=== PATIENT | male | born 1955 | race Caucasian/White ===

== ENCOUNTER 2017-09-30 18:06 | Outpatient (REF) | payer MEDICARE, SELFPAY ==
[2017-09-30 18:56] LABS: Abs Immature Grans 0.06 k/cumm (0.0-0.09); Absolute Lymphocyte Count 1.75 k/cumm (1.2-3.4); Absolute Monocyte Count 0.89 k/cumm (0.11-0.7); Basophils % 0.2; Eosinophils % 2.5; HCT 32.9 % (40.0-50.0); HGB 9.2 g/dL (13.5-17.5); Immature Grans % 0.5; Lymphocytes % 14.4; Mean Corpuscular Hemoglobin 24.3 pg (27.0-33.0); Mean Platelet Volume 10.1 fL (8.0-11.0); Monocytes % 7.3; Neutrophils % 75.1; Platelet Count 324 x1000/uL (130-400); RBC 3.78 m/cumm (4.50-6.00); White Blood Cell Count 12.14 k/cumm (4.4-10.8)
[2017-09-30 19:00] LABS: ALT 30 U/L (12-78); AST 20 U/L (15-37); Albumin 2.4 g/dL (3.4-5.0); Alkaline Phosphatase 114 U/L (46-116); Anion Gap 7.2 mmol/L (3-11); BUN 14 mg/dL (7-18); Bilirubin, Total 0.2 mg/dL (0.2-1.0); CO2 30.8 mmol/L (21.0-32.0); CREATININE 1.22 mg/dL (0.70-1.30); Calcium 8.3 mg/dL (8.5-10.1); Chloride 100 mmol/L (98-107); Creatine Kinase 37 U/L (39-308); Glucose 145 mg/dL (70-100); Potassium 3.9 mmol/L (3.5-5.1); Sodium 138 mmol/L (136-145); Total Protein 6.2 g/dL (6.4-8.2)
[2017-09-30 19:23] LABS: Absolute Basophil Count 0.02 k/cumm (0.0-0.2); Absolute Neutrophil Count 9.12 k/cumm (1.2-6.7)
== END 2017-09-30 18:07 ==
LOC: LBN 18:06
PROVIDERS: PCP Family Medicine; Visit Provider Family Medicine
DX: M24.661 Ankylosis, right knee (principal); Z79.01 Long term (current) use of anticoagulants; D69.2 Other nonthrombocytopenic purpura; E11.9 Type 2 diabetes mellitus without complications; I10 Essential (primary) hypertension; I51.7 Cardiomegaly
CPT/HCPCS: 80053; 82550; 85025; 86140

== ENCOUNTER 2017-10-07 17:11 | Outpatient (REF) | payer MEDICARE, SELFPAY ==
[2017-10-07 17:38] LABS: HCT 36.2 % (40.0-50.0); HGB 10.1 g/dL (13.5-17.5); Mean Corp. HGB Concentration 27.9 g/dL (32.0-36.0); Mean Corpuscular Hemoglobin 24.2 pg (27.0-33.0); Mean Corpuscular Volume 86.8 fL (80-95); Mean Platelet Volume 10.6 fL (8.0-11.0); Platelet Count 282 x1000/uL (130-400); RBC 4.17 m/cumm (4.50-6.00); RBC Distribution Width 16.8 % (11.8-14.1); White Blood Cell Count 11.44 k/cumm (4.4-10.8)
[2017-10-07 17:59] LABS: ALT 30 U/L (12-78); AST 26 U/L (15-37); Albumin 2.6 g/dL (3.4-5.0); Alkaline Phosphatase 111 U/L (46-116); Anion Gap 8.3 mmol/L (3-11); BUN 15 mg/dL (7-18); Bilirubin, Total 0.2 mg/dL (0.2-1.0); C-Reactive Protein 1.78 mg/dL (0.0-0.3); CO2 29.7 mmol/L (21.0-32.0); CREATININE 1.15 mg/dL (0.70-1.30); Calcium 8.6 mg/dL (8.5-10.1); Chloride 98 mmol/L (98-107); Glucose 195 mg/dL (70-100); Potassium 4.2 mmol/L (3.5-5.1); Sodium 136 mmol/L (136-145); Total Protein 6.6 g/dL (6.4-8.2)
== END 2017-10-07 17:12 ==
LOC: LBN 17:11
PROVIDERS: PCP Family Medicine; Visit Provider Family Medicine
DX: D62 Acute posthemorrhagic anemia (principal)
CPT/HCPCS: 80053; 85027; 86140

== ENCOUNTER 2017-10-11 07:13 | Outpatient (RCR) | payer MEDICARE, SELFPAY | END 2017-10-25 | LOC: INF 07:13 | PROVIDERS: PCP Family Medicine; Visit Provider Family Medicine | DX: Z45.2 Encounter for adjustment and management of vascular access device (principal) | CPT/HCPCS: 99211 ==

== ENCOUNTER 2017-10-31 22:47 | Inpatient (IN) | payer MEDICARE, MEDICAID, SELFPAY ==
[2017-10-31] VITALS (16 sets, daily range): BP systolic 106–132; BP diastolic 53–66; PULSE 87–94; RESP 2–30; TEMP 37; O2SAT 86–92
--- NOTE | 2017-10-31 00:30 | DI.RAD_ITS ---
SYMPTOM/DIAGNOSIS: COUGH, SOB AP AND LATERAL CHEST: Comparison is made with 09/09/17. The exam is limited due to patient body habitus. The heart size is within normal limits. There are underlying interstitial changes. No superimposed acute infiltrate or effusion is seen. IMPRESSION: Limited exam due to respiratory motion and patient body habitus. No acute abnormality is visible.
--- NOTE | 2017-10-31 22:55 | W.ED.GENAD ---
Discharge Plan Disposition Patient Disposition: [facility] INPATIENT Condition: Serious Discharge Details Chief Complaint: AMS/LOC Clinical Impression: COPD exacerbation, Non-ST elevation (NSTEMI) myocardial infarction Reason For Visit: SHAAN Primary Care Provider: Allison Muniz ED Provider: Migel Calderon [place] Meds and New Rx's Prescriptions: No Action ferrous sulfate [Iron (ferrous sulfate)] 325 MG tablet 325 mg PO DAILY RF: 0 pantoprazole 40 MG tablet,delayed release (DR/EC) 40 mg PO DAILY@0730 Qty: 30 RF: 3 lisinopril 5 mg Tablet 5 mg PO DAILY RF: 0 furosemide 20 mg Tablet 20 mg PO DAILY RF: 0 gabapentin 100 MG capsule 400 mg PO TID RF: 0 multivit, iron, min no.8, FA [Therapeutic-M] 1 TAB tablet 1 tab PO BID Qty: 30 RF: 3 methadone [Dolophine] 5 MG tablet 10 mg PO Q8H RF: 0 acetaminophen 500 MG tablet 1,000 mg PO DAILY PRNRF: 0 metformin [Glucophage] 1,000 MG tablet 1,000 mg PO BID RF: 0 tiotropium bromide [Spiriva with HandiHaler] 18 MCG capsule, w/inhalation device 18 mcg Inhalation DAILY RF: 0 albuterol sulfate [ProAir RespiClick] 90 MCG aerosol powdr breath activated 2 puffs Inhalation Q4H PRN PRNRF: 0 sucralfate 1 GM tablet 1 gm PO TID RF: 0 Medical Decision Making MDM Narrative Medical decision making narrative: Patient arrives awake and alert stating he no longer feels short of breath. However he has diffuse wheezing and decreased breath sounds. 3 albuterol nebs ordered. Solu-Medrol ordered. EKG was obtained. It is sinus rhythm at a rate of [address] changes noted. Laboratory studies and chest x-ray ordered. Patient vital signs are good although his O2 saturations on 3 L nasal cannula ranged from 88-94 depending on whether he is awake or asleep. Laboratory studies significant for troponin of 1.37. Given his unremarkable EKG and his lack of chest pain I suspect this is related to demand ischemia from his COPD and hypoxia. He does have anemia with hemoglobin 9.5. White count essentially normal at 11. Chemistry significant for creatinine 1.8 which is above baseline. Bicarb a little high at 35 suggesting some CO2 retention. He is awake and alert. He is not in respiratory distress. Repeat lung exam reveals better aeration but continued wheezing. Chest x-ray per radiology preliminary read is negative. I repeated a second EKG which remains in sinus rhythm at 90 without changes from before. Second troponin being drawn now. Will discuss with cardiology at [facility]. Patient's second troponin has gone up slightly to 1.55. Patient continues to be chest pain-free. Case discussed with cardiology, Dr. Aragon, at [facility]. May be that this is demand ischemia but the troponin levels are quite high. Recommend treating for non-STEMI and give aspirin, Plavix, heparin. Trend enzymes and call back to discuss with cardiology after 8:00 in the morning. He may need to go down for catheterization in the afternoon. Case discussed with hospitalist, Dr. Wheeler. We will continue to treat for COPD exacerbation. Will cover with antibiotics especially since there may be a cath later today. He was given IV ceftriaxone and p.o. doxycycline. He is given the aspirin, Plavix, and started on a heparin drip as per cardiology's recommendations. He is anemic but it is a baseline anemia. reports no recent bleeding, surgeries, black stool, bloody stool. Patient will be admitted to the ICU for further management. Medical Records Medical records reviewed: Yes I reviewed the patient's medical records. Lab Data Lab results reviewed: Yes I reviewed the patient's lab results. ECG Data Attestation: I personally reviewed and interpreted this ECG (s) as follows: Prior ECG tracings: not available for review Interpretation: Sinus rhythm at 90 with normal axis and intervals. No acute ST changes. Sinus rhythm again with rate in the 90's and no changes compared to one done earlier tonight. HPI - General Adult General Mode of arrival: EMS. Date/Time Provider Initiated Documentation: 10/31/17 22:51. Information obtained by: patient, EMS and old records reviewed. HPI Narrative: Patient is brought in by ambulance for evaluation of shortness of breath and altered mental status. On EMS arrival sats were in the high 70s low 80s. He was placed on oxygen and given a DuoNeb treatment. He arrives here awake and alert and does not appear altered. He has no complaints other than some shortness of breath, but states he does feel better after the neb treatment. He denies any chest pain, pressure, tightness. He denies any worsening leg swelling. He denies any leg pain. He has no fever that he is aware of. He is a former smoker. Related Data Home Medications Medication Instructions Recorded Confirmed gabapentin 400 mg PO TID 10/12/16 10/31/17 ferrous sulfate [Iron (ferrous 325 mg PO DAILY 11/16/16 10/31/17 sulfate)] methadone [Dolophine] 10 mg PO Q8H 03/15/17 10/31/17 acetaminophen 1,000 mg PO DAILY PRN 09/09/17 10/31/17 albuterol sulfate [Proair 2 puffs INHALATION Q4H PRN PRN 09/09/17 10/31/17 Respiclick] metformin [Glucophage] 1,000 mg PO BID 09/09/17 10/31/17 sucralfate 1 gm PO TID 09/09/17 10/31/17 tiotropium bromide [Spiriva] 18 mcg INHALATION DAILY 09/09/17 10/31/17 furosemide 20 mg PO DAILY 10/31/17 10/31/17 lisinopril 5 mg PO DAILY 10/31/17 10/31/17 Previous Rx's Medication Instructions Recorded pantoprazole 40 mg PO DAILY@0730 #30 09/13/16 multivit, iron, min no.8, FA 1 tab PO BID #30 tab 10/14/16 [Therapeutic-M] Allergies Allergy/AdvReac Type Severity Reaction Status Date / Time Iodinated Contrast- Oral and Allergy Hives Verified 10/31/17 23:02 IV Dye General Stated Complaint: AMS/LOC YVAN: 2 Review of Systems Constitutional Denies chills, Denies fever(s), Denies headache(s) and Denies weakness Eyes Patient Denies change in vision and Denies eye pain ENT Denies otalgia, Denies headache(s), Denies nasal congestion, Denies nasal discharge and Denies sore throat Cardiovascular Denies chest pain, Denies syncope, Denies rapid heart rate, Reports pedal edema, Denies lightheadedness, Denies palpitations and Reports dyspnea Respiratory Reports cough and Reports dyspnea Gastrointestinal Denies abdominal pain, Denies diarrhea, Denies nausea and Denies vomiting Genitourinary Denies hematuria and Denies dysuria Musculoskeletal Denies myalgias, Denies arthralgias and Denies numbness Integumentary/Breasts Denies erythema and Denies rash Neurologic Denies syncope, Denies headache(s), Denies numbness and Denies weakness Endocrine Denies palpitations PFSH Medical History Chronic osteomyelitis (Chronic) Diabetes mellitus (Chronic) HTN (hypertension) (Chronic) CARLOS (obstructive sleep apnea) (Chronic) Social History Smoking/Tobacco Use Status: Former Tobacco Use Surgical History Previous back surgery (Chronic) S/P hernia repair (Chronic) S/P right knee surgery (Chronic) Status post left knee replacement (Chronic) EGD - MAC (09/10/16) Exam Const General: cooperative, comfortable and no acute distress Nutritional Appearance: obese Orientation: alert, awake and oriented x3 HENMT Head: normocephalic and atraumatic Neck Neck: full ROM Resp Effort & Inspection: normal respiratory effort, audible wheezes and no respiratory distress Auscultation: diminished lung sounds and wheezes Cardio Rate: regular rate Rhythm: regular rhythm Heart Sounds: S1 normal and S2 normal Pulses: normal peripheral pulses GI Palpation: soft, no guarding and nontender Skin Lesions: no lesions Rashes: no rashes Neuro General: alert, oriented x3, moves all extremities, no focal motor deficits and CN's II-XI intact bilaterally Extrem General: no calf tenderness bilaterally and pedal edema Right lower extremity: knee Details: abnormal to inspection, swelling and abnormal ROM; no unusual warmth Course Vital Signs Temperature 98.6 F 10/31/17 22:48 Pulse 93 H 10/31/17 22:48 Respiratory Rate 10/31/17 22:48 Blood Pressure 124/66 10/31/17 22:48 Pulse Oximetry 86 L 10/31/17 22:48 Temperature 98.6 F 10/31/17 22:48 Pulse 93 H 10/31/17 22:48 Respiratory Rate 18 10/31/17 22:48 Blood Pressure 124/66 10/31/17 22:48 Pulse Oximetry 86 L 10/31/17 22:48 Critical Care Time Critical Care Time: Yes Total Critical Care Time: 60
[2017-10-31 23:15] LABS: Absolute Basophil Count 0.02 k/cumm (0.0-0.2); Basophils % 0.2
[2017-10-31] MEDS: Albuterol 2.5 MG/3 ML INH SOLN VIAL UPD (23:22)
[2017-10-31] MEDS: methylPREDNISolone SUCC 125 MG VIAL IVP (23:23)
[2017-10-31 23:47] LABS: Abs Immature Grans 0.06 k/cumm (0.0-0.09); Absolute Lymphocyte Count 1.18 k/cumm (1.2-3.4); Absolute Monocyte Count 0.76 k/cumm (0.11-0.7); HCT 34.8 % (40.0-50.0); HGB 9.5 g/dL (13.5-17.5); Immature Grans % 0.5; Lymphocytes % 10.5; Mean Corp. HGB Concentration 27.3 g/dL (32.0-36.0); Mean Corpuscular Hemoglobin 24.5 pg (27.0-33.0); Mean Corpuscular Volume 89.7 fL (80-95); Monocytes % 6.8; Platelet Count 270 x1000/uL (130-400); RBC 3.88 m/cumm (4.50-6.00); RBC Distribution Width 17.7 % (11.8-14.1); White Blood Cell Count 11.22 k/cumm (4.4-10.8)
[2017-10-31 23:49] LABS: Hypochromasia 2+; Polychromasia Present
[2017-11-01] VITALS (101 sets, daily range): BP systolic 97–161; BP diastolic 50–116; PULSE 62–131; RESP 4–26; TEMP 36.2–37; O2SAT 84–98
[2017-11-01 00:02] LABS: ALT 18 U/L (12-78); AST 18 U/L (15-37); Albumin 2.1 g/dL (3.4-5.0); Alkaline Phosphatase 94 U/L (46-116); Anion Gap 0 mmol/L (3-11); BUN 23 mg/dL (7-18); Bilirubin, Total 0.3 mg/dL (0.2-1.0); CREATININE 1.76 mg/dL (0.70-1.30); Calcium 7.7 mg/dL (8.5-10.1); Chloride 97 mmol/L (98-107); Glucose 225 mg/dL (70-100); Magnesium 1.9 mg/dL (1.8-2.4); Potassium 4.8 mmol/L (3.5-5.1); Sodium 132 mmol/L (136-145); Total Protein 6.2 g/dL (6.4-8.2)
[2017-11-01 00:04] LABS: Troponin I 1.37 ng/mL (0.00-0.06)
--- NOTE | 2017-11-01 01:04 | DI.VRAD_ITS ---
EXAM: XR Chest, 2 Views CLINICAL HISTORY: 62 years old, male; Signs and symptoms; Cough and shortness of breath; Patient HX: Cough, SOB TECHNIQUE: Frontal and lateral views of the chest. COMPARISON: CR - PORTABLE CHEST ONE VIEW 09/09/2017 10:14 AM FINDINGS: Limitations: Limited from body habitus. Lungs: Unremarkable. No consolidation. Pleural space: Unremarkable. No pneumothorax. Heart: Unremarkable. No cardiomegaly. Mediastinum: Unremarkable. Bones/joints: Unremarkable. IMPRESSION: No acute findings. Dictated and Authenticated by: Jean Pierre Hamm MD. Ordering:TESSA CONWAY MD
[2017-11-01 01:46] LABS: Troponin I 1.55 ng/mL (0.00-0.06)
[2017-11-01] MEDS: Aspirin 81 MG CHEW 324 MG CH (02:47)
[2017-11-01] MEDS: Clopidogrel 300 MG TAB PO (02:48)
[2017-11-01] MEDS: Doxycycline Hyclate 100 MG CAP PO (02:50)
[2017-11-01 02:55] LABS: INR 0.9 (1.0-3.5); PTT Activated 22.8 sec (21.0-31.4); Prothrombin Time 9.1 sec (9.3-10.8)
[2017-11-01] MEDS: Lactated Ringers 1,000 ML 100 ML IV (03:26)
[2017-11-01] MEDS: Methadone 5 MG TAB 10 MG PO ×3 (04:33→20:00)
[2017-11-01] MEDS: Albuterol/Ipratropium 3 ML UPD VIAL UPD ×4 (04:36→21:42)
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
--- NOTE | 2017-11-01 07:24 | DI.US_ITS ---
SYMPTOMS/DIAGNOSIS: LEG PAIN BILATERAL LOWER EXTREMITY ULTRASOUND: Edema is noted in the right calf. There is enlarged right groin lymph node, consistent with a reactive lymph node. There is limited visualization of the mid to distal femoral veins bilaterally due to patient body habitus. No deep venous thrombosis or superficial thrombophlebitis is seen. There is no evidence of wen's cyst. IMPRESSION: Right calf edema. No evidence of DVT.
[2017-11-01 07:32] LABS: INR 0.9 (1.0-3.5); Prothrombin Time 9.2 sec (9.3-10.8)
[2017-11-01 07:40] LABS: ALT 21 U/L (12-78); AST 24 U/L (15-37); Albumin 2.2 g/dL (3.4-5.0); Alkaline Phosphatase 99 U/L (46-116); Anion Gap 3.2 mmol/L (3-11); BUN 26 mg/dL (7-18); Bilirubin, Total 0.3 mg/dL (0.2-1.0); CO2 31.8 mmol/L (21.0-32.0); CREATININE 1.76 mg/dL (0.70-1.30); Chloride 97 mmol/L (98-107); Cholesterol 242 mg/dL (50-200); Glucose 322 mg/dL (70-100); HDL Cholesterol 51 mg/dL (40-60); Hemoglobin A1C 7.1 % (4.5-6.2); LDL CHOLESTEROL 178 mg/dL (<100); Sodium 132 mmol/L (136-145); Total Protein 6.7 g/dL (6.4-8.2); Triglyceride 169 mg/dL (30-150)
[2017-11-01 07:50] LABS: Potassium 6.3 mmol/L (3.5-5.1)
[2017-11-01 07:51] LABS: Troponin I 1.98 ng/mL (0.00-0.06)
--- NOTE | 2017-11-01 07:59 | PDOC.CMIN ---
- If Service Date Differs Date of service: 11/01/17 Time of Service: 07:59 Care Management Initial Assess REASON FOR HOSPITALIZATION:: NSTEMI PAST MEDICAL HISTORY/PAST SURGICAL HISTORY:: DM, HTN, chronic back pain, memory deficit, bilat knee surgery PREVIOUS FUNCTIONAL STATUS/SOCIAL/FAMILY SUPPORTS:: Piyush and his spouse Olga live in [place] in a home that they rent. Their daughter and three children also live in the home. Olga proivded support to [employer] she does the driving and meal preperation. Piyush is disabled related to his multiple knee surgeries and chronic pain. Piyush was recently at [facility] and was discharged on the 11 of October. He was admitted there after having a procedure on his knee for short term rehab. CURRENT FUNCTIONAL STATUS:: Piyush is sitting up in the bed he is alert, complains of hunger he is NPO for potential [place] [facility] He would like to return to [facility] for continued short term rehab stay post knee surgery. CM contacted facility and left a vocemail for admission director. ADVANCE DIRECTIVES:: None on file Has patient been provided with information about the portal?: Yes Did the patient sign up for the portal?: No INSURANCE COVERAGE / FINANCIAL ISSUES:: Medicare CURRENT HOME/COMMUNITY SERVICES/EQUIPMENT:: CPAP at home through [employer] he states he does not use it. The mask makes him feel claustrophobic. He has not requested a new mask through [facility] his states she is planning on returning it. Piyush reports he has a FWW and cane at home. PRIMARY CARE PHYSICIAN:: POTENTIAL DISCHARGE NEEDS:: Primary care follow up scheduled prior to discharge. PATIENT/FAMILY EDUCATION NEEDS:: Discharge education, limitations and follow up plan of care, ask me three discussion and self management. ANTICIPATED BARRIERS TO DISCHARGE:: None identified. TRANSPORTATION:: Via private car with spouse. PLAN:: Piyush is being treated for COPD, his troponins are elevated, he is on a heparin drip and now has a rios cath. Potential for transfer [place] [facility] pending follow up labs and trending troponin. Spouse and patient would like to return to [facility] for ongoing short stay for rehab realted to knee surgery and acute on chronic illness. CM contacted and left a voicemail for admissions. 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 CM to continue to provide support to pt, family and care team ongoing discharge planning and disposition. Readmission - Within the Past 30 Days Yes or No: N
[2017-11-01] MEDS: Pantoprazole 40 MG TABCR PO (08:11)
[2017-11-01] MEDS: Aspirin E.C. 81 MG TABEC PO (08:11)
[2017-11-01] MEDS: Gabapentin 400 MG CAP PO ×3 (08:11→20:00)
[2017-11-01] MEDS: Clopidogrel 75 MG TAB PO (08:11)
[2017-11-01] MEDS: Multivitamin w/Minerals TAB 1 TAB PO ×2 (08:12→20:01)
[2017-11-01] MEDS: Sucralfate 1 GM TAB PO ×3 (08:12→20:01)
[2017-11-01] MEDS: Insulin Aspart 300 UNITS/3 ML PEN SC ×5 (08:15→17:43)
--- NOTE | 2017-11-01 08:28 | INITIAL_ITS ---
- If Service Date Differs Date of service: 11/01/17 Time of Service: 07:59 Care Management Initial Assess REASON FOR HOSPITALIZATION:: NSTEMI PAST MEDICAL HISTORY/PAST SURGICAL HISTORY:: DM, HTN, chronic back pain, memory deficit, bilat knee surgery PREVIOUS FUNCTIONAL STATUS/SOCIAL/FAMILY SUPPORTS:: Piyush and his spouse Olga live in [facility] in a home that they rent. Their daughter and three children also live in the home. Olga proivded support to Windy she does the driving and meal preperation. Piyush is disabled related to his multiple knee surgeries and chronic pain. Piyush was recently at [facility] and was discharged on the 11 of October. He was admitted there after having a procedure on his knee for short term rehab. CURRENT FUNCTIONAL STATUS:: Piyush is sitting up in the bed he is alert, complains of hunger he is NPO for potential [place] [facility] He would like to return to [facility] for continued short term rehab stay post knee surgery. CM contacted facility and left a vocemail for admission director. ADVANCE DIRECTIVES:: None on file Has patient been provided with information about the portal?: Yes Did the patient sign up for the portal?: No INSURANCE COVERAGE / FINANCIAL ISSUES:: Medicare CURRENT HOME/COMMUNITY SERVICES/EQUIPMENT:: CPAP at home through [employer] he states he does not use it. The mask makes him feel claustrophobic. He has not requested a new mask through [facility] his states she is planning on returning it. Piyush reports he has a FWW and cane at home. PRIMARY CARE PHYSICIAN:: POTENTIAL DISCHARGE NEEDS:: Primary care follow up scheduled prior to discharge. PATIENT/FAMILY EDUCATION NEEDS:: Discharge education, limitations and follow up plan of care, ask me three discussion and self management. ANTICIPATED BARRIERS TO DISCHARGE:: None identified. TRANSPORTATION:: Via private car with spouse. PLAN:: Piyush is being treated for COPD, his troponins are elevated, he is on a heparin drip and now has a rios cath. Potential for transfer [place] [facility] [place] follow up labs and trending troponin. Spouse and patient would like to return to [facility] for ongoing short stay for rehab realted to knee surgery and acute on chronic illness. CM contacted and left a voicemail for admissions. 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 CM to continue to provide support to pt, family and care team ongoing discharge planning and disposition. Readmission - Within the Past 30 Days Yes or No: N
[2017-11-01 08:53] LABS: Abs Immature Grans 0.04 k/cumm (0.0-0.09); Absolute Basophil Count 0.01 k/cumm (0.0-0.2); Absolute Lymphocyte Count 0.47 k/cumm (1.2-3.4); Absolute Monocyte Count 0.12 k/cumm (0.11-0.7); Basophils % 0.1; HCT 36.7 % (40.0-50.0); HGB 10.1 g/dL (13.5-17.5); Immature Grans % 0.4; Lymphocytes % 4.5; Mean Corp. HGB Concentration 27.5 g/dL (32.0-36.0); Mean Corpuscular Hemoglobin 23.9 pg (27.0-33.0); Mean Corpuscular Volume 86.8 fL (80-95); Monocytes % 1.2; Neutrophils % 93.8; Platelet Count 261 x1000/uL (130-400); RBC 4.23 m/cumm (4.50-6.00); RBC Distribution Width 17.7 % (11.8-14.1); White Blood Cell Count 10.34 k/cumm (4.4-10.8)
[2017-11-01 09:13] LABS: Iron 21 ug/dL (50-175); Total Iron Binding Capacity 405 ug/dL (250-450); Transferrin Sat 5 % (20-55)
[2017-11-01 09:27] LABS: Ferritin 28 ng/mL (8-388)
[2017-11-01] MEDS: methylPREDNISolone SUCC 125 MG VIAL 60 MG IVP ×2 (09:28→16:24)
[2017-11-01] MEDS: Normal Saline 1,000 ML 75 ML IV (09:29)
[2017-11-01] MEDS: Metoprolol 12.5 MG TAB 6.25 MG PO ×2 (09:35→20:00)
[2017-11-01 09:36] LABS: Folate 9.9 ng/mL (8.6-20.0); TSH 4.33 uIU/mL (0.358-3.74)
[2017-11-01 09:48] LABS: Vitamin B12 425 pg/mL (193-986)
[2017-11-01] MEDS: Normal Saline Flush 10 ML SYR IVP (09:54)
[2017-11-01 10:24] LABS: PTT Activated 22.9 sec (21.0-31.4)
--- NOTE | 2017-11-01 10:44 | MERGE_ITS ---
*[facility]* *[facility]* [address] [place] [address] Date of study: 11/01/2017 Transthoracic Echocardiography M-mode, complete 2D, complete spectral Doppler, and color Doppler *STUDY CONCLUSIONS* Summary: 1. Procedure narrative: Image quality was suboptimal due to body habitus and poor echo windows. Intravenous contrast (Definity) was administered, however, despite this suboptimal imaging of LV for accurate assessment. 2. Left ventricle: The cavity size was normal. Wall thickness was normal. Systolic function was normal. The estimated ejection fraction was 55-60%. Although no diagnostic regional wall motion abnormality was identified, this possibility cannot be completely excluded on the basis of this study. 3. Right ventricle: The cavity size was normal. Systolic function was normal. *PATIENT PRESENTATION* Height: 152.4cm ((60in) ) S/D Pressure: 139 / 96 Weight: 158.8kg ((349.3lb) ) BSA: 2.72m^2 PERFORMING Unknown PERFORMING [facility] REFERRING Sony Wheeler MANAGER HOME IMPROVEMENT Sherry Gamino *PROCEDURE DATA* Procedure information: This study was interpreted by [facility]. Pertinent images and digital data are archived for permanent storage and are available for subsequent review. Comparison was made to the study of 01/07/2017. Study status: STAT. Transthoracic echocardiography. M-mode, complete 2D, complete spectral Doppler, and color Doppler. A Transthoracic Echocardiogram was performed. Scanning was performed from the parasternal, apical, subcostal, and suprasternal notch acoustic windows. Images were obtained using an [id number] cardiac ultrasound machine. Image quality was suboptimal. Intravenous contrast (Definity) was administered by [employer] [facility] to enhance delineation of left ventricular endocardial borders. Prior to administration at least two (2) contiguous segments of the left ventricular border were not visualized. Study completion: The patient tolerated the procedure well. There were no complications. *CARDIAC ANATOMY* Left ventricle: Poorly visualized. The cavity size was normal. Wall thickness was normal. Systolic function was normal. The estimated ejection fraction was 55-60%. Although no diagnostic regional wall motion abnormality was identified, this possibility cannot be completely excluded on the basis of this study. Aortic valve: Poorly visualized. Probably trileaflet; normal thickness leaflets. Mobility was not restricted. Doppler: Transvalvular velocity was within the normal range. There was no stenosis. There was no significant regurgitation. VTI ratio of LVOT to aortic valve: 0.79. Peak velocity ratio of LVOT to aortic valve: 0.62. Mean velocity ratio of LVOT to aortic valve: 0.69. Mean gradient (S): 3.1mm Hg. Peak gradient (S): 8.3mm Hg. Aorta: Aortic root: The aortic root was normal in size. Mitral valve: Poorly visualized. Structurally normal valve. Mobility was not restricted. Doppler: Transvalvular velocity was within the normal range. There was no evidence for stenosis. There was mild regurgitation. Valve area by pressure half-time: 3.7cm^2. Indexed valve area by pressure half-time: 1.4cm^2/m^2. Peak gradient (D): 3.2mm Hg. Left atrium: Not visualized. Right ventricle: Not well visualized. The cavity size was normal. Systolic function was normal. Pulmonic valve: Poorly visualized. Doppler: Transvalvular velocity was within the normal range. There was no evidence for stenosis. There was no significant regurgitation. Tricuspid valve: Poorly visualized. Structurally normal valve. Doppler: Transvalvular velocity was within the normal range. There was no evidence for stenosis. There was no significant regurgitation. Pulmonary artery: Poorly visualized. Systolic pressure could not be accurately estimated. Right atrium: Not visualized. Pericardium: There was no pericardial effusion. Systemic veins: Inferior vena cava: The vessel was normal in size. Measurements LVOT Value 01/07/2017 Reference LVOT peak velocity, S 0.89 m/sec 1.16 --------- LVOT mean velocity, S 0.58 m/sec --------- LVOT VTI, S 17.2 cm 23.3 --------- LVOT peak gradient, S 3.2 mm Hg 5.4 --------- LVOT mean gradient, S 1.6 mm Hg 2.8 --------- Aortic valve Value 01/07/2017 Reference Aortic valve peak velocity, S 1.4 m/sec 1.5 --------- Aortic valve mean velocity, S 0.84 m/sec 0.01 --------- Aortic valve VTI, S 21.9 cm --------- Aortic mean gradient, S 3.1 mm Hg 5.3 --------- Aortic peak gradient, S 8.3 mm Hg --------- VTI ratio, LVOT/AV 0.79 0.74 --------- Velocity ratio, peak, LVOT/AV 0.62 0.76 --------- Velocity ratio, mean, LVOT/AV 0.69 --------- Mitral valve Value 01/07/2017 Reference Mitral E-wave peak velocity 0.9 m/sec 0.77 --------- Mitral A-wave peak velocity 0.81 m/sec 0.69 --------- Mitral deceleration time 203 ms 235 150 - 230 Mitral pressure half-time 59 ms 68 --------- Mitral peak gradient, D 3.2 mm Hg 2.4 --------- Mitral E/A ratio, peak 1.1 1.12 --------- Mitral valve area, PHT, DP 3.7 cm^2 3.2 --------- Legend: (L) and (H) husam values outside specified reference range. I have personally reviewed the images and have reviewed and edited the reported findings. Electronically signed by Elizabeth Kingsley 11/01/2017 11:20
[2017-11-01] MEDS: Lidocaine 2% Jelly 11 ML SYR UR (10:53)
[2017-11-01 10:54] LABS: BE 7.6 mmol/L (-3-3); HCO3 32 mmol/L (22-28); pCO2 50 mmHg (34-47); pH 7.42 (7.35-7.45); pO2 66 mmHg (83-108); sO2 94 % (94-98); tCO2 30 mmol/L (22-29)
[2017-11-01 10:55] LABS: FIO2 NASAL CANNULA %; FIO2L 5 L; Site Right Radial
--- NOTE | 2017-11-01 11:10 | PHARADMIT ---
Addendum entered by Shawn Ordaz III 11/05/17 15:07: Pharmacy Note Subjective MD notes that Patient is feeling better Objective BP-165/60 K+3.8 SCr-1.44 WBC-11.18 (UP) BM yesterday Assessment Steroid to PO Prednisone, Doxycycline to PO, Rocephin-dc'd BP-meds restarted from HOLD. Iron/Vit-C dc'd, Plan Thought was for him to tranfer to [facility] or directly back to [facility] today. Original Note: Addendum entered by Olivia Crisostomo 11/04/17 16:24: Pharmacy Note Subjective renal ultrasound today Objective BP-151/59 other VS okay SCr-1.48(down) FSBG-381 weight-166.8(up) Assessment amlodipine and metoprolol doses increased, isosorbide mononitrate started, methylprednisolone dose decreased, sodium polystyrene discontinued doxycycline and ceftriaxone continue lisinopril and furosemide still on hold Plan continue to watch VS, labs and for med changes Original Note: Addendum entered by Shawn Ordaz III 11/03/17 10:35: Pharmacy Note Subjective Remains afebrile, continue present care. Objective VS-OK K+5.7 Na-134 SCr-1.63 H&H,Plts,WBC-OK Wgt-163.3 kg (up) BM yesterday Assessment KXL8 continues, Rocephin,Docycyline IV continues. Plan Will probablyu go [place] [facility] [place] from [facility] Original Note: Addendum entered by Shawn Ordaz III 11/02/17 10:40: Pharmacy Note Subjective Afebrile, continue cardiac care. NSTEMI with Hypoxia frrom COPD Exacerbation. Afebrile Objective VS-OK K+6.3 Na-133 SCr-1.68 H&H-9.1/34.1, WBC-7.93 Plts OK Assessment Receiving KXL8, Heparin drip,Plavix,ASA continue. On Rocephin (bronchitis and IV Doxycycline ( suppression therapy for osteoof the knee) Plan Plan is for discharge to SNF ([facility]) when medically cleared. Original Note: Admission Pharmacy Clinical Review NSTEMI, COPD exacerbation. bronchitis Code Status Full Code Current Weight Wgt- 159 kg Renally Cleared and Narrow Therapeutic Index Meds CrCl~47 mL/min Meds-OK QTc Value / Action Taken Program na BP Control, Fever BP- 139/96 Tmax- 37C Electrolytes reviewed Na- 132 K+6.3 Mag- 1.9 DVT Prophylaxis Heparin IV, Plavix, ASA, Opiate Usage / Scheduled Bowel Regimen Ordered Yes Yes Plt/SCr for Heparin / Enoxaparin Plts- 261 SCr-1.76 INR for Warfarin INR-0.9 H/H stable, WBC/Bands H&H- 10.1/36.7 WBC- 10.34 Antibiotic appropriateness Rocephin, Doxycycline IV Cultures and Sensitivities NONE Surgical ABX d/c within 24 hr NA DM control / Insulin Dosing BG- 322, ASpart, Glargine GyL7p-3.1 Heart Failure (Check EF%) (MARIAA's, B-Block, Diuretics) Lasix, Lisinopril, NTG, Lopressor IV to PO Switch No Home Meds Reviewed Yes Home Meds Not Ordered Iron, Metformin, Spiriva Comments Troponin- 1.37 ^ 1.55 ^ 1.98
[2017-11-01 13:16] LABS: BUN 30 mg/dL (7-18); CREATININE 1.73 mg/dL (0.70-1.30); Calcium 8.5 mg/dL (8.5-10.1); Chloride 98 mmol/L (98-107); Estimated GFR 40.49 (mL/min/1.73m2); Glucose 241 mg/dL (70-100); Potassium 5.4 mmol/L (3.5-5.1); Sodium 133 mmol/L (136-145)
[2017-11-01 13:25] LABS: Troponin I 1.41 ng/mL (0.00-0.06)
[2017-11-01] MEDS: DOXYCYCLINE 100 MG in Normal Saline 100 ML IVPB (14:53)
[2017-11-01 18:00] LABS: PTT Activated 23.8 sec (21.0-31.4)
[2017-11-01] MEDS: Atorvastatin 40 MG TAB PO (20:01)
[2017-11-01] MEDS: Insulin Glargine 300 UNITS/3 ML PEN 15 UNITS SC (21:43)
[2017-11-02] VITALS (25 sets, daily range): BP systolic 116–156; BP diastolic 54–100; PULSE 63–94; RESP 1–16; TEMP 35.8–37; O2SAT 75–96
[2017-11-02] MEDS: methylPREDNISolone SUCC 125 MG VIAL 60 MG IVP ×3 (00:41→16:16)
[2017-11-02] MEDS: Normal Saline 1,000 ML 75 ML IV ×2 (00:41→14:28)
[2017-11-02 02:40] LABS: PTT Activated 29.7 sec (21.0-31.4)
[2017-11-02] MEDS: DOXYCYCLINE 100 MG in Normal Saline 100 ML IVPB ×2 (02:53→14:30)
[2017-11-02] MEDS: Methadone 5 MG TAB 10 MG PO ×3 (03:42→21:10)
[2017-11-02] MEDS: Normal Saline Flush 10 ML SYR IVP ×2 (03:42→16:16)
[2017-11-02 07:12] LABS: HCT 34.1 % (40.0-50.0); HGB 9.1 g/dL (13.5-17.5); Mean Corp. HGB Concentration 26.7 g/dL (32.0-36.0); Mean Corpuscular Hemoglobin 23.9 pg (27.0-33.0); Mean Corpuscular Volume 89.7 fL (80-95); Mean Platelet Volume 10.5 fL (8.0-11.0); Platelet Count 261 x1000/uL (130-400); RBC Distribution Width 17.4 % (11.8-14.1); White Blood Cell Count 7.93 k/cumm (4.4-10.8)
[2017-11-02 07:24] LABS: Anion Gap 1.8 mmol/L (3-11); BUN 36 mg/dL (7-18); CO2 33.2 mmol/L (21.0-32.0); CREATININE 1.68 mg/dL (0.70-1.30); Calcium 8.3 mg/dL (8.5-10.1); Chloride 98 mmol/L (98-107); Estimated GFR 41.89 (mL/min/1.73m2); Glucose 316 mg/dL (70-100); Sodium 133 mmol/L (136-145)
[2017-11-02 07:28] LABS: Potassium 6.3 mmol/L (3.5-5.1)
[2017-11-02] MEDS: Sucralfate 1 GM TAB PO ×3 (08:07→21:11)
[2017-11-02] MEDS: Multivitamin w/Minerals TAB 1 TAB PO ×2 (08:07→21:11)
[2017-11-02] MEDS: Metoprolol 12.5 MG TAB 6.25 MG PO ×2 (08:07→21:10)
[2017-11-02] MEDS: Aspirin E.C. 81 MG TABEC PO (08:07)
[2017-11-02] MEDS: Clopidogrel 75 MG TAB PO (08:07)
[2017-11-02] MEDS: Pantoprazole 40 MG TABCR PO (08:08)
[2017-11-02] MEDS: Insulin Aspart 300 UNITS/3 ML PEN SC ×6 (08:08→17:07)
[2017-11-02] MEDS: Gabapentin 400 MG CAP PO ×3 (08:08→21:10)
--- NOTE | 2017-11-02 08:32 | PDOC.CMPRO ---
- If Service Date Differs Date of service: 11/02/17 Time of Service: 08:32 Care Management Progress Note S/O: Piyush is asleep when CM enters the room. CM reviewed the current plan with primary nurse in the ICU. Anticpate no change in status today. Piyush remains on 4 liters of oxygen, per report he refused the BIPAP. Plan will be for Piyush to be discharged to a SNF for short term rehab prior to returning home with his spouse. A: 62 year old male admitted with NSTEMI in the setting of acute COPD exacerbation. He was discharged from [facility] on 10/11/17. Piyush is being treated with IV antibiotics, steroids and Heparin gtt. P:Piyush is being treated for COPD, he remains in the ICU. Anticipate no change in status today. 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 Piyush would like a referral to [facility]. CM faxed the referral to admission director at [facility] per request. CM to continue to provide support to pt, family and care team ongoing discharge planning and disposition.
--- NOTE | 2017-11-02 08:39 | CMPROGNOTE_ITS ---
- If Service Date Differs Date of service: 11/02/17 Time of Service: 08:32 Care Management Progress Note S/O: Piyush is asleep when CM enters the room. CM reviewed the current plan with primary nurse in the ICU. Anticpate no change in status today. Piyush remains on 4 liters of oxygen, per report he refused the BIPAP. Plan will be for Piyush to be discharged to a SNF for short term rehab prior to returning home with his spouse. A: 62 year old male admitted with NSTEMI in the setting of acute COPD exacerbation. He was discharged from [facility] on 10/11/17. Piyush is being treated with IV antibiotics, steroids and Heparin gtt. P:Piyush is being treated for COPD, he remains in the ICU. Anticipate no change in status today. 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 Piyush would like a referral to [facility]. CM faxed the referral to admission director at [facility] per request. CM to continue to provide support to pt, family and care team ongoing discharge planning and disposition.
[2017-11-02 09:41] LABS: PTT Activated 34.3 sec (21.0-31.4)
--- NOTE | 2017-11-02 10:14 | W.PM.PROGNOT ---
Date of service: 11/02/17 Time of Service: 10:15 Assessment and Plan (1) Non-ST elevation myocardial infarction (NSTEMI): Current visit: Yes Status: Acute NSTEMI in setting of Hypoxia secondary to presumed acute exacerbation of Chronic Obstructive Pulmonary Disease. Patient remains afebrile with maximized cardiac regimen. Will continue Plavix and aspirin, along with Heparin drip for a planned 48 hour course. Continue initiated BB and titrate as needed. Also on high potency statin and MARIAA-I. Troponin downtrended. ECHO obtained but with official result still pending. Plan will be to discuss with cardiology regarding need for LHC once stable from a pulmonary standpoint. Currently remains asymptomatic. Continue telemetry. (2) COPD exacerbation: Current visit: Yes Status: Acute Continue IV steroids and scheduled nebs. Also on ceftriaxone (Also remains on doxy for antibiotic suppression therapy - history of chronic osteo of the knee joint). Continue supplemental oxygen to maintain good saturation level given NSTEMI. (3) Acute kidney injury (nontraumatic): Current visit: Yes Status: Acute Creatinine stable and essentially unchanged. MARIAA-I and Lasix currently on hold. For now continue gentle IV fluid hydration and monitor labs closely. Initiate Kayexalate for hyperkalemia. Consider renal ultrasound if not improving. Avoid nephrotoxins and renally dose medications. (4) Iron deficiency anemia: Current visit: Yes Status: Chronic Normal Vitamin B12/Folic Acid, and minimally elevated TSH in setting of acute illness. Iron and Ferritin are both low, with a high normal TIBC. Initiate oral iron supplements with vitamin C. Continue PPI and sucralfate. Monitor Hgb closely and for any signs of GI bleeding particularly since he has been started on DAPT and heparin. (5) Hypertension: Current visit: Yes Status: Chronic Holding MARIAA-I. Started BB therapy. Will initiate CCB given need for improved blood pressure control. (6) Mixed sleep apnea: Current visit: Yes Status: Chronic Refusing BIPAP. Apparently he had been on BiPAP at home but refused to use it due to claustrophobia related to use of the mask. (7) Type 2 diabetes mellitus: Current visit: Yes Status: Chronic Continue to hold metformin. Continue lantus and ISS, ADA diet. (8) DVT prophylaxis: Current visit: Yes Status: Acute Currently on Heparin gtt. Subjective Interval history since last seen: 63-year-old male with a PMHx significant for HTN, DM, COPD, CARLOS, and chronic osteomyelitis of his right knee admitted from [facility] ED with apparent COPD exacerbation and NSTEMI. Mr. Heard was noted initially by EMS to be hypoxic with a saturation in the 70-80's. There was also reports of some mild altered mental status. The patient reported an approximate 1 day course of feeling ill, with increased cough and sputum production without fevers or rigors. Further work-up in the emergency room included an EKG that demonstrated no acute ST or T-wave changes. chest 2 Views that demonstrate COPD but no acute infiltrates and no CHF, and labs studies that were remarkable for a chronic anemia, mildly elevated WBC count, and a creatinine that was above his baseline. Furthermore troponin level was elevated at 1.37 with a repeat level came back at 1.55. Discussion by ED attending with [facility] [place] with likely NSTEMI in setting of hypoxia driven demand ischemia. The patient is asymptomatic from a cardiac standpoint. His troponin downtrended yesterday. He remains on a heparin drip. He also reports improvement from a breathing standpoint, but continues to have wheezing. No other events reported. Currently afebrile. Exam Const General: cooperative, comfortable and no acute distress Nutritional Appearance: obese Orientation: alert, awake and oriented x3 Neck Neck: supple Resp Effort & Inspection: normal respiratory effort, able to speak in complete sentences and no respiratory distress Auscultation: diminished lung sounds and wheezes (Diffuse) Cardio Rate: regular rate Heart Sounds: S1 normal and S2 normal GI Inspection: normal to inspection Palpation: soft, no guarding and nontender Auscultation: normal bowel sounds Extrem General: no calf tenderness and pedal edema Right lower extremity: knee Details: abnormal ROM Objective Objective Clinical Data: Abnormal lab results 11/01/17 11/01/17 11/01/17 Range/Units 10:25 12:55 12:55 RBC (4.50-6.00) m/cumm Hgb (13.5-17.5) g/dL Hct (40.0-50.0) % MCH (27.0-33.0) pg MCHC (32.0-36.0) g/dL RDW (11.8-14.1) % APTT (21.0-31.4) sec pCO2 50 H (34-47) mmHg pO2 66 L (83-108) mmHg ABG HCO3 32 H (22-28) mmol/L ABG Total CO2 30 H (22-29) mmol/L ABG Base Excess 7.6 H (-3-3) mmol/L Sodium 133 L (136-145) mmol/L Potassium 5.4 H (3.5-5.1) mmol/L Carbon Dioxide 33.0 H (21.0-32.0) mmol/L Anion Gap 2.0 L (3-11) mmol/L BUN 30 H (7-18) mg/dL Creatinine 1.73 H (0.70-1.30) mg/dL Glucose 241 H D (70-100) mg/dL Calcium (8.5-10.1) mg/dL Troponin I 1.41 H* (0.00-0.06) ng/mL 11/02/17 11/02/17 11/02/17 Range/Units 06:25 06:25 09:05 RBC 3.80 L (4.50-6.00) m/cumm Hgb 9.1 L (13.5-17.5) g/dL Hct 34.1 L (40.0-50.0) % MCH 23.9 L (27.0-33.0) pg MCHC 26.7 L (32.0-36.0) g/dL RDW 17.4 H (11.8-14.1) % APTT 34.3 H (21.0-31.4) sec pCO2 (34-47) mmHg pO2 (83-108) mmHg ABG HCO3 (22-28) mmol/L ABG Total CO2 (22-29) mmol/L ABG Base Excess (-3-3) mmol/L Sodium 133 L (136-145) mmol/L Potassium 6.3 H* (3.5-5.1) mmol/L Carbon Dioxide 33.2 H (21.0-32.0) mmol/L Anion Gap 1.8 L (3-11) mmol/L BUN 36 H (7-18) mg/dL Creatinine 1.68 H (0.70-1.30) mg/dL Glucose 316 H (70-100) mg/dL Calcium 8.3 L (8.5-10.1) mg/dL Troponin I (0.00-0.06) ng/mL Vital Signs Temp 36.0 C L 11/02/17 08:17 Pulse 68 11/02/17 08:01 Resp 13 11/02/17 04:01 BP 155/86 H 11/02/17 08:01 Pulse Ox 94 L 11/02/17 08:17 Intake & Output 11/01/17 11/01/17 11/02/17 11:59 23:59 11:59 Intake Total 685.834 / 642.969 4438.708 / 7681.165 9039.149 / 1165.149 Output Total 600 / 600 425 / 425 550 / 550 Balance 85.834 / 85.834 636.708 / 636.708 615.149 / 615.149 Weight 159 kg 160.1 kg Intake: IV 685.834 / 685.834 231.708 / 231.708 505.149 / 505.149 Oral 830 / 830 660 / 660 Output: Urine 600 / 600 425 / 425 550 / 550 Other: Urine Color Light Sandro Dark Sandro Dark Sandro Dark Red Urine Appearance Clear Cloudy Clear Hematuria Urine Odor Normal Comment hx retention. Avalos Cath in place, draining cloudy, blood-tinged urine. Avalos in place draining dark sandro urine. Voiding Methods Urinal Laboratory Results WBC 7.93 k/cumm (4.4-10.8) 11/02/17 06:25 RBC 3.80 m/cumm (4.50-6.00) L 11/02/17 06:25 Hgb 9.1 g/dL (13.5-17.5) L 11/02/17 06:25 Hct 34.1 % (40.0-50.0) L 11/02/17 06:25 MCV 89.7 fL (80-95) 11/02/17 06:25 MCH 23.9 pg (27.0-33.0) L 11/02/17 06:25 MCHC 26.7 g/dL (32.0-36.0) L 11/02/17 06:25 RDW 17.4 % (11.8-14.1) H 11/02/17 06:25 Plt Count 261 x1000/uL (130-400) 11/02/17 06:25 MPV 10.5 fL (8.0-11.0) 11/02/17 06:25 Immature Gran % 0.4 11/01/17 06:28 Neutrophils % 93.8 11/01/17 06:28 Lymphocytes % 4.5 11/01/17 06:28 Monocytes % 1.2 11/01/17 06:28 Eosinophils % 0.0 11/01/17 06:28 Basophils % 0.1 11/01/17 06:28 Absolute Neutrophils 9.70 k/cumm (1.2-6.7) H 11/01/17 06:28 Absolute Lymphocytes 0.47 k/cumm (1.2-3.4) L 11/01/17 06:28 Absolute Monocytes 0.12 k/cumm (0.11-0.7) 11/01/17 06:28 Absolute Eosinophils 0.00 k/cumm (0.0-0.7) 11/01/17 06: Absolute Basophils 0.01 k/cumm (0.0-0.2) 11/01/17 06:28 RBC Morphology See below 10/31/17 22:50 Polychromasia Present 10/31/17 22:50 Hypochromasia 2+ 10/31/17 22:50 PT 9.2 sec (9.3-10.8) L 11/01/17 06:28 INR 0.9 (1.0-3.5) L 11/01/17 06:28 APTT 34.3 sec (21.0-31.4) H 11/02/17 09:05 Sample Site Right radial 11/01/17 10:25 pCO2 50 mmHg (34-47) H 11/01/17 10:25 pO2 66 mmHg (83-108) L 11/01/17 10:25 O2 Saturation 94 % (94-98) 11/01/17 10:25 ABG pH 7.42 (7.35-7.45) 11/01/17 10:25 ABG HCO3 32 mmol/L (22-28) H 11/01/17 10:25 ABG Total CO2 30 mmol/L (22-29) H 11/01/17 10:25 ABG Base Excess 7.6 mmol/L (-3-3) H 11/01/17 10:25 Oxygen Liter Flow 5 L 11/01/17 10:25 FiO2 Nasal cannula % 11/01/17 10:25 Sodium 133 mmol/L (136-145) L 11/02/17 06:25 Potassium 6.3 mmol/L (3.5-5.1) H* 11/02/17 06:25 Chloride 98 mmol/L (98-107) 11/02/17 06:25 Carbon Dioxide 33.2 mmol/L (21.0-32.0) H 11/02/17 06:25 Anion Gap 1.8 mmol/L (3-11) L 11/02/17 06:25 BUN 36 mg/dL (7-18) H 11/02/17 06:25 Creatinine 1.68 mg/dL (0.70-1.30) H 11/02/17 06:25 Estimated GFR/1.73 m2 41.89 (mL/min/1.73m2) 11/02/17 06:25 Glucose 316 mg/dL (70-100) H 11/02/17 06:25 Hemoglobin A1c 7.1 % (4.5-6.2) H 11/01/17 06:28 Calcium 8.3 mg/dL (8.5-10.1) L 11/02/17 06:25 Magnesium 1.9 mg/dL (1.8-2.4) 10/31/17 22:50 Iron 21 ug/dL (50-175) L 11/01/17 02:38 TIBC 405 ug/dL (250-450) 11/01/17 02:38 Transferrin % Sat 5 % (20-55) L 11/01/17 02:38 Ferritin 28 ng/mL (8-388) 11/01/17 02:38 Total Bilirubin 0.3 mg/dL (0.2-1.0) 11/01/17 06:28 AST 24 U/L (15-37) 11/01/17 06:28 ALT 21 U/L (12-78) 11/01/17 06:28 Alkaline Phosphatase 99 U/L (46-116) 11/01/17 06:28 Troponin I 1.41 ng/mL (0.00-0.06) H* 11/01/17 12:55 Total Protein 6.7 g/dL (6.4-8.2) 11/01/17 06:28 Albumin 2.2 g/dL (3.4-5.0) L 11/01/17 06:28 Triglycerides 169 mg/dL (30-150) H 11/01/17 06:28 Total Cholesterol 242 mg/dL (50-200) H 11/01/17 06:28 LDL Cholesterol Direct 178 mg/dL (<100) H 11/01/17 06:28 HDL Cholesterol 51 mg/dL (40-60) 11/01/17 06:28 Vitamin B12 425 pg/mL (193-986) 11/01/17 02:38 Folate 9.9 ng/mL (8.6-20.0) 11/01/17 02:38 TSH 4.33 uIU/mL (0.358-3.74) H 11/01/17 02:38
[2017-11-02] MEDS: Albuterol/Ipratropium 3 ML UPD VIAL UPD ×3 (10:27→21:11)
[2017-11-02] MEDS: amLODIPine 5 MG TAB PO (11:40)
[2017-11-02 14:32] LABS: BUN 37 mg/dL (7-18); Calcium 8.2 mg/dL (8.5-10.1); Chloride 97 mmol/L (98-107); Estimated GFR 41.32 (mL/min/1.73m2); Glucose 305 mg/dL (70-100); Potassium 5.6 mmol/L (3.5-5.1); Sodium 131 mmol/L (136-145)
[2017-11-02 16:36] LABS: PTT Activated 40.5 sec (21.0-31.4)
[2017-11-02] MEDS: Ferrous Sulfate 325 MG TAB PO (21:10)
[2017-11-02] MEDS: Ascorbic Acid 500 MG TAB PO (21:11)
[2017-11-02] MEDS: Atorvastatin 40 MG TAB PO (21:11)
[2017-11-02] MEDS: Insulin Glargine 300 UNITS/3 ML PEN 15 UNITS SC (21:12)
[2017-11-03] VITALS (37 sets, daily range): BP systolic 109–180; BP diastolic 64–94; PULSE 62–86; RESP 1–18; TEMP 36.4–37.2; O2SAT 88–99
[2017-11-03] MEDS: methylPREDNISolone SUCC 125 MG VIAL 60 MG IVP ×3 (00:15→17:01)
[2017-11-03] MEDS: DOXYCYCLINE 100 MG in Normal Saline 100 ML IVPB ×2 (01:23→14:29)
[2017-11-03] MEDS: Albuterol/Ipratropium 3 ML UPD VIAL UPD ×4 (03:50→22:30)
[2017-11-03] MEDS: Methadone 5 MG TAB 10 MG PO ×3 (03:51→20:49)
[2017-11-03] MEDS: Normal Saline 1,000 ML 75 ML IV (06:08)
[2017-11-03 07:04] LABS: HCT 34.8 % (40.0-50.0); HGB 9.3 g/dL (13.5-17.5); Mean Corp. HGB Concentration 26.7 g/dL (32.0-36.0); Mean Corpuscular Hemoglobin 23.9 pg (27.0-33.0); Mean Corpuscular Volume 89.5 fL (80-95); Mean Platelet Volume 10.4 fL (8.0-11.0); Platelet Count 244 x1000/uL (130-400); RBC 3.89 m/cumm (4.50-6.00); RBC Distribution Width 17.3 % (11.8-14.1)
[2017-11-03 07:20] LABS: PTT Activated 37.8 sec (21.0-31.4)
[2017-11-03 07:23] LABS: Anion Gap 3.8 mmol/L (3-11); BUN 36 mg/dL (7-18); CO2 33.2 mmol/L (21.0-32.0); CREATININE 1.63 mg/dL (0.70-1.30); Calcium 8.1 mg/dL (8.5-10.1); Chloride 97 mmol/L (98-107); Estimated GFR 43.37 (mL/min/1.73m2); Glucose 321 mg/dL (70-100); Potassium 5.7 mmol/L (3.5-5.1); Sodium 134 mmol/L (136-145)
[2017-11-03] MEDS: Normal Saline Flush 10 ML SYR IVP ×3 (07:57→13:45)
[2017-11-03] MEDS: Pantoprazole 40 MG TABCR PO (07:57)
[2017-11-03] MEDS: Aspirin E.C. 81 MG TABEC PO (07:57)
[2017-11-03] MEDS: Multivitamin w/Minerals TAB 1 TAB PO ×2 (07:57→20:48)
[2017-11-03] MEDS: Sucralfate 1 GM TAB PO ×3 (07:57→20:48)
[2017-11-03] MEDS: Metoprolol 12.5 MG TAB 6.25 MG PO ×2 (07:58→09:14)
[2017-11-03] MEDS: Ascorbic Acid 500 MG TAB PO ×2 (07:58→20:48)
[2017-11-03] MEDS: Gabapentin 400 MG CAP PO ×3 (07:58→20:48)
[2017-11-03] MEDS: Ferrous Sulfate 325 MG TAB PO ×2 (07:58→20:48)
[2017-11-03] MEDS: amLODIPine 5 MG TAB PO (07:58)
[2017-11-03] MEDS: Clopidogrel 75 MG TAB PO (07:58)
[2017-11-03] MEDS: Insulin Aspart 300 UNITS/3 ML PEN SC ×6 (08:05→18:11)
[2017-11-03] MEDS: Heparin 5,000 UNITS/ML VIAL 5000 UNITS SC ×2 (10:45→18:13)
[2017-11-03] MEDS: Furosemide 20 MG/2 ML VIAL IVP (11:36)
--- NOTE | 2017-11-03 12:17 | PDOC.CMPRO ---
- If Service Date Differs Date of service: 11/03/17 Time of Service: 12:17 Care Management Progress Note S/O: Piyush is sitting up in his bed he is eating his breakfast when CM visits. Piyush would like to go to health [facility] rehab as soon as possible. Piyush states he is feeling much better. Piyush continues to require oxygen and his oxygen saturation drops to the 70's when he removes it. CM faxed the referral to health and rehab plan is for Piyush to transition to SNF facility at time of discharge. CM will follow up with [facility] on Saturday to determine if there is an available bed. Piyush continues to receive IV antibiotics, steroids and receive care in the ICU. A: 62 year old male admitted with NSTEMI in the setting of acute COPD exacerbation. He was discharged from [facility] on 10/11/17. Piyush is being treated with IV antibiotics, steroids and Heparin gtt. P:Piyush is being treated for COPD, he remains in the ICU. Anticipate no change in status today. Piyush was recently approved for senior living medicaid and would have the benefit of rehab services at the SNF. Piyush would like a referral to [facility]. CM faxed the referral to admission director at [facility] Re[facility] per Pt request. CM to continue to provide support to pt, family and care team ongoing discharge planning and disposition.
--- NOTE | 2017-11-03 12:27 | CMPROGNOTE_ITS ---
- If Service Date Differs Date of service: 11/03/17 Time of Service: 12:17 Care Management Progress Note S/O: Piyush is sitting up in his bed he is eating his breakfast when CM visits. Piyush would like to go to health and rehab as soon as possible. Piyush states he is feeling much better. Piyush continues to require oxygen and his oxygen saturation drops to the 70's when he removes it. CM faxed the referral to health and rehab plan is for Piyush to transition to SNF facility at time of discharge. CM will follow up with [facility] on Saturday to determine if there is an available bed. Piyush continues to receive IV antibiotics, steroids and receive care in the ICU. A: 62 year old male admitted with NSTEMI in the setting of acute COPD exacerbation. He was discharged from [facility] on 10/11/17. Piyush is being treated with IV antibiotics, steroids and Heparin gtt. P:Piyush is being treated for COPD, he remains in the ICU. Anticipate no change in status today. Piyush was recently approved for [facility] med[facility] and would have the benefit of rehab services at the SNF. Piyush would like a referral to [facility]. CM faxed the referral to admission director at [facility] and Rehab per Pt request. CM to continue to provide support to pt, family and care team ongoing discharge planning and disposition.
--- NOTE | 2017-11-03 14:03 | PGE_ITS ---
Assessment and Plan (1) Non-ST elevation myocardial infarction (NSTEMI): Current visit: Yes Status: Acute NSTEMI in setting of Hypoxia secondary to presumed acute exacerbation of Chronic Obstructive Pulmonary Disease. Patient remains afebrile with maximized cardiac regimen. Will continue Plavix and aspirin, along with Heparin drip for a planned 48 hour course. Continue initiated BB and titrate as needed. Also on high potency statin and MARIAA-I. Troponin down-trended. ECHO obtained with results limited by body habitus, but showing a normal LV and RV systolic function, and no wall motion abnormalities (although this could not be entirely excluded). Plan will be to discuss with cardiology regarding need for LHC once stable from a pulmonary standpoint. Currently remains asymptomatic. Continue telemetry. (2) COPD exacerbation: Current visit: Yes Status: Acute Continue IV steroids and scheduled nebs. Also on ceftriaxone (Also remains on doxy for antibiotic suppression therapy - history of chronic osteo of the knee joint). Continue supplemental oxygen to maintain good saturation level given NSTEMI. (3) Acute kidney injury (nontraumatic): Current visit: Yes Status: Acute Creatinine stable and essentially unchanged. MARIAA-I and Lasix currently on hold. Initiated Kayexalate for hyperkalemia, now improved. Check renal ultrasoundg. Avoid nephrotoxins and renally dose medications. As patient is not improving from a respiratory standpoint will discontinue IVFs and give trial to low dose IV Lasix carefully, and monitor kidney function closely. (4) Iron deficiency anemia: Current visit: Yes Status: Chronic Normal Vitamin B12/Folic Acid, and minimally elevated TSH in setting of acute illness. Iron and Ferritin are both low, with a high normal TIBC. Initiated oral iron supplements with vitamin C. Continue PPI and sucralfate. Monitor Hgb closely and for any signs of GI bleeding particularly since he has been started on DAPT and previously with heparin. Current Hgb low but stable. (5) Hypertension: Current visit: Yes Status: Chronic Holding MARIAA-I. Started BB therapy. Initiate CCB given need for improved blood pressure control. (6) Mixed sleep apnea: Current visit: Yes Status: Chronic Refusing BIPAP. Apparently he had been on BiPAP at home but refused to use it due to claustrophobia related to use of the mask. (7) Type 2 diabetes mellitus: Current visit: Yes Status: Chronic Continue to hold metformin. Continue lantus and ISS, ADA diet. (8) DVT prophylaxis: Current visit: Yes Status: Acute Heparin gtt discontinued - Prophylactic dose initiated. Subjective Interval history since last seen: 63-year-old male with a PMHx significant for HTN, DM, COPD, CARLOS, and chronic osteomyelitis of his right knee admitted from [facility] ED with apparent COPD exacerbation and NSTEMI. Mr. Heard was noted initially by EMS to be hypoxic with a saturation in the 70 -80's. There was also reports of some mild altered mental status. The patient reported an approximate 1 day course of feeling ill, with increased cough and sputum production without fevers or rigors. Further work-up in the emergency room included an EKG that demonstrated no acute ST or T-wave changes. chest 2 Views that demonstrate COPD but no acute infiltrates and no CHF, and labs studies that were remarkable for a chronic anemia, mildly elevated WBC count, and a creatinine that was above his baseline. Furthermore troponin level was elevated at 1.37 with a repeat level came back at 1.55. Discussion by ED attending with [facility] cardiology with likely NSTEMI in setting of hypoxia driven demand ischemia. The patient is asymptomatic from a cardiac standpoint. His troponin downtrended previously. His heparin drip is discontinued this am following a 48 hour course. He also reports improvement from a breathing standpoint since time of admission, but is still requiring 5L by Nasal Cannula. No other events reported. Currently afebrile. Exam Const General: cooperative, comfortable and no acute distress Nutritional Appearance: obese Orientation: alert, awake and oriented x3 Neck Neck: supple Resp Effort & Inspection: normal respiratory effort, able to speak in complete sentences and no respiratory distress Auscultation: diminished lung sounds and wheezes (Diffuse) Cardio Rate: regular rate Heart Sounds: S1 normal and S2 normal GI Inspection: normal to inspection Palpation: soft, no guarding and nontender Auscultation: normal bowel sounds Extrem General: no calf tenderness and pedal edema Right lower extremity: knee Details: abnormal ROM Objective Objective Clinical Data: Abnormal lab results 11/02/17 11/02/17 11/03/17 Range/Units 14:05 16:10 06:35 RBC (4.50-6.00) m/cumm Hgb (13.5-17.5) g/dL Hct (40.0-50.0) % MCH (27.0-33.0) pg MCHC (32.0-36.0) g/dL RDW (11.8-14.1) % APTT 40.5 H (21.0-31.4) sec Sodium 131 L 134 L (136-145) mmol/L Potassium 5.6 H 5.7 H (3.5-5.1) mmol/L Chloride 97 L 97 L (98-107) mmol/L Carbon Dioxide 33.0 H 33.2 H (21.0-32.0) mmol/L Anion Gap 1.0 L (3-11) mmol/L BUN 37 H 36 H (7-18) mg/dL Creatinine 1.70 H 1.63 H (0.70-1.30) mg/dL Glucose 305 H 321 H (70-100) mg/dL Calcium 8.2 L 8.1 L (8.5-10.1) mg/dL 11/03/17 11/03/17 Range/Units 06:35 06:35 RBC 3.89 L (4.50-6.00) m/cumm Hgb 9.3 L (13.5-17.5) g/dL Hct 34.8 L (40.0-50.0) % MCH 23.9 L (27.0-33.0) pg MCHC 26.7 L (32.0-36.0) g/dL RDW 17.3 H (11.8-14.1) % APTT 37.8 H (21.0-31.4) sec Sodium (136-145) mmol/L Potassium (3.5-5.1) mmol/L Chloride (98-107) mmol/L Carbon Dioxide (21.0-32.0) mmol/L Anion Gap (3-11) mmol/L BUN (7-18) mg/dL Creatinine (0.70-1.30) mg/dL Glucose (70-100) mg/dL Calcium (8.5-10.1) mg/dL Vital Signs Temp 36.5 C 11/03/17 12:07 Pulse 70 11/03/17 10:00 Resp 13 11/03/17 06:01 BP 146/71 H 11/03/17 10:00 Pulse Ox 93 L 11/03/17 09:45 Intake & Output 11/02/17 11/03/17 11/03/17 23:59 11:59 23:59 Intake Total 1768.75 / 1768.75 4326.758 / 4326.758 360 / 360 Output Total 1050 / 1050 1775 / 1775 Balance 718.75 / 718.75 2551.758 / 2551.758 360 / 360 Weight 163.3 kg Intake: IV 1228.75 / 1228.75 2946.758 / 2946.758 Oral 540 / 540 1380 / 1380 360 / 360 Output: Urine 1050 / 1050 1775 / 1775 Other: Urine Color Light Sandro Straw Urine Appearance Sediment Sediment Comment Avalos in place draining sandro urine. Avalos in place draining sandro urine. IVF stopped, 20mg IVP lasix given. Stool Occult Blood Negative Stool Size Large Stool Characteristics Soft Formed Laboratory Results WBC 8.60 k/cumm (4.4-10.8) 11/03/17 06:35 RBC 3.89 m/cumm (4.50-6.00) L 11/03/17 06:35 Hgb 9.3 g/dL (13.5-17.5) L 11/03/17 06:35 Hct 34.8 % (40.0-50.0) L 11/03/17 06:35 MCV 89.5 fL (80-95) 11/03/17 06:35 MCH 23.9 pg (27.0-33.0) L 11/03/17 06:35 MCHC 26.7 g/dL (32.0-36.0) L 11/03/17 06:35 RDW 17.3 % (11.8-14.1) H 11/03/17 06:35 Plt Count 244 x1000/uL (130-400) 11/03/17 06:35 MPV 10.4 fL (8.0-11.0) 11/03/17 06:35 Immature Gran % 0.4 11/01/17 06:28 Neutrophils % 93.8 11/01/17 06:28 Lymphocytes % 4.5 11/01/17 06:28 Monocytes % 1.2 11/01/17 06:28 Eosinophils % 0.0 11/01/17 06:28 Basophils % 0.1 11/01/17 06:28 Absolute Neutrophils 9.70 k/cumm (1.2-6.7) H 11/01/17 06:28 Absolute Lymphocytes 0.47 k/cumm (1.2-3.4) L 11/01/17 06:28 Absolute Monocytes 0.12 k/cumm (0.11-0.7) 11/01/17 06:28 Absolute Eosinophils 0.00 k/cumm (0.0-0.7) 11/01/17 06:28 Absolute Basophils 0.01 k/cumm (0.0-0.2) 11/01/17 06:28 RBC Morphology See below 10/31/17 22:50 Polychromasia Present 10/31/17 22:50 Hypochromasia 2+ 10/31/17 22:50 PT 9.2 sec (9.3-10.8) L 11/01/17 06:28 INR 0.9 (1.0-3.5) L 11/01/17 06:28 APTT 37.8 sec (21.0-31.4) H 11/03/17 06:35 Sample Site Right radial 11/01/17 10:25 pCO2 50 mmHg (34-47) H 11/01/17 10:25 pO2 66 mmHg (83-108) L 11/01/17 10:25 O2 Saturation 94 % (94-98) 11/01/17 10:25 ABG pH 7.42 (7.35-7.45) 11/01/17 10:25 ABG HCO3 32 mmol/L (22-28) H 11/01/17 10:25 ABG Total CO2 30 mmol/L (22-29) H 11/01/17 10:25 ABG Base Excess 7.6 mmol/L (-3-3) H 11/01/17 10:25 Oxygen Liter Flow 5 L 11/01/17 10:25 FiO2 Nasal cannula % 11/01/17 10:25 Sodium 134 mmol/L (136-145) L 11/03/17 06:35 Potassium 5.7 mmol/L (3.5-5.1) H 11/03/17 06:35 Chloride 97 mmol/L (98-107) L 11/03/17 06:35 Carbon Dioxide 33.2 mmol/L (21.0-32.0) H 11/03/17 06:35 Anion Gap 3.8 mmol/L (3-11) 11/03/17 06:35 BUN 36 mg/dL (7-18) H 11/03/17 06:35 Creatinine 1.63 mg/dL (0.70-1.30) H 11/03/17 06:35 Estimated GFR/1.73 m2 43.37 (mL/min/1.73m2) 11/03/17 06:35 Glucose 321 mg/dL (70-100) H 11/03/17 06:35 Hemoglobin A1c 7.1 % (4.5-6.2) H 11/01/17 06:28 Calcium 8.1 mg/dL (8.5-10.1) L 11/03/17 06:35 Magnesium 1.9 mg/dL (1.8-2.4) 10/31/17 22:50 Iron 21 ug/dL (50-175) L 11/01/17 02:38 TIBC 405 ug/dL (250-450) 11/01/17 02:38 Transferrin % Sat 5 % (20-55) L 11/01/17 02:38 Ferritin 28 ng/mL (8-388) 11/01/17 02:38 Total Bilirubin 0.3 mg/dL (0.2-1.0) 11/01/17 06:28 AST 24 U/L (15-37) 11/01/17 06:28 ALT 21 U/L (12-78) 11/01/17 06:28 Alkaline Phosphatase 99 U/L (46-116) 11/01/17 06:28 Troponin I 1.41 ng/mL (0.00-0.06) H* 11/01/17 12:55 Total Protein 6.7 g/dL (6.4-8.2) 11/01/17 06:28 Albumin 2.2 g/dL (3.4-5.0) L 11/01/17 06:28 Triglycerides 169 mg/dL (30-150) H 11/01/17 06:28 Total Cholesterol 242 mg/dL (50-200) H 11/01/17 06:28 LDL Cholesterol Direct 178 mg/dL (<100) H 11/01/17 06:28 HDL Cholesterol 51 mg/dL (40-60) 11/01/17 06:28 Vitamin B12 425 pg/mL (193-986) 11/01/17 02:38 Folate 9.9 ng/mL (8.6-20.0) 11/01/17 02:38 TSH 4.33 uIU/mL (0.358-3.74) H 11/01/17 02:38
[2017-11-03] MEDS: Atorvastatin 40 MG TAB PO (20:48)
[2017-11-03] MEDS: Metoprolol 12.5 MG TAB PO (20:49)
[2017-11-03] MEDS: Insulin Glargine 300 UNITS/3 ML PEN 15 UNITS SC (22:36)
[2017-11-04] VITALS (48 sets, daily range): BP systolic 107–187; BP diastolic 59–138; PULSE 58–83; RESP 1–22; TEMP 36.4–37.2; O2SAT 87–100
[2017-11-04] MEDS: methylPREDNISolone SUCC 125 MG VIAL 60 MG IVP (00:38)
[2017-11-04] MEDS: DOXYCYCLINE 100 MG in Normal Saline 100 ML IVPB ×2 (01:10→13:48)
[2017-11-04] MEDS: Heparin 5,000 UNITS/ML VIAL 5000 UNITS SC ×3 (02:41→17:23)
[2017-11-04] MEDS: Methadone 5 MG TAB 10 MG PO ×3 (04:35→19:19)
[2017-11-04] MEDS: Albuterol/Ipratropium 3 ML UPD VIAL UPD ×4 (04:36→22:21)
[2017-11-04 07:34] LABS: Anion Gap 4.2 mmol/L (3-11); BUN 37 mg/dL (7-18); CO2 32.8 mmol/L (21.0-32.0); CREATININE 1.48 mg/dL (0.70-1.30); Calcium 8.2 mg/dL (8.5-10.1); Chloride 99 mmol/L (98-107); Estimated GFR 48.48 (mL/min/1.73m2); Glucose 225 mg/dL (70-100); Potassium 4.8 mmol/L (3.5-5.1); Sodium 136 mmol/L (136-145)
[2017-11-04 07:38] LABS: HCT 35.4 % (40.0-50.0); HGB 9.5 g/dL (13.5-17.5); Mean Corp. HGB Concentration 26.8 g/dL (32.0-36.0); Mean Corpuscular Hemoglobin 23.7 pg (27.0-33.0); Mean Corpuscular Volume 88.3 fL (80-95); Mean Platelet Volume 10.3 fL (8.0-11.0); Platelet Count 253 x1000/uL (130-400); RBC 4.01 m/cumm (4.50-6.00); White Blood Cell Count 8.06 k/cumm (4.4-10.8)
[2017-11-04] MEDS: Pantoprazole 40 MG TABCR PO (07:39)
[2017-11-04] MEDS: Metoprolol 25 MG TAB PO ×2 (08:32→19:20)
[2017-11-04] MEDS: Aspirin E.C. 81 MG TABEC PO (08:33)
[2017-11-04] MEDS: Multivitamin w/Minerals TAB 1 TAB PO ×2 (08:33→19:19)
[2017-11-04] MEDS: Sucralfate 1 GM TAB PO ×3 (08:33→19:19)
[2017-11-04] MEDS: Ascorbic Acid 500 MG TAB PO ×2 (08:33→19:20)
[2017-11-04] MEDS: Gabapentin 400 MG CAP PO ×3 (08:33→19:20)
[2017-11-04] MEDS: amLODIPine 5 MG TAB 10 MG PO (08:33)
[2017-11-04] MEDS: Clopidogrel 75 MG TAB PO (08:33)
[2017-11-04] MEDS: Ferrous Sulfate 325 MG TAB PO ×2 (08:34→19:20)
[2017-11-04] MEDS: methylPREDNISolone SUCC 40 MG VIAL IVP (08:35)
[2017-11-04] MEDS: Insulin Aspart 300 UNITS/3 ML PEN SC ×6 (08:36→17:23)
[2017-11-04] MEDS: Furosemide 20 MG/2 ML VIAL IVP (08:39)
--- NOTE | 2017-11-04 10:02 | PDOC.CMPRO ---
- If Service Date Differs Date of service: 11/04/17 Time of Service: 10:02 Care Management Progress Note S/O: CM met with patient at the bedside he accepts the bed at [facility]. Provider to follow up with cardiology at [facility] and the patient to determine if he will have a cardiac cath before he transitions to [facility] for [facility] term [facility]hab stay. He will have a nutrition consult today. A: 62 year old male admitted with NSTEMI in the setting of acute COPD exacerbation. He was discharged from [facility] on 10/11/17. Piyush is being treated with IV antibiotics, and steroids. He continues to have a significant oxygen requirement. P:Piyush is being treated for COPD, he remains in the ICU. Anticipate no change in status today. [facility] has offered Piyush a bed when he is medically ready for discharge. CM to continue to provide support to pt, family and care team ongoing discharge planning and disposition.
--- NOTE | 2017-11-04 10:08 | CMPROGNOTE_ITS ---
- If Service Date Differs Date of service: 11/04/17 Time of Service: 10:02 Care Management Progress Note S/O: CM met with patient at the bedside he accepts the bed at [facility]. Provider to follow up with cardiology at [facility] and the patient to determine if he will have a cardiac cath before he transitions to [facility] for short term rehab stay. He will have a nutrition consult today. A: 62 year old male admitted with NSTEMI in the setting of acute COPD exacerbation. He was discharged from [facility] on 10/11/17. Piyush is being treated with IV antibiotics, and steroids. He continues to have a significant oxygen requirement. P:Piyush is being treated for COPD, he remains in the ICU. Anticipate no change in status today. [facility] has offered Piyush a bed when he is medically ready for discharge. CM to continue to provide support to pt, family and care team ongoing discharge planning and disposition.
--- NOTE | 2017-11-04 11:49 | PGE_ITS ---
Assessment and Plan (1) Non-ST elevation myocardial infarction (NSTEMI): Current visit: Yes Status: Acute NSTEMI in setting of Hypoxia secondary to presumed acute exacerbation of Chronic Obstructive Pulmonary Disease. Patient remains afebrile with maximized cardiac regimen. Will continue Plavix and aspirin, with Heparin drip discontinued after a 48 hour course. Continue initiated BB and titrate as needed. Also on high potency statin and MARIAA-I. Troponin down-trended. ECHO obtained with results limited by body habitus, but showing a normal LV and RV systolic function, and no wall motion abnormalities (although this could not be entirely excluded). Plan will be to discuss with cardiology regarding need for LHC once stable from a pulmonary standpoint. Currently remains asymptomatic. Continue telemetry. (2) COPD exacerbation: Current visit: Yes Status: Acute Continue IV steroids and scheduled nebs. Also on ceftriaxone (Also remains on doxy for antibiotic suppression therapy - history of chronic osteo of the knee joint), currently day #4. Continue supplemental oxygen to maintain good saturation level given NSTEMI. Wheezing appears resolved, but with slight bibasilar crackles. Patient with IVF administration secondary to initial illness and SELINA - appears volume overloaded. Weight has similiarly increased since time of admission. Patient tolerated administration of IV lasix yesterday, and had improvement in renal function as well. Will repeat low dose IV lasix today and monitor. May also benefit from Incentive Spirometry. (3) Acute kidney injury (nontraumatic): Current visit: Yes Status: Acute Creatinine stable and improved. MARIAA-I and oral Lasix currently on hold ( receiving prn IV lasix). Initiated Kayexalate for hyperkalemia, now resolved - will trial discontinuation of this medication. Check renal ultrasoundg. Avoid nephrotoxins and renally dose medications. (4) Iron deficiency anemia: Current visit: Yes Status: Chronic Normal Vitamin B12/Folic Acid, and minimally elevated TSH in setting of acute illness. Iron and Ferritin are both low, with a high normal TIBC. Initiated oral iron supplements with vitamin C. Continue PPI and sucralfate. Monitor Hgb closely and for any signs of GI bleeding particularly since he has been started on DAPT and previously with heparin. Current Hgb low but stable. (5) Hypertension: Current visit: Yes Status: Chronic Holding MARIAA-I. Started BB therapy. Initiated CCB given need for improved blood pressure control - titrate today. (6) Mixed sleep apnea: Current visit: Yes Status: Chronic Refusing BIPAP. Apparently he had been on BiPAP at home but refused to use it due to claustrophobia related to use of the mask. (7) Type 2 diabetes mellitus: Current visit: Yes Status: Chronic Continue to hold metformin. Continue lantus and ISS, ADA diet. (8) DVT prophylaxis: Current visit: Yes Status: Acute Heparin gtt discontinued - Prophylactic dose initiated. Subjective Interval history since last seen: 63-year-old male with a PMHx significant for HTN, DM, COPD, CARLOS, and chronic osteomyelitis of his right knee admitted from [facility] ED with apparent COPD exacerbation, hypoxia, and NSTEMI. Mr. Heard was noted initially by EMS to be hypoxic with a saturation in the 70 -80's. There was also reports of some mild altered mental status. The patient reported an approximate 1 day course of feeling ill, with increased cough and sputum production without fevers or rigors. Further work-up in the emergency room included an EKG that demonstrated no acute ST or T-wave changes. chest 2 Views that demonstrate COPD but no acute infiltrates and no CHF, and labs studies that were remarkable for a chronic anemia, mildly elevated WBC count, and a creatinine that was above his baseline. Furthermore troponin level was elevated at 1.37 with a repeat level came back at 1.55. Discussion by ED attending with [facility] cardiology with likely NSTEMI in setting of hypoxia driven demand ischemia. The patient is asymptomatic from a cardiac standpoint. His troponin downtrended previously. His heparin drip is discontinued and he remains asymptomatic. He also reports improvement from a breathing standpoint since time of admission, but is still requiring supplemental oxygen by Nasal Cannula. No other events reported. Currently afebrile. Exam Const General: cooperative, comfortable and no acute distress Nutritional Appearance: obese Orientation: alert, awake and oriented x3 Neck Neck: supple Resp Effort & Inspection: normal respiratory effort, able to speak in complete sentences and no respiratory distress Auscultation: crackles (Bibasilar) and diminished lung sounds Cardio Rate: regular rate Heart Sounds: S1 normal and S2 normal GI Inspection: normal to inspection Palpation: soft, no guarding and nontender Auscultation: normal bowel sounds Extrem General: no calf tenderness and pedal edema Right lower extremity: knee Details: abnormal ROM Objective Objective Clinical Data: Abnormal lab results 11/04/17 11/04/17 Range/Units 06:23 06:23 RBC 4.01 L (4.50-6.00) m/cumm Hgb 9.5 L (13.5-17.5) g/dL Hct 35.4 L (40.0-50.0) % MCH 23.7 L (27.0-33.0) pg MCHC 26.8 L (32.0-36.0) g/dL RDW 17.0 H (11.8-14.1) % Carbon Dioxide 32.8 H (21.0-32.0) mmol/L BUN 37 H (7-18) mg/dL Creatinine 1.48 H (0.70-1.30) mg/dL Glucose 225 H D (70-100) mg/dL Calcium 8.2 L (8.5-10.1) mg/dL Vital Signs Temp 36.4 C L 11/04/17 08:08 Pulse 66 11/04/17 08:10 Resp 15 11/04/17 09:00 BP 183/79 H 11/04/17 08:10 Pulse Ox 94 L 11/04/17 09:00 Intake & Output 11/03/17 11/03/17 11/04/17 11:59 23:59 11:59 Intake Total 4426.758 / 4426.758 700 / 700 780 / 780 Output Total 1775 / 1775 1000 / 1000 4150 / 4150 Balance 2651.758 / 2651.758 -300 / -300 -3370 / -3370 Weight 163.3 kg 168.7 kg Intake: IV 3046.758 / 3046.758 100 / 100 30 / 30 Oral 1380 / 1380 600 / 600 750 / 750 Output: Urine 1775 / 1775 1000 / 1000 4150 / 4150 Other: Urine Color Straw Yellow Yellow Urine Appearance Sediment Clear Clear Comment Rios in place draining sandro urine. rios to gravity with clear looking, light colored yellow urine IV lasix given. Will monitor for lasix response. Stool Occult Blood Negative Stool Size Copious Stool Characteristics Soft Formed Brown Laboratory Results WBC 8.06 k/cumm (4.4-10.8) 11/04/17 06:23 RBC 4.01 m/cumm (4.50-6.00) L 11/04/17 06:23 Hgb 9.5 g/dL (13.5-17.5) L 11/04/17 06:23 Hct 35.4 % (40.0-50.0) L 11/04/17 06:23 MCV 88.3 fL (80-95) 11/04/17 06:23 MCH 23.7 pg (27.0-33.0) L 11/04/17 06: MCHC 26.8 g/dL (32.0-36.0) L 11/04/17 06:23 RDW 17.0 % (11.8-14.1) H 11/04/17 06:23 Plt Count 253 x1000/uL (130-400) 11/04/17 06:23 MPV 10.3 fL (8.0-11.0) 11/04/17 06:23 Immature Gran % 0.4 11/01/17 06:28 Neutrophils % 93.8 11/01/17 06:28 Lymphocytes % 4.5 11/01/17 06:28 Monocytes % 1.2 11/01/17 06:28 Eosinophils % 0.0 11/01/17 06:28 Basophils % 0.1 11/01/17 06:28 Absolute Neutrophils 9.70 k/cumm (1.2-6.7) H 11/01/17 06:28 Absolute Lymphocytes 0.47 k/cumm (1.2-3.4) L 11/01/17 06:28 Absolute Monocytes 0.12 k/cumm (0.11-0.7) 11/01/17 06:28 Absolute Eosinophils 0.00 k/cumm (0.0-0.7) 11/01/17 06:28 Absolute Basophils 0.01 k/cumm (0.0-0.2) 11/01/17 06:28 RBC Morphology See below 10/31/17 22:50 Polychromasia Present 10/31/17 22:50 Hypochromasia 2+ 10/31/17 22:50 PT 9.2 sec (9.3-10.8) L 11/01/17 06:28 INR 0.9 (1.0-3.5) L 11/01/17 06:28 APTT 37.8 sec (21.0-31.4) H 11/03/17 06:35 Sample Site Right radial 11/01/17 10:25 pCO2 50 mmHg (34-47) H 11/01/17 10:25 pO2 66 mmHg (83-108) L 11/01/17 10:25 O2 Saturation 94 % (94-98) 11/01/17 10:25 ABG pH 7.42 (7.35-7.45) 11/01/17 10:25 ABG HCO3 32 mmol/L (22-28) H 11/01/17 10:25 ABG Total CO2 30 mmol/L (22-29) H 11/01/17 10:25 ABG Base Excess 7.6 mmol/L (-3-3) H 11/01/17 10:25 Oxygen Liter Flow 5 L 11/01/17 10:25 FiO2 Nasal cannula % 11/01/17 10:25 Sodium 136 mmol/L (136-145) 11/04/17 06:23 Potassium 4.8 mmol/L (3.5-5.1) 11/04/17 06:23 Chloride 99 mmol/L (98-107) 11/04/17 06:23 Carbon Dioxide 32.8 mmol/L (21.0-32.0) H 11/04/17 06:23 Anion Gap 4.2 mmol/L (3-11) 11/04/17 06:23 BUN 37 mg/dL (7-18) H 11/04/17 06:23 Creatinine 1.48 mg/dL (0.70-1.30) H 11/04/17 06:23 Estimated GFR/1.73 m2 48.48 (mL/min/1.73m2) 11/04/17 06:23 Glucose 225 mg/dL (70-100) H D 11/04/17 06:23 Hemoglobin A1c 7.1 % (4.5-6.2) H 11/01/17 06:28 Calcium 8.2 mg/dL (8.5-10.1) L 11/04/17 06:23 Magnesium 1.9 mg/dL (1.8-2.4) 10/31/17 22:50 Iron 21 ug/dL (50-175) L 11/01/17 02:38 TIBC 405 ug/dL (250-450) 11/01/17 02:38 Transferrin % Sat 5 % (20-55) L 11/01/17 02:38 Ferritin 28 ng/mL (8-388) 11/01/17 02:38 Total Bilirubin 0.3 mg/dL (0.2-1.0) 11/01/17 06:28 AST 24 U/L (15-37) 11/01/17 06:28 ALT 21 U/L (12-78) 11/01/17 06:28 Alkaline Phosphatase 99 U/L (46-116) 11/01/17 06:28 Troponin I 1.41 ng/mL (0.00-0.06) H* 11/01/17 12:55 Total Protein 6.7 g/dL (6.4-8.2) 11/01/17 06:28 Albumin 2.2 g/dL (3.4-5.0) L 11/01/17 06:28 Triglycerides 169 mg/dL (30-150) H 11/01/17 06:28 Total Cholesterol 242 mg/dL (50-200) H 11/01/17 06:28 LDL Cholesterol Direct 178 mg/dL (<100) H 11/01/17 06:28 HDL Cholesterol 51 mg/dL (40-60) 11/01/17 06:28 Vitamin B12 425 pg/mL (193-986) 11/01/17 02:38 Folate 9.9 ng/mL (8.6-20.0) 11/01/17 02:38 TSH 4.33 uIU/mL (0.358-3.74) H 11/01/17 02:38
--- NOTE | 2017-11-04 12:00 | DI.US_ITS ---
SYMPTOMS/DIAGNOSIS: ACUTE KIDNEY INJURY RENAL ULTRASOUND: The exam is severely limited by patient body habitus. The kidneys are not well seen, particularly the right. The kidneys appear grossly normal in size. A catheter is seen within the bladder. IMPRESSION: Extremely limited exam due to patient body habitus. If there is continued clinical concern, a CT could be performed.
--- NOTE | 2017-11-04 13:54 | DM INPTCON_ITS ---
DESCRIPTION/ASSESSMENT: Appreciate diabetes consult for Mr. Heard who is hospitalized with heart issues and exacerbation of COPD for which he is currently taking 40mg Prednisolone. Blood sugars over past 2 days 225-381mg/dl taking 15u Lantus, moderate insulin correction and insulin:carb at 1 unit for 10grams carbohydrate. Patient nutritionist public health states he expresses the need for more food although he is on a carbohydrate counting meal plan here. He received 40units Novolog yesterday. Met with Mr. Heard who states his takes care of his every need. States she has diabetes and knows about how to take care of him. He states he got the diagnosis of diabetes while in the hospital and didn't know he had it, although the H&P indicates he was on it at admission. He appears to be relatively immobile. His legs below the knee are wrapped. He states he moved here less than a year ago from [place] and does not like how far away everything is, and the cold kelly. His insulin dosing appears to be inadequate based on his blood sugars. INTERVENTION: Explained to Mr. Heard his blood sugars, symptoms of hyperglycemia, impact of elevated blood sugars in context of healing. Given that his takes care of him and [facility], did not initiate self management in this first visit. Explained he may need more insulin to correct hyperglycemia. Initially suggest increasing insulin correction to resistant level. Suggest increasing basal insulin by 20% given his elevated fasting blood sugar prior to steroid administration and his high bolus insulin dosing of more than twice his basal rate. Suggest Lantus at 18-20 units. PLAN: Will visit him tomorrow when his is present. Will follow blood sugars Suggest increased basal and correction insulin as above.
[2017-11-04] MEDS: Normal Saline Flush 10 ML SYR IVP ×2 (14:05→19:20)
[2017-11-04] MEDS: Normal Saline 500 ML 50 ML IV (14:08)
[2017-11-04] MEDS: Atorvastatin 40 MG TAB PO (19:19)
[2017-11-04] MEDS: Insulin Glargine 300 UNITS/3 ML PEN 15 UNITS SC (22:21)
[2017-11-05] VITALS (38 sets, daily range): BP systolic 122–165; BP diastolic 56–89; PULSE 51–84; RESP 1–24; TEMP 36.3–37; O2SAT 76–96
[2017-11-05] MEDS: Heparin 5,000 UNITS/ML VIAL 5000 UNITS SC ×3 (01:51→17:41)
[2017-11-05] MEDS: DOXYCYCLINE 100 MG in Normal Saline 100 ML IVPB (02:41)
[2017-11-05] MEDS: Albuterol/Ipratropium 3 ML UPD VIAL UPD ×4 (03:19→21:30)
[2017-11-05] MEDS: Methadone 5 MG TAB 10 MG PO ×3 (03:20→21:29)
[2017-11-05 07:39] LABS: HCT 36.5 % (40.0-50.0); HGB 9.9 g/dL (13.5-17.5); Mean Corp. HGB Concentration 27.1 g/dL (32.0-36.0); Mean Corpuscular Hemoglobin 24.3 pg (27.0-33.0); Mean Corpuscular Volume 89.5 fL (80-95); Mean Platelet Volume 10.6 fL (8.0-11.0); Platelet Count 288 x1000/uL (130-400); RBC 4.08 m/cumm (4.50-6.00); RBC Distribution Width 17.1 % (11.8-14.1); White Blood Cell Count 11.18 k/cumm (4.4-10.8)
[2017-11-05 07:48] LABS: Anion Gap 2.8 mmol/L (3-11); BUN 36 mg/dL (7-18); CO2 35.2 mmol/L (21.0-32.0); CREATININE 1.44 mg/dL (0.70-1.30); Calcium 8.3 mg/dL (8.5-10.1); Chloride 100 mmol/L (98-107); Estimated GFR 50.04 (mL/min/1.73m2); Glucose 162 mg/dL (70-100); Potassium 3.8 mmol/L (3.5-5.1); Sodium 138 mmol/L (136-145)
[2017-11-05] MEDS: Insulin Aspart 300 UNITS/3 ML PEN SC ×5 (09:11→17:42)
[2017-11-05] MEDS: Pantoprazole 40 MG TABCR PO (09:13)
[2017-11-05] MEDS: Ascorbic Acid 500 MG TAB PO (09:14)
[2017-11-05] MEDS: Multivitamin w/Minerals TAB 1 TAB PO (09:14)
[2017-11-05] MEDS: Ferrous Sulfate 325 MG TAB PO (09:14)
[2017-11-05] MEDS: amLODIPine 5 MG TAB 10 MG PO (09:14)
[2017-11-05] MEDS: Gabapentin 400 MG CAP PO ×3 (09:14→21:29)
[2017-11-05] MEDS: Isosorbide Mononitrate 30 MG TABCR PO (09:14)
[2017-11-05] MEDS: Sucralfate 1 GM TAB PO ×3 (09:14→21:29)
[2017-11-05] MEDS: Metoprolol 25 MG TAB PO ×2 (09:15→21:29)
[2017-11-05] MEDS: Clopidogrel 75 MG TAB PO (09:15)
[2017-11-05] MEDS: Aspirin E.C. 81 MG TABEC PO (09:15)
[2017-11-05] MEDS: Normal Saline Flush 10 ML SYR IVP (09:23)
--- NOTE | 2017-11-05 11:01 | PDOC.CMPRO ---
- If Service Date Differs Date of service: 11/05/17 Time of Service: 11:01 Care Management Progress Note S/O: Pt presented at interdisciplinary rounds. Piyush was lying in his bed in the ICU when CM visited this morning. He is engaged in conversation and talkative. Piyush reports that he feels great and would like to return to [facility] where he has a bed. Discussion regarding transfer to [facility] floor vs. discharge to [facility] today. CM will continue to follow. A: 62 year old male admitted with NSTEMI in the setting of acute COPD exacerbation. P: Piyush is being treated for COPD and continues to require O2 via NC, IV antibiotics, fluids and steroids. Piyush will discharge to [facility] when medically ready per MD. CM to continue to provide support to patient and care team regarding discharge planning and disposition.
[2017-11-05] MEDS: predniSONE 20 MG TAB 40 MG PO (12:35)
--- NOTE | 2017-11-05 13:49 | PT.INIE ---
PT Notes Inpatient Physical Therapy Evaluation Date: 11/05/17 Referring Doctor: Gino Hancock PT Orders: PT CONSULT: obese, chronic right knee osteo, [facility]; re-eval for discharge this week back to [facility] Precautions: WBAT R LE, Fall precautions Patient Profile/Admitting Diagnosis: Pt is a 62yr old male admitted with non ST elevation myocardial infarction, chronic obstructive pulmonary disease exacerbation, acute kidney injury PMHX: obesity, right total knee replacement, s/p right TKA revision, osteomyelitis right knee, chronic low back pain, chronic obstructive pulmonary disease, diabetes mellitus, obstructive sleep apnea, iron deficiency anemia, hypertension, gastroesophageal reflux disease, gastrointestinal bleed, gastritis, peptic ulcer disease, hernia repair, cataract removal Social History/Home Situation: Lives with his in a house, ramp from garage into house, building second ramp outside to enter house, stays on one level inside of home. Baseline mobility assisted transfers and gait with 4WW, has been assisting him at home. Pt is unable to get into the shower so performs sponge baths. Equipment Owned/DME: 4WW, wheelchair, commode Subjective: Pt sitting at edge of bed preparing to transfer to wheelchair with 's assistance. Agreeable to PT Consult. shares that patient was at [facility] but then had to discharge to home due to insurance, was at home prior to this admission but is hoping to go back to [facility] for more therapy and gait training prior to returning to home setting. Objective: General Observation: telemetry, 3 liters 02 NC Mental Status: A& O x3 Pain: no c/o pain ROM: Right Upper Extremity: AROM WNL Left Upper Extremity: AROM shoulder flexion to 95, elbow and wrist WNL Right Lower Extremity: AROM hip flexion to 100, knee fully extended unable to flex, ankle WNL Left Lower Extremity: AROM WNL Strength: Right Upper Extremity: 5/5 throughout Left Upper Extremity: 4/5 shoulder flexion, 5/5 quad, 5/5 DF/PF Right Lower Extremity: hip and knee NT due to knee extension, 5/5 DF/PF Left Lower Extremity: 5/5 throuhgout Bed Mobility/Transfers: Sit-stand from bed: CGA with FWW Bed-wheelchair: CGA with FWW Stand-sit: CGA Gait: CGA with FWW 5 steps bed to wheelchair, WBAT R LE. Pt stands with flexed hips and leaning over walker, cues to stand erect. Pt able to weight shift to take steps. Balance: Static Sitting: normal Dynamic Sitting: normal Static Standing: fair Dynamic Standing: poor Special Tests: Mobility Limitations Standardized Measure [facility] AM-PAC 6 clicks Basic Mobility Inpatient Short Form: Raw Score: 14 Standardized Score: 38.10 CMS Score: 61.29% CMS Modifier: CL Informed Consent/Education: Patient instructed in purpose of PT consult and plan of care. Assessment: Pt is a 62yr old male admitted with non ST elevation myocardial infarction, chronic obstructive pulmonary disease exacerbation, acute kidney injury in setting of obesity, right total knee replacement, s/p right TKA revision, osteomyelitis right knee, chronic low back pain, chronic obstructive pulmonary disease, diabetes mellitus, obstructive sleep apnea, iron deficiency anemia. Patient presents with the following impairment level findings: decreased range of motion left shoulder, inability to flex right knee, maintaining full extension, making it difficult for him to perform transfers and gait mobility and requiring use of FWW for gait stability, decreased static and dynamic standing balance putting him at risk for falls, deconditioning and weakness due to hospitalizations. Pt would benefit from skilled therapy intervention for strengthening and progressive mobility training to improve safety and mobility, recommend shelter care facility for rehab prior to return to home setting so he can be more independent at home and less dependent on his for assistance. Impairments are contributing to the following functional limitations: AMPAC score CMS Score: 61.29% Patient is assessed as a High 37034 complexity based on the following: History: see above Examination: see above, left shoulder, back, right knee, heart, lungs Presentation: evolving Decision Making: AMPAC score CMS Score: 61.29% Goals: Goals X1 week 1. Supine-Sit SBA 2. Sit-Supine SBA 3. Sit-Stand SBA with FWW 4. Stand-Sit SBA with FWW 5. Bed-Chair SBA with FWW 6. Chair-Bed SBA with FWW 7. Gait SBA with FWW 30ftx2 WBAT R LE Plan of Care/Treatment Plan: 1-2x/day, 7 days/week x 1 week. Plan of care has been reviewed with the FRONT DESK ADMINISTRATOR providing the service under Physical Therapy direction. Initiate Physical Therapy intervention for strengthening, bed mobility, transfers, gait, balance training, use of assistive device. DISCHARGE RECOMMENDATIONS: [facility] for [facility] TREATMENT CODE/TIME: 24 min IE 1343 G Codes in the area mobility of walking and moving around: current status [id number] CL; projected status GP [id number] Discharge status (if discharging) GP [id number] CL based on [facility] score CMS Score: 61.29% Salina Gutierrez PT Intake Vital Signs 10/31/17 22:48 10/31/17 22:50 10/31/17 22:52 10/31/17 22:52 10/31/17 23:00 10/31/17 23:01 10/31/17 23:10 10/31/17 23:17 10/31/17 23:20 10/31/17 23:22 10/31/17 23:30 10/31/17 23:31 10/31/17 23:35 10/31/17 23:40 10/31/17 23:46 10/31/17 23:47 10/31/17 23:50 11/01/17 00:00 11/01/17 00:01 11/01/17 00:56 11/01/17 01:00 11/01/17 01:01 11/01/17 01:10 11/01/17 01:16 11/01/17 01:20 11/01/17 01:30 11/01/17 01:31 11/01/17 01:32 11/01/17 01:40 11/01/17 01:46 11/01/17 01:50 Weight 172.5 kg 172.5 kg BP 124/66 132/53 L 114/53 L 117/56 L 106/56 L 119/57 L 122/51 L 125/76 122/52 L 135/60 Position Sitting Respiration 18 22 27 H 16 11 L 17 22 19 18 19 19 30 H 20 20 29 H 17 16 16 14 15 15 15 14 14 15 14 22 24 Pulse 93 H 91 H 94 H 89 87 91 H 90 91 H 91 H 87 84 Temp 37.0 C Temp Source Temporal Artery Scan Pulse Oximetry (%) 86 L 89 L 90 L 88 L 88 L 90 L 89 L 86 L 92 L 89 L 90 L 89 L 87 L 88 L 87 L 89 L 92 L 90 L 90 L 91 L 90 L 88 L 90 L 91 L Oxygen Flow Rate 2 2 2 11/01/17 02:00 11/01/17 02:01 11/01/17 02:10 11/01/17 02:16 11/01/17 02:20 11/01/17 02:30 11/01/17 02:31 11/01/17 02:40 11/01/17 02:46 11/01/17 02:50 11/01/17 03:02 11/01/17 03:15 11/01/17 03:16 11/01/17 03:20 11/01/17 03:30 11/01/17 03:31 11/01/17 04:11 11/01/17 04:11 11/01/17 04:11 11/01/17 04:18 11/01/17 05:06 11/01/17 06:40 11/01/17 06:50 11/01/17 07:00 11/01/17 07:01 11/01/17 07:10 11/01/17 07:10 11/01/17 07:20 11/01/17 07:29 11/01/17 07:30 11/01/17 07:40 11/01/17 07:50 159 kg 159 kg 142/60 H 137/61 131/74 153/81 H 112/54 L 124/77 139/96 H 140/66 139/96 H 135/93 H Supine 22 18 15 14 15 18 15 16 11 L 23 14 18 14 18 17 18 15 13 17 17 15 16 21 90 75 91 H 87 105 H 93 H 131 H 95 H 131 H 95 H 78 37 C Temporal Artery Scan 91 L 90 L 90 L 89 L 88 L 91 L 89 L 90 L 89 L 90 L 93 L 92 L 92 L 92 L 92 L 93 L 92 L 92 L 90 L 92 L 93 L 93 L 93 L 93 L 92 L 4 4 4 11/01/17 08:00 11/01/17 08:01 11/01/17 08:10 11/01/17 08:15 11/01/17 08:20 11/01/17 08:30 11/01/17 08:40 11/01/17 08:50 11/01/17 09:00 11/01/17 09:10 11/01/17 09:20 11/01/17 09:30 11/01/17 09:40 11/01/17 09:42 11/01/17 09:50 11/01/17 10:00 11/01/17 10:10 11/01/17 10:20 11/01/17 10:25 11/01/17 10:27 11/01/17 10:30 11/01/17 10:40 11/01/17 10:50 11/01/17 11:00 11/01/17 11:10 11/01/17 11:20 11/01/17 11:30 11/01/17 11:40 11/01/17 11:50 11/01/17 12:00 11/01/17 12:10 11/01/17 12:20 141/63 H 143/63 H 161/74 H Left Lateral 21 21 18 19 16 12 15 18 16 18 26 H 19 16 17 17 21 19 25 H 14 11 L 18 17 21 17 19 20 88 89 79 36.2 C L Temporal Artery Scan 92 L 93 L 92 L 93 L 92 L 93 L 92 L 94 L 94 L 95 94 L 93 L 93 L 93 L 92 L 98 94 L 93 L 95 95 93 L 92 L 93 L 96 93 L 94 L 94 L 92 L 91 L 93 L 90 L 84 L 4 5 5 11/01/17 12:30 11/01/17 12:40 11/01/17 12:50 11/01/17 13:00 11/01/17 13:02 11/01/17 13:02 11/01/17 13:10 11/01/17 13:20 11/01/17 13:30 11/01/17 13:40 11/01/17 13:50 11/01/17 14:00 11/01/17 14:01 11/01/17 14:17 11/01/17 14:18 11/01/17 15:01 11/01/17 15:40 11/01/17 15:40 11/01/17 15:49 11/01/17 16:00 11/01/17 18:01 11/01/17 20:01 11/01/17 20:20 11/01/17 21:00 11/01/17 22:00 11/01/17 22:01 11/02/17 00:00 11/02/17 00:51 11/02/17 02:00 11/02/17 03:00 11/02/17 03:53 11/02/17 03:56 140/75 140/75 144/60 H 137/116 H 123/50 L 123/50 L 117/59 L 149/76 H 137/71 137/71 97/69 L 119/67 119/67 137/65 Supine Supine Right Lateral Supine 15 15 12 22 18 16 19 16 14 20 20 17 18 15 16 14 15 17 17 16 16 17 16 12 12 13 14 84 92 H 92 H 90 77 79 93 H 89 88 66 66 67 66 37 C 36.6 C 36.8 C 36.2 C L 35.8 C L 36.6 C Temporal Artery Scan Temporal Artery Scan Temporal Artery Scan Temporal Artery Scan Temporal Artery Scan Rectal 93 L 92 L 93 L 92 L 92 L 92 L 91 L 91 L 90 L 88 L 91 L 90 L 91 L 92 L 94 L 93 L 93 L 93 L 91 L 94 L 93 L 93 L 91 L 91 L 92 L 92 L 92 L 95 94 L 96 96 5 5 5 5 5 5 5 5 11/02/17 04:01 11/02/17 06:01 11/02/17 06:41 11/02/17 08:01 11/02/17 08:17 11/02/17 08:17 11/02/17 10:01 11/02/17 10:27 11/02/17 10:41 11/02/17 11:25 11/02/17 12:24 11/02/17 14:01 11/02/17 15:40 11/02/17 16:01 11/02/17 18:03 11/02/17 19:30 11/02/17 20:00 11/02/17 22:17 11/02/17 23:14 11/03/17 00:01 11/03/17 02:01 11/03/17 03:50 11/03/17 04:02 11/03/17 04:20 11/03/17 04:24 11/03/17 04:26 11/03/17 05:24 11/03/17 06:01 11/03/17 07:45 11/03/17 08:01 11/03/17 09:44 11/03/17 09:45 160.1 kg 163.3 kg 152/73 H 150/74 H 155/86 H 136/74 142/64 H 148/69 H 148/63 H 126/54 L 156/66 H 116/100 H 136/73 134/67 152/64 H 152/64 H 149/66 H 109/84 Supine 13 14 16 14 15 13 12 13 13 11 L 13 67 86 68 63 83 70 69 85 67 94 H 63 65 72 71 72 73 75 78 36.0 C L 36.3 C L 36.9 C 36.6 C 37 C 36.4 C L 37.2 C Rectal Temporal Artery Scan Temporal Artery Scan Temporal Artery Scan Temporal Artery Scan Temporal Artery Scan Temporal Artery Scan 93 L 92 L 91 L 94 L 93 L 95 93 L 93 L 93 L 90 L 96 96 95 75 L 95 93 L 93 L 98 98 94 L 94 L 94 L 94 L 95 93 L 93 L 4 3 2 2 2 5 6 5 3 5 5 5 3 5 11/03/17 10:00 11/03/17 12:00 11/03/17 12:07 11/03/17 14:02 11/03/17 14:03 11/03/17 14:08 11/03/17 15:00 11/03/17 15:45 11/03/17 15:54 11/03/17 16:00 11/03/17 16:01 11/03/17 17:00 11/03/17 18:00 11/03/17 18:01 11/03/17 18:14 11/03/17 19:00 11/03/17 20:00 11/03/17 20:01 11/03/17 20:30 11/03/17 21:00 11/03/17 22:01 11/03/17 22:02 11/03/17 23:00 11/04/17 00:00 11/04/17 00:01 11/04/17 00:02 11/04/17 00:30 11/04/17 01:00 11/04/17 02:00 11/04/17 02:01 11/04/17 03:00 11/04/17 04:00 168.7 kg 146/71 H 166/76 H 141/94 H 141/94 H 161/64 H 180/82 H 160/74 H 173/82 H 173/82 H 178/78 H 176/94 H 176/94 H 174/88 H Supine Supine Supine 15 13 13 16 14 17 13 13 13 13 13 15 14 13 16 18 13 12 12 14 13 13 12 12 15 16 70 77 71 71 70 75 70 73 70 73 64 66 67 62 36.5 C 36.8 C 36.6 C 36.8 C Temporal Artery Scan Tympanic Tympanic Tympanic 95 97 96 95 99 94 L 93 L 95 92 L 91 L 90 L 91 L 88 L 91 L 88 L 93 L 92 L 94 L 94 L 91 L 92 L 93 L 93 L 92 L 93 L 94 L 91 L 5 5 5 3 3 4 11/04/17 04:01 11/04/17 04:06 11/04/17 04:07 11/04/17 05:00 11/04/17 06:00 11/04/17 06:02 11/04/17 06:03 11/04/17 06:25 11/04/17 07:00 11/04/17 07:05 11/04/17 08:00 11/04/17 08:02 11/04/17 08:08 11/04/17 08:10 11/04/17 09:00 11/04/17 10:00 11/04/17 10:01 11/04/17 11:00 11/04/17 12:00 11/04/17 12:00 11/04/17 12:10 11/04/17 12:11 11/04/17 12:13 11/04/17 13:00 11/04/17 13:35 11/04/17 14:34 11/04/17 15:44 11/04/17 15:53 11/04/17 16:01 11/04/17 17:41 11/04/17 18:06 11/04/17 18:29 166.8 kg 187/81 H 172/69 H 172/69 H 165/82 H 147/84 H 183/79 H 183/79 H 182/62 H 151/59 H 166/138 H 151/59 H 158/67 H 148/92 H 124/61 150/73 H Supine Supine Sitting Supine 10 L 12 14 22 13 11 L 12 11 L 12 13 15 15 12 13 17 14 16 14 14 14 13 13 17 18 13 10 L 74 76 72 69 65 74 66 67 75 75 76 75 68 71 75 79 71 37.1 C 36.4 C L 36.5 C 37.2 C Temporal Artery Scan Temporal Artery Scan Temporal Artery Scan Temporal Artery Scan 93 L 98 88 L 89 L 93 L 87 L 95 95 94 L 94 L 96 94 L 98 93 L 95 98 95 96 95 97 100 94 L 93 L 97 87 L 93 L 4 4 5 5 5 5 4 3 11/04/17 19:47 11/04/17 20:20 11/04/17 22:03 11/04/17 22:23 11/04/17 23:40 11/05/17 00:01 11/05/17 02:01 11/05/17 03:19 11/05/17 03:32 11/05/17 05:06 11/05/17 06:01 11/05/17 06:02 11/05/17 07:00 11/05/17 07:20 11/05/17 08:00 11/05/17 08:01 11/05/17 09:00 11/05/17 10:00 11/05/17 10:19 11/05/17 11:00 11/05/17 11:51 11/05/17 12:00 11/05/17 13:00 11/05/17 13:02 165.9 kg 150/73 H 107/59 L 152/72 H 136/66 132/67 136/58 L 122/56 L 133/89 135/71 157/66 H Supine Supine 14 14 9 L 13 9 L 14 13 12 13 15 9 L 19 24 14 17 75 69 58 L 63 51 L 56 L 60 74 67 68 36.4 C L 36.7 C 36.8 C 36.3 C L Temporal Artery Scan Temporal Artery Scan Temporal Artery Scan Tympanic 90 L 91 L 92 L 93 L 93 L 93 L 91 L 89 L 90 L 92 L 92 L 90 L 76 L 92 L 91 L 87 L 3 3 3 3 3 3
--- NOTE | 2017-11-05 13:54 | IN_ITS ---
PT Notes Inpatient Physical Therapy Evaluation Date: 11/05/17 Referring Doctor: Gino Hancock PT Orders: PT CONSULT: obese, chronic right knee osteo, [facility]; re- eval for discharge this week back to [facility] Precautions: WBAT R LE, Fall precautions Patient Profile/Admitting Diagnosis: Pt is a 62yr old male admitted with non ST elevation myocardial infarction, chronic obstructive pulmonary disease exacerbation, acute kidney injury PMHX: obesity, right total knee replacement, s/p right TKA revision, osteomyelitis right knee, chronic low back pain, chronic obstructive pulmonary disease, diabetes mellitus, obstructive sleep apnea, iron deficiency anemia, hypertension, gastroesophageal reflux disease, gastrointestinal bleed, gastritis , peptic ulcer disease, hernia repair, cataract removal Social History/Home Situation: Lives with his in a house, ramp from garage into house, building second ramp outside to enter house, stays on one level inside of home. Baseline mobility assisted transfers and gait with 4WW, has been assisting him at home. Pt is unable to get into the shower so performs sponge baths. Equipment Owned/DME: 4WW, wheelchair, commode Subjective: Pt sitting at edge of bed preparing to transfer to wheelchair with 's assistance. Agreeable to PT Consult. shares that patient was at [facility] but then had to discharge to home due to insurance, was at home prior to this admission but is hoping to go back to [facility] for more therapy and gait training prior to returning to home setting. Objective: General Observation: telemetry, 3 liters 02 NC Mental Status: A& O x3 Pain: no c/o pain ROM: Right Upper Extremity: AROM WNL Left Upper Extremity: AROM shoulder flexion to 95, elbow and wrist WNL Right Lower Extremity: AROM hip flexion to 100, knee fully extended unable to flex, ankle WNL Left Lower Extremity: AROM WNL Strength: Right Upper Extremity: 5/5 throughout Left Upper Extremity: 4/5 shoulder flexion, 5/5 quad, 5/5 DF/PF Right Lower Extremity: hip and knee NT due to knee extension, 5/5 DF/PF Left Lower Extremity: 5/5 throuhgout Bed Mobility/Transfers: Sit-stand from bed: CGA with FWW Bed-wheelchair: CGA with FWW Stand-sit: CGA Gait: CGA with FWW 5 steps bed to wheelchair, WBAT R LE. Pt stands with flexed hips and leaning over walker, cues to stand erect. Pt able to weight shift to take steps. Balance: Static Sitting: normal Dynamic Sitting: normal Static Standing: fair Dynamic Standing: poor Special Tests: Mobility Limitations Standardized Measure [facility] AM-PAC 6 clicks Basic Mobility Inpatient Short Form: Raw Score: 14 Standardized Score: 38.10 CMS Score: 61.29% CMS Modifier: CL Informed Consent/Education: Patient instructed in purpose of PT consult and plan of care. Assessment: Pt is a 62yr old male admitted with non ST elevation myocardial infarction, chronic obstructive pulmonary disease exacerbation, acute kidney injury in setting of obesity, right total knee replacement, s/p right TKA revision, osteomyelitis right knee, chronic low back pain, chronic obstructive pulmonary disease, diabetes mellitus, obstructive sleep apnea, iron deficiency anemia. Patient presents with the following impairment level findings: decreased range of motion left shoulder, inability to flex right knee, maintaining full extension, making it difficult for him to perform transfers and gait mobility and requiring use of FWW for gait stability, decreased static and dynamic standing balance putting him at risk for falls, deconditioning and weakness due to hospitalizations. Pt would benefit from skilled therapy intervention for strengthening and progressive mobility training to improve safety and mobility, recommend shelter care facility for rehab prior to return to home setting so he can be more independent at home and less dependent on his for assistance. Impairments are contributing to the following functional limitations: AMPAC score CMS Score: 61.29% Patient is assessed as a High 52686 complexity based on the following: History: see above Examination: see above, left shoulder, back, right knee, heart, lungs Presentation: evolving Decision Making: AMPAC score CMS Score: 61.29% Goals: Goals X1 week 1. Supine-Sit SBA 2. Sit-Supine SBA 3. Sit-Stand SBA with FWW 4. Stand-Sit SBA with FWW 5. Bed-Chair SBA with FWW 6. Chair-Bed SBA with FWW 7. Gait SBA with FWW 30ftx2 WBAT R LE Plan of Care/Treatment Plan: 1-2x/day, 7 days/week x 1 week. Plan of care has been reviewed with the ENTRY LEVEL ADMINISTRATIVE ASSISTANT providing the service under Physical Therapy direction. Initiate Physical Therapy intervention for strengthening, bed mobility, transfers, gait, balance training, use of assistive device. DISCHARGE RECOMMENDATIONS: [facility] for [facility] TREATMENT CODE/TIME: 24 min IE 1343 G Codes in the area mobility of walking and moving around: current status [id number] CL; projected status GP [id number] Discharge status (if discharging) GP [id number] CL based on [facility] score CMS Score: 61.29% Salina Gutierrez PT Intake Vital Signs 3 l l l l 10/31/17 22:48 l l 10/31/17 22:50 l l 10/31/17 22:52 l l 10/31/17 22:52 l l 10/31/17 23:00 l l 10/31/17 23:01 l l 10/31/17 23:10 l l 10/31/17 23:17 l l 10/31/17 23:20 l l 10/31/17 23:22 l l 10/31/17 23:30 l l 10/31/17 23:31 l l 10/31/17 23:35 l l 10/31/17 23:40 l l 10/31/17 23:46 l l 10/31/17 23:47 l l 10/31/17 23:50 l l 11/01/17 00:00 l l 11/01/17 00:01 l l 11/01/17 00:56 l l 11/01/17 01:00 l l 11/01/17 01:01 l l 11/01/17 01:10 l l 11/01/17 01:16 l l 11/01/17 01:20 l l 11/01/17 01:30 l l 11/01/17 01:31 l l 11/01/17 01:32 l l 11/01/17 01:40 l l 11/01/17 01:46 l l 11/01/17 01:50 l l 11/01/17 02:00 l l 11/01/17 02:01 l l 11/01/17 02:10 l l 11/01/17 02:16 l l 11/01/17 02:20 l l 11/01/17 02:30 l l 11/01/17 02:31 l l 11/01/17 02:40 l l 11/01/17 02:46 l l 11/01/17 02:50 l l 11/01/17 03:02 l l 11/01/17 03:15 l l 11/01/17 03:16 l l 11/01/17 03:20 l l 11/01/17 03:30 l l 11/01/17 03:31 l l 11/01/17 04:11 l l 11/01/17 04:11 l l 11/01/17 04:11 l l 11/01/17 04:18 l l 11/01/17 05:06 l l 11/01/17 06:40 l l 11/01/17 06:50 l l 11/01/17 07:00 l l 11/01/17 07:01 l l 11/01/17 07:10 l l 11/01/17 07:10 l l 11/01/17 07:20 l l 11/01/17 07:29 l l 11/01/17 07:30 l l 11/01/17 07:40 l l 11/01/17 07:50 l l 11/01/17 08:00 l l 11/01/17 08:01 l l 11/01/17 08:10 l l 11/01/17 08:15 l l 11/01/17 08:20 l l 11/01/17 08:30 l l 11/01/17 08:40 l l 11/01/17 08:50 l l 11/01/17 09:00 l l 11/01/17 09:10 l l 11/01/17 09:20 l l 11/01/17 09:30 l l 11/01/17 09:40 l l 11/01/17 09:42 l l 11/01/17 09:50 l l 11/01/17 10:00 l l 11/01/17 10:10 l l 11/01/17 10:20 l l 11/01/17 10:25 l l 11/01/17 10:27 l l 11/01/17 10:30 l l 11/01/17 10:40 l l 11/01/17 10:50 l l 11/01/17 11:00 l l 11/01/17 11:10 l l 11/01/17 11:20 l l 11/01/17 11:30 l l 11/01/17 11:40 l l 11/01/17 11:50 l l 11/01/17 12:00 l l 11/01/17 12:10 l l 11/01/17 12:20 l l 11/01/17 12:30 l l 11/01/17 12:40 l l 11/01/17 12:50 l l 11/01/17 13:00 l l 11/01/17 13:02 l l 11/01/17 13:02 l l 11/01/17 13:10 l l 11/01/17 13:20 l l 11/01/17 13:30 l l 11/01/17 13:40 l l 11/01/17 13:50 l l 11/01/17 14:00 l l 11/01/17 14:01 l l 11/01/17 14:17 l l 11/01/17 14:18 l l 11/01/17 15:01 l l 11/01/17 15:40 l l 11/01/17 15:40 l l 11/01/17 15:49 l l 11/01/17 16:00 l l 11/01/17 18:01 l l 11/01/17 20:01 l l 11/01/17 20:20 l l 11/01/17 21:00 l l 11/01/17 22:00 l l 11/01/17 22:01 l l 11/02/17 00:00 l l 11/02/17 00:51 l l 11/02/17 02:00 l l 11/02/17 03:00 l l 11/02/17 03:53 l l 11/02/17 03:56 l l 11/02/17 04:01 l l 11/02/17 06:01 l l 11/02/17 06:41 l l 11/02/17 08:01 l l 11/02/17 08:17 l l 11/02/17 08:17 l l 11/02/17 10:01 l l 11/02/17 10:27 l l 11/02/17 10:41 l l 11/02/17 11:25 l l 11/02/17 12:24 l l 11/02/17 14:01 l l 11/02/17 15:40 l l 11/02/17 16:01 l l 11/02/17 18:03 l l 11/02/17 19:30 l l 11/02/17 20:00 l l 11/02/17 22:17 l l 11/02/17 23:14 l l 11/03/17 00:01 l l 11/03/17 02:01 l l 11/03/17 03:50 l l 11/03/17 04:02 l l 11/03/17 04:20 l l 11/03/17 04:24 l l 11/03/17 04:26 l l 11/03/17 05:24 l l 11/03/17 06:01 l l 11/03/17 07:45 l l 11/03/17 08:01 l l 11/03/17 09:44 l l 11/03/17 09:45 l l 11/03/17 10:00 l l 11/03/17 12:00 l l 11/03/17 12:07 l l 11/03/17 14:02 l l 11/03/17 14:03 l l 11/03/17 14:08 l l 11/03/17 15:00 l l 11/03/17 15:45 l l 11/03/17 15:54 l l 11/03/17 16:00 l l 11/03/17 16:01 l l 11/03/17 17:00 l l 11/03/17 18:00 l l 11/03/17 18:01 l l 11/03/17 18:14 l l 11/03/17 19:00 l l 11/03/17 20:00 l l 11/03/17 20:01 l l 11/03/17 20:30 l l 11/03/17 21:00 l l 11/03/17 22:01 l l 11/03/17 22:02 l l 11/03/17 23:00 l l 11/04/17 00:00 l l 11/04/17 00:01 l l 11/04/17 00:02 l l 11/04/17 00:30 l l 11/04/17 01:00 l l 11/04/17 02:00 l l 11/04/17 02:01 l l 11/04/17 03:00 l l 11/04/17 04:00 l l 11/04/17 04:01 l l 11/04/17 04:06 l l 11/04/17 04:07 l l 11/04/17 05:00 l l 11/04/17 06:00 l l 11/04/17 06:02 l l 11/04/17 06:03 l l 11/04/17 06:25 l l 11/04/17 07:00 l l 11/04/17 07:05 l l 11/04/17 08:00 l l 11/04/17 08:02 l l 11/04/17 08:08 l l 11/04/17 08:10 l l 11/04/17 09:00 l l 11/04/17 10:00 l l 11/04/17 10:01 l l 11/04/17 11:00 l l 11/04/17 12:00 l l 11/04/17 12:00 l l 11/04/17 12:10 l l 11/04/17 12:11 l l 11/04/17 12:13 l l 11/04/17 13:00 l l 11/04/17 13:35 l l 11/04/17 14:34 l l 11/04/17 15:44 l l 11/04/17 15:53 l l 11/04/17 16:01 l l 11/04/17 17:41 l l 11/04/17 18:06 l l 11/04/17 18:29 l l 11/04/17 19:47 l l 11/04/17 20:20 l l 11/04/17 22:03 l l 11/04/17 22:23 l l 11/04/17 23:40 l l 11/05/17 00:01 l l 11/05/17 02:01 l l 11/05/17 03:19 l l 11/05/17 03:32 l l 11/05/17 05:06 l l 11/05/17 06:01 l l 11/05/17 06:02 l l 11/05/17 07:00 l l 11/05/17 07:20 l l 11/05/17 08:00 l l 11/05/17 08:01 l l 11/05/17 09:00 l l 11/05/17 10:00 l l 11/05/17 10:19 l l 11/05/17 11:00 l l 11/05/17 11:51 l l 11/05/17 12:00 l l 11/05/17 13:00 l l 11/05/17 13:02 l l Weight 172.5 kg 172.5 kg 159 kg 159 kg 160.1 kg 163.3 kg 168.7 kg 166.8 kg 165.9 kg l l BP 124/66 132/53 L 114/53 L 117/56 L 106/ 56 L 119/57 L 122/51 L 125/76 122/52 L 135/60 142/60 H 137/61 131/74 153/81 H 112/54 L 124/77 139/96 H 140/66 139/96 H 135/93 H 141/63 H 143/63 H 161 /74 H 140/ 75 140/75 144/60 H 137/116 H 123/50 L 123/ 50 L 117/59 L 149/76 H 137/71 137/71 97/69 L 119/67 119/67 137/65 152/73 H 150/74 H 155/86 H 136/74 142/64 H 148/69 H 148/63 H 126/54 L 156/66 H 116/100 H 136/ 73 134/67 152/64 H 152/64 H 149/66 H 109/84 146 /71 H 166/76 H 141/94 H 141/94 H 161/64 H 180/ 82 H 160/74 H 173/82 H 173/82 H 178/78 H 176/94 H 176/94 H 174/88 H 187/81 H 172/69 H 172/69 H 165 /82 H 147/84 H 183/79 H 183/79 H 182/62 H 151/59 H 166/138 H 151/59 H 158/67 H 148/92 H 124/61 150/73 H 150/73 H 107/59 L 152/72 H 136/66 132/67 136 /58 L 122/56 L 133/89 135/71 157/66 H l l Position Sitting Supine Left Lateral Supine Supine Right Lateral Supine Supine Supine Supine Supine Supine Supine Sitting Supine Supine Supine l l Respiration 18 22 27 H 16 11 L 17 22 19 18 19 19 30 H 20 20 29 H 17 16 16 14 15 15 15 14 14 15 14 22 24 22 18 15 14 15 18 15 16 11 L 23 14 18 14 18 17 18 15 13 17 17 15 16 21 21 21 18 19 16 12 15 18 16 18 26 H 19 16 17 17 21 19 25 H 14 11 L 18 17 21 17 19 20 15 15 12 22 18 16 19 16 14 20 20 17 18 15 16 14 15 17 17 16 16 17 16 12 12 13 14 13 14 16 14 15 13 12 13 13 11 L 13 15 13 13 16 14 17 13 13 13 13 13 15 14 13 16 18 13 12 12 14 13 13 12 12 15 16 10 L 12 14 22 13 11 L 12 11 L 12 13 15 15 12 13 17 14 16 14 14 14 13 13 17 18 13 10 L 14 14 9 L 13 9 L 14 13 12 13 15 9 L 19 24 14 17 l l Pulse 93 H 91 H 94 H 89 87 91 H 90 91 H 91 H 87 84 90 75 91 H 87 105 H 93 H 131 H 95 H 131 H 95 H 78 88 89 79 84 92 H 92 H 90 77 79 93 H 89 88 66 66 67 66 67 86 68 63 83 70 69 85 67 94 H 63 65 72 71 72 73 75 78 70 77 71 71 70 75 70 73 70 73 64 66 67 62 74 76 72 69 65 74 66 67 75 75 76 75 68 71 75 79 71 75 69 58 L 63 51 L 56 L 60 74 67 68 l l Temp 37.0 C 37 C 36.2 C L 37 C 36.6 C 36.8 C 36.2 C L 35.8 C L 36.6 C 36.0 C L 36.3 C L 36.9 C 36.6 C 37 C 36.4 C L 37.2 C 36.5 C 36.8 C 36.6 C 36.8 C 37.1 C 36.4 C L 36.5 C 37.2 C 36.4 C L 36.7 C 36.8 C 36.3 C L l l Temp Source Temporal Artery Scan Temporal Artery Scan Temporal Artery Scan Temporal Artery Scan Temporal Artery Scan Temporal Artery Scan Temporal Artery Scan Temporal Artery Scan Rectal Rectal Temporal Artery Scan Temporal Artery Scan Temporal Artery Scan Temporal Artery Scan Temporal Artery Scan Temporal Artery Scan Temporal Artery Scan Tympanic Tympanic Tympanic Temporal Artery Scan Temporal Artery Scan Temporal Artery Scan Temporal Artery Scan Temporal Artery Scan Temporal Artery Scan Temporal Artery Scan Tympanic l l Pulse Oximetry (%) 86 L 89 L 90 L 88 L 88 L 90 L 89 L 86 L 92 L 89 L 90 L 89 L 87 L 88 L 87 L 89 L 92 L 90 L 90 L 91 L 90 L 88 L 90 L 91 L 91 L 90 L 90 L 89 L 88 L 91 L 89 L 90 L 89 L 90 L 93 L 92 L 92 L 92 L 92 L 93 L 92 L 92 L 90 L 92 L 93 L 93 L 93 L 93 L 92 L 92 L 93 L 92 L 93 L 92 L 93 L 92 L 94 L 94 L 95 94 L 93 L 93 L 93 L 92 L 98 94 L 93 L 95 95 93 L 92 L 93 L 96 93 L 94 L 94 L 92 L 91 L 93 L 90 L 84 L 93 L 92 L 93 L 92 L 92 L 92 L 91 L 91 L 90 L 88 L 91 L 90 L 91 L 92 L 94 L 93 L 93 L 93 L 91 L 94 L 93 L 93 L 91 L 91 L 92 L 92 L 92 L 95 94 L 96 96 93 L 92 L 91 L 94 L 93 L 95 93 L 93 L 93 L 90 L 96 96 95 75 L 95 93 L 93 L 98 98 94 L 94 L 94 L 94 L 95 93 L 93 L 95 97 96 95 99 94 L 93 L 95 92 L 91 L 90 L 91 L 88 L 91 L 88 L 93 L 92 L 94 L 94 L 91 L 92 L 93 L 93 L 92 L 93 L 94 L 91 L 93 L 98 88 L 89 L 93 L 87 L 95 95 94 L 94 L 96 94 L 98 93 L 95 98 95 96 95 97 100 94 L 93 L 97 87 L 93 L 90 L 91 L 92 L 93 L 93 L 93 L 91 L 89 L 90 L 92 L 92 L 90 L 76 L 92 L 91 L 87 L l l Oxygen Flow Rate 2 2 2 4 4 4 4 5 5 5 5 5 5 5 5 5 5 4 3 2 2 2 5 6 5 3 5 5 5 3 5 5 5 5 3 3 4 4 4 5 5 5 5 4 3 3 3 3 3 3 3
--- NOTE | 2017-11-05 13:56 | CHAPLAIN ---
Piyush was in bed when I visited. During our conversation he mostly talked about not liking living in [place], and wishing to move back to [place]. He said he moved to [place] with his to be closer to her family and he agreed to try it for a year. The year is almost up, and Piyush said he has not grown to like [place] and misses the double-wide trailer they sold in [place]. He has also had difficulties with members of his 's family here in [place]. From our conversation, I thought he was being discharged home, but according to the discharge plan, Piyush will be going to [facility].
[2017-11-05] MEDS: Lisinopril 5 MG TAB PO (14:36)
[2017-11-05] MEDS: Furosemide 20 MG TAB PO (14:37)
--- NOTE | 2017-11-05 14:45 | DM INPTCON_ITS ---
DESCRIPTION/ASSESSMENT: Follow up visit with and Mrs. Heard for diabetes self management. Blood sugars are improved with change in Prednisone prescription, now 120-140s with only moderate insulin correction. Discussed diabetes self management for Mr. Heard. She states she has diabetes as well and takes care of his needs. States she is well informed and does not need information at this time. She states they can't afford insulin for him. INTERVENTION: Patient and caregiver declined diabetes self management support at this time. They are aware of the services. PLAN: Will follow blood sugars and f/u as desired by patient.
--- NOTE | 2017-11-05 14:48 | PGE_ITS ---
Date of service: 11/05/17 Time of Service: 14:39 Assessment and Plan (1) COPD exacerbation: Current visit: Yes Status: Acute Overall improving. Minimal wheezing. He still has quite an O2 requirement at 3 L. Desaturates to 83% on room air. Plan is to convert from IV to oral steroids, prednisone 40 mg daily. No clear indication for antibiotics at this time. (2) Non-ST elevation myocardial infarction (NSTEMI): Current visit: Yes Status: Acute No chest pain, no shortness of breath. No evidence of an acute coronary syndrome at this time. Likely type II VT secondary to demand ischemia. (3) Acute kidney injury (nontraumatic): Current visit: Yes Status: Acute Creatinine has improved to 1.44, potassium is stable. (4) Type 2 diabetes mellitus: Current visit: Yes Status: Chronic Blood sugars stable continue present meds. (5) DVT prophylaxis: Current visit: Yes Status: Acute Continue present meds. (6) Mixed sleep apnea: Current visit: Yes Status: Chronic Declines CPAP but will still have it available if he were to agree. (7) Infection of prosthetic knee joint: Current visit: Yes Status: Chronic Continues on chronic doxycycline. The right knee is a bit warmer than the left but otherwise no change from his baseline. (8) Discharge planning issues: Current visit: Yes Status: Acute Last patient remains a full code. Will transfer from ICU to [facility]. Physical therapy consult. Potential transfer to health and rehab tomorrow. Subjective Patient reports: no new complaints and feels better Interval history since last seen: Mild cough. No fever chills or rigors. He states he has not been up walking because he was told he has to stay in bed. Appetite is excellent. He is taking fluids well. Exam Narrative Exam Narrative: Lying comfortably in bed in no apparent distress. He is cooperative. Const General: cooperative, comfortable and no acute distress Nutritional Appearance: obese Orientation: alert and awake Chest Chest: normal inspection of the chest Resp Effort & Inspection: normal respiratory effort Auscultation: bronchovesicular breath sounds and no crackles Cardio Rate: regular rate Rhythm: regular rhythm Heart Sounds: no murmurs GI Palpation: soft and nontender Skin General skin exam: purpura (Left arm area) Neuro Cognition: normal cognition Speech: speech normal Motor: muscle tone normal throughout Extrem General: edema (Bilateral lower extremities tense with fluid, no discharge) Psych Appearance: grossly normal Objective Objective Clinical Data: Abnormal lab results 11/05/17 11/05/17 Range/Units 06:20 06:20 WBC 11.18 H D (4.4-10.8) k/cumm RBC 4.08 L (4.50-6.00) m/cumm Hgb 9.9 L (13.5-17.5) g/dL Hct 36.5 L (40.0-50.0) % MCH 24.3 L (27.0-33.0) pg MCHC 27.1 L (32.0-36.0) g/dL RDW 17.1 H (11.8-14.1) % Carbon Dioxide 35.2 H (21.0-32.0) mmol/L Anion Gap 2.8 L (3-11) mmol/L BUN 36 H (7-18) mg/dL Creatinine 1.44 H (0.70-1.30) mg/dL Glucose 162 H (70-100) mg/dL Calcium 8.3 L (8.5-10.1) mg/dL Vital Signs Temp 36.3 C L 11/05/17 08:45 Pulse 68 11/05/17 13:02 Resp 17 11/05/17 13:02 BP 157/66 H 11/05/17 13:02 Pulse Ox 87 L 11/05/17 13:00 Intake & Output 11/04/17 11/05/17 11/05/17 23:59 11:59 23:59 Intake Total 938.000 / 938.000 675 / 675 Output Total 3825 / 3825 850 / 850 650 / 650 Balance -2887.000 / -2887.000 -175 / -175 -650 / -650 Weight 166.8 kg 165.9 kg Intake: IV 63.000 / 63.000 285 / 285 Oral 875 / 875 390 / 390 Output: Urine 3825 / 3825 850 / 850 650 / 650 Other: Urine Color Yellow Light Kenia Yellow Urine Appearance Sediment Sediment Clear Urine Odor None Comment Avalos in place. Avalos in place. Laboratory Results WBC 11.18 k/cumm (4.4-10.8) H D 11/05/17 06:20 RBC 4.08 m/cumm (4.50-6.00) L 11/05/17 06:20 Hgb 9.9 g/dL (13.5-17.5) L 11/05/17 06:20 Hct 36.5 % (40.0-50.0) L 11/05/17 06:20 MCV 89.5 fL (80-95) 11/05/17 06:20 MCH 24.3 pg (27.0-33.0) L 11/05/17 06:20 MCHC 27.1 g/dL (32.0-36.0) L 11/05/17 06:20 RDW 17.1 % (11.8-14.1) H 11/05/17 06:20 Plt Count 288 x1000/uL (130-400) 11/05/17 06:20 MPV 10.6 fL (8.0-11.0) 11/05/17 06:20 Immature Gran % 0.4 11/01/17 06:28 Neutrophils % 93.8 11/01/17 06:28 Lymphocytes % 4.5 11/01/17 06:28 Monocytes % 1.2 11/01/17 06:28 Eosinophils % 0.0 11/01/17 06:28 Basophils % 0.1 11/01/17 06:28 Absolute Neutrophils 9.70 k/cumm (1.2-6.7) H 11/01/17 06:28 Absolute Lymphocytes 0.47 k/cumm (1.2-3.4) L 11/01/17 06:28 Absolute Monocytes 0.12 k/cumm (0.11-0.7) 11/01/17 06:28 Absolute Eosinophils 0.00 k/cumm (0.0-0.7) 11/01/17 06:28 Absolute Basophils 0.01 k/cumm (0.0-0.2) 11/01/17 06:28 RBC Morphology See below 10/31/17 22:50 Polychromasia Present 10/31/17 22:50 Hypochromasia 2+ 10/31/17 22:50 PT 9.2 sec (9.3-10.8) L 11/01/17 06:28 INR 0.9 (1.0-3.5) L 11/01/17 06:28 APTT 37.8 sec (21.0-31.4) H 11/03/17 06:35 Sample Site Right radial 11/01/17 10:25 pCO2 50 mmHg (34-47) H 11/01/17 10:25 pO2 66 mmHg (83-108) L 11/01/17 10:25 O2 Saturation 94 % (94-98) 11/01/17 10:25 ABG pH 7.42 (7.35-7.45) 11/01/17 10:25 ABG HCO3 32 mmol/L (22-28) H 11/01/17 10:25 ABG Total CO2 30 mmol/L (22-29) H 11/01/17 10:25 ABG Base Excess 7.6 mmol/L (-3-3) H 11/01/17 10:25 Oxygen Liter Flow 5 L 11/01/17 10:25 FiO2 Nasal cannula % 11/01/17 10:25 Sodium 138 mmol/L (136-145) 11/05/17 06:20 Potassium 3.8 mmol/L (3.5-5.1) D 11/05/17 06:20 Chloride 100 mmol/L (98-107) 11/05/17 06:20 Carbon Dioxide 35.2 mmol/L (21.0-32.0) H 11/05/17 06:20 Anion Gap 2.8 mmol/L (3-11) L 11/05/17 06:20 BUN 36 mg/dL (7-18) H 11/05/17 06:20 Creatinine 1.44 mg/dL (0.70-1.30) H 11/05/17 06:20 Estimated GFR/1.73 m2 50.04 (mL/min/1.73m2) 11/05/17 06:20 Glucose 162 mg/dL (70-100) H 11/05/17 06:20 Hemoglobin A1c 7.1 % (4.5-6.2) H 11/01/17 06:28 Calcium 8.3 mg/dL (8.5-10.1) L 11/05/17 06:20 Magnesium 1.9 mg/dL (1.8-2.4) 10/31/17 22:50 Iron 21 ug/dL (50-175) L 11/01/17 02:38 TIBC 405 ug/dL (250-450) 11/01/17 02:38 Transferrin % Sat 5 % (20-55) L 11/01/17 02:38 Ferritin 28 ng/mL (8-388) 11/01/17 02:38 Total Bilirubin 0.3 mg/dL (0.2-1.0) 11/01/17 06:28 AST 24 U/L (15-37) 11/01/17 06:28 ALT 21 U/L (12-78) 11/01/17 06:28 Alkaline Phosphatase 99 U/L (46-116) 11/01/17 06:28 Troponin I 1.41 ng/mL (0.00-0.06) H* 11/01/17 12:55 Total Protein 6.7 g/dL (6.4-8.2) 11/01/17 06:28 Albumin 2.2 g/dL (3.4-5.0) L 11/01/17 06:28 Triglycerides 169 mg/dL (30-150) H 11/01/17 06:28 Total Cholesterol 242 mg/dL (50-200) H 11/01/17 06:28 LDL Cholesterol Direct 178 mg/dL (<100) H 11/01/17 06:28 HDL Cholesterol 51 mg/dL (40-60) 11/01/17 06:28 Vitamin B12 425 pg/mL (193-986) 11/01/17 02:38 Folate 9.9 ng/mL (8.6-20.0) 11/01/17 02:38 TSH 4.33 uIU/mL (0.358-3.74) H 11/01/17 02:38
[2017-11-05] MEDS: Insulin Glargine 300 UNITS/3 ML PEN 15 UNITS SC (21:27)
[2017-11-05] MEDS: Doxycycline Hyclate 100 MG CAP PO (21:29)
[2017-11-05] MEDS: Atorvastatin 40 MG TAB PO (21:29)
[2017-11-06] VITALS (11 sets, daily range): BP systolic 113–157; BP diastolic 57–93; PULSE 55–76; RESP 7–24; TEMP 35.9; O2SAT 83–91
[2017-11-06] MEDS: Heparin 5,000 UNITS/ML VIAL 5000 UNITS SC ×2 (02:58→10:29)
[2017-11-06] MEDS: Albuterol/Ipratropium 3 ML UPD VIAL UPD ×2 (03:09→10:18)
[2017-11-06] MEDS: Methadone 5 MG TAB 10 MG PO (05:07)
[2017-11-06 06:51] LABS: Abs Immature Grans 0.04 k/cumm (0.0-0.09); Absolute Lymphocyte Count 1.03 k/cumm (1.2-3.4); Absolute Monocyte Count 0.94 k/cumm (0.11-0.7); Absolute Neutrophil Count 8.79 k/cumm (1.2-6.7); HCT 37.7 % (40.0-50.0); HGB 10.2 g/dL (13.5-17.5); Immature Grans % 0.4; Lymphocytes % 9.5; Mean Corp. HGB Concentration 27.1 g/dL (32.0-36.0); Mean Corpuscular Hemoglobin 24.1 pg (27.0-33.0); Mean Corpuscular Volume 89.1 fL (80-95); Mean Platelet Volume 10.3 fL (8.0-11.0); Monocytes % 8.7; Neutrophils % 81.4; Platelet Count 288 x1000/uL (130-400); RBC 4.23 m/cumm (4.50-6.00); RBC Distribution Width 17.2 % (11.8-14.1)
[2017-11-06 07:11] LABS: Anion Gap 1.3 mmol/L (3-11); BUN 43 mg/dL (7-18); CO2 36.7 mmol/L (21.0-32.0); CREATININE 1.36 mg/dL (0.70-1.30); Calcium 8.6 mg/dL (8.5-10.1); Chloride 100 mmol/L (98-107); Estimated GFR 53.45 (mL/min/1.73m2); Glucose 144 mg/dL (70-100); Potassium 4.9 mmol/L (3.5-5.1); Sodium 138 mmol/L (136-145)
[2017-11-06 07:15] LABS: NT-proBNP 3229 pg/mL
[2017-11-06 07:25] LABS: Anisocytosis 1+; Basophilic Stippling Present; Diff Comment RBC Morph Reviewed; Hypochromasia 1+; Polychromasia Present
[2017-11-06] MEDS: amLODIPine 5 MG TAB 10 MG PO (08:47)
[2017-11-06] MEDS: predniSONE 20 MG TAB 40 MG PO (08:47)
[2017-11-06] MEDS: Clopidogrel 75 MG TAB PO (08:47)
[2017-11-06] MEDS: Gabapentin 400 MG CAP PO (08:47)
[2017-11-06] MEDS: Doxycycline Hyclate 100 MG CAP PO (08:47)
[2017-11-06] MEDS: Isosorbide Mononitrate 30 MG TABCR PO (08:48)
[2017-11-06] MEDS: Furosemide 20 MG TAB PO (08:48)
[2017-11-06] MEDS: Pantoprazole 40 MG TABCR PO (08:48)
[2017-11-06] MEDS: Sucralfate 1 GM TAB PO (08:48)
[2017-11-06] MEDS: Metoprolol 25 MG TAB PO (08:49)
[2017-11-06] MEDS: Aspirin E.C. 81 MG TABEC PO (08:49)
[2017-11-06] MEDS: Lisinopril 5 MG TAB PO (08:49)
--- NOTE | 2017-11-06 08:57 | PDOC.CMDIS ---
- If Service Date Differs Date of service: 11/06/17 Time of Service: 08:57 LACE Index Scoring Tool - Questions: Length of Stay (in days): 4 - 6 Acuity (Admit via E.D.?): Yes Comorbidities: Previous M.I., Diabetes w/o Complication, Chronic Pulmonary Disease, Liver or Renal Disease E.D. Visits: 5 - Answers: Total Score: 16 Risk of Readmission: High Risk Care Management Discharge Reason for Hospitalization: NSTEMI Discharge Plan: Piyush is being discharged to [facility] today. When DELBERT reviews the discharge plan he states he is looking foward to returning to the Rehab. He is oxygen dependent at this time and will be sent over with oxygen. RCT to transport patient coordianted by DELBERT. Spouse Sydney notified of the transfer. DELBERT contacted [facility] admission coordinator and he accepts patient for 1130. Patient/Family Education Needs: Discharge education, limitations, and follow plan of care. Services Needed at Discharge: Care Home Facility, Transportation
--- NOTE | 2017-11-06 09:16 | W.PM.DS.N ---
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 (8) Discharge planning issues: Status: Acute Discharge Plan Disposition Patient Disposition: SNF (LEVEL 1) [facility] Condition: Serious Discharge Details Reason For Visit: COPD EXACERBATION, NSTEMI Admit Date/Time: 11/01/17 03:53 Admit Provider: Gino Hancock Attending Provider: Gino Hancock [facility] Course: 63-year-old male with a PMHx significant for HTN, DM, COPD, CARLOS, and chronic osteomyelitis of his right knee admitted from [facility] ED on 11/01/17 with apparent COPD exacerbation, hypoxia, and NSTEMI. Mr. Heard was noted initially by EMS to be hypoxic with a saturation in the 70-80's. There was also reports of some mild altered mental status. The patient reported an approximate 1 day course of feeling ill, with increased cough and sputum production without fevers or rigors. Further work-up in the emergency room included an EKG that demonstrated no acute ST or T-wave changes. chest 2 Views that demonstrate COPD but no acute infiltrates and no CHF, and labs studies that were remarkable for a chronic anemia, mildly elevated WBC count, and a creatinine that was above his baseline. Furthermore troponin level was elevated at 1.37 with a repeat level came back at 1.55. Discussion by ED attending with [facility] cardiology with likely NSTEMI in setting of hypoxia driven demand ischemia. His troponin downtrended. His heparin drip is discontinued and he remains asymptomatic. He was started on beta iglesia therapy, high potency statin, dual antiplatelet therapy. An ECHO was obtained with results limited by body habitus, but showing a normal LV and RV systolic function, and no wall motion abnormalities (although this could not be entirely excluded). He will need cardiology follow up as well as a stress test to continue ischemic workup. He had an acute kidney injury, his MARIAA inhibitor was held, as well as his lasix, his potassium was elevated and he was given Kayexolate, his potassium is normal at the time of discharge. His kidney funciton improved. For his COPD exacerbation, he was given IV steroids and transitioned to oral, he will need to continue oral steroids upon discharge. He intially received IV ceftriaxone, which has been discontinued. He has been receiving nebulizer treatments. He reports improvement from a breathing standpoint since time of admission, but is still requiring supplemental oxygen by Nasal Cannula. He was noted to have iron deficiency anemia, he has a normal Vitamin B12/Folic Acid, and minimally elevated TSH in setting of acute illness. Iron and Ferritin are both low, with a high normal TIBC. Initiated oral iron supplements with vitamin C. Continue PPI and sucralfate. He has a history of type 2 diabetes. His blood sugars were initially in the 200-300 range, with improvement to the 100s. Continue current regimen and ADA diet. Home Meds and New Rx's Prescriptions: New atorvastatin [Lipitor] 40 mg Tablet 40 mg PO QPM Qty: 0 RF: 0 ipratropium-albuterol 0.5 mg-3 mg(2.5 mg base)/3 mL Solution For Nebulization 3 ml UPD Q6H Qty: 0 RF: 0 amlodipine 5 mg Tablet 10 mg PO DAILY Qty: 0 RF: 0 aspirin 81 mg Tablet,Delayed Release (Dr/Ec) 81 mg PO DAILY Qty: 0 RF: 0 clopidogrel [Plavix] 75 mg Tablet 75 mg PO DAILY Qty: 0 RF: 0 insulin aspart U-100 [Novolog Flexpen U-100 Insulin] 100 unit/mL Insulin Pen subcut 0800,1200,1700 Qty: 0 RF: 0 albuterol sulfate 2.5 mg /3 mL (0.083 %) Solution For Nebulization 2.5 mg UPD Q2H PRN PRNQty: 0 RF: 0 prednisone 20 mg Tablet 40 mg PO DAILY Qty: 6 RF: 0 isosorbide mononitrate 30 mg Tablet Extended Release 24 Hr 30 mg PO DAILY Qty: 0 RF: 0 nitroglycerin [Nitrostat] 0.4 mg Tablet, Sublingual 0.4 mg Sublingual Q5 MIN PRN X3 PRNQty: 0 RF: 0 metoprolol tartrate 25 mg Tablet 25 mg PO Q12H Qty: 0 RF: 0 insulin glargine [Lantus Solostar U-100 Insulin] 100 unit/mL (3 mL) Insulin Pen 15 units subcut HS Qty: 0 RF: 0 Continue ferrous sulfate [Iron (ferrous sulfate)] 325 MG tablet 325 mg PO DAILY RF: 0 pantoprazole 40 MG tablet,delayed release (DR/EC) 40 mg PO DAILY@0730 Qty: 30 RF: 3 lisinopril 5 mg Tablet 5 mg PO DAILY RF: 0 furosemide 20 mg Tablet 20 mg PO DAILY RF: 0 penicillin V potassium 500 mg Tablet 500 mg PO TID RF: 0 gabapentin 100 MG capsule 400 mg PO TID RF: 0 multivit, iron, min no.8, FA [Therapeutic-M] 1 TAB tablet 1 tab PO BID Qty: 30 RF: 3 methadone [Dolophine] 5 MG tablet 10 mg PO Q8H RF: 0 acetaminophen 500 MG tablet 1,000 mg PO DAILY PRNRF: 0 metformin [Glucophage] 1,000 MG tablet 1,000 mg PO BID RF: 0 tiotropium bromide [Spiriva with HandiHaler] 18 MCG capsule, w/inhalation device 18 mcg Inhalation DAILY RF: 0 albuterol sulfate [ProAir RespiClick] 90 MCG aerosol powdr breath activated 2 puffs Inhalation Q4H PRN PRNRF: 0 sucralfate 1 GM tablet 1 gm PO TID RF: 0 Discharge Instructions Instructions: Myocardial Infarction (DC), COPD (Chronic Obstructive Pulmonary Disease) (DC) Activity:: Activity as Tolerated Equipment/Supplies:: No Equipment Needed Diet:: ADA and heart healthy Discharge Orders Discharge Orders: Discharge Order (Routine); Ordered 11/06/17 Ordered By: Patito Ruggiero Other Ambulatory Orders: Basic Metabolic Panel (Routine) Location: Determined by Patient Ordered By: Patito Ruggiero Complete Blood Count No Diff (Routine) Location: Determined by Patient Ordered By: Patito Ruggiero NM MPI rest & stress grp (Routine) Location: Determined by Patient Ordered By: Patito Ruggiero DS: Data Vitals/I&O Vitals and I&O: Vital Signs Temp 36.7 C 11/05/17 23:00 Pulse 65 11/06/17 06:01 Resp 7 L 11/06/17 06:01 BP 130/60 11/06/17 06:01 Pulse Ox 89 L 11/06/17 06:01 Intake & Output 11/05/17 11/05/17 11/06/17 11:59 23:59 11:59 Intake Total 1932 / 1932 1200 / 1200 400 / 400 Output Total 850 / 850 2450 / 2450 450 / 450 Balance 1082 / 1082 -1250 / -1250 -50 / -50 Weight 165.9 kg 166.3 kg Intake: IV 822 / 822 0 / 0 Oral 1110 / 1110 1200 / 1200 400 / 400 Output: Urine 850 / 850 2450 / 2450 450 / 450 Other: Urine Color Light Kenia Yellow Urine Appearance Sediment Clear Urine Odor Normal Comment Avalos in place. Voiding Methods Urinal Labs on day of discharge: Labs from last 24 hours 11/06/17 11/06/17 11/06/17 06:05 06:05 06:05 WBC 10.80 RBC 4.23 L Hgb 10.2 L Hct 37.7 L MCV 89.1 MCH 24.1 L MCHC 27.1 L RDW 17.2 H Plt Count 288 MPV 10.3 Immature Gran % 0.4 Neutrophils % 81.4 Lymphocytes % 9.5 Monocytes % 8.7 Eosinophils % 0.0 Basophils % 0.0 Absolute Neutrophils 8.79 H Absolute Lymphocytes 1.03 L Absolute Monocytes 0.94 H Absolute Eosinophils 0.00 Absolute Basophils 0.00 Differential Comment Rbc morph reviewed RBC Morphology See below Polychromasia Present Hypochromasia 1+ Basophilic Stippling Present Anisocytosis 1+ Sodium 138 Potassium 4.9 D Chloride 100 Carbon Dioxide 36.7 H Anion Gap 1.3 L BUN 43 H Creatinine 1.36 H Estimated GFR/1.73 m2 53.45 Glucose 144 H Calcium 8.6 NT-Pro-B Natriuret Pep 3229 H
--- NOTE | 2017-11-06 09:29 | DSE_ITS ---
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 (8) Discharge planning issues: Status: Acute Discharge Plan Disposition Patient Disposition: SNF (LEVEL 1) [facility] Condition: Serious Discharge Details Reason For Visit: COPD EXACERBATION, NSTEMI Admit Date/Time: 11/01/17 03:53 Admit Provider: Gino Hancock Attending Provider: Gino Hancock Primary [facility] Course: 63-year-old male with a PMHx significant for HTN, DM, COPD, CARLOS, and chronic osteomyelitis of his right knee admitted from [facility] ED on 11/01/17 with apparent COPD exacerbation, hypoxia, and NSTEMI. Mr. Heard was noted initially by EMS to be hypoxic with a saturation in the 70 -80's. There was also reports of some mild altered mental status. The patient reported an approximate 1 day course of feeling ill, with increased cough and sputum production without fevers or rigors. Further work-up in the emergency room included an EKG that demonstrated no acute ST or T-wave changes. chest 2 Views that demonstrate COPD but no acute infiltrates and no CHF, and labs studies that were remarkable for a chronic anemia, mildly elevated WBC count, and a creatinine that was above his baseline. Furthermore troponin level was elevated at 1.37 with a repeat level came back at 1.55. Discussion by ED attending with [facility] cardiology with likely NSTEMI in setting of hypoxia driven demand ischemia. His troponin downtrended. His heparin drip is discontinued and he remains asymptomatic. He was started on beta iglesia therapy, high potency statin, dual antiplatelet therapy. An ECHO was obtained with results limited by body habitus, but showing a normal LV and RV systolic function, and no wall motion abnormalities (although this could not be entirely excluded). He will need cardiology follow up as well as a stress test to continue ischemic workup. He had an acute kidney injury, his MARIAA inhibitor was held, as well as his lasix , his potassium was elevated and he was given Kayexolate, his potassium is normal at the time of discharge. His kidney funciton improved. For his COPD exacerbation, he was given IV steroids and transitioned to oral, he will need to continue oral steroids upon discharge. He intially received IV ceftriaxone, which has been discontinued. He has been receiving nebulizer treatments. He reports improvement from a breathing standpoint since time of admission, but is still requiring supplemental oxygen by Nasal Cannula. He was noted to have iron deficiency anemia, he has a normal Vitamin B12/Folic Acid, and minimally elevated TSH in setting of acute illness. Iron and Ferritin are both low, with a high normal TIBC. Initiated oral iron supplements with vitamin C. Continue PPI and sucralfate. He has a history of type 2 diabetes. His blood sugars were initially in the 200- 300 range, with improvement to the 100s. Continue current regimen and ADA diet. Home Meds and New Rx's Prescriptions: New atorvastatin [Lipitor] 40 mg Tablet 40 mg PO QPM Qty: 0 RF: 0 ipratropium-albuterol 0.5 mg-3 mg(2.5 mg base)/3 mL Solution For Nebulization 3 ml UPD Q6H Qty: 0 RF: 0 amlodipine 5 mg Tablet 10 mg PO DAILY Qty: 0 RF: 0 aspirin 81 mg Tablet,Delayed Release (Dr/Ec) 81 mg PO DAILY Qty: 0 RF: 0 clopidogrel [Plavix] 75 mg Tablet 75 mg PO DAILY Qty: 0 RF: 0 insulin aspart U-100 [Novolog Flexpen U-100 Insulin] 100 unit/mL Insulin Pen subcut 0800,1200,1700 Qty: 0 RF: 0 albuterol sulfate 2.5 mg /3 mL (0.083 %) Solution For Nebulization 2.5 mg UPD Q2H PRN PRNQty: 0 RF: 0 prednisone 20 mg Tablet 40 mg PO DAILY Qty: 6 RF: 0 isosorbide mononitrate 30 mg Tablet Extended Release 24 Hr 30 mg PO DAILY Qty: 0 RF: 0 nitroglycerin [Nitrostat] 0.4 mg Tablet, Sublingual 0.4 mg Sublingual Q5 MIN PRN X3 PRNQty: 0 RF: 0 metoprolol tartrate 25 mg Tablet 25 mg PO Q12H Qty: 0 RF: 0 insulin glargine [Lantus Solostar U-100 Insulin] 100 unit/mL (3 mL) Insulin Pen 15 units subcut HS Qty: 0 RF: 0 Continue ferrous sulfate [Iron (ferrous sulfate)] 325 MG tablet 325 mg PO DAILY RF: 0 pantoprazole 40 MG tablet,delayed release (DR/EC) 40 mg PO DAILY@0730 Qty: 30 RF: 3 lisinopril 5 mg Tablet 5 mg PO DAILY RF: 0 furosemide 20 mg Tablet 20 mg PO DAILY RF: 0 penicillin V potassium 500 mg Tablet 500 mg PO TID RF: 0 gabapentin 100 MG capsule 400 mg PO TID RF: 0 multivit, iron, min no.8, FA [Therapeutic-M] 1 TAB tablet 1 tab PO BID Qty: 30 RF: 3 methadone [Dolophine] 5 MG tablet 10 mg PO Q8H RF: 0 acetaminophen 500 MG tablet 1,000 mg PO DAILY PRNRF: 0 metformin [Glucophage] 1,000 MG tablet 1,000 mg PO BID RF: 0 tiotropium bromide [Spiriva with HandiHaler] 18 MCG capsule, w/inhalation device 18 mcg Inhalation DAILY RF: 0 albuterol sulfate [ProAir RespiClick] 90 MCG aerosol powdr breath activated 2 puffs Inhalation Q4H PRN PRNRF: 0 sucralfate 1 GM tablet 1 gm PO TID RF: 0 Discharge Instructions Instructions: Myocardial Infarction (DC), COPD (Chronic Obstructive Pulmonary Disease) (DC) Activity:: Activity as Tolerated Equipment/Supplies:: No Equipment Needed Diet:: ADA and heart healthy Discharge Orders Discharge Orders: Discharge Order (Routine); Ordered 11/06/17 Ordered By: Patito Ruggiero Other Ambulatory Orders: Basic Metabolic Panel (Routine) Location: Determined by Patient Ordered By: Patito Ruggiero Complete Blood Count No Diff (Routine) Location: Determined by Patient Ordered By: Patito Ruggiero NM MPI rest & stress grp (Routine) Location: Determined by Patient Ordered By: Patito Ruggiero DS: Data Vitals/I&O Vitals and I&O: Vital Signs Temp 36.7 C 11/05/17 23:00 Pulse 65 11/06/17 06:01 Resp 7 L 11/06/17 06:01 BP 130/60 11/06/17 06:01 Pulse Ox 89 L 11/06/17 06:01 Intake & Output 11/05/17 11/05/17 11/06/17 11:59 23:59 11:59 Intake Total 1932 / 1932 1200 / 1200 400 / 400 Output Total 850 / 850 2450 / 2450 450 / 450 Balance 1082 / 1082 -1250 / -1250 -50 / -50 Weight 165.9 kg 166.3 kg Intake: IV 822 / 822 0 / 0 Oral 1110 / 1110 1200 / 1200 400 / 400 Output: Urine 850 / 850 2450 / 2450 450 / 450 Other: Urine Color Light Kenia Yellow Urine Appearance Sediment Clear Urine Odor Normal Comment Avalos in place. Voiding Methods Urinal Labs on day of discharge: Labs from last 24 hours 11/06/17 11/06/17 11/06/17 06:05 06:05 06:05 WBC 10.80 RBC 4.23 L Hgb 10.2 L Hct 37.7 L MCV 89.1 MCH 24.1 L MCHC 27.1 L RDW 17.2 H Plt Count 288 MPV 10.3 Immature Gran % 0.4 Neutrophils % 81.4 Lymphocytes % 9.5 Monocytes % 8.7 Eosinophils % 0.0 Basophils % 0.0 Absolute Neutrophils 8.79 H Absolute Lymphocytes 1.03 L Absolute Monocytes 0.94 H Absolute Eosinophils 0.00 Absolute Basophils 0.00 Differential Comment Rbc morph reviewed RBC Morphology See below Polychromasia Present Hypochromasia 1+ Basophilic Stippling Present Anisocytosis 1+ Sodium 138 Potassium 4.9 D Chloride 100 Carbon Dioxide 36.7 H Anion Gap 1.3 L BUN 43 H Creatinine 1.36 H Estimated GFR/1.73 m2 53.45 Glucose 144 H Calcium 8.6 NT-Pro-B Natriuret Pep 3229 H
--- NOTE | 2017-11-06 09:36 | PT.INDS ---
PT Notes Inpatient Physical Therapy Discharge Summary Date: 11/06/17 Dates of Service: 11/05/17-11/06/17 SUBJECTIVE: Pt sitting in wheelchair watching TV and finishing breakfast. Agreeable to PT treatment stating I will try. Pt with difficulty focusing on conversation and carrying through with thoughts, pauses frequently with conversation and forgets what he is saying or what he is trying to do. RN notified. OBJECTIVE: General Observation: 3 liters 02 NC Pain: no c/o pain Bed Mobility/Transfers: Sit-stand from wheelchair: unable. Pt leans forward in chair to get into position, 3 attempts to get to standing, pt with difficulty leaning forward, pushing with upper extremities to weight shift over left LE due to R Le extension. Pt stating he is frustrated and wanting to stop. Pt with flatulence throughout session, nursing notified. Pt postioned in wheelchair with R LE elevated on foot rest. Gait: unable at this time VITALS: Pt on 3 liters 02 NC, 02 sats at rest in the chair 74%, with exertion with LE therex dropped to 64%. Pt required rest breaks and instruction in breathing techniques, sitting upright and weight shifting forward to increase 02 sats to 81-87%. 02 sats decreased to mid 70's again with resting in chair. RN notified. THEREX: Performed L LE ankle pumps, ,long arc quads, hip flexion x 10 reps. Pt required repeated cues to attend to task and count therex, pt with difficulty focusing, loses track of what he is doing and requires redirection. R LE ankle pumps performed x 20 reps. Further therex witheld due to patient's inability to focus. Balance: Static Sitting: normal Dynamic Sitting: normal Static Standing: unable Dynamic Standing: unable Assessment: Pt is a 62yr old male admitted with non ST elevation myocardial infarction, chronic obstructive pulmonary disease exacerbation, acute kidney injury in setting of obesity, right total knee replacement, s/p right TKA revision, osteomyelitis right knee, chronic low back pain, chronic obstructive pulmonary disease, diabetes mellitus, obstructive sleep apnea, iron deficiency anemia. Patient was seen for 2 PT visits. Pt with decreased 02 saturation today affecting his ability to participate in therapy session, follow direction and focus on task. Pt requiring maxA for positioning and transfers. Plan is for transfer to custodial care facility today for continued rehab. Goals: Goals X1 week 1. Supine-Sit SBA 2. Sit-Supine SBA 3. Sit-Stand SBA with FWW 4. Stand-Sit SBA with FWW 5. Bed-Chair SBA with FWW 6. Chair-Bed SBA with FWW 7. Gait SBA with FWW 30ftx2 WBAT R LE Pt did not meet therapy goals, recommend continued PT at rehab DISCHARGE RECOMMENDATIONS: [facility] TREATMENT CODE/TIME: 25 min Tax1 TPx1 9:35 G Codes in the area mobility of walking and moving around; projected status GP [id number] Discharge status (if discharging) GP [id number] CL Salina Gutierrez PT
--- NOTE | 2017-11-06 09:47 | INDS_ITS ---
PT Notes Inpatient Physical Therapy Discharge Summary Date: 11/06/17 Dates of Service: 11/05/17-11/06/17 SUBJECTIVE: Pt sitting in wheelchair watching TV and finishing breakfast. Agreeable to PT treatment stating I will try. Pt with difficulty focusing on conversation and carrying through with thoughts, pauses frequently with conversation and forgets what he is saying or what he is trying to do. RN notified. OBJECTIVE: General Observation: 3 liters 02 NC Pain: no c/o pain Bed Mobility/Transfers: Sit-stand from wheelchair: unable. Pt leans forward in chair to get into position, 3 attempts to get to standing, pt with difficulty leaning forward, pushing with upper extremities to weight shift over left LE due to R Le extension. Pt stating he is frustrated and wanting to stop. Pt with flatulence throughout session, nursing notified. Pt postioned in wheelchair with R LE elevated on foot rest. Gait: unable at this time VITALS: Pt on 3 liters 02 NC, 02 sats at rest in the chair 74%, with exertion with LE therex dropped to 64%. Pt required rest breaks and instruction in breathing techniques, sitting upright and weight shifting forward to increase 02 sats to 81-87%. 02 sats decreased to mid 70's again with resting in chair. RN notified. THEREX: Performed L LE ankle pumps, ,long arc quads, hip flexion x 10 reps. Pt required repeated cues to attend to task and count therex, pt with difficulty focusing, loses track of what he is doing and requires redirection. R LE ankle pumps performed x 20 reps. Further therex witheld due to patient's inability to focus. Balance: Static Sitting: normal Dynamic Sitting: normal Static Standing: unable Dynamic Standing: unable Assessment: Pt is a 62yr old male admitted with non ST elevation myocardial infarction, chronic obstructive pulmonary disease exacerbation, acute kidney injury in setting of obesity, right total knee replacement, s/p right TKA revision, osteomyelitis right knee, chronic low back pain, chronic obstructive pulmonary disease, diabetes mellitus, obstructive sleep apnea, iron deficiency anemia. Patient was seen for 2 PT visits. Pt with decreased 02 saturation today affecting his ability to participate in therapy session, follow direction and focus on task. Pt requiring maxA for positioning and transfers. [facility] for [facility]hab. Goals: Goals X1 week 1. Supine-Sit SBA 2. Sit-Supine SBA 3. Sit-Stand SBA with FWW 4. Stand-Sit SBA with FWW 5. Bed-Chair SBA with FWW 6. Chair-Bed SBA with FWW 7. Gait SBA with FWW 30ftx2 WBAT R LE Pt did not meet therapy goals, recommend continued PT at rehab DISCHARGE RECOMMENDATIONS: [facility] TREATMENT CODE/TIME: 25 min Tax1 TPx1 9:35 G Codes in the area mobility of walking and moving around; projected status GP [id number] Discharge status (if discharging) GP [id number] CL Salina Gutierrez PT
[2017-11-06] MEDS: Insulin Aspart 300 UNITS/3 ML PEN SC ×2 (09:51→09:52)
--- NOTE | 2017-11-06 11:55 | NUR.NOTE ---
1000 am heparin shot admin resulted in small amt oozing at injection site on pt abdomen. area was covered with a pressure dressing and bandage. no other oozing observed. old dressings on abdomen were removed. Nursing Note:
--- NOTE | 2017-11-07 13:26 | PT.INIE ---
Date of service: 11/05/17 Time of Service: 13:45 PT Notes Inpatient Physical Therapy Evaluation Date: 11/05/17 Referring Doctor: Gino Hancock PT Orders: PT CONSULT: obese, chronic right knee osteo, at [facility]; re-eval for discharge this week back to [facility] Precautions: WBAT R LE, Fall precautions Patient Profile/Admitting Diagnosis: Pt is a 62yr old male admitted with non ST elevation myocardial infarction, chronic obstructive pulmonary disease exacerbation, acute kidney injury PMHX: obesity, right total knee replacement, s/p right TKA revision, osteomyelitis right knee, chronic low back pain, chronic obstructive pulmonary disease, diabetes mellitus, obstructive sleep apnea, iron deficiency anemia, hypertension, gastroesophageal reflux disease, gastrointestinal bleed, gastritis, peptic ulcer disease, hernia repair, cataract removal Social History/Home Situation: Lives with his in a house, ramp from garage into house, building second ramp outside to enter house, stays on one level inside of home. Baseline mobility assisted transfers and gait with 4WW, has been assisting him at home. Pt is unable to get into the shower so performs sponge baths. Equipment Owned/DME: 4WW, wheelchair, commode Subjective: Pt sitting at edge of bed preparing to transfer to wheelchair with 's assistance. Agreeable to PT Consult. shares that patient was at [facility] but then had to discharge to home due to insurance, was at home prior to this admission but is hoping to go back to [facility] for more therapy and gait training prior to returning to home setting. Objective: General Observation: telemetry, 3 liters 02 NC Mental Status: A& O x3 Pain: no c/o pain ROM: Right Upper Extremity: AROM WNL Left Upper Extremity: AROM shoulder flexion to 95, elbow and wrist WNL Right Lower Extremity: AROM hip flexion to 100, knee fully extended unable to flex, ankle WNL Left Lower Extremity: AROM WNL Strength: Right Upper Extremity: 5/5 throughout Left Upper Extremity: 4/5 shoulder flexion, 5/5 quad, 5/5 DF/PF Right Lower Extremity: hip and knee NT due to knee extension, 5/5 DF/PF Left Lower Extremity: 5/5 throuhgout Bed Mobility/Transfers: Sit-stand from bed: CGA with FWW Bed-wheelchair: CGA with FWW Stand-sit: CGA Gait: CGA with FWW 5 steps bed to wheelchair, WBAT R LE. Pt stands with flexed hips and leaning over walker, cues to stand erect. Pt able to weight shift to take steps. Balance: Static Sitting: normal Dynamic Sitting: normal Static Standing: fair Dynamic Standing: poor Special Tests: Mobility Limitations Standardized Measure [facility] AM-PAC 6 clicks Basic Mobility Inpatient Short Form: Raw Score: 14 Standardized Score: 38.10 CMS Score: 61.29% CMS Modifier: CL Informed Consent/Education: Patient instructed in purpose of PT consult and plan of care. Assessment: Pt is a 62yr old male admitted with non ST elevation myocardial infarction, chronic obstructive pulmonary disease exacerbation, acute kidney injury in setting of obesity, right total knee replacement, s/p right TKA revision, osteomyelitis right knee, chronic low back pain, chronic obstructive pulmonary disease, diabetes mellitus, obstructive sleep apnea, iron deficiency anemia. Patient presents with the following impairment level findings: decreased range of motion left shoulder, inability to flex right knee, maintaining full extension, making it difficult for him to perform transfers and gait mobility and requiring use of FWW for gait stability, decreased static and dynamic standing balance putting him at risk for falls, deconditioning and weakness due to hospitalizations. Pt would benefit from skilled therapy intervention for strengthening and progressive mobility training to improve safety and mobility, recommend senior living care facility for rehab prior to return to home setting so he can be more independent at home and less dependent on his for assistance. Impairments are contributing to the following functional limitations: AMPAC score CMS Score: 61.29% Patient is assessed as a High [id number] complexity based on the following: History: see above Examination: see above, left shoulder, back, right knee, heart, lungs Presentation: evolving Decision Making: AMPAC score CMS Score: 61.29% Goals: Goals X1 week 1. Supine-Sit SBA 2. Sit-Supine SBA 3. Sit-Stand SBA with FWW 4. Stand-Sit SBA with FWW 5. Bed-Chair SBA with FWW 6. Chair-Bed SBA with FWW 7. Gait SBA with FWW 30ftx2 WBAT R LE Plan of Care/Treatment Plan: 1-2x/day, 7 days/week x 1 week. Plan of care has been reviewed with the [employer]INEER providing the service under Physical Therapy direction. Initiate Physical Therapy intervention for strengthening, bed mobility, transfers, gait, balance training, use of assistive device. DISCHARGE RECOMMENDATIONS: residential care facility for rehab TREATMENT CODE/TIME: 24 min IE 1343 G Codes in the area mobility of walking and moving around: current status [id number] CL; projected status GP [id number] Discharge status (if discharging) GP [id number] CL based on [facility] score CMS Score: 61.29% Salina Gutierrez PT
== END 2017-11-06 11:25 | disposition skilled nursing facility (03) | DRG 190 ==
LOC: ER 11-01 02:43 → ICU 11-01 04:51
PROVIDERS: General Practice; Internal Medicine; Admitting Provider Internal Medicine; Emergency Provider Emergency Medicine; PCP Family Medicine; Visit Provider Family Medicine
DX: J44.1 Chronic obstructive pulmonary disease with (acute) exacerbation (principal); I21.A1 Myocardial infarction type 2; N17.9 Acute kidney failure, unspecified; M86.68 Other chronic osteomyelitis, other site; E87.5 Hyperkalemia; R41.82 Altered mental status, unspecified; R09.02 Hypoxemia; M79.662 Pain in left lower leg; M79.661 Pain in right lower leg; E11.9 Type 2 diabetes mellitus without complications; G47.39 Other sleep apnea; I10 Essential (primary) hypertension
CPT/HCPCS: 36410; 36415; 36416; 76770; 80048; 80053; 80061; 82805; 82962; 83721; 85027; 93005; 93306; 94640; 96365; 96368; 96375; 96376; 97110; 97162; 97530; 99223; 99232; 99233; 99239; 99291; 36600; 71046; 82607; 82728; 82746; 83036; 83540; 83550; 83735; 83880; 84443; 84484; 85025; 85610; 85730; 93010; 93970; J0696; J1644; J1941; J2930; J3490; J7512; J7613; J7620

== ENCOUNTER 2017-11-10 07:19 | Emergency (ER) | payer MEDICARE, MEDICAID, SELFPAY ==
[2017-11-10] VITALS (79 sets, daily range): BP systolic 66–166; BP diastolic 41–134; PULSE 57–137; RESP 0–38; TEMP 36.5; O2SAT 10–99
[2017-11-10] MEDS: Etomidate 20 MG/10 ML VIAL 25 MG IVP ×2 (07:31→07:39)
[2017-11-10] MEDS: Rocuronium 50 MG/5 ML SYR 100 MG IVP (07:39)
--- NOTE | 2017-11-10 07:56 | DI.COMBO_ITS ---
SYMPTOM/DIAGNOSIS: ALTERED MENTAL STATUS, POST RSI NONCONTRAST HEAD CT: Comparison is made with 09/09/17. There is prominence of the ventricles and sulci consistent with the patient's age. Areas of decreased attenuation are present in the white matter consistent with small vessel ischemic disease. Old lacunar infarcts are seen in the basal ganglia. No acute infarct, hemorrhage, midline shift or mass effect is identified. The ventricles are intact. The basilar cisterns are patent. There is an endotracheal tube in place. There is opacification of the ethmoid air cells. There are small air fluid levels in the maxillary sinuses bilaterally. The calvarium is intact. The mastoid air cells are well pneumatized. There are again seen calcifications in the scalp soft tissues posteriorly on the left. IMPRESSION: No acute intracranial process. Findings of sinus disease as described above. Endotracheal tube. PORTABLE AP CHEST: Comparison is made with 10/31/17. The lung bases and costophrenic angles have been coned from view. There is an endotracheal tube. It is in good position approximately 5 cm. above the sandra. The heart is mildly enlarged. There is prominence of the pulmonary vasculature. There are progressive interstitial infiltrates compared to the prior examination. No gross effusions or pneumothoraces are identified. Degenerative changes are seen in the spine. IMPRESSION: Worsening bilateral pulmonary infiltrates. This may represent atelectasis or pneumonia. Interstitial edema cannot be excluded. Cardiomegaly and vascular prominence suggesting an aspect of congestive heart failure.
--- NOTE | 2017-11-10 08:08 | ED.GENADUL_ITS ---
Discharge Plan Disposition Patient Disposition: [facility] Condition: Critical Discharge Details Chief Complaint: AMS/LOC Clinical Impression: Acute hypercapnic respiratory failure Reason For Visit: SHAAN Primary Care Provider: Allison Muniz ED Provider: Dyllan Salazar Home Meds and New Rx's Prescriptions: No Action ferrous sulfate [Iron (ferrous sulfate)] 325 MG tablet 325 mg PO DAILY RF: 0 pantoprazole 40 MG tablet,delayed release (DR/EC) 40 mg PO DAILY@0730 Qty: 30 RF: 3 lisinopril 5 mg Tablet 5 mg PO DAILY RF: 0 furosemide 20 mg Tablet 20 mg PO DAILY RF: 0 penicillin V potassium 500 mg Tablet 500 mg PO TID RF: 0 atorvastatin [Lipitor] 40 mg Tablet 40 mg PO QPM Qty: 0 RF: 0 ipratropium-albuterol 0.5 mg-3 mg(2.5 mg base)/3 mL Solution For Nebulization 3 ml UPD Q6H Qty: 0 RF: 0 amlodipine 5 mg Tablet 10 mg PO DAILY Qty: 0 RF: 0 aspirin 81 mg Tablet,Delayed Release (Dr/Ec) 81 mg PO DAILY Qty: 0 RF: 0 clopidogrel [Plavix] 75 mg Tablet 75 mg PO DAILY Qty: 0 RF: 0 insulin aspart U-100 [Novolog Flexpen U-100 Insulin] 100 unit/mL Insulin Pen subcut 0800,1200,1700 Qty: 0 RF: 0 albuterol sulfate 2.5 mg /3 mL (0.083 %) Solution For Nebulization 2.5 mg UPD Q2H PRN PRNQty: 0 RF: 0 prednisone 20 mg Tablet 40 mg PO DAILY Qty: 6 RF: 0 isosorbide mononitrate 30 mg Tablet Extended Release 24 Hr 30 mg PO DAILY Qty: 0 RF: 0 nitroglycerin [Nitrostat] 0.4 mg Tablet, Sublingual 0.4 mg Sublingual Q5 MIN PRN X3 PRNQty: 0 RF: 0 metoprolol tartrate 25 mg Tablet 25 mg PO Q12H Qty: 0 RF: 0 insulin glargine [Lantus Solostar U-100 Insulin] 100 unit/mL (3 mL) Insulin Pen 15 units subcut HS Qty: 0 RF: 0 gabapentin 100 MG capsule 400 mg PO TID RF: 0 multivit, iron, min no.8, FA [Therapeutic-M] 1 TAB tablet 1 tab PO BID Qty: 30 RF: 3 methadone [Dolophine] 5 MG tablet 10 mg PO Q8H RF: 0 acetaminophen 500 MG tablet 1,000 mg PO DAILY PRNRF: 0 metformin [Glucophage] 1,000 MG tablet 1,000 mg PO BID RF: 0 tiotropium bromide [Spiriva with HandiHaler] 18 MCG capsule, w/inhalation device 18 mcg Inhalation DAILY RF: 0 albuterol sulfate [ProAir RespiClick] 90 MCG aerosol powdr breath activated 2 puffs Inhalation Q4H PRN PRNRF: 0 sucralfate 1 GM tablet 1 gm PO TID RF: 0 Discharge Data Discharge Date/Time-TO BE ENTERED AT DEPARTURE: 11/10/17 12:20 <Dyllan Salazar MD - Last Filed: 11/11/17 21:27> MDM Narrative Medical decision making narrative: 8:00 -- I arrived in ED and was asked by nursing to assist in room 2. I entered room [address] Calderon was bagging patient and requested I assist with intubation. -- Patient intubated successfully with glidescope (see procedure note by Dr. Calderon). Hx per Dr. Calderon and EMS: Patient has a history of hypertension, diabetes, COPD , obstructive sleep apnea, chronic osteomyelitis of his right knee, on methadone recently admitted for COPD exacerbation, hypoxia and an STEMI earlier this month and discharged to rehab facility. Patient found unresponsive by nursing personnel this morning. Consider COPD and hypercarbic arrest vs PE vs opioid OD. --ECG reviewed and interpreted by me: Sinus tachycardia 104 bpm, normal axis, poor R-wave progression, no STEMI, T waves are now inverted in leads III and aVF , these inversions were not present on prior EKG from 11/01/2017. --Chest x-ray portable interpreted by me: Endotracheal tube 4 cm above the sandra -- VBG reveals resp acidosis with pH 7.17. EtCO2 in the 70s. Resp therapy at consulted -- RR increased. 9:00 -- patient reassessed multiple times. Nursing unable to obtain additional IV. Troponin elevated 0.21 improved from 1.98 on 11/01/17. BNP elevated 1387. 9:40 --patient having intermittent bloody output from OG tube -- approximately 400ml. Hb 9.9 - this is unchanged from recent prior. Right femoral central line placed by me with ultrasound guidance without complication Patient reassessed multiple times difficulty with maintaining adequate sedation without inducing hypotension. Lowest systplic blood pressure in the 70s. Patient given 500mL IV fluid bolus and versed and fentanyl titrated. Radiology interpreted chest x-ray is increasing bilateral opacities in the lung fry may represent atelectasis or pneumonia. Cardiomegaly and vascular prominence may represent interstitial edema or mild congestive heart failure. ETCO2 now in 50s. Patient stable for CT imaging. 10:24 -- Patient has contrast dye allergy and body habitus will not allow for noncontrast CT imaging on body. 10:30 -- Spoke with Dr. Fields at [facility]. He agrees to accept the patient in transfer. He recommends the patient be kept on volume control with lung protective measures of 6-8ml/kg. Recommends vanco and zosyn. I will arrange for transfer by [facility]. 10:35 -- Patient hypotensive. Will reduce sedative and give additional IVF bolus 1L. -- Patient reassessed multiple times. Care transitioned to [facility] team - report given. Patient improved and stable for transfer. Medical Records Medical records reviewed: Yes I reviewed the patient's medical records. Lab Data Lab results reviewed: Yes I reviewed the patient's lab results. Lab results narrative: PT/INR, D-dimer PT 9.4 sec (9.3-10.8) 11/10/17 09:46 Laboratory Tests 11/10/17 11/10/17 11/10/17 07:32 07:32 07:32 WBC Cancelled RBC Cancelled Hgb Cancelled Hct Cancelled MCV Cancelled MCH Cancelled MCHC Cancelled RDW Cancelled Plt Count Cancelled MPV Cancelled Abs Immat Gran (auto) Cancelled Immature Gran % Cancelled Neutrophils % Cancelled Lymphocytes % Cancelled Monocytes % Cancelled Eosinophils % Cancelled Basophils % Cancelled Absolute Neutrophils Cancelled Band Neutrophils Cancelled Absolute Lymphocytes Cancelled Absolute Monocytes Cancelled Absolute Eosinophils Cancelled Absolute Basophils Cancelled Metamyelocytes Cancelled Myelocytes Cancelled Promyelocytes Cancelled Nucleated RBCs Cancelled Differential Comment Cancelled Atypical Lymphocytes Cancelled Other Cell Type Cancelled RBC Morphology Cancelled Polychromasia Cancelled Hypochromasia Cancelled Poikilocytosis Cancelled Basophilic Stippling Cancelled Anisocytosis Cancelled Microcytosis Cancelled Macrocytosis Cancelled Spherocytes Cancelled Target Cells Cancelled Tear Drop Cells Cancelled Ovalocytes Cancelled Stomatocytes Cancelled Baig[place] Bodies Cancelled [place] Cells Cancelled Acanthocytes (Spur) Cancelled Schistocytes Cancelled PT INR VBG pH 7.17 L VBG pCO2 > 100 H VBG pO2 70 H VBG HCO3 VBG Total CO2 VBG O2 Saturation 92 H VBG Base Excess Sodium 141 Potassium 5.1 Chloride 101 Carbon Dioxide 37.2 H Anion Gap 2.8 L BUN 32 H Creatinine 1.27 Estimated GFR/1.73 m2 57.85 Glucose 210 H Lactate Calcium 8.8 Total Bilirubin 0.2 Conjugated Bilirubin AST 33 ALT 55 Alkaline Phosphatase 81 Troponin I 0.21 H NT-Pro-B Natriuret Pep Total Protein 7.1 Albumin 3.0 L TSH 2.38 Urine Color Urine Clarity Urine pH Ur Specific [place] Urine Protein Urine Ketones Urine Blood Urine Nitrite Urine Bilirubin Urine Urobilinogen Ur Leukocyte Esterase Urine RBC Urine WBC Ur Epithelial Cells Urine Crystals Urine Bacteria Urine Casts Urine Mucus Ur Culture Indicated? Urine Glucose Urine Opiates Screen Urine Methadone Screen Ur Barbiturates Screen Ur Tricyclics Screen Ur Amphetamines Screen U Benzodiazepines Scrn Urine Cocaine Screen Ur THC Screen Ethyl Alcohol < 3.0 Patient ABO/Rh Antibody Screen 11/10/17 11/10/17 11/10/17 08:01 08:39 08:39 WBC RBC Hgb Hct MCV MCH MCHC RDW Plt Count MPV Abs Immat Gran (auto) Immature Gran % Neutrophils % Lymphocytes % Monocytes % Eosinophils % Basophils % Absolute Neutrophils Band Neutrophils Absolute Lymphocytes Absolute Monocytes Absolute Eosinophils Absolute Basophils Metamyelocytes Myelocytes Promyelocytes Nucleated RBCs Differential Comment Atypical Lymphocytes Other Cell Type RBC Morphology Polychromasia Hypochromasia Poikilocytosis Basophilic Stippling Anisocytosis Microcytosis Macrocytosis Spherocytes Target Cells Tear Drop Cells Ovalocytes Stomatocytes Baig[place] Bodies Delfino Cells Acanthocytes (Spur) Schistocytes PT INR VBG pH VBG pCO2 VBG pO2 VBG HCO3 VBG Total CO2 VBG O2 Saturation VBG Base Excess Sodium Potassium Chloride Carbon Dioxide Anion Gap BUN Creatinine Estimated GFR/1.73 m2 Glucose Lactate Calcium Total Bilirubin 0.2 Conjugated Bilirubin 0.05 AST 34 ALT 55 Alkaline Phosphatase 79 Troponin I NT-Pro-B Natriuret Pep 1387 H Total Protein 7.1 Albumin 2.9 L TSH Urine Color Yellow Urine Clarity Sl cloudy Urine pH 5.5 Ur Specific [place] >= 1.030 H Urine Protein >=300 H Urine Ketones Negative Urine Blood Moderate H Urine Nitrite Negative Urine Bilirubin Negative Urine Urobilinogen 0.2 Ur Leukocyte Esterase Negative Urine RBC 3-5 H Urine WBC 3-5 Ur Epithelial Cells Negative Urine Crystals Few amorphous Urine Bacteria Few Urine Casts Urine Mucus Negative Ur Culture Indicated? Yes Urine Glucose Negative Urine Opiates Screen Negative Urine Methadone Screen Positive Ur Barbiturates Screen Negative Ur Tricyclics Screen Negative Ur Amphetamines Screen Negative U Benzodiazepines Scrn Negative Urine Cocaine Screen Negative Ur THC Screen Positive Ethyl Alcohol Patient ABO/Rh Antibody Screen 11/10/17 11/10/17 11/10/17 09:36 09:36 09:36 WBC 14.74 H RBC 4.06 L Hgb 9.9 L Hct 37.8 L MCV 93.1 MCH 24.4 L MCHC 26.2 L RDW 17.0 H Plt Count 274 MPV 10.0 Abs Immat Gran (auto) Immature Gran % 0.1 Neutrophils % 86.7 Lymphocytes % 5.7 Monocytes % 7.3 Eosinophils % 0.1 Basophils % 0.1 Absolute Neutrophils 12.78 H Band Neutrophils Absolute Lymphocytes 0.84 L Absolute Monocytes 1.08 H Absolute Eosinophils 0.01 Absolute Basophils 0.01 Metamyelocytes Myelocytes Promyelocytes Nucleated RBCs Differential Comment Rbc morph reviewed Atypical Lymphocytes Other Cell Type RBC Morphology Polychromasia Present Hypochromasia 2+ Poikilocytosis Basophilic Stippling Anisocytosis Microcytosis Macrocytosis Spherocytes Target Cells Tear Drop Cells Ovalocytes Stomatocytes [place] Bodies Delfino Cells Acanthocytes (Spur) Schistocytes PT INR VBG pH VBG pCO2 VBG pO2 VBG HCO3 VBG Total CO2 VBG O2 Saturation VBG Base Excess Sodium Potassium Chloride Carbon Dioxide Anion Gap BUN Creatinine Estimated GFR/1.73 m2 Glucose Lactate 0.8 Calcium Total Bilirubin Conjugated Bilirubin AST ALT Alkaline Phosphatase Troponin I NT-Pro-B Natriuret Pep Total Protein Albumin TSH Urine Color Urine Clarity Urine pH Ur Specific [place] Urine Protein Urine Ketones Urine Blood Urine Nitrite Urine Bilirubin Urine Urobilinogen Ur Leukocyte Esterase Urine RBC Urine WBC Ur Epithelial Cells Urine Crystals Urine Bacteria Urine Casts Urine Mucus Ur Culture Indicated? Urine Glucose Urine Opiates Screen Urine Methadone Screen Ur Barbiturates Screen Ur Tricyclics Screen Ur Amphetamines Screen U Benzodiazepines Scrn Urine Cocaine Screen Ur THC Screen Ethyl Alcohol Patient ABO/Rh A Positive Antibody Screen Negative 11/10/17 11/10/17 09:46 11:45 WBC RBC Hgb Hct MCV MCH MCHC RDW Plt Count MPV Abs Immat Gran (auto) Immature Gran % Neutrophils % Lymphocytes % Monocytes % Eosinophils % Basophils % Absolute Neutrophils Band Neutrophils Absolute Lymphocytes Absolute Monocytes Absolute Eosinophils Absolute Basophils Metamyelocytes Myelocytes Promyelocytes Nucleated RBCs Differential Comment Atypical Lymphocytes Other Cell Type RBC Morphology Polychromasia Hypochromasia Poikilocytosis Basophilic Stippling Anisocytosis Microcytosis Macrocytosis Spherocytes Target Cells Tear Drop Cells Ovalocytes Stomatocytes [place] Bodies [place] Cells Acanthocytes (Spur) Schistocytes PT 9.4 INR 1.0 VBG pH 7.27 L VBG pCO2 77 H VBG pO2 34 VBG HCO3 35 H VBG Total CO2 35 H VBG O2 Saturation 65 L VBG Base Excess 8.2 H Sodium Potassium Chloride Carbon Dioxide Anion Gap BUN Creatinine Estimated GFR/1.73 m2 Glucose Lactate Calcium Total Bilirubin Conjugated Bilirubin AST ALT Alkaline Phosphatase Troponin I NT-Pro-B Natriuret Pep Total Protein Albumin TSH Urine Color Urine Clarity Urine pH Ur Specific [place] Urine Protein Urine Ketones Urine Blood Urine Nitrite Urine Bilirubin Urine Urobilinogen Ur Leukocyte Esterase Urine RBC Urine WBC Ur Epithelial Cells Urine Crystals Urine Bacteria Urine Casts Urine Mucus Ur Culture Indicated? Urine Glucose Urine Opiates Screen Urine Methadone Screen Ur Barbiturates Screen Ur Tricyclics Screen Ur Amphetamines Screen U Benzodiazepines Scrn Urine Cocaine Screen Ur THC Screen Ethyl Alcohol Patient ABO/Rh Antibody Screen HPI - General Adult <Migel Calderon MD - Last Filed: 11/10/17 08:44> General Date/Time Provider Initiated Documentation: 11/10/17 07:56 . Related Data Home Medications Medication Instructions Recorded Confirmed gabapentin 400 mg PO TID 10/12/16 11/10/17 ferrous sulfate [Iron (ferrous 325 mg PO DAILY 11/16/16 11/10/17 sulfate)] methadone [Dolophine] 10 mg PO Q8H 03/15/17 11/10/17 acetaminophen 1,000 mg PO DAILY PRN 09/09/17 11/10/17 albuterol sulfate [ProAir 2 puffs INHALATION Q4H PRN PRN 09/09/17 11/10/17 RespiClick] metformin [Glucophage] 1,000 mg PO BID 09/09/17 11/10/17 sucralfate 1 gm PO TID 09/09/17 11/10/17 tiotropium bromide [Spiriva with 18 mcg INHALATION DAILY 09/09/17 11/10/17 HandiHaler] furosemide 20 mg PO DAILY 10/31/17 11/10/17 lisinopril 5 mg PO DAILY 10/31/17 11/10/17 penicillin V potassium 500 mg PO TID 11/01/17 11/10/17 Previous Rx's Medication Instructions Recorded pantoprazole 40 mg PO DAILY@0730 #30 09/13/16 multivit, iron, min no.8, FA 1 tab PO BID #30 tab 10/14/16 [Therapeutic-M] albuterol sulfate 2.5 mg UPD Q2H PRN PRN #0 ml 11/06/17 amlodipine 10 mg PO DAILY #0 tab 11/06/17 aspirin 81 mg PO DAILY #0 tab 11/06/17 atorvastatin [Lipitor] 40 mg PO QPM #0 tab 11/06/17 clopidogrel [Plavix] 75 mg PO DAILY #0 tab 11/06/17 insulin aspart U-100 [Novolog 0 units SUBCUT 0800,1200,1700 #0 ml 11/06/17 Flexpen U-100 Insulin] insulin glargine [Lantus Solostar 15 units SUBCUT HS #0 ml 11/06/17 U-100 Insulin] ipratropium-albuterol 3 ml UPD Q6H #0 ml 11/06/17 isosorbide mononitrate 30 mg PO DAILY #0 tab 11/06/17 metoprolol tartrate 25 mg PO Q12H #0 tab 11/06/17 nitroglycerin [Nitrostat] 0.4 mg SUBLINGUAL Q5 MIN PRN X3 11/06/17 PRN #0 tab prednisone 40 mg PO DAILY #6 tab 11/06/17 Allergies Allergy/AdvReac Type Severity Reaction Status Date / Time Iodinated Contrast- Oral and Allergy Hives Verified 11/10/17 10:25 IV Dye General Stated Complaint: AMS/LOC YVAN: 1 <Dyllan Salazar MD - Last Filed: 11/11/17 21:27> General Limitations to Documentation: altered mental status . Information obtained by: RN/MD and EMS . HPI Narrative: History and review of systems significantly limited secondary to altered mental status. Patient arrives with EMS from [facility] with altered mental status and respiratory failure. Dr. Calderon initially assessed the patient and did administer some Narcan which provided minimal delayed response. Decision to intubate to protect the patient' s airway. Dr. Calderon attempted RSI and tube was likely dislodged post RSI. Patient being bagged on my arrival. <Dyllan Salazar MD - Last Filed: 11/11/17 21:27> Review of Systems Unobtainable due to mental condition <Dyllan Salazar MD - Last Filed: 11/11/17 21:27> Const General: other (Unresponsive being bagged) Nutritional Appearance: obese HENMT Head: normocephalic and atraumatic Eyes Other: Pupils nonreactive post paralytic Neck Neck: no JVD Resp Auscultation: rales (Bilateral) Other: Patient being bagged Cardio Jugular venous pressure: no JVD Rate: tachycardic Rhythm: regular rhythm Heart Sounds: no gallops, no murmurs and no rubs GI Inspection: abdominal wall ecchymosis and distended Skin General skin exam: dry skin and ecchymosis (Abdominal wall) Neuro General: other (Unresponsive) Extrem General: pedal edema bilaterally Course <Migel Calderon MD - Last Filed: 11/10/17 08:44> Vital Signs Temperature 97.7 F 11/10/17 07:15 Pulse 108 H 11/10/17 07:15 Respiratory Rate 26 H 11/10/17 07:15 Blood Pressure 161/70 H 11/10/17 07:15 Pulse Oximetry 76 L 11/10/17 07:15 Temperature 97.7 F 11/10/17 07:15 Pulse 106 H 11/10/17 07:37 Respiratory Rate 24 11/10/17 07:40 Blood Pressure 138/71 11/10/17 07:37 Pulse Oximetry 78 L 11/10/17 07:40 Procedures <Migel Calderon MD - Last Filed: 11/10/17 08:44> Intubation Time out performed: Yes sedative: Etomidate Mg Given: 25 paralytic: Rocuronium Mg Given: 100 ET Tube Size: 7 ET Tube Uncuffed: No Tube Secured Depth (cm): 26 Tube Secured Location: lips Intubation Complications: difficult intubation, hypoxia and other Additional Comments: Patient presented with unresponsiveness and decreased ventilation. He was being assisted with ventilations by EMS on arrival. He does have a history of sleep apnea but does not use CPAP. He is obese with a short neck and a large tongue. He is chronically on methadone which he takes at night. Patient was left in semi-upright position. I did feel that the patient required intubation for airway management. He had a lot of thick secretions present in the nasal trumpet and oropharynx on arrival. However, I felt that he would be a difficult intubation and did not want to do RSI if at all possible. Narcan was ordered to see if maybe his unresponsiveness was due to methadone. Prior to this I was using a MAC 4 blade and was able to visualize a lot of thick secretions in his posterior oropharynx which was suctioned. Patient was actually tolerating this fairly well and I thought about doing semi-upright awake intubation. However, once he received a Narcan he woke up and actually responded to name. Unable to tolerate the blade at that point. With Narcan and with him being awake his breathing was still ineffective. He still needed assistance with ventilation. Saturations at best were low 90s. I still did not wish to RSI the patient. I decided at that point to try low-dose etomidate only to get some sedation and attempt semi-upright awake intubation again as he had tolerated the blade previously. Patient was given 10 mg of etomidate IV. Patient continued breathing on his own and I was able to attempt intubation. Tube appeared to go through cords and the airway noises previously being made with breathing ceased. I was fairly confident tube was in place but the end-tidal CO2 colorimetric device did not change colors there were diminished breath sounds present. Assuming possibility of esophageal intubation tube was then removed. Tube most likely was in trachea but was full and plugged of thick secretions already. Patient was bagged and saturations brought back to baseline. A second attempt at the semi-upright awake intubation was made. At this point I was unable to visualize the cords adequately and did not feel comfortable attempting intubation. Attempt was aborted and patient was assisted with ventilations. I performed a timeout to decide my next best course of action. I asked for anesthesia to be called. I also knew that my colleague would be arriving shortly. At that point I decided with backup coming to proceed with RSI to secure the airway. Patient was left in semi-upright position. We continued to assist his ventilations. Vital signs were good and saturations were in the low 90s. Patient was given 15 mg of etomidate and 100 mg of rocuronium. Once the medications worked, he was laid flat. A number 4 MAC blade was used to visualize the airway. Because of his floppy epiglottis complete visualization of the cords were not obtained. I could see the arytenoids. Tube was placed but there was no colorimetric change and patient began to vomit. Tube was pulled and patient suctioned. He did have a deep desaturation with this. He was bagged back up. Anesthesia and my colleague arrived. Patient continued to be ventilated and saturations were brought back up to the high 90s. Attempt at securing the airway was turned over to Dr. Salazar. Another timeout was performed. He was still sedated and paralyzed from the previous medications. He was being ventilated with saturations in the 90s. [place] scope was used with a #3 blade. Unable to get good visualization. Attempt aborted and a #4 blade was placed on the scope. With a #4 blade the cords and airway were completely visualized. 7.0 ET tube was passed. There was colorimetric change on end-tidal CO2 device. Airway was secured with tube being 26 at the lip. <Dyllan Salazar MD - Last Filed: 11/11/17 21:27> Critical Care Time: Yes Total Critical Care Time: 80 Attestation: I spent >80 min addressing this patient's immediate life threats. Sign Out <Migel Calderon MD - Last Filed: 11/10/17 08:44> Sign Out Data: Sign Out Comment: Patient presented near change of shift. I initiated airway intervention and ultimately Dr. Salazar succeeded in intubation. Procedure note filed. Patient care and and documentation as well as disposition turned over to Dr. Salazar Last updated by Migel Calderon MD at 11/10/17 08:42
[2017-11-10 08:09] LABS: O2 Sat (Venous) 92 % (70-80); pO2 (Venous) 70 mm/Hg (28-44)
[2017-11-10 08:13] LABS: pCO2 (Venous) > 100 mm/Hg (34-47)
[2017-11-10] MEDS: MIDAZOLAM 50 MG in Normal Saline 90 ML 6.64 MG IV (08:22)
[2017-11-10 08:26] LABS: pH (Venous) 7.17 (7.32-7.43)
[2017-11-10 08:33] LABS: ALT 55 U/L (12-78); AST 33 U/L (15-37); Alkaline Phosphatase 81 U/L (46-116); Anion Gap 2.8 mmol/L (3-11); BUN 32 mg/dL (7-18); Bilirubin, Total 0.2 mg/dL (0.2-1.0); CO2 37.2 mmol/L (21.0-32.0); CREATININE 1.27 mg/dL (0.70-1.30); Calcium 8.8 mg/dL (8.5-10.1); Chloride 101 mmol/L (98-107); Estimated GFR 57.85 (mL/min/1.73m2); Glucose 210 mg/dL (70-100); Potassium 5.1 mmol/L (3.5-5.1); Sodium 141 mmol/L (136-145); TSH (W/Ref FT4) 2.38 uIU/mL (0.358-3.74); Total Protein 7.1 g/dL (6.4-8.2)
[2017-11-10 08:47] LABS: Bilirubin Negative (Negative); Blood Moderate (Negative); Clarity Sl Cloudy; Glucose Negative (Negative); Ketones Negative (Negative); Leukocyte Esterase Negative (Negative); Nitrite Negative (Negative); Specific Gravity >= 1.030 (1.005-1.025); Urobilinogen 0.2 EU/dL (Up TO 0.2); pH 5.5 (5-8)
[2017-11-10 08:48] LABS: ETHANOL BLOOD < 3.0 mg/dL (<3)
[2017-11-10 08:49] LABS: Troponin I 0.21 ng/mL (0.00-0.06)
[2017-11-10 08:51] LABS: ALT 55 U/L (12-78); AST 34 U/L (15-37); Albumin 2.9 g/dL (3.4-5.0); Alkaline Phosphatase 79 U/L (46-116); Bilirubin, Direct 0.05 mg/dL (0.00-0.20); Bilirubin, Total 0.2 mg/dL (0.2-1.0); NT-proBNP 1387 pg/mL; Total Protein 7.1 g/dL (6.4-8.2)
[2017-11-10 08:55] LABS: *AMPHETAMINES SCREEN URINE Negative (Negative); *BARBITURATES SCREEN URINE Negative (Negative); *BENZODIAZEPINES SCREEN URINE Negative (Negative); Cannabinoids THC POSITIVE (Negative); Cocaine Screen,Urine Negative (Negative); METHADONE URINE SCREEN POSITIVE (Negative); OPIATES URINE SCREEN Negative (Negative)
[2017-11-10 08:58] LABS: Tricyclic Antidepressants Negative (Negative)
[2017-11-10 09:00] LABS: Bacteria Few HPF (Negative); Crystals Few Amorphous HPF (Negative); Epithelial Cells Negative HPF (Negative); Mucus Negative (Negative)
[2017-11-10 09:01] LABS: C & S Indicated? Yes
--- NOTE | 2017-11-10 09:15 | DI.VRAD_ITS ---
EXAM: XR Chest, 1 View EXAM DATE/TIME: 11/10/2017 8:05 AM CLINICAL HISTORY: 62 years old, male; Signs and symptoms; Other: Post rsi TECHNIQUE: XR of the chest, 1 view. COMPARISON: CR - XR CHEST 2V PA LATERAL 10/31/2017 11:21 PM FINDINGS: Tubes, catheters and devices: Tracheostomy tube terminates 4.6 cm above the sandra Lungs: Increasing bilateral opacities in the lung fry may represent atelectasis or pneumonia. Pleural space: Costophrenic angles are collimated off this study Heart/Mediastinum: Cardiomegaly and vascular prominence may represent interstitial edema or mild congestive heart failure. Bones/joints: Degenerative changes in the thoracic spine IMPRESSION: 1. Increasing bilateral opacities in the lung fry may represent atelectasis or pneumonia. 2. Cardiomegaly and vascular prominence may represent interstitial edema or mild congestive heart failure. Dictated and Authenticated by: Molina Roman MD. Ordering:YARIEL JOSEPH MD
[2017-11-10 09:44] LABS: Abs Immature Grans 0.02 k/cumm (0.0-0.09); Absolute Basophil Count 0.01 k/cumm (0.0-0.2); Absolute Eosinophil Count 0.01 k/cumm (0.0-0.7); Absolute Lymphocyte Count 0.84 k/cumm (1.2-3.4); Absolute Monocyte Count 1.08 k/cumm (0.11-0.7); Absolute Neutrophil Count 12.78 k/cumm (1.2-6.7); Basophils % 0.1; Eosinophils % 0.1; HCT 37.8 % (40.0-50.0); HGB 9.9 g/dL (13.5-17.5); Immature Grans % 0.1; Lactate-non-spesis 0.8 mmol/L (0.6-1.4); Lymphocytes % 5.7; Mean Corp. HGB Concentration 26.2 g/dL (32.0-36.0); Mean Corpuscular Hemoglobin 24.4 pg (27.0-33.0); Mean Corpuscular Volume 93.1 fL (80-95); Monocytes % 7.3; Neutrophils % 86.7; Platelet Count 274 x1000/uL (130-400); RBC 4.06 m/cumm (4.50-6.00); White Blood Cell Count 14.74 k/cumm (4.4-10.8)
[2017-11-10 10:02] LABS: Prothrombin Time 9.4 sec (9.3-10.8)
[2017-11-10 10:13] LABS: Diff Comment RBC Morph Reviewed
[2017-11-10 10:14] LABS: Hypochromasia 2+; Polychromasia Present
--- NOTE | 2017-11-10 10:55 | DI.VRAD_ITS ---
EXAM: CT Head Without Intravenous Contrast EXAM DATE/TIME: 11/10/2017 8:00 AM CLINICAL HISTORY: 62 years old, male; Signs and symptoms; Other: Resp distress, altered TECHNIQUE: Axial computed tomography images of the head/brain without intravenous contrast. Coronal and sagittal reformatted images were created and reviewed. COMPARISON: CT - HEAD WITHOUT CONTRAST 09/09/2017 9:34 AM FINDINGS: Brain: No acute intracranial hemorrhage. There is mild diffuse heterogeneity of the white matter attenuation, consistent with chronic white matter ischemic changes. Mild cerebral atrophy There are multiple small hypodensities in the basal ganglia, consistent with remote lacunar infarctions. Ventricles: Normal. No ventriculomegaly. Bones/joints: Normal. No acute fracture. Sinuses: Opacities in the ethmoid sinuses and maxillary sinuses may represent sinusitis. Mastoid air cells: Normal as visualized. No mastoid effusion. Soft tissues: Again noted are calcifications in the extra calvarial soft tissues posteriorly on the left IMPRESSION: 1. No acute intracranial hemorrhage. 2. Opacities in the ethmoid sinuses and maxillary sinuses may represent sinusitis. 3. Aspect score 10 Dictated and Authenticated by: Molina Roman MD. Ordering:YARIEL JOSEPH MD
[2017-11-10] MEDS: Lactated Ringers 1,000 ML 1000 ML IV (11:07)
[2017-11-10] MEDS: VANCOMYCIN 2,000 MG in Normal Saline 500 ML 250 MG IVPB (11:39)
[2017-11-10 11:48] LABS: BE (Venous) 8.2 mmol/L (-3-3); HCO3 (Venous) 35 mmol/L (22-28); O2 Sat (Venous) 65 % (70-80); TCO2 (Venous) 35 mmol/L (22-29); pH (Venous) 7.27 (7.32-7.43); pO2 (Venous) 34 mm/Hg (28-44)
[2017-11-10 11:52] LABS: pCO2 (Venous) 77 mm/Hg (34-47)
--- NOTE | 2017-11-15 12:00 | NUR.NOTE ---
Final blood culture report faxed to [facility] [id number] [phone].Nursing Note:
== END 2017-11-10 12:20 | disposition short-term general hospital (02) ==
LOC: ER 13:24
PROVIDERS: Emergency Provider Student in an Organized Health Care Education/Training Program; PCP Family Medicine
DX: J96.02 Acute respiratory failure with hypercapnia (principal); I95.2 Hypotension due to drugs; T42.75XA Adverse effect of unspecified antiepileptic and sedative-hypnotic drugs, initial encounter; R41.82 Altered mental status, unspecified; G47.33 Obstructive sleep apnea (adult) (pediatric); E11.9 Type 2 diabetes mellitus without complications; Z79.4 Long term (current) use of insulin; J44.9 Chronic obstructive pulmonary disease, unspecified; Z91.041 Radiographic dye allergy status; I10 Essential (primary) hypertension
CPT/HCPCS: 31500; 36415; 36416; 36556; 51702; 71045; 80053; 80076; 80307; 82805; 82962; 86850; 86900; 86901; 87040; 93005; 96361; 96365; 96366; 96368; 96375; 99291; 99292; 70450; 80320; 81003; 81015; 83605; 83880; 84443; 84484; 85025; 85610; 87086; 93010; J2310; J3010; J3490

== ENCOUNTER 2017-12-11 15:14 | Outpatient (REF) | payer MEDICARE, SELFPAY ==
[2017-12-11 17:04] LABS: Anion Gap 10.2 mmol/L (3-11); BUN 25 mg/dL (7-18); CO2 27.8 mmol/L (21.0-32.0); Calcium 9.1 mg/dL (8.5-10.1); Chloride 99 mmol/L (98-107); Estimated GFR 34.25 (mL/min/1.73m2); Glucose 119 mg/dL (70-100); Potassium 4.5 mmol/L (3.5-5.1); Sodium 137 mmol/L (136-145)
[2017-12-11 17:12] LABS: Hemoglobin A1C 6.1 % (4.5-6.2)
== END 2017-12-11 15:34 ==
LOC: LBN 15:14
PROVIDERS: PCP Family Medicine; Visit Provider Family Medicine
DX: N18.9 Chronic kidney disease, unspecified (principal); E11.9 Type 2 diabetes mellitus without complications; E87.5 Hyperkalemia; I10 Essential (primary) hypertension
CPT/HCPCS: 80048; 83036

== ENCOUNTER 2018-01-01 13:23 | Emergency (ER) | payer MEDICARE, MEDICAID, SELFPAY ==
[2018-01-01 13:32] VITALS: BP 153/81; PULSE 94; RESP 16; TEMP 36.4; O2SAT 94
--- NOTE | 2018-01-01 14:38 | DI.US_ITS ---
SYMPTOMS/DIAGNOSIS: RT LOWER EXTREMITY CALF TENDERNESS, ? CLOT LEFT LEG ULTRASOUND: The study was carried out according to the usual protocol. The superficial, femoral, popliteal and proximal trifurcation in the superior portion of the leg are well seen. Good compressibility is noted throughout. Flow is demonstrated and flow augmentation was easily elicited with calf compression. SUMMARY: There is no evidence of DVT.
--- NOTE | 2018-01-01 14:39 | W.ED.GENAD ---
Discharge Plan Disposition Patient Disposition: HOME Condition: Good Discharge Details Chief Complaint: Vascular Clinical Impression: Pain of right calf Reason For Visit: ? blood clott right leg Primary Care Provider: Allison Muniz ED Provider: Fran Rahman Home Meds and New Rx's Prescriptions: No Action ferrous sulfate [Iron (ferrous sulfate)] 325 MG tablet 325 mg PO DAILY RF: 0 pantoprazole 40 MG tablet,delayed release (DR/EC) 40 mg PO DAILY@0730 Qty: 30 RF: 3 furosemide 20 mg Tablet 20 mg PO DAILY RF: 0 penicillin V potassium 500 mg Tablet 500 mg PO TID RF: 0 atorvastatin [Lipitor] 40 mg Tablet 40 mg PO QPM Qty: 0 RF: 0 ipratropium-albuterol 0.5 mg-3 mg(2.5 mg base)/3 mL Solution For Nebulization 3 ml UPD Q6H Qty: 0 RF: 0 aspirin 81 mg Tablet,Delayed Release (Dr/Ec) 81 mg PO DAILY Qty: 0 RF: 0 insulin aspart U-100 [Novolog Flexpen U-100 Insulin] 100 unit/mL Insulin Pen subcut 0800,1200,1700 Qty: 0 RF: 0 albuterol sulfate 2.5 mg /3 mL (0.083 %) Solution For Nebulization 2.5 mg UPD Q2H PRN PRNQty: 0 RF: 0 nitroglycerin [Nitrostat] 0.4 mg Tablet, Sublingual 0.4 mg Sublingual Q5 MIN PRN X3 PRNQty: 0 RF: 0 insulin glargine [Lantus Solostar U-100 Insulin] 100 unit/mL (3 mL) Insulin Pen 15 units subcut HS Qty: 0 RF: 0 gabapentin 100 MG capsule 300 mg PO DAILY AM RF: 0 multivit, iron, min no.8, FA [Therapeutic-M] 1 TAB tablet 1 tab PO BID Qty: 30 RF: 3 methadone [Dolophine] 5 MG tablet 10 mg PO Q8H RF: 0 acetaminophen 500 MG tablet 1,000 mg PO DAILY PRNRF: 0 metformin [Glucophage] 1,000 MG tablet 1,000 mg PO BID RF: 0 tiotropium bromide [Spiriva with HandiHaler] 18 MCG capsule, w/inhalation device 18 mcg Inhalation DAILY RF: 0 albuterol sulfate [ProAir RespiClick] 90 MCG aerosol powdr breath activated 2 puffs Inhalation Q4H PRN PRNRF: 0 sucralfate 1 GM tablet 1 gm PO TID RF: 0 Discharge Instructions Instructions: Leg Pain (ED) Additional Instructions: Please take Tylenol Motrin as needed for control of the pain. Please use ice on your calf as needed. Keep your foot elevated as often as possible. If you notice any worsening of your symptoms, or any new symptoms such as vomiting, diarrhea, fever, chills, shortness of breath, chest pain, numbness, weakness, or fainting , please return immediately to the emergency department for reevaluation. Please follow up with your primary care provider as soon as possible for reassessment and reevaluation. As always, it was a pleasure participating in your medical care today. Referrals: Allison Muniz [Primary Care Provider] - Medical Decision Making This is a 62-year-old male with a past medical history of a right sided knee fusion, who was at physical therapy today when during a notable dorsiflexion exercise demonstrates some mild tenderness in his proximal component of his right calf. Physical exam demonstrates minimal tenderness, and some mild reproducible pain. Mild swelling on the right lower extremity when compared to the left. The patient has no history of blood clots, no other risk factors aside for surgery and decreased mobilization. We will get an ultrasound to rule out any clot. The patient is refusing any medications for pain at this time. Differential includes muscle sprain secondary to vigorous physical therapy versus clot or hematoma. 3:33 PM Patient's ultrasound has returned and shows no evidence of blood clot in the lower extremity or other abnormality. No signs of Hay's cyst. No other significant abnormalities. The patient still does not want any medication for pain. With a negative ultrasound I feel this correlates with a musculoskeletal strain rather than a blood clot or other pathology. Patient will be discharged home with close follow-up with his primary care provider. He is lower risk for blood clot and I do not think repeat ultrasound is indicated at this time. I discussed with the patient the importance of close follow-up as well as red flags which to return the patient understands. I have extensively reviewed the treatment plan and discharge instructions with the patient and their family. I have addressed all patient concerns at this time. The patient and family was made aware of what symptoms to monitor for that would warrant a return to the emergency department. Discussed the plan with the patient and family, they demonstrate verbal understanding and agreement with our assessment and plan at this time. HPI General Date/Time Provider Initiated Documentation: 01/01/18 14:13. HPI Narrative: This is a 62-year-old male with a past medical history of COPD, and STEMI, and over 10 procedures on his right knee, the most recent being a fusion of his right knee in June for which all his procedures are performed at [facility]. The patient was taking his normal physical therapy regimens with a physical therapist today when he developed a very mild amount of pain in his right posterior proximal calf during 1 of the more vigorous stretching exercises. After the onset of this pain it was recommended by his physical therapist that he comes in to get checked out for a blood clot. They then contacted the primary care provider the patient who recommended he come into the ER for evaluation of cough. The patient has no history of clot, he denies any recent swelling. Aside for his chronic procedure, he has denies any recent procedures, or long trips. He is not on any estrogen, he has no family history of blood clots. Patient's symptoms are very mild which she describes as a very mild ache in the proximal component of his right calf, it is worsened with movement and palpation, it is improved by nothing. He denies any other aggravating or relieving factors or any other complaints at this time. Related Data Home Medications Medication Instructions Recorded Confirmed pantoprazole 40 mg PO DAILY@0730 #30 09/13/16 01/01/18 gabapentin 300 mg PO DAILY AM 10/12/16 01/01/18 multivit, iron, min no.8, FA 1 tab PO BID #30 tab 10/14/16 01/01/18 [Therapeutic-M] ferrous sulfate [Iron (ferrous 325 mg PO DAILY 11/16/16 01/01/18 sulfate)] methadone [Dolophine] 10 mg PO Q8H 03/15/17 01/01/18 acetaminophen 1,000 mg PO DAILY PRN 09/09/17 01/01/18 albuterol sulfate [ProAir 2 puffs INHALATION Q4H PRN PRN 09/09/17 01/01/18 RespiClick] metformin [Glucophage] 1,000 mg PO BID 09/09/17 01/01/18 sucralfate 1 gm PO TID 09/09/17 01/01/18 tiotropium bromide [Spiriva with 18 mcg INHALATION DAILY 09/09/17 01/01/18 HandiHaler] furosemide 20 mg PO DAILY 10/31/17 01/01/18 penicillin V potassium 500 mg PO TID 11/01/17 01/01/18 albuterol sulfate 2.5 mg UPD Q2H PRN PRN #0 ml 11/06/17 01/01/18 aspirin 81 mg PO DAILY #0 tab 11/06/17 01/01/18 atorvastatin [Lipitor] 40 mg PO QPM #0 tab 11/06/17 01/01/18 insulin aspart U-100 [Novolog 0 units SUBCUT 0800,1200,1700 #0 ml 11/06/17 01/01/18 Flexpen U-100 Insulin] insulin glargine [Lantus Solostar 15 units SUBCUT HS #0 ml 11/06/17 11/10/17 U-100 Insulin] ipratropium-albuterol 3 ml UPD Q6H #0 ml 11/06/17 01/01/18 nitroglycerin [Nitrostat] 0.4 mg SUBLINGUAL Q5 MIN PRN X3 11/06/17 01/01/18 PRN #0 tab Previous Rx's Medication Instructions Recorded pantoprazole 40 mg PO DAILY@0730 #30 09/13/16 multivit, iron, min no.8, FA 1 tab PO BID #30 tab 10/14/16 [Therapeutic-M] albuterol sulfate 2.5 mg UPD Q2H PRN PRN #0 ml 11/06/17 aspirin 81 mg PO DAILY #0 tab 11/06/17 atorvastatin [Lipitor] 40 mg PO QPM #0 tab 11/06/17 insulin aspart U-100 [Novolog 0 units SUBCUT 0800,1200,1700 #0 ml 11/06/17 Flexpen U-100 Insulin] insulin glargine [Lantus Solostar 15 units SUBCUT HS #0 ml 11/06/17 U-100 Insulin] ipratropium-albuterol 3 ml UPD Q6H #0 ml 11/06/17 nitroglycerin [Nitrostat] 0.4 mg SUBLINGUAL Q5 MIN PRN X3 11/06/17 PRN #0 tab Allergies Allergy/AdvReac Type Severity Reaction Status Date / Time Iodinated Contrast- Oral and Allergy Hives Verified 01/01/18 13:37 IV Dye General Stated Complaint: Vascular YVAN: 3 Review of Systems Review of Systems All systems reviewed & are unremarkable except as noted in HPI and below Exam Narrative Exam Narrative: 1.Const: Well-nourished, Well-developed, appearing stated age 2.Eyes: PERRL, no conjunctival injection, and symmetrical lids. 3.ENT: Atraumatic external nose and ears. Moist MM. Neck: Symmetric, trachea midline, No thyromegaly. 4.CVS: +S1/S2, No murmurs or gallops. Peripheral pulses 2+ and equal in all extremities. Brisk capillary refill in all extremities. 5.RESP: Unlabored respiratory effort. Clear to auscultation bilaterally. No wheezes rales or rhonchi 6.GI: Soft, Nontender/Nondistended, No hepatosplenomegaly. No guarding or rebound. 7.MSK: Normocephalic/Atraumatic, Extremities w/o deformity No cyanosis or clubbing, Normal movement of all extremities except for his right knee, which has been fused and thus does not have normal movements. It is at his baseline per family though. Minimal tenderness over his right proximal calf, no bruising. No deformity. Pain worsened with dorsiflexion of the foot. Minimal +1 pitting edema on his lower extremities, including on his right lower extremity. Capillary refill, dorsalis pedis pulses +2 bilaterally 8.Skin: Warm, Dry. No rashes or lesions. 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 Sensation grossly intact, no focal neurologic deficits. 10.Psych: (AAO) x3. Appropriate mood and affect Course Vital Signs Temperature 36.4 C L 01/01/18 13:32 Pulse 94 H 01/01/18 13:32 Respiratory Rate 16 01/01/18 13:32 Blood Pressure 153/81 H 01/01/18 13:32 Pulse Oximetry 94 L 01/01/18 13:32 Temperature 36.4 C L 01/01/18 13:32 Temperature Source Temporal Artery Scan 01/01/18 13:32 Pulse 94 H 01/01/18 13:32 Respiratory Rate 16 01/01/18 13:32 Respiratory Effort 01/01/18 13:38 Blood Pressure 153/81 H 01/01/18 13:32 Blood Pressure Position Sitting 01/01/18 13:32 Pulse Oximetry 94 L 01/01/18 13:32 Oxygen Delivery Method Room Air 01/01/18 13:32 Oxygen Flow Rate 0 01/01/18 13:32 Pain Level 0 01/01/18 13:32 Comment 01/01/18 13:32
== END 2018-01-01 17:32 | disposition home or self-care (01) ==
PROVIDERS: Emergency Provider Student in an Organized Health Care Education/Training Program; PCP Family Medicine
DX: M79.661 Pain in right lower leg (principal); R60.0 Localized edema; E11.9 Type 2 diabetes mellitus without complications; Z79.4 Long term (current) use of insulin; J44.9 Chronic obstructive pulmonary disease, unspecified; Z87.891 Personal history of nicotine dependence; I10 Essential (primary) hypertension
CPT/HCPCS: 99284; 93971

== ENCOUNTER 2018-03-05 10:35 | Emergency (ER) | payer MEDICARE, MEDICAID, SELFPAY ==
[2018-03-05] VITALS (57 sets, daily range): BP systolic 98–187; BP diastolic 45–109; PULSE 53–167; RESP 4–30; TEMP 36.7–37.2; O2SAT 80–99
--- NOTE | 2018-03-05 10:51 | W.ED.GENAD ---
Discharge Plan Disposition Patient Disposition: [facility] INPATIENT Discharge Details Chief Complaint: AMS/LOC Clinical Impression: Elevated lactic acid level, Elevated troponin, Leukocytosis Reason For Visit: SHAAN Primary Care Provider: Allison Muniz ED Provider: Shantelle Salazar Home Meds and New Rx's Prescriptions: No Action ferrous sulfate [Iron (ferrous sulfate)] 325 MG tablet 325 mg PO DAILY RF: 0 pantoprazole 40 MG tablet,delayed release (DR/EC) 40 mg PO DAILY@0730 Qty: 30 RF: 3 furosemide 20 mg Tablet 20 mg PO DAILY RF: 0 penicillin V potassium 500 mg Tablet 500 mg PO TID RF: 0 atorvastatin [Lipitor] 40 mg Tablet 40 mg PO QPM Qty: 0 RF: 0 aspirin 81 mg Tablet,Delayed Release (Dr/Ec) 81 mg PO DAILY Qty: 0 RF: 0 Novolog Flexpen U-100 Insulin 100 unit/mL Insulin Pen subcut 0800,1200,1700 Qty: 0 RF: 0 gabapentin 100 MG capsule 300 mg PO DAILY AM RF: 0 Therapeutic-M 1 TAB tablet 1 tab PO BID Qty: 30 RF: 3 methadone [Dolophine] 5 MG tablet 10 mg PO Q8H RF: 0 acetaminophen 500 MG tablet 1,000 mg PO DAILY PRNRF: 0 metformin [Glucophage] 1,000 MG tablet 1,000 mg PO BID RF: 0 Spiriva with HandiHaler 18 MCG capsule, w/inhalation device 18 mcg Inhalation DAILY RF: 0 ProAir RespiClick 90 MCG aerosol powdr breath activated 2 puffs Inhalation Q4H PRN PRNRF: 0 sucralfate 1 GM tablet 1 gm PO TID RF: 0 Discharge Data Discharge Date/Time-TO BE ENTERED AT DEPARTURE: 03/05/18 19:58 Medical Decision Making Piyush Heard is a 63-year-old man with history of diabetes, COPD, and STEMI in the past, hypertension, sleep apnea presenting to the emergency department with apparent lethargy this morning upon awaking, now resolved. Patient without complaint. On exam patient is nontoxic appearing. He has expiratory wheeze throughout. Sats 88-89% on RA, improved to 90-94% on 3LNC. Concern for pneumonia versus influenza versus COPD exacerbation versus metabolic/lyte derangement, other. Less likely ACS. Exam/history not consistent with PE, acute aortic pathology, sepsis, meningitis. Plan for EKG, chest x-ray, screening labs, IV, DuoNeb, telemetry. Will monitor and reassess. Pt reports that he feels well, asymptomatic, unchanged after duoneb. Patient with multiple lab abnormalities: White blood cell count elevated, troponin elevated, creatinine elevated but at baseline, lactate 3.7. Patient continues to report no symptoms other than his chronic pain. Plan for Tylenol, patient continues to be asymptomatic except now reporting low back pain that is also chronic for him when in a seated position. He reports this pain is very typical for him without any unusual features. I discussed the patient with hospitalist here for possible admission, she is concerned that there is no mri technician available here until tomorrow, requests attempt to transfer to [facility]. Spoke with cardiology team at [facility] regarding Pt presentation and results. They do not feel Pt has NSTEMI, and they do not accept patient. They recommend not to treat as NSTEMI, recommend inpt or outpt stress testing. I spoke with the hospitalist, who requests possible transfer to [facility]. I spoke with [facility] transfer center, who reports no bed availability for patients without STEMI or major trauma. Awaiting call back from cardiology. On reassessment, patient with slight return of wheeze on auscultation. He continues to report that he has no symptoms, no shortness of breath, no pain. Labs concerning for infection, however there is no apparent source at this time, patient is afebrile. Will continue IV fluids, and begin broad-spectrum antibiotics at this time. Spoke with Dr. Faulkner of cardiology at [facility] in consultation, discussed details of pt presentation and results: With the overall clinical picture, Dr. Faulkner suspects elevated troponin likely to be caused by overall hypoperfusion of unknown cause, possibly 2/2 hypoxia with somnolence this am?. She recommends not treating for NSTEMI at this time, if patient has rising troponin followed by decline during inpt admission with no cardiopulmonary symptoms, no significant EKG changes , plan for inpatient versus outpatient stress test. Plan for admission to [facility] for further evaluation and treatment. Troponin climbing, now 3.66. EKG repeated, no dynamic change. Based on recommendation not to treat for NSTEMI even in case of rising trop with no major EKG changes and no symptoms, holding anticoagulation at this time given risks. Patient became somnolent with pinpoint pupils. Patient was given Narcan, became agitated and vomited, pupils 3mm. Patient was vomiting over the side of the bed without any apparent aspiration event. Zofran given. While patient was previously admitted to [facility], at this time Pt requiring ICU level care, no ICU beds available. Plan for transfer. Contacted [facility] who refused patient, no beds available. Patient accepted to [facility] with Dr. Vincent of [facility] as accepting physician, no further recommendations at this time. There was plan for possible intubation for agitation, however after period of time patient became cooperative and calm, again orientedx3. Pt reports that he feels fine, has no symptoms, again denying chest pain, SOB, or any other symptoms. Discussed plan with Pt for transfer to [facility], who initially refused, stating, I don't want to go that far, I'm fine, I can go home now. Patient had been receiving vancomycin, and developed itching in his arm. Patient's now reports that he has an allergy to vancomycin, and has developed hives with this medication in the past. Vancomycin stopped. Patient given Benadryl. Patient and his had lengthy discussion, Pt now amenable to transfer. Patient again became somnolent with pinpoint pupils. Patient was again given Narcan, with significant agitation, nausea without vomiting, uncooperative with care. At this point clinical picture c/w methadone-related somnolence in addition to likely underlying infectious process. Concern for difficult intubation 2/2 body habitus, danger of transport with agitation/somnolence without protected airway. Patient intubated with ketamine, rocuronium. Difficult intubation, successful with 2 attempts, no significant hypoxia. Levaquin was started in addition to cefepime for presumed respiratory infection at this time. Chest x-ray shows possible pneumonia versus pulmonary edema, ETT in place. Dr. Soto was updated regarding patient's condition, requests propofol for transport. Plan for transfer to [facility]. SBP 112 at this time, tachycardia 100-110, O2 sats 95%, levophed ordered for transport in case of worsening hyoptension. Medical Records Medical records reviewed: Yes I reviewed the patient's medical records. Imaging Data Radiologic Study: Attestation: I personally reviewed and interpreted this imaging study as follows: Radiologist's impression: CXR per radiology pulmonary read: No acute process Lab Data Lab results reviewed: Yes I reviewed the patient's lab results. 03/05/18 14:50 Blood Blood Culture - Pending 03/05/18 15:00 Blood Blood Culture - Pending 03/05/18 11:15 Nasopharynx Influenza Types A,B Antigen - Final Laboratory Tests Range/Units 03/05/18 03/05/18 03/05/18 11:43 11:43 11:43 WBC (4.4-10.8) k/cumm 14.66 H RBC (4.50-6.00) m/cumm 5.03 Hgb (13.5-17.5) g/dL 13.3 L Hct (40.0-50.0) % 45.9 MCV (80-95) fL 91.3 MCH (27.0-33.0) pg 26.4 L MCHC (32.0-36.0) g/dL 29.0 L RDW (11.8-14.1) % 15.5 H Plt Count (130-400) x1000/uL 255 MPV (8.0-11.0) fL 9.8 Immature Gran % 0.5 Neutrophils % 86.8 Lymphocytes % 7.6 Monocytes % 5.0 Eosinophils % 0.0 Basophils % 0.1 Absolute Neutrophils (1.2-6.7) k/cumm 12.72 H Absolute Lymphocytes (1.2-3.4) k/cumm 1.11 L Absolute Monocytes (0.11-0.7) k/cumm 0.73 H Absolute Eosinophils (0.0-0.7) k/cumm 0.00 Absolute Basophils (0.0-0.2) k/cumm 0.01 Sodium (136-145) mmol/L 139 Potassium (3.5-5.1) mmol/L 5.2 H Chloride (98-107) mmol/L 100 Carbon Dioxide (21.0-32.0) mmol/L 30.5 Anion Gap (3-11) mmol/L 8.5 BUN (7-18) mg/dL 23 H Creatinine (0.70-1.30) mg/dL 1.94 H Estimated GFR/1.73 m2 (mL/min/1.73m2) 35.36 Glucose (70-100) mg/dL 208 H Lactate (0.6-1.4) mmol/L 3.7 H Calcium (8.5-10.1) mg/dL 9.0 Total Bilirubin (0.2-1.0) mg/dL 0.3 AST (15-37) U/L 18 ALT (12-78) U/L 16 Alkaline Phosphatase (46-116) U/L 120 H Troponin I (0.00-0.06) ng/mL 0.92 H Total Protein (6.4-8.2) g/dL 8.1 Albumin (3.4-5.0) g/dL 3.1 L Range/Units 03/05/18 14:57 WBC (4.4-10.8) k/cumm RBC (4.50-6.00) m/cumm Hgb (13.5-17.5) g/dL Hct (40.0-50.0) % MCV (80-95) fL MCH (27.0-33.0) pg MCHC (32.0-36.0) g/dL RDW (11.8-14.1) % Plt Count (130-400) x1000/uL MPV (8.0-11.0) fL Immature Gran % Neutrophils % Lymphocytes % Monocytes % Eosinophils % Basophils % Absolute Neutrophils (1.2-6.7) k/cumm Absolute Lymphocytes (1.2-3.4) k/cumm Absolute Monocytes (0.11-0.7) k/cumm Absolute Eosinophils (0.0-0.7) k/cumm Absolute Basophils (0.0-0.2) k/cumm Sodium (136-145) mmol/L Potassium (3.5-5.1) mmol/L Chloride (98-107) mmol/L Carbon Dioxide (21.0-32.0) mmol/L Anion Gap (3-11) mmol/L BUN (7-18) mg/dL Creatinine (0.70-1.30) mg/dL Estimated GFR/1.73 m2 (mL/min/1.73m2) Glucose (70-100) mg/dL Lactate (0.6-1.4) mmol/L Calcium (8.5-10.1) mg/dL Total Bilirubin (0.2-1.0) mg/dL AST (15-37) U/L ALT (12-78) U/L Alkaline Phosphatase (46-116) U/L Troponin I (0.00-0.06) ng/mL Cancelled Total Protein (6.4-8.2) g/dL Albumin (3.4-5.0) g/dL ECG Data Attestation: I personally reviewed and interpreted this ECG (s) as follows: Interpretation: EKG shows sinus tachycardia at 101, normal axis, no acute ischemic changes, nondiagnostic EKG EKG #2 shows sinus tach at 117, no acute ischemic changes, non-diagnostic EKG HPI General Mode of arrival: ambulatory. Date/Time Provider Initiated Documentation: 03/05/18 10:51. Limitations to Documentation: no limitations. Information obtained by: patient, RN notes reviewed and old records reviewed. HPI Narrative: Piyush Heard is a 63 y/o man with history of COPD on CPAP at night, NSTEMI in the past, hypertension, insulin-dependent diabetes presenting to the emergency department with altered mental status. Patient brought in by EMS, called as she felt that patient was lethargic upon waking this morning. She reports that he was responsive, but had his eyes closed and seemed more sleepy than usual this morning. She reports that he is now at baseline and seems in his usual state of health to her. She also reports that patient's blood sugar was 200 this morning, which is high for him. He has not needed insulin in several weeks, per his , and she is concerned that this is an indicator of an infection. She reports that he has not had any new symptoms in the past few days, and has seemed in his usual state of health until this am. Per EMS, patient was alert and oriented upon their arrival. Patient reports that he was just tired this morning and did not sleep well last night. He states that he feels great and has no new symptoms. He states that he is only here because his was worried about him being too sleepy, and he is ready to go home. He reports chronic unchanged cough and chronic right knee pain. Denies other pain, fevers, shortness of breath, vomiting, diarrhea, numbness/tingling, weakness. Has been eating drinking as usual. Has been using his CPAP machine. Does not use O2 during the day. He reports that his baseline O2 sats without oxygen are 91%. Pt reports chronic infection to right knee for which he takes daily amoxicillin, no new pain/swelling/skin changes to the knee. He reports that he has been taking this as usual. 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 Did take his other morning meds today, inc ASA. Related Data Home Medications Medication Instructions Recorded Confirmed pantoprazole 40 mg PO DAILY@0730 #30 09/13/16 03/05/18 gabapentin 300 mg PO DAILY AM 10/12/16 03/05/18 Therapeutic-M 1 tab PO BID #30 tab 10/14/16 03/05/18 ferrous sulfate [Iron (ferrous 325 mg PO DAILY 11/16/16 03/05/18 sulfate)] methadone [Dolophine] 10 mg PO Q8H 03/15/17 03/05/18 ProAir RespiClick 2 puffs INHALATION Q4H PRN PRN 09/09/17 03/05/18 Spiriva with HandiHaler 18 mcg INHALATION DAILY 09/09/17 03/05/18 acetaminophen 1,000 mg PO DAILY PRN 09/09/17 03/05/18 metformin [Glucophage] 1,000 mg PO BID 09/09/17 03/05/18 sucralfate 1 gm PO TID 09/09/17 03/05/18 furosemide 20 mg PO DAILY 10/31/17 03/05/18 penicillin V potassium 500 mg PO TID 11/01/17 03/05/18 aspirin 81 mg PO DAILY #0 tab 11/06/17 03/05/18 atorvastatin [Lipitor] 40 mg PO QPM #0 tab 11/06/17 03/05/18 insulin aspart U-100 [Novolog 0 units SUBCUT 0800,1200,1700 #0 ml 11/06/17 03/05/18 Flexpen U-100 Insulin] Previous Rx's Medication Instructions Recorded pantoprazole 40 mg PO DAILY@0730 #30 09/13/16 Therapeutic-M 1 tab PO BID #30 tab 10/14/16 aspirin 81 mg PO DAILY #0 tab 11/06/17 atorvastatin [Lipitor] 40 mg PO QPM #0 tab 11/06/17 insulin aspart U-100 [Novolog 0 units SUBCUT 0800,1200,1700 #0 ml 11/06/17 Flexpen U-100 Insulin] Allergies Allergy/AdvReac Type Severity Reaction Status Date / Time Iodinated Contrast- Oral and Allergy Hives Verified 03/05/18 10:49 IV Dye rifampin Allergy Hives Unverified 03/05/18 18:21 vancomycin Allergy Hives Unverified 03/05/18 18:21 General Stated Complaint: AMS/LOC YVAN: 3 Review of Systems Review of Systems Constitutional: denies fevers Eyes: denies eye pain ENT: denies facial pain, dental pain, sore throat Cardiovascular: denies chest pain Respiratory: denies SOB, reports chronic cough GI: denies abdominal pain, vomiting, diarrhea : denies flank pain MSK: denies back pain, neck pain, myalgias, reports chronic right knee pain and swelling Skin: denies rash Neuro: denies headaches, numbness, weakness PFSH Medical History Type 2 diabetes mellitus (Chronic) Acute kidney injury (nontraumatic) (Acute) COPD exacerbation (Acute) Non-ST elevation myocardial infarction (NSTEMI) (Acute) Sinus pause (Acute) Hypertension (Chronic) Mixed sleep apnea (Chronic) Iron deficiency anemia (Chronic) Infection of prosthetic knee joint (Chronic) Chronic osteomyelitis (Chronic) Diabetes mellitus (Chronic) HTN (hypertension) (Chronic) CARLOS (obstructive sleep apnea) (Chronic) Social History household members: spouse number of children: 4 current occupational status: disabled current occupational exposures/hazards: Yes Smoking/Tobacco Use Status: Former Tobacco Use how long ago did patient quit smokin years ago second hand exposure: Yes alcohol intake: former substance use type: does not use Exam Narrative Exam Narrative: Constitutional: well and [id number], pleasant, conversing normally, obese HENT: head atraumatic, normocephalic normal inspection, mucous membranes moist Eyes: conjunctiva normal, sclera normal, pupils 2mm b/l Neck: no stridor, normal ROM, trachea midline Chest: normal inspection Resp: normal work of breathing, expiratory wheeze throughout, mild Cardio: normal rate, normal rhythm, no murmur appreciated GI: abdomen soft, non-tender, non-distended Back: normal inspection, no rash Skin: warm, dry, normal color, no rash Neuro: alert and oriented x3, grossly non-focal, normal tone Ext: edema right lower leg and knee, Pt reports as chronic and unchanged, no posterior calf tenderness to palpation Psych: normal mood, normal affect, normal behavior Course Vital Signs Temperature 36.7 C 03/05/18 10:38 Pulse 100 H 03/05/18 10:38 Respiratory Rate 18 03/05/18 10:38 Blood Pressure 148/83 H 03/05/18 10:38 Temperature 36.7 C 03/05/18 10:38 Temperature Source Temporal Artery Scan 03/05/18 10:38 Pulse 100 H 03/05/18 10:38 Respiratory Rate 18 03/05/18 10:38 Respiratory Effort Non-Labored 03/05/18 10:47 Blood Pressure 148/83 H 03/05/18 10:38 Blood Pressure Position Supine 03/05/18 10:38 Oxygen Delivery Method Room Air 03/05/18 10:38 Oxygen Flow Rate 0 03/05/18 10:38 Pain Level 0 03/05/18 10:38 Procedures Intubation Time out performed: Yes sedative: Ketamine paralytic: Rocuronium Laryngoscope: other ET Tube Size: 7.5 ET Tube Uncuffed: No Tube Secured Depth (cm): 25 Tube Secured Location: lips Tube Placement Confirmation: visualized tube passing through cords, equal breath sounds bilaterally, no breath sounds over epigastrum and confirmation by capnometry Patient Tolerated Procedure: well and no complications Intubation Complications: difficult intubation Additional Comments: 2 attempts, able to bag in between attempts without hypoxia Critical Care Time Attestation: I have a spent a total of 1 hour of critical care time with this critically ill patient, not including procedures.
--- NOTE | 2018-03-05 10:52 | DI.RAD_ITS ---
SYMPTOM/DIAGNOSIS: COUGH FRONTAL AND LATERAL CHEST: Comparison is made with 11/10/17 and 08/20/17. The heart is enlarged but stable. Pulmonary vasculature is within normal limits. There is unchanged elevation of the right hemidiaphragm. No focal consolidating infiltrates, effusions or pneumothoraces are identified. There does appear to be a background of interstitial prominence which is unchanged and may represent pulmonary fibrosis. Degenerative changes are seen in the spine. IMPRESSION: No definite acute pulmonary process.
[2018-03-05] MEDS: Albuterol/Ipratropium 3 ML UPD VIAL UPD ×3 (11:06→15:07)
--- NOTE | 2018-03-05 11:12 | ED.GENADUL_ITS ---
Discharge Plan Disposition Patient Disposition: [facility] INPATIENT Discharge Details Chief Complaint: AMS/LOC Clinical Impression: Elevated lactic acid level, Elevated troponin, Leukocytosis Reason For Visit: SHAAN Primary Care Provider: Allison Muniz ED Provider: Shantelle Salazar Home Meds and New Rx's Prescriptions: No Action ferrous sulfate [Iron (ferrous sulfate)] 325 MG tablet 325 mg PO DAILY RF: 0 pantoprazole 40 MG tablet,delayed release (DR/EC) 40 mg PO DAILY@0730 Qty: 30 RF: 3 furosemide 20 mg Tablet 20 mg PO DAILY RF: 0 penicillin V potassium 500 mg Tablet 500 mg PO TID RF: 0 atorvastatin [Lipitor] 40 mg Tablet 40 mg PO QPM Qty: 0 RF: 0 aspirin 81 mg Tablet,Delayed Release (Dr/Ec) 81 mg PO DAILY Qty: 0 RF: 0 Novolog Flexpen U-100 Insulin 100 unit/mL Insulin Pen subcut 0800,1200,1700 Qty: 0 RF: 0 gabapentin 100 MG capsule 300 mg PO DAILY AM RF: 0 Therapeutic-M 1 TAB tablet 1 tab PO BID Qty: 30 RF: 3 methadone [Dolophine] 5 MG tablet 10 mg PO Q8H RF: 0 acetaminophen 500 MG tablet 1,000 mg PO DAILY PRNRF: 0 metformin [Glucophage] 1,000 MG tablet 1,000 mg PO BID RF: 0 Spiriva with HandiHaler 18 MCG capsule, w/inhalation device 18 mcg Inhalation DAILY RF: 0 ProAir RespiClick 90 MCG aerosol powdr breath activated 2 puffs Inhalation Q4H PRN PRNRF: 0 sucralfate 1 GM tablet 1 gm PO TID RF: 0 Discharge Data Discharge Date/Time-TO BE ENTERED AT DEPARTURE: 03/05/18 19:58 Medical Decision Making Piyush Heard is a 63-year-old man with history of diabetes, COPD, and STEMI in the past, hypertension, sleep apnea presenting to the emergency department with apparent lethargy this morning upon awaking, now resolved. Patient without complaint. On exam patient is nontoxic appearing. He has expiratory wheeze throughout. Sats 88-89% on RA, improved to 90-94% on 3LNC. Concern for pneumonia versus influenza versus COPD exacerbation versus metabolic/lyte derangement, other. Less likely ACS. Exam/history not consistent with PE, acute aortic pathology, sepsis, meningitis. Plan for EKG, chest x-ray, screening labs, IV, DuoNeb, telemetry. Will monitor and reassess. Pt reports that he feels well, asymptomatic, unchanged after duoneb. Patient w ith multiple lab abnormalities: White blood cell count elevated, troponin elevated, creatinine elevated but at baseline, lactate 3.7. Patient continues to report no symptoms other than his chronic pain. Plan for Tylenol, patient continues to be asymptomatic except now reporting low back pain that is also chronic for him when in a seated position. He reports this pain is very typical for him without any unusual features. I discussed the patient with hospitalist here for possible admission, she is concerned that there is no transaction advisory services manager available here until tomorrow, requests attempt to transfer to [facility]. Spoke with cardiology team at [facility] regarding Pt presentation and results. They do not feel Pt has NSTEMI, and they do not accept patient. They recommend not to treat as NSTEMI, recommend inpt or outpt stress testing. I spoke with the hospitalist, who requests possible transfer to [facility]. I spoke with [facility] transfer center, who reports no bed availability for patients without STEMI or major trauma. Awaiting call back from cardiology. On reassessment, patient with slight return of wheeze on auscultation. He continues to report that he has no symptoms, no shortness of breath, no pain. Labs concerning for infection, however there is no apparent source at this time, patient is afebrile. Will continue IV fluids, and begin broad-spectrum antibiotics at this time. Spoke with Dr. Faulkner of cardiology at [facility] in consultation, discussed details of pt presentation and results: With the overall clinical picture, Dr. Faulkner suspects elevated troponin likely to be caused by overall hypoperfusion of unknown cause, possibly 2/2 hypoxia with somnolence this am?. She recommends not treating for NSTEMI at this time, if patient has rising troponin followed by decline during inpt admission with no cardiopulmonary symptoms, no significant EKG changes , plan for inpatient versus outpatient stress test. Plan for admission to [facility] for further evaluation and treatment. Troponin climbing, now 3.66. EKG repeated, no dynamic change. Based on recommendation not to treat for NSTEMI even in case of rising trop with no major EKG changes and no symptoms, holding anticoagulation at this time given risks. Patient became somnolent with pinpoint pupils. Patient was given Narcan, became agitated and vomited, pupils 3mm. Patient was vomiting over the side of the bed without any apparent aspiration event. Zofran given. While patient was previously admitted to [facility], at this time Pt requiring ICU level care, no ICU beds available. Plan for transfer. Contacted [facility] who refused patient, no beds available. Patient accepted to [facility] with Dr. Vincent of [facility] as accepting physician, no further recommendations at this time. There was plan for possible intubation for agitation, however after period of time patient became cooperative and calm, again orientedx3. Pt reports that he feels fine, has no symptoms, again denying chest pain, SOB, or any other symptoms. Discussed plan with Pt for transfer to [facility], who initially refused, stating, I don't want to go that far, I'm fine, I can go home now. Patient had been receiving vancomycin, and developed itching in his arm. Patient's now reports that he has an allergy to vancomycin, and has developed hives with this medication in the past. Vancomycin stopped. Patient given Benadryl. Patient and his had lengthy discussion, Pt now amenable to transfer. Patient again became somnolent with pinpoint pupils. Patient was again given Narcan, with significant agitation, nausea without vomiting, uncooperative with care. At this point clinical picture c/w methadone-related somnolence in addition to likely underlying infectious process. Concern for difficult intubation 2/2 body habitus, danger of transport with agitation/somnolence without protected airway. Patient intubated with ketamine, rocuronium. Difficult intubation, successful with 2 attempts, no significant hypoxia. Levaquin was started in addition to cefepime for presumed respiratory infection at this time. Chest x-ray shows possible pneumonia versus pulmonary edema, ETT in place. Dr. Soto was updated regarding patient's condition, requests propofol for transport. Plan for transfer to [facility]. SBP 112 at this time, tachycardia 100-110, O2 sats 95%, levophed ordered for transport in case of worsening hyoptension. Medical Records Medical records reviewed: Yes I reviewed the patient's medical records. Imaging Data Radiologic Study: Attestation: I personally reviewed and interpreted this imaging study as follows: Radiologist's impression: CXR per radiology pulmonary read: No acute process Lab Data Lab results reviewed: Yes I reviewed the patient's lab results. 03/05/18 14:50 Blood Blood Culture - Pending 03/05/18 15:00 Blood Blood Culture - Pending 03/05/18 11:15 Nasopharynx Influenza Types A,B Antigen - Final Laboratory Tests Range/Units 03/05/18 03/05/18 03/05/18 11:43 11:43 11:43 WBC (4.4-10.8) k/cumm 14.66 H RBC (4.50-6.00) m/cumm 5.03 Hgb (13.5-17.5) g/dL 13.3 L Hct (40.0-50.0) % 45.9 MCV (80-95) fL 91.3 MCH (27.0-33.0) pg 26.4 L MCHC (32.0-36.0) g/dL 29.0 L RDW (11.8-14.1) % 15.5 H Plt Count (130-400) x1000/uL 255 MPV (8.0-11.0) fL 9.8 Immature Gran % 0.5 Neutrophils % 86.8 Lymphocytes % 7.6 Monocytes % 5.0 Eosinophils % 0.0 Basophils % 0.1 Absolute Neutrophils (1.2-6.7) k/cumm 12.72 H Absolute Lymphocytes (1.2-3.4) k/cumm 1.11 L Absolute Monocytes (0.11-0.7) k/cumm 0.73 H Absolute Eosinophils (0.0-0.7) k/cumm 0.00 Absolute Basophils (0.0-0.2) k/cumm 0.01 Sodium (136-145) mmol/L 139 Potassium (3.5-5.1) mmol/L 5.2 H Chloride (98-107) mmol/L 100 Carbon Dioxide (21.0-32.0) mmol/L 30.5 Anion Gap (3-11) mmol/L 8.5 BUN (7-18) mg/dL 23 H Creatinine (0.70-1.30) mg/dL 1.94 H Estimated GFR/1.73 m2 (mL/min/1.73m2) 35.36 Glucose (70-100) mg/dL 208 H Lactate (0.6-1.4) mmol/L 3.7 H Calcium (8.5-10.1) mg/dL 9.0 Total Bilirubin (0.2-1.0) mg/dL 0.3 AST (15-37) U/L 18 ALT (12-78) U/L 16 Alkaline Phosphatase (46-116) U/L 120 H Troponin I (0.00-0.06) ng/mL 0.92 H Total Protein (6.4-8.2) g/dL 8.1 Albumin (3.4-5.0) g/dL 3.1 L Range/Units 03/05/18 14:57 WBC (4.4-10.8) k/cumm RBC (4.50-6.00) m/cumm Hgb (13.5-17.5) g/dL Hct (40.0-50.0) % MCV (80-95) fL MCH (27.0-33.0) pg MCHC (32.0-36.0) g/dL RDW (11.8-14.1) % Plt Count (130-400) x1000/uL MPV (8.0-11.0) fL Immature Gran % Neutrophils % Lymphocytes % Monocytes % Eosinophils % Basophils % Absolute Neutrophils (1.2-6.7) k/cumm Absolute Lymphocytes (1.2-3.4) k/cumm Absolute Monocytes (0.11-0.7) k/cumm Absolute Eosinophils (0.0-0.7) k/cumm Absolute Basophils (0.0-0.2) k/cumm Sodium (136-145) mmol/L Potassium (3.5-5.1) mmol/L Chloride (98-107) mmol/L Carbon Dioxide (21.0-32.0) mmol/L Anion Gap (3-11) mmol/L BUN (7-18) mg/dL Creatinine (0.70-1.30) mg/dL Estimated GFR/1.73 m2 (mL/min/1.73m2) Glucose (70-100) mg/dL Lactate (0.6-1.4) mmol/L Calcium (8.5-10.1) mg/dL Total Bilirubin (0.2-1.0) mg/dL AST (15-37) U/L ALT (12-78) U/L Alkaline Phosphatase (46-116) U/L Troponin I (0.00-0.06) ng/mL Cancelled Total Protein (6.4-8.2) g/dL Albumin (3.4-5.0) g/dL ECG Data Attestation: I personally reviewed and interpreted this ECG (s) as follows: Interpretation: EKG shows sinus tachycardia at 101, normal axis, no acute ischemic changes, nondiagnostic EKG EKG #2 shows sinus tach at 117, no acute ischemic changes, non-diagnostic EKG HPI General Mode of arrival: ambulatory . Date/Time Provider Initiated Documentation: 03/05/18 10:51 . Limitations to Documentation: no limitations . Information obtained by: patient, RN notes reviewed and old records reviewed . HPI Narrative: Piyush Heard is a 63 y/o man with history of COPD on CPAP at night, NSTEMI in the past, hypertension, insulin-dependent diabetes presenting to the emergency department with altered mental status. Patient brought in by EMS, called as she felt that patient was lethargic upon waking this morning. She reports that he was responsive, but had his eyes closed and seemed more sleepy than usual this morning. She reports that he is now at baseline and seems in his usual state of health to her. She also reports that patient's blood sugar was 200 this morning, which is high for him. He has not needed insulin in several weeks, per his , and she is concerned that this is an indicator of an infection. She reports that he has not had any new symptoms in the past few days, and has seemed in his usual state of health until this am. Per EMS, patient was alert and oriented upon their arrival. Patient reports that he was just tired this morning and did not sleep well last night. He states that he feels great and has no new symptoms. He states that he is only here because his was worried about him being too sleepy, and he is ready to go home. He reports chronic unchanged cough and chronic right knee pain. Denies other pain, fevers, shortness of breath, vomiting, diarrhea, numbness/tingling, weakness. Has been eating drinking as usual. Has been using his CPAP machine. Does not use O2 during the day. He reports that his baseline O2 sats without oxygen are 91%. Pt reports chronic infection to right knee for which he takes daily amoxicillin, no new pain/swelling/skin changes to the knee. He reports that he has been taking this as usual. 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 Did take his other morning meds today, inc ASA. Related Data Home Medications Medication Instructions Recorded Confirmed pantoprazole 40 mg PO DAILY@0730 #30 09/13/16 03/05/18 gabapentin 300 mg PO DAILY AM 10/12/16 03/05/18 Therapeutic-M 1 tab PO BID #30 tab 10/14/16 03/05/18 ferrous sulfate [Iron (ferrous 325 mg PO DAILY 11/16/16 03/05/18 sulfate)] methadone [Dolophine] 10 mg PO Q8H 03/15/17 03/05/18 ProAir RespiClick 2 puffs INHALATION Q4H PRN PRN 09/09/17 03/05/18 Spiriva with HandiHaler 18 mcg INHALATION DAILY 09/09/17 03/05/18 acetaminophen 1,000 mg PO DAILY PRN 09/09/17 03/05/18 metformin [Glucophage] 1,000 mg PO BID 09/09/17 03/05/18 sucralfate 1 gm PO TID 09/09/17 03/05/18 furosemide 20 mg PO DAILY 10/31/17 03/05/18 penicillin V potassium 500 mg PO TID 11/01/17 03/05/18 aspirin 81 mg PO DAILY #0 tab 11/06/17 03/05/18 atorvastatin [Lipitor] 40 mg PO QPM #0 tab 11/06/17 03/05/18 insulin aspart U-100 [Novolog 0 units SUBCUT 0800,1200,1700 #0 ml 11/06/17 03/05/18 Flexpen U-100 Insulin] Previous Rx's Medication Instructions Recorded pantoprazole 40 mg PO DAILY@0730 #30 09/13/16 Therapeutic-M 1 tab PO BID #30 tab 10/14/16 aspirin 81 mg PO DAILY #0 tab 11/06/17 atorvastatin [Lipitor] 40 mg PO QPM #0 tab 11/06/17 insulin aspart U-100 [Novolog 0 units SUBCUT 0800,1200,1700 #0 ml 11/06/17 Flexpen U-100 Insulin] Allergies Allergy/AdvReac Type Severity Reaction Status Date / Time Iodinated Contrast- Oral and Allergy Hives Verified 03/05/18 10:49 IV Dye rifampin Allergy Hives Unverified 03/05/18 18:21 vancomycin Allergy Hives Unverified 03/05/18 18:21 General Stated Complaint: AMS/LOC YVAN: 3 Review of Systems Review of Systems Constitutional: denies fevers Eyes: denies eye pain ENT: denies facial pain, dental pain, sore throat Cardiovascular: denies chest pain Respiratory: denies SOB, reports chronic cough GI: denies abdominal pain, vomiting, diarrhea : denies flank pain MSK: denies back pain, neck pain, myalgias, reports chronic right knee pain and swelling Skin: denies rash Neuro: denies headaches, numbness, weakness PFSH Medical History Type 2 diabetes mellitus (Chronic) Acute kidney injury (nontraumatic) (Acute) COPD exacerbation (Acute) Non-ST elevation myocardial infarction (NSTEMI) (Acute) Sinus pause (Acute) Hypertension (Chronic) Mixed sleep apnea (Chronic) Iron deficiency anemia (Chronic) Infection of prosthetic knee joint (Chronic) Chronic osteomyelitis (Chronic) Diabetes mellitus (Chronic) HTN (hypertension) (Chronic) CARLOS (obstructive sleep apnea) (Chronic) Social History household members: spouse number of children: 4 current occupational status: disabled current occupational exposures/hazards: Yes Smoking/Tobacco Use Status: Former Tobacco Use how long ago did patient quit smokin years ago second hand exposure: Yes alcohol intake: former substance use type: does not use Exam Narrative Exam Narrative: Constitutional: well and [id number], pleasant, conversing normally, obese HENT: head atraumatic, normocephalic normal inspection, mucous membranes moist Eyes: conjunctiva normal, sclera normal, pupils 2mm b/l Neck: no stridor, normal ROM, trachea midline Chest: normal inspection Resp: normal work of breathing, expiratory wheeze throughout, mild Cardio: normal rate, normal rhythm, no murmur appreciated GI: abdomen soft, non-tender, non-distended Back: normal inspection, no rash Skin: warm, dry, normal color, no rash Neuro: alert and oriented x3, grossly non-focal, normal tone Ext: edema right lower leg and knee, Pt reports as chronic and unchanged, no posterior calf tenderness to palpation Psych: normal mood, normal affect, normal behavior Course Vital Signs Temperature 36.7 C 03/05/18 10:38 Pulse 100 H 03/05/18 10:38 Respiratory Rate 18 03/05/18 10:38 Blood Pressure 148/83 H 03/05/18 10:38 Temperature 36.7 C 03/05/18 10:38 Temperature Source Temporal Artery Scan 03/05/18 10:38 Pulse 100 H 03/05/18 10:38 Respiratory Rate 18 03/05/18 10:38 Respiratory Effort Non-Labored 03/05/18 10:47 Blood Pressure 148/83 H 03/05/18 10:38 Blood Pressure Position Supine 03/05/18 10:38 Oxygen Delivery Method Room Air 03/05/18 10:38 Oxygen Flow Rate 0 03/05/18 10:38 Pain Level 0 03/05/18 10:38 Procedures Intubation Time out performed: Yes sedative: Ketamine paralytic: Rocuronium Laryngoscope: other ET Tube Size: 7.5 ET Tube Uncuffed: No Tube Secured Depth (cm): 25 Tube Secured Location: lips Tube Placement Confirmation: visualized tube passing through cords, equal breath sounds bilaterally, no breath sounds over epigastrum and confirmation by capnometry Patient Tolerated Procedure: well and no complications Intubation Complications: difficult intubation Additional Comments: 2 attempts, able to bag in between attempts without hypoxia Critical Care Time Attestation: I have a spent a total of 1 hour of critical care time with this critically ill patient, not including procedures.
[2018-03-05 11:50] LABS: Lactate-non-spesis 3.7 mmol/L (0.6-1.4)
[2018-03-05 11:54] LABS: Abs Immature Grans 0.07 k/cumm (0.0-0.09); Absolute Basophil Count 0.01 k/cumm (0.0-0.2); Absolute Lymphocyte Count 1.11 k/cumm (1.2-3.4); Absolute Monocyte Count 0.73 k/cumm (0.11-0.7); Absolute Neutrophil Count 12.72 k/cumm (1.2-6.7); Basophils % 0.1; HCT 45.9 % (40.0-50.0); HGB 13.3 g/dL (13.5-17.5); Immature Grans % 0.5; Lymphocytes % 7.6; Mean Corpuscular Hemoglobin 26.4 pg (27.0-33.0); Mean Corpuscular Volume 91.3 fL (80-95); Mean Platelet Volume 9.8 fL (8.0-11.0); Neutrophils % 86.8; Platelet Count 255 x1000/uL (130-400); RBC 5.03 m/cumm (4.50-6.00); RBC Distribution Width 15.5 % (11.8-14.1); White Blood Cell Count 14.66 k/cumm (4.4-10.8)
[2018-03-05 12:11] LABS: ALT 16 U/L (12-78); AST 18 U/L (15-37); Albumin 3.1 g/dL (3.4-5.0); Alkaline Phosphatase 120 U/L (46-116); Anion Gap 8.5 mmol/L (3-11); BUN 23 mg/dL (7-18); Bilirubin, Total 0.3 mg/dL (0.2-1.0); CO2 30.5 mmol/L (21.0-32.0); CREATININE 1.94 mg/dL (0.70-1.30); Chloride 100 mmol/L (98-107); Estimated GFR 35.36 (mL/min/1.73m2); Glucose 208 mg/dL (70-100); Potassium 5.2 mmol/L (3.5-5.1); Sodium 139 mmol/L (136-145); Total Protein 8.1 g/dL (6.4-8.2)
[2018-03-05 12:18] LABS: Troponin I 0.92 ng/mL (0.00-0.06)
[2018-03-05] MEDS: Normal Saline 500 ML IV ×2 (12:55→16:19)
--- NOTE | 2018-03-05 12:56 | NUR.NOTE ---
patient receiving IV fluids, urine pending Nursing Note:
[2018-03-05] MEDS: Acetaminophen 500 MG TAB 1000 MG PO (13:01)
--- NOTE | 2018-03-05 14:10 | NUR.NOTE ---
patient cannopt give urine yet, patient eating and drinking fluids. will continue to monitor Nursing Note:
--- NOTE | 2018-03-05 15:00 | NUR.NOTE ---
aptient to be admitted, blood cultures being drawn Nursing Note:
--- NOTE | 2018-03-05 15:19 | NUR.NOTE ---
patient is laying in stretcher, confused thought he was at home. is at bedside Nursing Note:
[2018-03-05] MEDS: CEFEPIME 2 GM in Normal Saline 100 ML IVPB (15:35)
--- NOTE | 2018-03-05 15:37 | NUR.NOTE ---
patient agrred to cath urine, urojet applied, aware, urine obtained blc x 2 drawn then antibiotics admin Nursing Note:
[2018-03-05 15:45] LABS: Bilirubin Negative (Negative); Blood Large (Negative); Clarity Clear; Glucose Negative (Negative); Ketones Negative (Negative); Leukocyte Esterase Negative (Negative); Nitrite Negative (Negative); Specific Gravity >= 1.030 (1.005-1.025); Urobilinogen 0.2 EU/dL (Up TO 0.2); pH 5.5 (5-8)
[2018-03-05 15:58] LABS: Bacteria Rare HPF (Negative); Crystals Negative HPF (Negative); Epithelial Cells Rare HPF (Negative); Mucus Moderate (Negative); RBC 20-50 (0-2); WBC 0-2 HPF (0-5)
[2018-03-05 16:00] LABS: C & S Indicated? No
[2018-03-05 16:08] LABS: Troponin I 3.66 ng/mL (0.00-0.06)
[2018-03-05] MEDS: VANCOMYCIN 2,000 MG in Normal Saline 500 ML 250 MG IVPB (16:17)
--- NOTE | 2018-03-05 16:31 | PGE_ITS ---
Date of Service Date of service: 03/05/18 Time of Service: 16:29 Subjective Interval history since last seen: I was called to admit Mr Heard to our medical surgical bed with telemetry for what appeared to be COPD exacerbation and an NSTEMI. Holding orders were placed. When I came to evaluate the patient, his condition had drastically deteriorated. He was lethargic/difficult to arouse, his pupils pinpoint. He was having jerks in all 4 extremities (?CO2 retention). His respiratory status appeared tenuous. Narcan was administered intranasally with some improvement in alertness. His troponin increased to 3.66. At this point, the patient requires an ICU bed for management of his likely acute on chronic hypoxic hypercapnic respiratory failure (I am predicting this result on his ABG) as well as a tertiary care facility with interventional cardiology available. He cannot be safely admitted to [facility]. Dr Salazar agrees and is searching for an ICU bed. Objective Objective Clinical Data: Abnormal lab results 03/05/18 03/05/18 03/05/18 Range/Units 11:43 11:43 11:43 WBC 14.66 H (4.4-10.8) k/cumm Hgb 13.3 L (13.5-17.5) g/dL MCH 26.4 L (27.0-33.0) pg MCHC 29.0 L (32.0-36.0) g/dL RDW 15.5 H (11.8-14.1) % Absolute Neutrophils 12.72 H (1.2-6.7) k/cumm Absolute Lymphocytes 1.11 L (1.2-3.4) k/cumm Absolute Monocytes 0.73 H (0.11-0.7) k/cumm Potassium 5.2 H (3.5-5.1) mmol/L BUN 23 H (7-18) mg/dL Creatinine 1.94 H (0.70-1.30) mg/dL Glucose 208 H (70-100) mg/dL Lactate 3.7 H (0.6-1.4) mmol/L Alkaline Phosphatase 120 H (46-116) U/L Troponin I 0.92 H (0.00-0.06) ng/mL Albumin 3.1 L (3.4-5.0) g/dL Ur Specific [place] (1.005-1.025) Urine Protein (Negative) mg/dL Urine Blood (Negative) Urine RBC (0-2) 03/05/18 03/05/18 Range/Units 15:20 15:36 WBC (4.4-10.8) k/cumm Hgb (13.5-17.5) g/dL MCH (27.0-33.0) pg MCHC (32.0-36.0) g/dL RDW (11.8-14.1) % Absolute Neutrophils (1.2-6.7) k/cumm Absolute Lymphocytes (1.2-3.4) k/cumm Absolute Monocytes (0.11-0.7) k/cumm Potassium (3.5-5.1) mmol/L BUN (7-18) mg/dL Creatinine (0.70-1.30) mg/dL Glucose (70-100) mg/dL Lactate (0.6-1.4) mmol/L Alkaline Phosphatase (46-116) U/L Troponin I 3.66 H (0.00-0.06) ng/mL Albumin (3.4-5.0) g/dL Ur Specific [place] >= 1.030 H (1.005-1.025) Urine Protein >=300 H (Negative) mg/dL Urine Blood Large H (Negative) Urine RBC 20-50 H (0-2) Vital Signs Temperature 37.2 C 03/05/18 14:09 Temperature Source Skin 03/05/18 14:09 Pulse 111 H 03/05/18 14:59 Respiratory Rate 22 03/05/18 14:59 Respiratory Effort 03/05/18 11:42 Blood Pressure 131/57 L 03/05/18 14:59 Blood Pressure Position Supine 03/05/18 10:38 Pulse Oximetry 95 03/05/18 14:59 Oxygen Delivery Method OxyMask 03/05/18 14:59 Oxygen Flow Rate 3 03/05/18 14:59 Pain Level 5 03/05/18 14:09 Intake & Output 03/04/18 03/05/18 03/05/18 23:59 11:59 23:59 Weight 146.1 kg 146.1 kg Laboratory Results WBC 14.66 k/cumm (4.4-10.8) H 03/05/18 11:43 RBC 5.03 m/cumm (4.50-6.00) 03/05/18 11:43 Hgb 13.3 g/dL (13.5-17.5) L 03/05/18 11:43 Hct 45.9 % (40.0-50.0) 03/05/18 11:43 MCV 91.3 fL (80-95) 03/05/18 11:43 MCH 26.4 pg (27.0-33.0) L 03/05/18 11:43 MCHC 29.0 g/dL (32.0-36.0) L 03/05/18 11:43 RDW 15.5 % (11.8-14.1) H 03/05/18 11:43 Plt Count 255 x1000/uL (130-400) 03/05/18 11:43 MPV 9.8 fL (8.0-11.0) 03/05/18 11:43 Immature Gran % 0.5 03/05/18 11:43 Neutrophils % 86.8 03/05/18 11:43 Lymphocytes % 7.6 03/05/18 11:43 Monocytes % 5.0 03/05/18 11:43 Eosinophils % 0.0 03/05/18 11:43 Basophils % 0.1 03/05/18 11:43 Absolute Neutrophils 12.72 k/cumm (1.2-6.7) H 03/05/18 11:43 Absolute Lymphocytes 1.11 k/cumm (1.2-3.4) L 03/05/18 11:43 Absolute Monocytes 0.73 k/cumm (0.11-0.7) H 03/05/18 11:43 Absolute Eosinophils 0.00 k/cumm (0.0-0.7) 03/05/18 11:43 Absolute Basophils 0.01 k/cumm (0.0-0.2) 03/05/18 11:43 Sodium 139 mmol/L (136-145) 03/05/18 11:43 Potassium 5.2 mmol/L (3.5-5.1) H 03/05/18 11:43 Chloride 100 mmol/L (98-107) 03/05/18 11:43 Carbon Dioxide 30.5 mmol/L (21.0-32.0) 03/05/18 11:43 Anion Gap 8.5 mmol/L (3-11) 03/05/18 11:43 BUN 23 mg/dL (7-18) H 03/05/18 11:43 Creatinine 1.94 mg/dL (0.70-1.30) H 03/05/18 11:43 Estimated GFR/1.73 m2 35.36 (mL/min/1.73m2) 03/05/18 11:43 Glucose 208 mg/dL (70-100) H 03/05/18 11:43 Lactate 3.7 mmol/L (0.6-1.4) H 03/05/18 11:43 Calcium 9.0 mg/dL (8.5-10.1) 03/05/18 11:43 Total Bilirubin 0.3 mg/dL (0.2-1.0) 03/05/18 11:43 AST 18 U/L (15-37) 03/05/18 11:43 ALT 16 U/L (12-78) 03/05/18 11:43 Alkaline Phosphatase 120 U/L (46-116) H 03/05/18 11:43 Troponin I 3.66 ng/mL (0.00-0.06) H 03/05/18 15:20 Total Protein 8.1 g/dL (6.4-8.2) 03/05/18 11:43 Albumin 3.1 g/dL (3.4-5.0) L 03/05/18 11:43 Urine Color Yellow (Yellow) 03/05/18 15:36 Urine Clarity Clear 03/05/18 15:36 Urine pH 5.5 (5-8) 03/05/18 15:36 Ur Specific [place] >= 1.030 (1.005-1.025) H 03/05/18 15:36 Urine Protein >=300 mg/dL (Negative) H 03/05/18 15:36 Urine Ketones Negative mg/dL (Negative) 03/05/18 15:36 Urine Blood Large (Negative) H 03/05/18 15:36 Urine Nitrite Negative (Negative) 03/05/18 15:36 Urine Bilirubin Negative (Negative) 03/05/18 15:36 Urine Urobilinogen 0.2 EU/dL (Up TO 0.2) 03/05/18 15:36 Ur Leukocyte Esterase Negative (Negative) 03/05/18 15:36 Urine RBC 20-50 (0-2) H 03/05/18 15:36 Urine WBC 0-2 HPF (0-5) 03/05/18 15:36 Ur Epithelial Cells Rare HPF (Negative) 03/05/18 15:36 Urine Crystals Negative HPF (Negative) 03/05/18 15:36 Urine Bacteria Rare HPF (Negative) 03/05/18 15:36 Urine Casts 20-50 coarsegranular LPF (Negative) 03/05/18 15:36 Urine Mucus Moderate (Negative) 03/05/18 15:36 Ur Culture Indicated? No 03/05/18 15:36 Urine Glucose Negative mg/dL (Negative) 03/05/18 15:36
--- NOTE | 2018-03-05 16:39 | NUR.NOTE ---
Nursing Note: Pt noted to be somulant when RN's went in room to do EKG. MD caleljas and hospitalist Sarita in room to asses. narcan given by Bonny CABRERA (signed off under Connor Henning) Pt proceeded to vomit large amounts. Pt now very tremulous
[2018-03-05] MEDS: Ondansetron 4 MG/2 ML VIAL IVP (16:40)
[2018-03-05] MEDS: LORazepam 2 MG/ML VIAL 0.5 MG IVP (16:45)
--- NOTE | 2018-03-05 17:33 | NUR.NOTE ---
patient was moved to room 2 related to potential airway protection, patient then became alert and orientated, patient receiving IV antiboitcs Nursing Note:
--- NOTE | 2018-03-05 18:05 | DI.RAD_ITS ---
SYMPTOM/DIAGNOSIS: INTUBATION, S/P ETT PLACEMENT PORTABLE AP CHEST at 615 pm: Comparison is made with the AP and lateral exam performed earlier the same day at 1154 am. An endotracheal tube has been inserted. The tip lies at the level of the clavicles. A nasogastric tube is visible extending beneath the diaphragm and projecting within the stomach. The exam is under penetrated. The lungs are expiratory. There are increased densities in both lungs, right greater than left, which could represent atelectasis versus pneumonia. Increased interstitial markings are again noted, not significantly changed. There is a small right pleural effusion. IMPRESSION: Satisfactory placement of nasogastric tube and endotracheal tube. The lungs are difficult to evaluate due to expiratory changes.
--- NOTE | 2018-03-05 18:06 | NUR.NOTE ---
Nursing Note: Assisted with intubation. Pt sedated per MD Salazar order 304mg ketamine, 150mg Roscoe. RT in room assisting, ET tube placed 7.5 25 @ lip at 6pm.
--- NOTE | 2018-03-05 18:17 | NUTRITION ---
patient reported itching to left hand IV site, patient's spouse reported that she forgot to mention he is allergioc to Vanco and rifampin, infusion was stopped immediately and MD aware patient received 25 mg benadryl IV
--- NOTE | 2018-03-05 18:22 | NUR.NOTE ---
patient became obtunded and 0.4mg narcan was admin, patient became combative, patient was unable to maintain airway, patient was intubated 7.5 25 at lip and OG inserted 16 vietnamese. portable xray done, famiuly at bedside, awaiting transfer Nursing Note:
--- NOTE | 2018-03-05 18:29 | DI.VRAD_ITS ---
EXAM: XR Chest, 1 View EXAM DATE/TIME: 03/05/2018 6:06 PM CLINICAL HISTORY: 63 years old, male; Device placement; Ett placement (vent status) TECHNIQUE: XR of the chest, 1 view. COMPARISON: CR XR CHEST 2V PA LATERAL 03/05/2018 11:48 AM FINDINGS: Tubes, catheters and devices: An endotracheal tube is present with its tip in the mid trachea a proximally 6 cm above the sandra. A nasogastric tube is present and extends into the stomach. Lungs: There are minimal patchy densities within both lung bases, nonspecific. These changes atelectasis secondary to atelectasis although small infiltrates or edema is not excluded. Mild pulmonary vascular congestion is present. Pleural space: There is a tiny right pleural effusion. Heart/Mediastinum: The heart is normal in size. Bones/joints: Unremarkable. IMPRESSION: 1. Endotracheal tube tip approximately 6 cm above the sandra. 2. Nasogastric tube extending into the stomach. 3. Pulmonary vascular congestion and tiny right pleural effusion, new. 4. Minimal bibasilar patchy densities, new. Differential diagnosis includes atelectasis, pneumonia and pulmonary edema. Dictated and Authenticated by: Rafael Vanegas MD. Ordering:ANDREE May MD
[2018-03-05 18:56] LABS: BE 0.4 mmol/L (-3-3); HCO3 27 mmol/L (22-28); pH 7.29 (7.35-7.45); pO2 56 mmHg (83-108); sO2 90 % (94-98); tCO2 25 mmol/L (22-29)
[2018-03-05 18:58] LABS: FIO2 70 %; FIO2L Vent L; Site Right Radial
[2018-03-05 18:59] LABS: pCO2 57 mmHg (34-47)
--- NOTE | 2018-03-05 19:04 | NUR.NOTE ---
unable to obtain IV access for 2nd line by numerous nurses, aware. Nursing Note:
[2018-03-05] MEDS: LEVOFLOXACIN 750 MG/150 ML BAG 100 MG IVPB (19:17)
--- NOTE | 2018-03-05 19:17 | NUR.NOTE ---
# 20 left forearm by EMS in room 2 Nursing Note:
[2018-03-05 19:31] LABS: Troponin I 5.42 ng/mL (0.00-0.06)
--- NOTE | 2018-03-05 19:33 | NUR.NOTE ---
patient had confirmed ET and OG placement, # 20 left ac 3rd line. 16 kyrgyz rios inserted with cath secure device Nursing Note:
--- NOTE | 2018-03-05 20:26 | NUR.NOTE ---
patient report Drew RN [facility] Nursing Note:
--- NOTE | 2018-03-05 20:45 | NUR.NOTE ---
patient at 1750 recevied 304 mg of ketamine IV per MD callejas order pre-sedation for inutbation, then received 150 mg of rocuronium IV for a paralytic and then a versed drip was initated for continued sedation. prior to intubation patient was administed 0.4mg narcan IV per MD callejas order for increased lethargy.
== END 2018-03-05 19:58 | disposition short-term general hospital (02) ==
PROVIDERS: Internal Medicine; Emergency Provider Student in an Organized Health Care Education/Training Program; PCP Family Medicine
DX: R53.83 Other fatigue (principal); R09.02 Hypoxemia; R77.8 Other specified abnormalities of plasma proteins; R74.0 Nonspecific elevation of levels of transaminase and lactic acid dehydrogenase [LDH]; D72.829 Elevated white blood cell count, unspecified; R91.8 Other nonspecific abnormal finding of lung field; R45.1 Restlessness and agitation; E11.9 Type 2 diabetes mellitus without complications; Z79.4 Long term (current) use of insulin; I10 Essential (primary) hypertension; I25.2 Old myocardial infarction; Z87.891 Personal history of nicotine dependence; J44.9 Chronic obstructive pulmonary disease, unspecified
CPT/HCPCS: 31500; 36415; 51702; 71045; 80053; 82805; 87040; 87449; 93005; 94640; 96365; 96366; 96368; 96375; 99291; NC; 36600; 71046; 81003; 81015; 83605; 84484; 85025; 93010; J1956; J2060; J2310; J2405; J7620

== ENCOUNTER 2018-03-28 15:54 | Outpatient (REF) | payer MEDICARE, MEDICAID, SELFPAY ==
[2018-03-28 17:23] LABS: CREATININE 1.71 mg/dL (0.70-1.30)
== END 2018-03-28 16:14 ==
LOC: NCHCN 15:54
PROVIDERS: PCP Family Medicine; Visit Provider Internal Medicine
DX: N19 Unspecified kidney failure (principal)
CPT/HCPCS: 82565

== ENCOUNTER 2018-08-28 13:46 | Emergency (ER) | payer MEDICARE, MEDICAID, SELFPAY ==
[2018-08-28 13:51] VITALS: BP 104/83; PULSE 82; RESP 16; TEMP 36.9; O2SAT 93
--- NOTE | 2018-08-28 13:57 | ED.GENADUL_ITS ---
Discharge Plan Disposition Patient Disposition: [facility] ([facility]) Condition: Serious Discharge Details Chief Complaint: GenMedical Clinical Impression: Elevated troponin, CHF exacerbation, SELINA (acute kidney injury) Primary Care Provider: Allison Muniz ED Provider: Dyllan Salazar Home Meds and New Rx's Prescriptions: No Action ferrous sulfate [Iron (ferrous sulfate)] 325 MG tablet 325 mg PO DAILY RF: 0 pantoprazole 40 MG tablet,delayed release (DR/EC) 40 mg PO DAILY@0730 Qty: 30 RF: 3 furosemide 20 mg Tablet 20 mg PO DAILY RF: 0 aspirin 81 mg Tablet,Delayed Release (Dr/Ec) 81 mg PO DAILY Qty: 0 RF: 0 atorvastatin 80 mg Tablet 80 mg PO QPM RF: 0 clopidogrel 75 mg Tablet 75 mg PO DAILY RF: 0 metoprolol tartrate 25 mg Tablet 12.5 mg PO BID RF: 0 cholecalciferol (vitamin D3) [Vitamin D3] 2,000 unit Capsule 2,000 unit PO DAILY RF: 0 amoxicillin 500 mg Capsule 500 mg PO DAILY RF: 0 Humalog KwikPen Insulin 100 unit/mL Insulin Pen 0 unit SUBCUT QAC RF: 0 gabapentin 100 MG capsule 300 mg PO DAILY AM RF: 0 Therapeutic-M 1 TAB tablet 1 tab PO BID Qty: 30 RF: 3 methadone [Dolophine] 5 MG tablet 5 mg PO Q8H RF: 0 acetaminophen 500 MG tablet 1,000 mg PO DAILY PRNRF: 0 metformin [Glucophage] 1,000 MG tablet 1,000 mg PO BID RF: 0 Spiriva with HandiHaler 18 MCG capsule, w/inhalation device 18 mcg Inhalation DAILY RF: 0 ProAir RespiClick 90 MCG aerosol powdr breath activated 2 puffs Inhalation Q4H PRN PRNRF: 0 sucralfate 1 GM tablet 1 gm PO TID RF: 0 lisinopril 20 mg Tablet See Rx Instructions .ROUTE .COMPLEX RF: 0 torsemide 10 mg Tablet 10 mg RF: 0 amlodipine 5 mg Tablet 5 mg RF: 0 metoprolol succinate 25 mg Tablet Extended Release 24 Hr 25 mg PO RF: 0 Discharge Data Discharge Date/Time-TO BE ENTERED AT DEPARTURE: 08/28/18 16:57 Medical Decision Making 14:00 --63-year-old male with multiple medical problems here feeling generally unwell, saturating in the low 80s off oxygen per EMS, now saturating well on 6 L of nasal cannula, decreased urinary output over the past 2 days. ECG reviewed and interpreted by me: Sinus rhythm 81 bpm, normal axis, [address] elevation noted in V2 and V3 (these are new findings compared to 03/05/18). No chest pain. Concern for acute renal insufficiency and CHF. Labs and cxr pending. 15:00 -- Patient had episode of hypotension with SBP 80s. 500mL crystaloid bolus was given and BP improved. Labs reviewed: trop elevated to indeterminate range. BNP significantly elevated at 19,000. Creatinine 2.53 which is significantly elevated from baseline 1.7. VBG reviewed: pCO2 elevated, PO2 54. Continue supplemental oxygen. -- chest x-ray reviewed and interpreted by me: Cardiopulmonary vascular congestion noted. 15:44 --I called and spoke with Dr. Salcedo, cardiology at [facility], we discussed ED presentation and course. He will accept the patient in transfer. He recommends patient be given aspirin and Plavix if patient had not already taken this morning and also upper and bolus and drip. Awaiting bed. HPI General Mode of arrival: EMS . Date/Time Provider Initiated Documentation: 08/28/18 13:55 . Limitations to Documentation: other (patient is poor historian) . Information obtained by: patient and EMS . HPI Narrative: 63-year-old male with multiple medical problems including diabetes, COPD, coronary artery disease, and STEMI, hypertension, here with chief complaint of generally not feeling well. Patient notes that he has been feeling unwell today. Symptoms are m oderate. No modifiers. EMS notes informed them that he has been sweaty, clammy, and had decreased urination since yesterday. EMS note patient was saturating in the low 80s, nasal cannula oxygen at 6 L was applied and patient responded to 94% on oxygen. Patient denies abdominal pain. He denies chest pain. No shortness of breath. Related Data Home Medications Medication Instructions Recorded Confirmed pantoprazole 40 mg PO DAILY@0730 #30 09/13/16 09/08/18 gabapentin 300 mg PO DAILY AM 10/12/16 09/08/18 Therapeutic-M 1 tab PO BID #30 tab 10/14/16 09/08/18 ferrous sulfate [Iron (ferrous 325 mg PO DAILY 11/16/16 09/08/18 sulfate)] methadone [Dolophine] 5 mg PO Q8H 03/15/17 09/08/18 ProAir RespiClick 2 puffs INHALATION Q4H PRN PRN 09/09/17 08/28/18 Spiriva with HandiHaler 18 mcg INHALATION DAILY 09/09/17 09/08/18 acetaminophen 1,000 mg PO DAILY PRN 09/09/17 09/08/18 metformin [Glucophage] 1,000 mg PO BID 09/09/17 09/08/18 sucralfate 1 gm PO TID 09/09/17 09/08/18 furosemide 20 mg PO DAILY 10/31/17 08/28/18 aspirin 81 mg PO DAILY #0 tab 11/06/17 09/08/18 amoxicillin 500 mg PO DAILY 08/28/18 09/08/18 atorvastatin 80 mg PO QPM 08/28/18 09/08/18 cholecalciferol (vitamin D3) 2,000 unit PO DAILY 08/28/18 09/08/18 [Vitamin D3] clopidogrel 75 mg PO DAILY 08/28/18 09/08/18 insulin lispro [Humalog KwikPen 0 unit SUBCUT QAC 08/28/18 09/08/18 Insulin] metoprolol tartrate 12.5 mg PO BID 08/28/18 09/08/18 amlodipine 5 mg 09/08/18 lisinopril See Rx Instructions .ROUTE .COMPLEX 09/08/18 09/08/18 metoprolol succinate 25 mg PO 09/08/18 torsemide 10 mg 09/08/18 Previous Rx's Medication Instructions Recorded pantoprazole 40 mg PO DAILY@0730 #30 09/13/16 Therapeutic-M 1 tab PO BID #30 tab 10/14/16 aspirin 81 mg PO DAILY #0 tab 11/06/17 Allergies Allergy/AdvReac Type Severity Reaction Status Date / Time Iodinated Contrast- Oral and Allergy Hives Verified 08/28/18 14:02 IV Dye rifampin Allergy Hives Unverified 08/28/18 14:02 vancomycin Allergy Hives Unverified 08/28/18 14:02 General YVAN: 3 Review of Systems Review of Systems All systems reviewed & are unremarkable except as noted in HPI and below Constitutional Denies fever(s) Cardiovascular Denies chest pain and Denies dyspnea Respiratory Denies dyspnea Genitourinary Reports as per HPI [facility] Medical History Type 2 diabetes mellitus (Chronic) Acute kidney injury (nontraumatic) (Acute) COPD exacerbation (Acute) Non-ST elevation myocardial infarction (NSTEMI) (Acute) Sinus pause (Acute) Hypertension (Chronic) Mixed sleep apnea (Chronic) Iron deficiency anemia (Chronic) Infection of prosthetic knee joint (Chronic) Chronic osteomyelitis (Chronic) Diabetes mellitus (Chronic) HTN (hypertension) (Chronic) CARLOS (obstructive sleep apnea) (Chronic) Surgical History Previous back surgery (Chronic) S/P hernia repair (Chronic) S/P right knee surgery (Chronic) Status post left knee replacement (Chronic) EGD - MAC (09/10/16) Family History Sister Diabetes Social History Smoking/Tobacco Use Status: Former Tobacco Use Tobacco: How many years used: 20 Second Hand Exposure: Yes Alcohol Intake: former Drug use: Occasionally Substance use type: marijuana Household members: spouse Number of Children: 4 Do you feel safe at home: Yes Do you feel safe in your relationship?: Yes Exam Const General: cooperative, comfortable and well developed Nutritional Appearance: obese Orientation: alert and awake HENMT Head: normocephalic Mouth: moist mucous membranes Eyes Conjunctivae: normal conjunctivae Sclera: normal sclerae Neck Neck: trachea midline, supple and no JVD Resp Auscultation: clear to auscultation bilaterally, no rales, no rhonchi and no wheezes Cardio Jugular venous pressure: no JVD Rate: regular rate and not tachycardic Rhythm: regular rhythm GI Palpation: soft, not firm, no guarding, no masses, not rigid and nontender Skin General skin exam: no rashes or lesions noted Neuro General: alert, awake, oriented x3 and tone normal Extrem General: no calf tenderness and edema Laterality: bilateral (trace) Psych Appearance: grossly normal Critical Care Time Critical Care Time: Yes Total Critical Care Time: 45 Attestation: I spent greater than 45 minutes addressing this patient's immediate life threats
[2018-08-28 14:27] LABS: BE (Venous) 5.1 mmol/L (-3-3); HCO3 (Venous) 32 mmol/L (22-28); O2 Sat (Venous) 84 % (70-80); TCO2 (Venous) 29 mmol/L (22-29); pH (Venous) 7.28 (7.32-7.43); pO2 (Venous) 54 mm/Hg (28-44)
[2018-08-28 14:31] LABS: Abs Immature Grans 0.03 k/cumm (0.0-0.09); Absolute Basophil Count 0.01 k/cumm (0.0-0.2); Absolute Lymphocyte Count 0.47 k/cumm (1.2-3.4); Absolute Monocyte Count 0.58 k/cumm (0.11-0.7); Absolute Neutrophil Count 8.97 k/cumm (1.2-6.7); Basophils % 0.1; HCT 53.8 % (40.0-50.0); HGB 15.1 g/dL (13.5-17.5); Immature Grans % 0.3; Lymphocytes % 4.7; Mean Corp. HGB Concentration 28.1 g/dL (32.0-36.0); Mean Corpuscular Hemoglobin 27.3 pg (27.0-33.0); Mean Corpuscular Volume 97.3 fL (80-95); Monocytes % 5.8; Neutrophils % 89.1; Platelet Count 168 x1000/uL (130-400); RBC 5.53 m/cumm (4.50-6.00); RBC Distribution Width 19.1 % (11.8-14.1); White Blood Cell Count 10.06 k/cumm (4.4-10.8)
[2018-08-28 14:32] LABS: pCO2 (Venous) 68 mm/Hg (34-47)
[2018-08-28 14:52] LABS: ALT 24 U/L (12-78); AST 24 U/L (15-37); Albumin 2.8 g/dL (3.4-5.0); Alkaline Phosphatase 92 U/L (46-116); Anion Gap 8.2 mmol/L (3-11); BUN 28 mg/dL (7-18); Bilirubin, Total 0.8 mg/dL (0.2-1.0); CO2 29.8 mmol/L (21.0-32.0); CREATININE 2.53 mg/dL (0.70-1.30); Calcium 8.8 mg/dL (8.5-10.1); Chloride 101 mmol/L (98-107); Estimated GFR 26.03 (mL/min/1.73m2); Glucose 156 mg/dL (70-100); Magnesium 1.7 mg/dL (1.8-2.4); NT-proBNP 19912 pg/mL; Potassium 5.1 mmol/L (3.5-5.1); Sodium 139 mmol/L (136-145); Total Protein 6.9 g/dL (6.4-8.2)
[2018-08-28 14:54] LABS: Troponin I 0.08 ng/mL (0.00-0.06)
--- NOTE | 2018-08-28 14:58 | NUR.NOTE ---
iv infusing pt resting in bed on campus monitor Nursing Note:
[2018-08-28] MEDS: Normal Saline 500 ML 1000 ML IV (14:59)
[2018-08-28 15:00] VITALS: RESP 14
--- NOTE | 2018-08-28 15:05 | NUR.NOTE ---
pt to xray Nursing Note:
--- NOTE | 2018-08-28 15:16 | DI.RAD_ITS ---
SYMPTOM/DIAGNOSIS: SHORTNESS OF BREATH, HYPOXIA AP AND LATERAL CHEST: The exam was performed in the semi-erect position. The exam is somewhat limited by patient's body habitus. Comparison is made with 05 Mar 2018 Compression of the anterior abdominal wall soft tissues partially obscure the lung base. The heart is enlarged. No gross infiltrate or effusion is seen. Mild pulmonary edema cannot be excluded. IMPRESSION: Limited exam. No gross evidence of an acute abnormality
--- NOTE | 2018-08-28 15:41 | DI.VRAD_ITS ---
EXAM: XR Chest, 2 Views EXAM DATE/TIME: 08/28/2018 3:19 PM CLINICAL HISTORY: 63 years old, male; Patient HX: Shortness of breath, hypoxia. TECHNIQUE: Imaging protocol: XR of the chest, 2 views. COMPARISON: SC XR PORTABLE CHEST AP 03/05/2018 6:16 PM FINDINGS: Mild cardiomegaly. Minimal interstitial lung scarring. No focal pulmonary consolidations. No significant oral effusion. IMPRESSION: Incidental findings with no definite evidence of acute cardiopulmonary disease. Dictated and Authenticated by: Nino Salas MD. Ordering:YARIEL Mijares MD
--- NOTE | 2018-08-28 16:04 | NUR.NOTE ---
heparin drip began as per mdo Nursing Note:
[2018-08-28] MEDS: Clopidogrel 75 MG TAB PO (16:21)
[2018-08-28] MEDS: Aspirin 325 MG TAB PO (16:21)
--- NOTE | 2018-08-28 16:37 | NUR.NOTE ---
sbar to nurse peace at [facility] pt resting in bed heparin drip infuisng Nursing Note:
[2018-08-28 16:57] VITALS: BP 125/60; PULSE 72; RESP 14; TEMP 37.1; O2SAT 94
== END 2018-08-28 16:57 | disposition short-term general hospital (02) ==
LOC: ER 14:40
PROVIDERS: Emergency Provider Student in an Organized Health Care Education/Training Program; PCP Family Medicine
DX: R79.89 Other specified abnormal findings of blood chemistry (principal); R94.31 Abnormal electrocardiogram [ECG] [EKG]; I50.9 Heart failure, unspecified; N17.9 Acute kidney failure, unspecified; I11.0 Hypertensive heart disease with heart failure; I25.10 Atherosclerotic heart disease of native coronary artery without angina pectoris; E11.9 Type 2 diabetes mellitus without complications; I25.2 Old myocardial infarction; J44.9 Chronic obstructive pulmonary disease, unspecified; Z87.891 Personal history of nicotine dependence
CPT/HCPCS: 36415; 80053; 82805; 93005; 96365; 99291; 71046; 83735; 83880; 84484; 85025; 93010

== ENCOUNTER 2018-09-08 14:01 | Emergency (ER) | payer MEDICARE, MEDICAID, SELFPAY ==
[2018-09-08] VITALS (93 sets, daily range): BP systolic 71–182; BP diastolic 36–145; PULSE 66–155; RESP 9–25; TEMP 36.8–37; O2SAT 75–97
--- NOTE | 2018-09-08 14:15 | DI.CT_ITS ---
SYMPTOMS/DIAGNOSIS: ALTERED MENTAL STATUS CT BRAIN: Noncontrast examination. Comparison 11/10/17. There is patient motion artifact which does limit the examination. There does appear to be cerebral atrophy consistent with the patient's age. There are areas of decreased attenuation in the white matter consistent with small vessel ischemic disease. No definite acute territorial infarct is seen. No intracranial hemorrhage, midline shift or mass effect is identified. The ventricles are intact. The basilar cisterns are patent. No fluid levels are seen in the visualized paranasal sinuses. The calvarium is intact. IMPRESSION: 1. The examination is limited due to patient motion artifact. 2. No definite acute intracranial process. Follow up as clinically appropriate.
--- NOTE | 2018-09-08 14:24 | W.ED.GENAD ---
Discharge Plan Discharge Details Chief Complaint: AMS/LOC Primary Care Provider: Allison Muniz ED Provider: Shantelle Salazar Home Meds and New Rx's Prescriptions: No Action torsemide 20 mg tablet 40 mg PO DAILY RF: 0 ferrous sulfate [Iron (ferrous sulfate)] 325 MG tablet 325 mg PO DAILY RF: 0 pantoprazole 40 MG tablet,delayed release (DR/EC) 40 mg PO DAILY@0730 Qty: 30 RF: 3 aspirin 81 mg Tablet,Delayed Release (Dr/Ec) 81 mg PO DAILY Qty: 0 RF: 0 atorvastatin 80 mg Tablet 80 mg PO QPM RF: 0 clopidogrel 75 mg Tablet 75 mg PO DAILY RF: 0 cholecalciferol (vitamin D3) [Vitamin D3] 2,000 unit Capsule 2,000 unit PO DAILY RF: 0 insulin lispro [Humalog KwikPen Insulin] 100 unit/mL Insulin Pen 0 unit SUBCUT QAC RF: 0 amoxicillin 500 mg capsule 500 mg PO BID RF: 0 gabapentin 100 MG capsule 300 mg PO DAILY AM RF: 0 Therapeutic-M 1 TAB tablet 1 tab PO BID Qty: 30 RF: 3 methadone [Dolophine] 5 MG tablet 5 mg PO Q8H RF: 0 acetaminophen 500 MG tablet 1,000 mg PO DAILY PRNRF: 0 metformin [Glucophage] 1,000 MG tablet 1,000 mg PO BID RF: 0 Spiriva with HandiHaler 18 MCG capsule, w/inhalation device 18 mcg Inhalation DAILY RF: 0 ProAir RespiClick 90 MCG aerosol powdr breath activated 2 puffs Inhalation Q4H PRN PRNRF: 0 sucralfate 1 GM tablet 1 gm PO TID RF: 0 lisinopril 20 mg Tablet See Rx Instructions .ROUTE .COMPLEX RF: 0 amlodipine 5 mg Tablet 5 mg RF: 0 metoprolol succinate 25 mg Tablet Extended Release 24 Hr 25 mg PO RF: 0 Discharge Data Discharge Date/Time-TO BE ENTERED AT DEPARTURE: 09/08/18 18:00 Medical Decision Making Piyush Heard is a 63-year-old man with a history of COPD, and STEMI, hypertension, diabetes, CHF, SELINA presenting to the emergency department with decreased urine output since yesterday, also with altered mental status yesterday that seems improved today. On exam patient is chronically ill-appearing but conversing normally. Benign cardiopulmonary exam. Concern for metabolic/lyte derangement versus infection versus urinary retention versus SELINA/dehydration versus other, possible methadone/gabapentin component altered mental status versus acute intracranial process. Doubt ACS. Exam/history is not consistent with meningitis, CVA. Plan for EKG, chest x-ray, screening labs, IV, telemetry, IV fluid, Avalos placement, CT head. Will monitor and reassess. CT head negative per radiology. Lactate elevated, will send procalcitonin level. Urine output approximately 200 cc after Avalos placement. Blood pressure difficult to obtain accurately, patient consistently with good radial pulse bilaterally. Manual blood pressure 60 systolic at one point, however improved rapidly to 90 systolic after IV fluid. Creatinine 4.5, contacted [facility] and spoke with Dyllan Chris of critical care who accepted patient, no specific acute intervention recommended at this time. Spoke with [facility] who reported they had no bed availability whatsoever, so [facility] closest appropriate facility. Per nursing staff, they are unable to do set up for arterial line. Given intermittent apparent hypotension, [facility], however given patient's good mental status, no symptoms, and strong radial pulse bilaterally during episodes of hypotension, suspect that this may beinaccurate secondary to body habitus. Patient with hyperkalemia 5.9. Will give calcium prior to transfer, however no EKG changes indicative of threatening hyperkalemia. I did speak with [facility], who reported that no helicopters were available at this time, and ground transport team greater than 1 hour away from our facility. The most appropriate transfer will be using medics with [facility] due to increased time for transport using [facility] ground and patient's relative stability in the emergency department during his time here. Clinical Impression: AMS, SELINA Disposition: [facility] Medical Records Medical records reviewed: Yes I reviewed the patient's medical records. Imaging Data Radiologic Study: Attestation: I personally reviewed and interpreted this imaging study as follows: Radiologist's impression: CT BRAIN: Noncontrast examination. Comparison 11/10/17. There is patient motion artifact which does limit the examination. There does appear to be cerebral atrophy consistent with the patient's age. There are areas of decreased attenuation in the white matter consistent with small vessel ischemic disease. No definite acute territorial infarct is seen. No intracranial hemorrhage, midline shift or mass effect is identified. The ventricles are intact. The basilar cisterns are patent. No fluid levels are seen in the visualized paranasal sinuses. The calvarium is intact. IMPRESSION: 1. The examination is limited due to patient motion artifact. EXAM: XR Chest, 1 View EXAM DATE/TIME: 09/08/2018 4:49 PM CLINICAL HISTORY: 63 years old, male; Other: AMS TECHNIQUE: Imaging protocol: XR of the chest, 1 view. COMPARISON: CR XR CHEST 2V PA LATERAL 08/28/2018 3:09 PM FINDINGS: Lungs: Increased interstitial lung markings suggesting edema, infection or fibrotic changes. Pleural space: Unremarkable. No pleural effusion. No pneumothorax. Heart/Mediastinum: Unremarkable. No cardiomegaly. Bones/joints: Degenerative changes in the spine. IMPRESSION: Increased interstitial lung markings suggesting edema, infection or fibrotic changes. Degenerative changes in the spine. Lab Data Lab results reviewed: Yes I reviewed the patient's lab results. 09/08/18 16:15 Blood Blood Culture - Pending 09/08/18 16:15 Blood Blood Culture - Pending 09/08/18 15:20 Urine - Reflex from Ua Urine Culture - Pending Laboratory Tests Range/Units 09/08/18 09/08/18 09/08/18 14:07 14:45 14:45 WBC (4.4-10.8) k/cumm RBC (4.50-6.00) m/cumm Hgb (13.5-17.5) g/dL Hct (40.0-50.0) % MCV (80-95) fL MCH (27.0-33.0) pg MCHC (32.0-36.0) g/dL RDW (11.8-14.1) % Plt Count (130-400) x1000/uL MPV (8.0-11.0) fL Immature Gran % Neutrophils % Lymphocytes % Monocytes % Eosinophils % Basophils % Absolute Neutrophils (1.2-6.7) k/cumm Absolute Lymphocytes (1.2-3.4) k/cumm Absolute Monocytes (0.11-0.7) k/cumm Absolute Eosinophils (0.0-0.7) k/cumm Absolute Basophils (0.0-0.2) k/cumm Sodium (136-145) mmol/L 134 L Potassium (3.5-5.1) mmol/L 5.9 H Chloride (98-107) mmol/L 95 L Carbon Dioxide (21.0-32.0) mmol/L 27.3 Anion Gap (3-11) mmol/L 11.7 H BUN (7-18) mg/dL 61 H Creatinine (0.70-1.30) mg/dL 4.50 H* Estimated GFR/1.73 m2 (mL/min/1.73m2) 13.39 Glucose (70-100) mg/dL 114 H Lactate (0.6-1.4) mmol/l 2.9 H Calcium (8.5-10.1) mg/dL 8.6 Magnesium (1.8-2.4) mg/dL 1.8 Total Bilirubin (0.2-1.0) mg/dL 0.7 AST (15-37) U/L 21 ALT (12-78) U/L 20 Alkaline Phosphatase (46-116) U/L 78 Ammonia (11-32) umol/L Troponin I (0.00-0.06) ng/mL 0.61 H* NT-Pro-B Natriuret Pep ( - 299) pg/mL Total Protein (6.4-8.2) g/dL 6.6 Albumin (3.4-5.0) g/dL 2.7 L Procalcitonin ng/mL 1.3 TSH (0.358-3.74) uIU/mL 1.89 Urine Color (Yellow) Urine Clarity (Clear) Urine pH (5-8) Ur Specific [place] (1.005-1.025) Urine Protein (Negative) mg/dL Urine Ketones (Negative) mg/dL Urine Blood (Negative) Urine Nitrite (Negative) Urine Bilirubin (Negative) Urine Urobilinogen (Up TO 0.2) EU/dL Ur Leukocyte Esterase (Negative) Urine RBC (0-2) Urine WBC (0-5) HPF Ur Epithelial Cells (Negative) HPF Urine Crystals (Negative) HPF Urine Bacteria (Negative) HPF Urine Casts (Negative) LPF Urine Mucus (Negative) Urine Other (Negative) Ur Culture Indicated? Urine Glucose (Negative) mg/dL Range/Units 09/08/18 09/08/18 09/08/18 14:45 14:45 14:45 WBC (4.4-10.8) k/cumm 7.74 RBC (4.50-6.00) m/cumm 5.33 Hgb (13.5-17.5) g/dL 14.7 Hct (40.0-50.0) % 50.0 MCV (80-95) fL 93.8 MCH (27.0-33.0) pg 27.6 MCHC (32.0-36.0) g/dL 29.4 L RDW (11.8-14.1) % 16.9 H Plt Count (130-400) x1000/uL 220 MPV (8.0-11.0) fL 11.1 H Immature Gran % 0.3 Neutrophils % 77.6 Lymphocytes % 13.4 Monocytes % 8.1 Eosinophils % 0.3 Basophils % 0.3 Absolute Neutrophils (1.2-6.7) k/cumm 6.01 Absolute Lymphocytes (1.2-3.4) k/cumm 1.04 L Absolute Monocytes (0.11-0.7) k/cumm 0.63 Absolute Eosinophils (0.0-0.7) k/cumm 0.02 Absolute Basophils (0.0-0.2) k/cumm 0.02 Sodium (136-145) mmol/L Potassium (3.5-5.1) mmol/L Chloride (98-107) mmol/L Carbon Dioxide (21.0-32.0) mmol/L Anion Gap (3-11) mmol/L BUN (7-18) mg/dL Creatinine (0.70-1.30) mg/dL Estimated GFR/1.73 m2 (mL/min/1.73m2) Glucose (70-100) mg/dL Lactate (0.6-1.4) mmol/l Calcium (8.5-10.1) mg/dL Magnesium (1.8-2.4) mg/dL Total Bilirubin (0.2-1.0) mg/dL AST (15-37) U/L ALT (12-78) U/L Alkaline Phosphatase (46-116) U/L Ammonia (11-32) umol/L 28 Troponin I (0.00-0.06) ng/mL NT-Pro-B Natriuret Pep ( - 299) pg/mL 7787 H Total Protein (6.4-8.2) g/dL Albumin (3.4-5.0) g/dL Procalcitonin ng/mL TSH (0.358-3.74) uIU/mL Urine Color (Yellow) Urine Clarity (Clear) Urine pH (5-8) Ur Specific [place] (1.005-1.025) Urine Protein (Negative) mg/dL Urine Ketones (Negative) mg/dL Urine Blood (Negative) Urine Nitrite (Negative) Urine Bilirubin (Negative) Urine Urobilinogen (Up TO 0.2) EU/dL Ur Leukocyte Esterase (Negative) Urine RBC (0-2) Urine WBC (0-5) HPF Ur Epithelial Cells (Negative) HPF Urine Crystals (Negative) HPF Urine Bacteria (Negative) HPF Urine Casts (Negative) LPF Urine Mucus (Negative) Urine Other (Negative) Ur Culture Indicated? Urine Glucose (Negative) mg/dL Range/Units 09/08/18 15:20 WBC (4.4-10.8) k/cumm RBC (4.50-6.00) m/cumm Hgb (13.5-17.5) g/dL Hct (40.0-50.0) % MCV (80-95) fL MCH (27.0-33.0) pg MCHC (32.0-36.0) g/dL RDW (11.8-14.1) % Plt Count (130-400) x1000/uL MPV (8.0-11.0) fL Immature Gran % Neutrophils % Lymphocytes % Monocytes % Eosinophils % Basophils % Absolute Neutrophils (1.2-6.7) k/cumm Absolute Lymphocytes (1.2-3.4) k/cumm Absolute Monocytes (0.11-0.7) k/cumm Absolute Eosinophils (0.0-0.7) k/cumm Absolute Basophils (0.0-0.2) k/cumm Sodium (136-145) mmol/L Potassium (3.5-5.1) mmol/L Chloride (98-107) mmol/L Carbon Dioxide (21.0-32.0) mmol/L Anion Gap (3-11) mmol/L BUN (7-18) mg/dL Creatinine (0.70-1.30) mg/dL Estimated GFR/1.73 m2 (mL/min/1.73m2) Glucose (70-100) mg/dL Lactate (0.6-1.4) mmol/l Calcium (8.5-10.1) mg/dL Magnesium (1.8-2.4) mg/dL Total Bilirubin (0.2-1.0) mg/dL AST (15-37) U/L ALT (12-78) U/L Alkaline Phosphatase (46-116) U/L Ammonia (11-32) umol/L Troponin I (0.00-0.06) ng/mL NT-Pro-B Natriuret Pep ( - 299) pg/mL Total Protein (6.4-8.2) g/dL Albumin (3.4-5.0) g/dL Procalcitonin ng/mL TSH (0.358-3.74) uIU/mL Urine Color (Yellow) Dark yellow Urine Clarity (Clear) Sl cloudy Urine pH (5-8) 5.0 Ur Specific [place] (1.005-1.025) >= 1.030 H Urine Protein (Negative) mg/dL 100 H Urine Ketones (Negative) mg/dL Trace H Urine Blood (Negative) Negative Urine Nitrite (Negative) Negative Urine Bilirubin (Negative) Small H Urine Urobilinogen (Up TO 0.2) EU/dL 0.2 Ur Leukocyte Esterase (Negative) Negative Urine RBC (0-2) 3-5 H Urine WBC (0-5) HPF 5-10 Ur Epithelial Cells (Negative) HPF Few Urine Crystals (Negative) HPF Negative Urine Bacteria (Negative) HPF Few Urine Casts (Negative) LPF Negative Urine Mucus (Negative) Negative Urine Other (Negative) Few transitional Ur Culture Indicated? Yes Urine Glucose (Negative) mg/dL Negative ECG Data Attestation: I personally reviewed and interpreted this ECG (s) as follows: Interpretation: EKG shows sinus versus atrial rhythm, normal axis, normal QRS, [address] elevation in V2 V3 present on prior, no STEMI, nondiagnostic EKG HPI General Mode of arrival: EMS. Date/Time Provider Initiated Documentation: 09/08/18 14:07. Limitations to Documentation: altered mental status. Information obtained by: patient, family, RN notes reviewed and old records reviewed. HPI Narrative: Piyush Heard is a 63 y/o man with history of diabetes, COPD, and STEMI, hypertension, acute kidney injury presenting to the emergency department with altered mental status and decreased urine output. History is also provided by patient's . She reports that patient was discharged from [facility] 1 week ago after admission for CHF. She reports the patient had been doing well until the past 2 days or so. She reports that patient has not urinated since yesterday morning. She also reports that yesterday his mental status was altered, and he seemed in and out of it. She does report that this same mental status change has occurred for the patient many times intermittently in the past. She reports that his mental status seems somewhat improved today compared to yesterday, and is now close to baseline. Patient has been taking his prescribed medications. He denies pain, fever, vomiting, diarrhea, shortness of breath, cough. Patient reports that he feels well in his usual state of health. Related Data Home Medications Medication Instructions Recorded Confirmed pantoprazole 40 mg PO DAILY@0730 #30 09/13/16 09/17/18 gabapentin 300 mg PO DAILY AM 10/12/16 09/17/18 Therapeutic-M 1 tab PO BID #30 tab 10/14/16 09/17/18 ferrous sulfate [Iron (ferrous 325 mg PO DAILY 11/16/16 09/17/18 sulfate)] methadone [Dolophine] 5 mg PO Q8H 03/15/17 09/17/18 ProAir RespiClick 2 puffs INHALATION Q4H PRN PRN 09/09/17 09/17/18 Spiriva with HandiHaler 18 mcg INHALATION DAILY 09/09/17 09/17/18 acetaminophen 1,000 mg PO DAILY PRN 09/09/17 09/17/18 metformin [Glucophage] 1,000 mg PO BID 09/09/17 09/17/18 sucralfate 1 gm PO TID 09/09/17 09/17/18 aspirin 81 mg PO DAILY #0 tab 11/06/17 09/17/18 atorvastatin 80 mg PO QPM 08/28/18 09/17/18 cholecalciferol (vitamin D3) 2,000 unit PO DAILY 08/28/18 09/17/18 [Vitamin D3] clopidogrel 75 mg PO DAILY 08/28/18 09/17/18 insulin lispro [Humalog KwikPen 0 unit SUBCUT QAC 08/28/18 09/17/18 Insulin] amlodipine 5 mg 09/08/18 lisinopril See Rx Instructions .ROUTE .COMPLEX 09/08/18 09/08/18 metoprolol succinate 25 mg PO 09/08/18 09/17/18 amoxicillin 500 mg capsule 500 mg PO BID cap 09/17/18 09/17/18 torsemide 20 mg tablet 40 mg PO DAILY tab 09/17/18 09/17/18 Previous Rx's Medication Instructions Recorded pantoprazole 40 mg PO DAILY@0730 #30 09/13/16 Therapeutic-M 1 tab PO BID #30 tab 10/14/16 aspirin 81 mg PO DAILY #0 tab 11/06/17 Allergies Allergy/AdvReac Type Severity Reaction Status Date / Time Iodinated Contrast- Oral and Allergy Hives Verified 09/17/18 14:07 IV Dye rifampin Allergy Hives Unverified 09/17/18 14:07 vancomycin Allergy Hives Unverified 09/17/18 14:07 General Stated Complaint: AMS/LOC YVAN: 3 Review of Systems Review of Systems Constitutional: denies fevers Eyes: denies eye pain ENT: denies facial pain, dental pain, sore throat Cardiovascular: denies chest pain, edema Respiratory: denies SOB, cough GI: denies abdominal pain, vomiting, diarrhea : denies flank pain, reports decreased urine output MSK: denies back pain, neck pain, arthralgias, myalgias Skin: denies rash Neuro: denies headaches, numbness, weakness, reports altered mental status [facility] Medical History (Updated 09/17/18 @ 14:56 by Lucho Swan MD) Acute kidney injury (nontraumatic) (Acute) Cardiomyopathy (Acute) Chronic osteomyelitis (Chronic) COPD exacerbation (Acute) Diabetes mellitus (Chronic) HTN (hypertension) (Chronic) Hypertension (Chronic) Infection of prosthetic knee joint (Chronic) Iron deficiency anemia (Chronic) Mixed sleep apnea (Chronic) Non-ST elevation myocardial infarction (NSTEMI) (Acute) CARLOS (obstructive sleep apnea) (Chronic) Sinus pause (Acute) Type 2 diabetes mellitus (Chronic) Surgical History EGD - MAC (09/10/16) Previous back surgery (Chronic) S/P hernia repair (Chronic) S/P right knee surgery (Chronic) Status post left knee replacement (Chronic) Social History Smoking/Tobacco Use Status: Former Tobacco Use Tobacco: How many years used: 20 Second Hand Exposure: Yes Alcohol Intake: former Drug use: Occasionally Substance use type: marijuana Household members: spouse Number of Children: 4 Do you feel safe at home: Yes Do you feel safe in your relationship?: Yes Exam Narrative Exam Narrative: Constitutional: Chronically ill but acutely [id number]-sucvsxvuk, pleasant, conversing normally HENT: head atraumatic/normocephalic/normal inspection, mucous membranes moist Eyes: conjunctiva normal, sclera normal, pupils 3mm b/l Neck: no stridor, normal ROM, trachea midline Chest: normal inspection Resp: normal work of breathing, LCTAB Cardio: normal rate, normal rhythm, no murmur appreciated GI: abdomen soft, non-tender, non-distended Back: normal inspection, no rash Skin: warm, dry, normal color, no rash Neuro: alert, grossly non-focal, normal tone, knows the president but does not know his address or the date, though patient with some baseline memory loss Ext: moving all extremities equally Psych: normal mood, normal affect Course Vital Signs Temperature 37.0 C 09/08/18 13:59 Pulse 78 09/08/18 13:59 Respiratory Rate 18 09/08/18 13:59 Blood Pressure 113/63 09/08/18 13:59 Pulse Oximetry 94 L 09/08/18 13:59 Temperature 37.0 C 09/08/18 13:59 Temperature Source Temporal Artery Scan 09/08/18 13:59 Pulse 78 09/08/18 13:59 Respiratory Rate 18 09/08/18 13:59 Blood Pressure 113/63 09/08/18 13:59 Blood Pressure Position Supine 09/08/18 13:59 Pulse Oximetry 94 L 09/08/18 13:59 Oxygen Delivery Method Nasal Cannula 09/08/18 13:59 Oxygen Flow Rate 4 09/08/18 13:59 Pain Level 0 09/08/18 13:59 Lab/Test Results Lab/Test Results: 09/08/18 14:07 Blood Blood Culture - Pending 09/08/18 14:07 Blood Blood Culture - Pending Critical Care Time Total Critical Care Time: 45 Attestation: I have spent 45 minutes of critical care time with this critically ill patient, including frequent bedside reassessments and discussions with family and consultants.
--- NOTE | 2018-09-08 14:28 | NUR.NOTE ---
Pt refused F/C nbotifiedNursing Note:
[2018-09-08] MEDS: Normal Saline 1,000 ML 1000 ML IV (14:37)
[2018-09-08 15:01] LABS: Lactate-non-spesis 2.9 mmol/l (0.6-1.4)
[2018-09-08 15:13] LABS: Abs Immature Grans 0.02 k/cumm (0.0-0.09); Absolute Basophil Count 0.02 k/cumm (0.0-0.2); Absolute Eosinophil Count 0.02 k/cumm (0.0-0.7); Absolute Lymphocyte Count 1.04 k/cumm (1.2-3.4); Absolute Monocyte Count 0.63 k/cumm (0.11-0.7); Absolute Neutrophil Count 6.01 k/cumm (1.2-6.7); Basophils % 0.3; Eosinophils % 0.3; HGB 14.7 g/dL (13.5-17.5); Immature Grans % 0.3; Lymphocytes % 13.4; Mean Corp. HGB Concentration 29.4 g/dL (32.0-36.0); Mean Corpuscular Hemoglobin 27.6 pg (27.0-33.0); Mean Corpuscular Volume 93.8 fL (80-95); Mean Platelet Volume 11.1 fL (8.0-11.0); Monocytes % 8.1; Neutrophils % 77.6; Platelet Count 220 x1000/uL (130-400); RBC 5.33 m/cumm (4.50-6.00); RBC Distribution Width 16.9 % (11.8-14.1); White Blood Cell Count 7.74 k/cumm (4.4-10.8)
[2018-09-08 15:26] LABS: Ammonia 28 umol/L (11-32)
[2018-09-08 15:30] LABS: Bilirubin Small (Negative); Blood Negative (Negative); Clarity Sl Cloudy (Clear); Glucose Negative (Negative); Ketones Trace mg/dL (Negative); Leukocyte Esterase Negative (Negative); Nitrite Negative (Negative); Specific Gravity >= 1.030 (1.005-1.025); Urobilinogen 0.2 EU/dL (Up TO 0.2)
[2018-09-08 15:37] LABS: NT-proBNP 7787 pg/mL
[2018-09-08 15:45] LABS: Bacteria Few HPF (Negative); Casts Negative LPF (Negative); Crystals Negative HPF (Negative); Epithelial Cells Few HPF (Negative); Mucus Negative (Negative); Other Cells Few Transitional (Negative)
[2018-09-08 15:46] LABS: C & S Indicated? Yes
[2018-09-08 15:59] LABS: Procalcitonin 1.3 ng/mL
--- NOTE | 2018-09-08 16:02 | NUR.NOTE ---
Nursing Note: MD Salazar made aware of BP 68/38 (rechecked with a manual cuff)
[2018-09-08 16:22] LABS: ALT 20 U/L (12-78); AST 21 U/L (15-37); Albumin 2.7 g/dL (3.4-5.0); Alkaline Phosphatase 78 U/L (46-116); Anion Gap 11.7 mmol/L (3-11); BUN 61 mg/dL (7-18); Bilirubin, Total 0.7 mg/dL (0.2-1.0); CO2 27.3 mmol/L (21.0-32.0); Calcium 8.6 mg/dL (8.5-10.1); Chloride 95 mmol/L (98-107); Estimated GFR 13.39 (mL/min/1.73m2); Glucose 114 mg/dL (70-100); Magnesium 1.8 mg/dL (1.8-2.4); Potassium 5.9 mmol/L (3.5-5.1); Sodium 134 mmol/L (136-145); TSH (W/Ref FT4) 1.89 uIU/mL (0.358-3.74); Total Protein 6.6 g/dL (6.4-8.2)
[2018-09-08 16:29] LABS: Troponin I 0.61 ng/mL (0.00-0.06)
--- NOTE | 2018-09-08 16:45 | DI.RAD_ITS ---
SYMPTOM/DIAGNOSIS: ALTERED MENTAL STATUS PORTABLE AP CHEST: Comparison is made with 08/28/18. The cardiac silhouette appears stable. Pulmonary vasculature is within normal limits. There is unchanged mild prominence of the interstitium. No focal consolidating infiltrate, effusion or pneumothorax is identified. IMPRESSION: Mild stable interstitial prominence. This may reflect chronic pulmonary fibrotic change. Interstitial edema or pneumonitis cannot be excluded.
--- NOTE | 2018-09-08 17:23 | DI.VRAD_ITS ---
EXAM: XR Chest, 1 View EXAM DATE/TIME: 09/08/2018 4:49 PM CLINICAL HISTORY: 63 years old, male; Other: AMS TECHNIQUE: Imaging protocol: XR of the chest, 1 view. COMPARISON: CR XR CHEST 2V PA LATERAL 08/28/2018 3:09 PM FINDINGS: Lungs: Increased interstitial lung markings suggesting edema, infection or fibrotic changes. Pleural space: Unremarkable. No pleural effusion. No pneumothorax. Heart/Mediastinum: Unremarkable. No cardiomegaly. Bones/joints: Degenerative changes in the spine. IMPRESSION: Increased interstitial lung markings suggesting edema, infection or fibrotic changes. Degenerative changes in the spine. Dictated and Authenticated by: Octavia Pino MD. Ordering:DIA Pepper MD
--- NOTE | 2018-09-08 17:28 | NUR.NOTE ---
Nursing Note: pt F/C infiltrated with lg bld clot F/C flushed Cath now patent
--- NOTE | 2018-09-08 17:38 | NUR.NOTE ---
Pt repositioned for fort and skin integrity. Pt area around F/C and new pads placed along with beddingNursing Note:
--- NOTE | 2018-09-08 18:04 | NUR.NOTE ---
Nursing Note: Per MD Salazar, do not administer Calcium Gluconate prior transfer. Per MD Salazar Levephed is to be given to EMS for administration during transport if needed.
== END 2018-09-08 18:00 ==
PROVIDERS: Emergency Provider Student in an Organized Health Care Education/Training Program; PCP Family Medicine
DX: R41.82 Altered mental status, unspecified (principal); N17.9 Acute kidney failure, unspecified; I11.0 Hypertensive heart disease with heart failure; I50.9 Heart failure, unspecified; E11.9 Type 2 diabetes mellitus without complications; Z79.4 Long term (current) use of insulin; J44.9 Chronic obstructive pulmonary disease, unspecified; Z87.891 Personal history of nicotine dependence
CPT/HCPCS: 36410; 36415; 51702; 80053; 84145; 87040; 93005; 96361; 96365; 96375; 99285; 70450; 71045; 81003; 81015; 82140; 83605; 83735; 83880; 84443; 84484; 85025; 87086; 93010

== ENCOUNTER → 2018-09-17 13:37 | Outpatient (BNVA) | payer MEDICARE, MEDICAID, SELFPAY | PROVIDERS: PCP Family Medicine; Visit Provider Student in an Organized Health Care Education/Training Program | DX: I21.4 Non-ST elevation (NSTEMI) myocardial infarction (principal); I50.9 Heart failure, unspecified; I13.0 Hypertensive heart and chronic kidney disease with heart failure and stage 1 through stage 4 chronic kidney disease, or unspecified chronic kidney disease; I25.5 Ischemic cardiomyopathy; E11.22 Type 2 diabetes mellitus with diabetic chronic kidney disease; N18.3 Chronic kidney disease, stage 3 (moderate); G47.33 Obstructive sleep apnea (adult) (pediatric); Z79.4 Long term (current) use of insulin; Z99.89 Dependence on other enabling machines and devices; J44.9 Chronic obstructive pulmonary disease, unspecified | CPT/HCPCS: 99205; 99215 ==

== ENCOUNTER 2018-09-17 14:40 | Outpatient (CLI) | payer MEDICARE, MEDICAID, SELFPAY ==
[2018-09-17 15:49] LABS: Abs Immature Grans 0.01 k/cumm (0.0-0.09); Absolute Basophil Count 0.02 k/cumm (0.0-0.2); Absolute Eosinophil Count 0.19 k/cumm (0.0-0.7); Absolute Monocyte Count 0.55 k/cumm (0.11-0.7); Absolute Neutrophil Count 6.67 k/cumm (1.2-6.7); Basophils % 0.2; Eosinophils % 2.3; HCT 52.7 % (40.0-50.0); HGB 15.7 g/dL (13.5-17.5); Immature Grans % 0.1; Lymphocytes % 10.8; Mean Corp. HGB Concentration 29.8 g/dL (32.0-36.0); Mean Corpuscular Hemoglobin 27.1 pg (27.0-33.0); Mean Platelet Volume 10.9 fL (8.0-11.0); Monocytes % 6.6; Platelet Count 176 x1000/uL (130-400); RBC 5.79 m/cumm (4.50-6.00); RBC Distribution Width 16.2 % (11.8-14.1); White Blood Cell Count 8.34 k/cumm (4.4-10.8)
[2018-09-17 16:11] LABS: NT-proBNP 350 pg/mL
== END 2018-09-17 15:00 ==
PROVIDERS: PCP Family Medicine; Visit Provider Nurse Practitioner Family
DX: I50.9 Heart failure, unspecified (principal); I10 Essential (primary) hypertension; I21.4 Non-ST elevation (NSTEMI) myocardial infarction; I13.0 Hypertensive heart and chronic kidney disease with heart failure and stage 1 through stage 4 chronic kidney disease, or unspecified chronic kidney disease; I25.5 Ischemic cardiomyopathy; E11.22 Type 2 diabetes mellitus with diabetic chronic kidney disease; N18.3 Chronic kidney disease, stage 3 (moderate); G47.33 Obstructive sleep apnea (adult) (pediatric); Z79.4 Long term (current) use of insulin; Z99.89 Dependence on other enabling machines and devices; J44.9 Chronic obstructive pulmonary disease, unspecified
CPT/HCPCS: 36415; 99215; 83880; 85025

== ENCOUNTER 2018-09-25 13:27 | Outpatient (REF) | payer MEDICARE, MEDICAID, SELFPAY ==
[2018-09-25 21:36] LABS: ALT 24 U/L (12-78); AST 14 U/L (15-37); Albumin 3.3 g/dL (3.4-5.0); Alkaline Phosphatase 97 U/L (46-116); Anion Gap 8.6 mmol/L (3-11); BUN 26 mg/dL (7-18); Bilirubin, Total 0.6 mg/dL (0.2-1.0); CO2 30.4 mmol/L (21.0-32.0); CREATININE 1.35 mg/dL (0.70-1.30); Calcium 9.4 mg/dL (8.5-10.1); Chloride 97 mmol/L (98-107); Estimated GFR 53.73 (mL/min/1.73m2); Glucose 157 mg/dL (70-100); Potassium 4.7 mmol/L (3.5-5.1); Sodium 136 mmol/L (136-145); Total Protein 7.2 g/dL (6.4-8.2)
== END 2018-09-25 13:47 ==
LOC: NCHCN 13:27
PROVIDERS: PCP Family Medicine; Visit Provider Family Medicine
DX: I50.9 Heart failure, unspecified (principal); J44.9 Chronic obstructive pulmonary disease, unspecified
CPT/HCPCS: 80053

== ENCOUNTER 2019-03-20 18:42 | Emergency (ER) | payer MEDICARE, MEDICAID, SELFPAY ==
[2019-03-20 18:42] VITALS: BP 141/97; PULSE 73; RESP 20; TEMP 36.5; O2SAT 95
--- NOTE | 2019-03-20 19:05 | NUR.NOTE ---
Assumed care of pt. reports ate dinner, became SOB. EMS called, pt reports SOB resolved en route. Hx of COPD, 3L O2 dep at home. Arrives with sats 92%, LS diminished. Denies CP, abd pain. Per has been increasingly weak x several days. Having difficulty standing. notes decreased urine putput. abrasion to left ear lobe, Per has been picking. BLE edema, R>L, normal per .
[2019-03-20 19:08] VITALS: PULSE 68; RESP 19; RESP 8; O2SAT 91
[2019-03-20] MEDS: Albuterol 2.5 MG/3 ML INH SOLN VIAL UPD (19:08)
[2019-03-20 19:10] VITALS: RESP 19
--- NOTE | 2019-03-20 19:19 | ED.GENADUL_ITS ---
Discharge Plan Disposition Patient Disposition: HOME Condition: Improving Discharge Details Chief Complaint: SOB Clinical Impression: Acute dyspnea Primary Care Provider: Allison Muniz ED Provider: Ken Ureña Home Meds and New Rx's Prescriptions: No Action torsemide 20 mg tablet 20 mg PO DAILY RF: 0 ferrous sulfate [Iron (ferrous sulfate)] 325 MG tablet 325 mg PO DAILY RF: 0 pantoprazole 40 MG tablet,delayed release (DR/EC) 40 mg PO DAILY@0730 Qty: 30 RF: 3 aspirin 81 mg Tablet,Delayed Release (Dr/Ec) 81 mg PO DAILY Qty: 0 RF: 0 atorvastatin 80 mg Tablet 80 mg PO QPM RF: 0 cholecalciferol (vitamin D3) [Vitamin D3] 2,000 unit Capsule 2,000 unit PO DAILY RF: 0 insulin lispro [Humalog KwikPen Insulin] 100 unit/mL Insulin Pen 0 unit SUBCUT QAC RF: 0 methadone [Dolophine] 5 MG tablet 5 mg PO Q8H RF: 0 acetaminophen 500 MG tablet 1,000 mg PO DAILY PRNRF: 0 metformin [Glucophage] 1,000 MG tablet 1,000 mg PO BID RF: 0 Spiriva with HandiHaler 18 MCG capsule, w/inhalation device 18 mcg Inhalation DAILY RF: 0 ProAir RespiClick 90 MCG aerosol powdr breath activated 2 puffs Inhalation Q4H PRN PRNRF: 0 sucralfate 1 GM tablet 1 gm PO QID RF: 0 metoprolol succinate 25 mg Tablet Extended Release 24 Hr 25 mg PO DAILY RF: 0 amoxicillin 500 mg Capsule 500 mg PO BID RF: 0 Discharge Instructions Instructions: Dyspnea (ED) Additional Instructions: 1. Drink plenty of fluids. 2. Continue all medications as prescribed. 3. Acetaminophen 1000mg every 4 hours (up to 5 time a day) and/or ibuprofen 600mg every 6 hours as needed for fever or pain. Return to the Emergency Department (ED) if your condition worsens, does not improve as expected, or for ANY other concerns. Specifically, return if you have new or uncontrolled pain, worsening fever, difficulty breathing, vomiting, or are unable to drink fluids. Medical Decision Making 62-year-old gentleman with past medical history which includes COPD, diabetes, hypertension. Transported here via EMS after becoming acutely dyspneic after eating supper. Clinical improved on arrival and subjectively at baseline. Nonfocal exam except for mild bibasilar rales/rhonchi. Remained at baseline with mild subjective improved work of breathing with an albuterol nebulizer. CXR unchanged from previous. Multiple re-evaluations and ultimately discharged home with a plan for outpatient follow-up. Given usual and customary return instructions prior to discharge. Medical Records Medical records reviewed: Yes I reviewed the patient's medical records. Imaging Data Radiologic Study: Attestation: I personally reviewed and interpreted this imaging study as follows: Imaging: X-Ray (CXR PA and lateral) My impression: Chronic airway disease with small pleural effusions. No change from previous CXR . Radiologist's impression: Same HPI 64-year-old gentleman with past medical history which includes cardiomyopathy, COPD, chronic osteomyelitis, diabetes, and hypertension. Transported here via EMS after developing a sudden episode of dyspnea at his home after eating supper. He describes being in his usual state of health until this episode. He endorses that he has had multiple previous similar episodes. However his called EMS. During transport here he became improved and on arrival feels like he has had his clinical baseline. Denies fevers/chills, subjective congestion, chest pain, palpitations, abdominal pain. He has chronic lower extremity edema. He uses pulmonary medications at home and is compliant with his medications on a as needed basis. General Date/Time Provider Initiated Documentation: 03/20/19 18:47 . Related Data Home Medications Medication Instructions Recorded Confirmed pantoprazole 40 mg PO DAILY@0730 #30 09/13/16 03/20/19 ferrous sulfate [Iron (ferrous 325 mg PO DAILY 11/16/16 03/20/19 sulfate)] methadone [Dolophine] 5 mg PO Q8H 03/15/17 03/20/19 ProAir RespiClick 2 puffs INHALATION Q4H PRN PRN 09/09/17 03/20/19 Spiriva with HandiHaler 18 mcg INHALATION DAILY 09/09/17 03/20/19 acetaminophen 1,000 mg PO DAILY PRN 09/09/17 03/20/19 metformin [Glucophage] 1,000 mg PO BID 09/09/17 03/20/19 sucralfate 1 gm PO QID 09/09/17 03/20/19 aspirin 81 mg PO DAILY #0 tab 11/06/17 03/20/19 atorvastatin 80 mg PO QPM 08/28/18 03/20/19 cholecalciferol (vitamin D3) 2,000 unit PO DAILY 08/28/18 03/20/19 [Vitamin D3] insulin lispro [Humalog KwikPen 0 unit SUBCUT QAC 08/28/18 03/20/19 Insulin] metoprolol succinate 25 mg PO DAILY 09/08/18 03/20/19 torsemide 20 mg tablet 20 mg PO DAILY tab 09/17/18 03/20/19 amoxicillin 500 mg PO BID 03/20/19 03/20/19 Previous Rx's Medication Instructions Recorded pantoprazole 40 mg PO DAILY@0730 #30 09/13/16 aspirin 81 mg PO DAILY #0 tab 11/06/17 Allergies Allergy/AdvReac Type Severity Reaction Status Date / Time Iodinated Contrast Media Allergy Hives Verified 03/20/19 18:49 [Iodinated Contrast- Oral and IV Dye] rifampin Allergy Hives Unverified 03/20/19 18:49 vancomycin Allergy Hives Unverified 03/20/19 18:49 General Stated Complaint: SOB YVAN: 4 Review of Systems All systems reviewed & are unremarkable except as noted in HPI and below PFSH Medical History Acute kidney injury (nontraumatic) (Acute) Cardiomyopathy (Acute) Chronic osteomyelitis (Chronic) COPD exacerbation (Acute) Diabetes mellitus (Chronic) HTN (hypertension) (Chronic) Hypertension (Chronic) Infection of prosthetic knee joint (Chronic) Iron deficiency anemia (Chronic) Mixed sleep apnea (Chronic) Non-ST elevation myocardial infarction (NSTEMI) (Acute) CARLOS (obstructive sleep apnea) (Chronic) Sinus pause (Acute) Type 2 diabetes mellitus (Chronic) Surgical History EGD - MAC (09/10/16) Previous back surgery (Chronic) S/P hernia repair (Chronic) S/P right knee surgery (Chronic) Status post left knee replacement (Chronic) Family History Sister Diabetes Social History Smoking/Tobacco Use Status: Former Tobacco Use Tobacco: How many years used: 20 Second Hand Exposure: Yes Alcohol Intake: former Drug use: Occasionally Substance use type: marijuana Household members: spouse Number of Children: 4 Do you feel safe at home: Yes Do you feel safe in your relationship?: Yes Exam Narrative Exam Narrative: Nursing note and vital signs have been reviewed and noted. GENERAL: alert, active, no acute distress, well -hydrated, well-nourished HEENT: atraumatic/normocephalic, PERRLA, EOMI, conjunctiva clear, external ears/canals normal, nasal mucosa normal NECK: supple, full range of motion, no mass, normal lymphadenopathy, no thyromegaly CARDIOVASCULAR: RRR, no murmurs, nl pulses, no edema PULMONARY: nl effort, prolonged expiratory phase with bibasilar rales with no focal deficit or significant expiratory wheezing., no chest wall tenderness ABDOMEN: soft, non-tender, non-distended, no mass, no organomegaly EXTREMITY: normal muscle tone, all joints with FROM, no deformity or tenderness SKIN: no exanthem appreciated NEURO: gross motor exam normal, normal stance and gait PSYCH: alert and oriented, Course Vital Signs Vital signs: Vital Signs Temperature 97.7 F 03/20/19 18:42 Pulse 73 03/20/19 18:42 Respiratory Rate 20 03/20/19 18:42 Blood Pressure 141/97 H 03/20/19 18:42 Pulse Oximetry 95 03/20/19 18:42 Temperature 97.7 F 03/20/19 18:42 Temperature Source Skin 03/20/19 18:42 Pulse 68 03/20/19 19:08 Respiratory Rate 19 03/20/19 19:10 Respiratory Effort 03/20/19 19:10 Respiratory Depth Normal 03/20/19 19:10 Respiratory Pattern Normal 03/20/19 19:10 Blood Pressure 141/97 H 03/20/19 18:42 Blood Pressure Position Sitting 03/20/19 18:42 Pulse Oximetry 91 L 03/20/19 19:08 Oxygen Delivery Method Nasal Cannula 03/20/19 19:08 Oxygen Flow Rate 3 03/20/19 19:08
[2019-03-20 19:30] VITALS: PULSE 62; RESP 1; RESP 19; RESP 8; O2SAT 93
--- NOTE | 2019-03-20 19:30 | NUR.NOTE ---
Pt reports feeling better after neb. awaiting CXR.
--- NOTE | 2019-03-20 19:55 | DI.RAD_ITS ---
EXAM: XR CHEST 2V PA LATERAL INDICATION: difficulty breathing. COMPARISON: CHEST 2 VIEWS PA,LAT from 03/15/2017 XR PORTABLE CHEST AP from 11/10/2017 XR PORTABLE CHEST AP from 03/05/2018 XR CHEST 2V PA LATERAL from 03/05/2018 XR CHEST 2V PA LATERAL from 08/28/2018 TECHNIQUE: 2D digital imaging was performed. The exam is limited by the patient's body habitus. Ex am was performed on a stretcher. There is respiratory motion. FINDINGS: The heart is enlarged. The abdominal soft tissues partially obscure the lower lobes. There is a qu estion of increased density seen posteriorly on the lateral view which could represent infiltrates ve rsus dependent edema. IMPRESSION: Question of posterior infiltrates versus pulmonary edema.
--- NOTE | 2019-03-20 20:11 | DI.VRAD_ITS ---
PROCEDURE INFORMATION: Exam: XR Chest, 2 Views Exam date and time: 03/20/2019 8:02 PM Age: 64 years old Clinical indication: Other: Difficulty breathing TECHNIQUE: Imaging protocol: XR of the chest Views: 2 views. COMPARISON: CR XR PORTABLE CHEST AP 09/08/2018 4:50 PM FINDINGS: Lungs: Chronic mild airspace disease within the right lower lobe which was present on prior study. This may represent chronic scarring. No focal areas of acute lung consolidation. No marcus pulmonary edema. Pleural space: Minor right pleural effusion suggested. Heart/Mediastinum: Mild cardiomegaly. Bones/joints: Degenerative thoracic spine and shoulder joint changes. IMPRESSION: 1. Minor chronic airspace disease right lower lobe with interstitial type pattern. No significant change since 09/08/2018. 2. Minimal right pleural effusion. 3. Mild cardiomegaly. Dictated and Authenticated by: Brendon Currie MD. Ordering:BRANDON Rogers MD
[2019-03-20 20:24] VITALS: BP 115/60; PULSE 61; RESP 16; TEMP 37.1; O2SAT 95
--- NOTE | 2019-03-20 20:50 | NUR.NOTE ---
Discharge instructions reviewed. Pt to drive him home in van. No O2 available in van, states they live 2 minutes away, he'll put it on right away at home. Up to WC with 2 assist and walker. Offered to assist to get pt in to car or carry walker to car, she declined assistance. To exit via WC.
== END 2019-03-20 20:25 | disposition home or self-care (01) ==
PROVIDERS: Emergency Provider Emergency Medicine; PCP Family Medicine
DX: R06.00 Dyspnea, unspecified (principal); E11.9 Type 2 diabetes mellitus without complications; Z79.4 Long term (current) use of insulin; I10 Essential (primary) hypertension; J44.9 Chronic obstructive pulmonary disease, unspecified; Z87.891 Personal history of nicotine dependence
CPT/HCPCS: 94640; 99284; 71046; J7613

== ENCOUNTER 2019-03-30 14:02 | Emergency (ER) | payer MEDICARE, MEDICAID, SELFPAY ==
[2019-03-30] VITALS (48 sets, daily range): BP systolic 79–203; BP diastolic 39–112; PULSE 55–108; RESP 11–37; TEMP 36.2–36.3; O2SAT 86–100
[2019-03-30] MEDS: Succinylcholine 100 MG/5 ML SYR 200 MG IVP (14:00)
[2019-03-30] MEDS: Midazolam 10 MG/10 ML 5 MG IVP ×5 (14:20→17:05)
[2019-03-30] MEDS: Naloxone 0.4 MG/ML VIAL IM ×2 (14:25→14:40)
[2019-03-30] MEDS: Normal Saline 250 ML 500 ML IV (14:33)
--- NOTE | 2019-03-30 14:33 | DI.RAD_ITS ---
EXAM: XR PORTABLE CHEST AP INDICATION: unresponsive, intubation, tube placement. COMPARISON: XR CHEST 2V PA LATERAL from 03/20/2019 TECHNIQUE: 2D digital imaging was performed. FINDINGS: The endotracheal tube lies approximately 2.5 centimeters above the sandra. There is cardiomegaly pre sent. There is blunting of the right costophrenic angle suggesting a small pleural effusion. There is an interstitial type infiltrate present in the lungs. This may represent edema or pneumonia. No focal consolidating infiltrates are present. Degenerative changes are present in the spine. IMPRESSION: 1. Endotracheal tube tip lies approximately 2.5 cm above the sandra. 2. Cardiomegaly, small right pleural effusion and interstitial infiltrate. This may represent pulmon alicia edema.
[2019-03-30 14:48] LABS: Bilirubin Small (Negative); Blood Moderate (Negative); Clarity Clear (Clear); Glucose Negative (Negative); Ketones Trace mg/dL (Negative); Leukocyte Esterase Negative (Negative); Nitrite Negative (Negative); Specific Gravity >= 1.030 (1.005-1.025); pH 5.5 (5-8)
--- NOTE | 2019-03-30 15:05 | DI.CT_ITS ---
EXAM: CT HEAD - STROKE PROTOCOL CLINICAL HISTORY: AMS COMPARISON: CT HEAD WO from 09/08/2018 FINDINGS: There is patient motion artifact. The ventricles and sulci are consistent with the patient's age. T here are areas of decreased attenuation in the white matter consistent with small vessel ischemic dis ease. No acute territorial infarct is identified. There is no acute midline shift or mass effect. The ventricles are intact. The calvarium is intact. There is opacification of the ethmoid air cells and maxillary sinuses bilaterally. There is mucosal thickening in the sphenoid sinuses bilaterally. IMPRESSION: 1. Acute intracranial process. 2. Sinusitis. 3. Age-related cerebral atrophy and small vessel ischemic disease. 4. The findings were discussed with the emergency department on the date of the examination.
[2019-03-30 15:09] LABS: Bacteria Many HPF (Negative); Epithelial Cells Rare HPF (Negative); Other Cells Moderate Renal (Negative); WBC >50 HPF (0-5)
[2019-03-30 15:11] LABS: C & S Indicated? Yes; Crystals Many Amorphous HPF (Negative); Mucus Negative (Negative)
--- NOTE | 2019-03-30 15:12 | ED.GENADUL_ITS ---
Discharge Plan Discharge Details Chief Complaint: AMS/LOC Primary Care Provider: Allison Muniz ED Provider: Shantelle Salazar Home Meds and New Rx's Prescriptions: No Action torsemide 20 mg tablet 20 mg PO DAILY RF: 0 ferrous sulfate [Iron (ferrous sulfate)] 325 MG tablet 325 mg PO DAILY RF: 0 pantoprazole 40 MG tablet,delayed release (DR/EC) 40 mg PO DAILY@0730 Qty: 30 RF: 3 aspirin 81 mg Tablet,Delayed Release (Dr/Ec) 81 mg PO DAILY Qty: 0 RF: 0 atorvastatin 80 mg Tablet 80 mg PO QPM RF: 0 cholecalciferol (vitamin D3) [Vitamin D3] 2,000 unit Capsule 2,000 unit PO DAILY RF: 0 insulin lispro [Humalog KwikPen Insulin] 100 unit/mL Insulin Pen 0 unit SUBCUT QAC RF: 0 methadone [Dolophine] 5 MG tablet 5 mg PO Q8H RF: 0 acetaminophen 500 MG tablet 1,000 mg PO DAILY PRNRF: 0 metformin [Glucophage] 1,000 MG tablet 1,000 mg PO BID RF: 0 Spiriva with HandiHaler 18 MCG capsule, w/inhalation device 18 mcg Inhalation DAILY RF: 0 ProAir RespiClick 90 MCG aerosol powdr breath activated 2 puffs Inhalation Q4H PRN PRNRF: 0 sucralfate 1 GM tablet 1 gm PO QID RF: 0 metoprolol succinate 25 mg Tablet Extended Release 24 Hr 25 mg PO DAILY RF: 0 amoxicillin 500 mg Capsule 500 mg PO DAILY RF: 0 clopidogrel [Plavix] 75 mg Tablet 75 mg PO DAILY RF: 0 multivitamin Capsule 1 cap PO QAM RF: 0 Narcan 4 mg/actuation Brady,Non-Aerosol 4 mg INTRANASAL Q2M PRNRF: 0 Discharge Data Discharge Date/Time-TO BE ENTERED AT DEPARTURE: 03/30/19 17:25 Medical Decision Making Piyush Heard is a 64 y/o man with history of diabetes, hypertension, coronary artery disease, sleep apnea, COPD, obesity who presented to the emergency department after his found that she was having difficulty awakening him. On exam patient opens his eyes and arouses briefly to sternal rub. Decreased breath sounds bilaterally. Right lower leg edematous compared to left without erythema. Patient maintaining O2 sats on nonrebreather. Unclear etiology of altered mental status, CVA versus sepsis versus hypercarbia versus other metabolic/lyte derangement versus other. Patient not protecting his airway. Plan for intubation. Patient placed briefly on BiPAP while preparing for intubation. Patient given ketamine, succinylcholine. Please see procedure note. Blood sugar 130. Post intubation chest x-ray of poor quality. Plan for CT head, CT chest. Patient has history of acute kidney injury, will hold IV contrast at this time. Patient with good O2 saturation on vent, no tachycardia, clinical picture makes massive pulmonary embolism less likely at this time. 15:12 notified by nursing labs have not been obtained due to technical difficulty at this point. Patient currently in CT. I discussed Pt status with Pt's , who is now in ED. She relays that RLE has been edematous for weeks. She also states that Pt has been more fatigued than usual, has been eating and drinking less. She reports chronic cough that has been unchanged. 15:30: Received results from radiology, large right-sided consolidation, moderate effusion. Patient blood pressure now 84 systolic, unclear if this is secondary to increasing propofol or sepsis. Propofol d/priti, switch to versed/fentanyl. Patient started on PIP Tazo, azithromycin, IV fluid increased. Transfer center contacted, patient accepted by [facility], accepting physician Dr. Randal Self. Plan for transfer by [facility] air. Blood pressure improving, systolic BP mid 90s. Still without lab results. Concern for SELINA. Doubt large potassium disturbance given EKG. [facility] aborted secondary to weather, plan for ground transport by [facility]. Due to body habitus anticipate difficult subclavian, IJ central line. Femoral central line attempted under US without success 2/2 overlying artery, body habitus. Pt with 20g PIV x3. Levophed gtt hung at minimum rate to maintain MAP 65 for transport. Pt with good sats on vent, improving end tidal CO2, SBP 90, HR WNL at time of transfer. Clinical Impression: respiratory failure, pneumonia Disposition: transfer to [facility] [place] [facility] Medical Records Medical records reviewed: Yes I reviewed the patient's medical records. Imaging Data Radiologic Study: Attestation: I personally reviewed and interpreted this imaging study as follows: Radiologist's impression: EXAM: CT HEAD - STROKE PROTOCOL CLINICAL HISTORY: AMS COMPARISON: CT HEAD WO from 09/08/2018 FINDINGS: There is patient motion artifact. The ventricles and sulci are consistent with the patient's age. There are areas of decreased attenuation in the white matter consistent with small vessel ischemic disease. No acute territorial infarct is identified. There is no acute midline shift or mass effect. The ventricles are intact. The calvarium is intact. There is opacification of the ethmoid air cells and maxillary sinuses bilaterally. There is mucosal thickening in the sphenoid sinuses bilaterally. IMPRESSION: 1. Acute intracranial process. 2. Sinusitis. 3. Age-related cerebral atrophy and small vessel ischemic disease. EXAM: XR PORTABLE CHEST AP INDICATION: unresponsive, intubation, tube placement. COMPARISON: XR CHEST 2V PA LATERAL from 03/20/2019 TECHNIQUE: 2D digital imaging was performed. FINDINGS: The endotracheal tube lies approximately 2.5 centimeters above the sandra. There is cardiomegaly present. There is blunting of the right costophrenic angle suggesting a small pleural effusion. There is an interstitial type infiltrate present in the lungs. This may represent edema or pneumonia. No focal consolidating infiltrates are present. Degenerative changes are present in the spine. IMPRESSION: 1. Endotracheal tube tip lies approximately 2.5 cm above the sandra. 2. Cardiomegaly, small right pleural effusion and interstitial infiltrate. This may represent pulmonary edema. EXAM: CT CHEST WO CLINICAL HISTORY: resp arrest. TECHNIQUE: Imaging protocol: Axial computed tomography images were obtained and coronal and sagittal reformatted images were created and reviewed. COMPARISON: XR PORTABLE CHEST AP POST LINE from 03/30/2019 FINDINGS: Tracheobronchial tree: There is an endotracheal tube in place. The tip lies above the sandra. Mediastinum and Rosi: No dominant adenopathy or fluid collection. Pulmonary parenchyma: There is consolidation involving the right upper lobe right lower lobe and right middle lobe. There is marked volume loss of the right hemithorax. There is a small area of atelectasis in the left lower lobe. Pleura: There is a moderately large right pleural effusion. Heart: Heart is at the upper limits of normal in size. Mild coronary artery calcification is present. No pericardial effusion is seen. Aorta: Mild atherosclerosis. No aneurysmal dilatation. Upper abdomen: Elevation of the right hemidiaphragm. Lymph nodes: Within normal limits. Bones:Degenerative changes in the spine. Tubes, Catheters, and Lines: See above. Soft tissues: There is edema seen in the soft tissues of the chest wall particularly on the right. IMPRESSION: 1. Moderately large right pleural effusion 2. Consolidation involving the right upper, middle and lower lobes. Findings are suspicious for pneumonia. Lab Data Lab results reviewed: Yes I reviewed the patient's lab results. ECG Data Attestation: I personally reviewed and interpreted this ECG (s) as follows: Interpretation: EKG shows sinus rhythm at 81 with first-degree block, normal axis, poor R wave progression, no STEMI, nondiagnostic EKG HPI General Mode of arrival: EMS . Date/Time Provider Initiated Documentation: 03/30/19 14:20 . Limitations to Documentation: altered mental status . Information obtained by: family, EMS, RN notes reviewed and old records reviewed . HPI Narrative: Piyush Heard is a 64-year-old man with a history of insulin-dependent diabetes, COPD, coronary artery disease, sleep apnea, hypertension, obesity presenting to the emergency department with altered mental status. Patient arrives with EMS, report that they were told that patient was last seen normal earlier this morning by his . They report that his found him just prior to arrival and patient was difficult to arouse and she called 911. EMS reports patient arouses briefly to sternal rub. No family immediately present for further history or review of systems. Related Data Home Medications Medication Instructions Recorded Confirmed pantoprazole 40 mg PO DAILY@0730 #30 09/13/16 03/30/19 ferrous sulfate [Iron (ferrous 325 mg PO DAILY 11/16/16 03/30/19 sulfate)] methadone [Dolophine] 5 mg PO Q8H 03/15/17 03/30/19 ProAir RespiClick 2 puffs INHALATION Q4H PRN PRN 09/09/17 03/30/19 Spiriva with HandiHaler 18 mcg INHALATION DAILY 09/09/17 03/30/19 acetaminophen 1,000 mg PO DAILY PRN 09/09/17 03/30/19 metformin [Glucophage] 1,000 mg PO BID 09/09/17 03/30/19 sucralfate 1 gm PO QID 09/09/17 03/30/19 aspirin 81 mg PO DAILY #0 tab 11/06/17 03/30/19 atorvastatin 80 mg PO QPM 08/28/18 03/30/19 cholecalciferol (vitamin D3) 2,000 unit PO DAILY 08/28/18 03/30/19 [Vitamin D3] insulin lispro [Humalog KwikPen 0 unit SUBCUT QAC 08/28/18 03/30/19 Insulin] metoprolol succinate 25 mg PO DAILY 09/08/18 03/30/19 torsemide 20 mg tablet 20 mg PO DAILY tab 09/17/18 03/30/19 amoxicillin 500 mg PO DAILY 03/20/19 03/30/19 clopidogrel [Plavix] 75 mg PO DAILY 03/30/19 03/30/19 multivitamin 1 cap PO QAM 03/30/19 03/30/19 naloxone [Narcan] 4 mg INTRANASAL Q2M PRN 03/30/19 03/30/19 Previous Rx's Medication Instructions Recorded pantoprazole 40 mg PO DAILY@0730 #30 09/13/16 aspirin 81 mg PO DAILY #0 tab 11/06/17 Allergies Allergy/AdvReac Type Severity Reaction Status Date / Time Iodinated Contrast Media Allergy Hives Verified 03/30/19 14:26 [Iodinated Contrast- Oral and IV Dye] rifampin Allergy Hives Unverified 03/30/19 14:26 vancomycin Allergy Hives Unverified 03/30/19 14:26 General Stated Complaint: AMS/LOC YVAN: 1 Review of Systems Narrative: Patient with altered mental status, review of systems unobtainable, no immediate family/friends present to obtain review of systems. Unobtainable due to mental status [facility] Medical History Acute kidney injury (nontraumatic) (Acute) Cardiomyopathy (Acute) Chronic osteomyelitis (Chronic) COPD exacerbation (Acute) Diabetes mellitus (Chronic) HTN (hypertension) (Chronic) Hypertension (Chronic) Infection of prosthetic knee joint (Chronic) Iron deficiency anemia (Chronic) Mixed sleep apnea (Chronic) Non-ST elevation myocardial infarction (NSTEMI) (Acute) CARLOS (obstructive sleep apnea) (Chronic) Sinus pause (Acute) Type 2 diabetes mellitus (Chronic) Social History Smoking/Tobacco Use Status: Former Tobacco Use Tobacco: How many years used: 20 Second Hand Exposure: Yes Alcohol Intake: former Drug use: Occasionally Substance use type: marijuana Household members: spouse Number of Children: 4 Do you feel safe at home: Yes Do you feel safe in your relationship?: Yes Exam Narrative Exam Narrative: Constitutional: obtunded, responds briefly to sternal rub HENT: head atraumatic/normocephalic/normal inspection, mucous membranes dry Eyes: conjunctiva normal, sclera normal, pupils 3mm b/l ERRLA Neck: no stridor, normal ROM, trachea midline Chest: normal inspection Resp: RR 12, decreased breath sounds b/l Cardio: normal rate, normal rhythm GI: abdomen soft, non-distended Back: normal inspection, no rash Skin: warm, dry, normal color, no rash Neuro: obtunded, responds briefly to sternal rub, does not follow commands, moving bother upper extremities Ext: RLE edematous compared to LLE, no erythema or rash Course Vital Signs Vital signs: Vital Signs Temperature 36.2 C L 03/30/19 14:08 Pulse 108 H 03/30/19 14:08 Respiratory Rate 18 03/30/19 14:08 Blood Pressure 150/112 H 03/30/19 14:08 Pulse Oximetry 100 03/30/19 14:08 Temperature 36.2 C L 03/30/19 14:08 Temperature Source Temporal Artery Scan 03/30/19 14:08 Pulse 108 H 03/30/19 14:08 Respiratory Rate 18 03/30/19 14:08 Respiratory Effort 03/30/19 14:34 Blood Pressure 150/112 H 03/30/19 14:08 Blood Pressure Position Supine 03/30/19 14:08 Pulse Oximetry 100 03/30/19 14:08 Respiratory End-tidal CO2 50 03/30/19 14:31 Oxygen Delivery Method Nasal Cannula 03/30/19 14:08 Oxygen Flow Rate 15 03/30/19 14:08 Lab/Test Results Lab/Test Results: 03/30/19 14:35 Urine - Reflex from Ua Urine Culture - Pending 03/30/19 14:20 Blood Blood Culture - Pending 03/30/19 14:20 Blood Blood Culture - Pending Laboratory Tests Range/Units 03/30/19 14:35 Urine Color (Yellow) Yellow Urine Clarity (Clear) Clear Urine pH (5-8) 5.5 Ur Specific [place] (1.005-1.025) >= 1.030 H Urine Protein (Negative) mg/dL >=300 H Urine Ketones (Negative) mg/dL Trace H Urine Blood (Negative) Moderate H Urine Nitrite (Negative) Negative Urine Bilirubin (Negative) Small H Urine Urobilinogen (Up TO 0.2) EU/dL 1.0 H Ur Leukocyte Esterase (Negative) Negative Urine RBC (0-2) HPF 10-20 H Urine WBC (0-5) HPF >50 H Ur Epithelial Cells (Negative) HPF Rare Urine Crystals (Negative) HPF Many amorphous Urine Bacteria (Negative) HPF Many Urine Casts (Negative) LPF 20-50 coarsegranular Urine Mucus (Negative) Negative Urine Other (Negative) Moderate renal Ur Culture Indicated? Yes Urine Glucose (Negative) mg/dL Negative Procedures Intubation Time out performed: Yes sedative: Ketamine paralytic: Succinylcholine Laryngoscope: other (glidescope) ET Tube Size: 7.5 ET Tube Uncuffed: No Tube Secured Location: lips Tube Placement Confirmation: visualized tube passing through cords, equal breath sounds bilaterally, no breath sounds over epigastrum and confirmation by capnometry Patient Tolerated Procedure: well Intubation Complications: difficult intubation (difficult intubation 2/2 body habitus, no desats, bleeding, or other complications) Critical Care Time Critical Care Time Total Critical Care Time: 60 Attestation: I have spent greater than 60 minute of critical care time with this critically ill patient, including frequent reassessments, interpretation of labs, and discussions family and consultants.
--- NOTE | 2019-03-30 15:14 | DI.CT_ITS ---
EXAM: CT CHEST WO CLINICAL HISTORY: resp arrest. TECHNIQUE: Imaging protocol: Axial computed tomography images were obtained and coronal and sagittal reformatted images were created and reviewed. COMPARISON: XR PORTABLE CHEST AP POST LINE from 03/30/2019 FINDINGS: Tracheobronchial tree: There is an endotracheal tube in place. The tip lies above the sandra. Mediastinum and Rosi: No dominant adenopathy or fluid collection. Pulmonary parenchyma: There is consolidation involving the right upper lobe right lower lobe and righ t middle lobe. There is marked volume loss of the right hemithorax. There is a small area of atelec tasis in the left lower lobe. Pleura: There is a moderately large right pleural effusion. Heart: Heart is at the upper limits of normal in size. Mild coronary artery calcification is present . No pericardial effusion is seen. Aorta: Mild atherosclerosis. No aneurysmal dilatation. Upper abdomen: Elevation of the right hemidiaphragm. Lymph nodes: Within normal limits. Bones:Degenerative changes in the spine. Tubes, Catheters, and Lines: See above. Soft tissues: There is edema seen in the soft tissues of the chest wall particularly on the right. IMPRESSION: 1. Moderately large right pleural effusion 2. Consolidation involving the right upper, middle and lower lobes. Findings are suspicious for pneu monia. 3. The findings were discussed with the emergency department on the date of the examination. DATA REPOSITORY: All CT scans at this facility are submitted to the National Radiology Data Registry (NRDR) Dose Index Registry (DIR) with the [employer] ([employer]). RADIATION OPTIMIZATION: All CT scans at this facility use at least one of these dose optimization te chniques: automated exposure control; mA and/or kV adjustment per patient size (includes targeted exa ms where dose is matched to clinical indication); or iterative reconstruction.
[2019-03-30] MEDS: MIDAZOLAM 50 MG in Normal Saline 90 ML 6.148 MG IV (15:20)
--- NOTE | 2019-03-30 15:25 | NUR.NOTE ---
propofal gtt started at 1420 and titrated up to 50 mcg/ it had to be cut in half and turned off at 1515 for a fall ing BP during his head and chest scan Nursing Note:
[2019-03-30 15:31] LABS: HCO3 32 mmol/L (22-28); pH 7.32 (7.35-7.45); pO2 80 mmHg (83-108); sO2 95 % (94-98); tCO2 28 mmol/L (22-29)
[2019-03-30] MEDS: fentaNYL 1,000 MCG in Normal Saline 80 ML 15.37 MCG IV (15:31)
[2019-03-30 15:37] LABS: FIO2 100 %; Site Right Radial; pCO2 63 mmHg (34-47)
[2019-03-30] MEDS: PIPERACILLIN/TAZO 4.5 GM in Normal Saline 100 ML IVPB (16:12)
[2019-03-30] MEDS: Normal Saline 250 ML 1000 ML IV (16:22)
[2019-03-30] MEDS: Ketamine 500 MG/10 ML VIAL 100 MG IVP (16:27)
[2019-03-30] MEDS: Hydrocortisone SOD SUC. 100 MG VIAL IVP (17:06)
--- NOTE | 2019-03-30 17:51 | NUR.NOTE ---
Addendum entered by Sherri Young 03/30/19 18:07: Blood cultures were not obtained. Only urine culture to be sent. Sherri Young. Original Note: Nursing Note: Faxed to [facility] ICU 4 NO. the flu result. Gave to the lab the fax number so that they can send the urine culture and blood culture results to [facility] also. Sherri Young
== END 2019-03-30 17:25 | disposition short-term general hospital (02) ==
LOC: ER 14:20
PROVIDERS: Emergency Provider Student in an Organized Health Care Education/Training Program; PCP Family Medicine
DX: J96.00 Acute respiratory failure, unspecified whether with hypoxia or hypercapnia (principal); J18.9 Pneumonia, unspecified organism; I10 Essential (primary) hypertension; E11.9 Type 2 diabetes mellitus without complications; Z79.4 Long term (current) use of insulin; J44.9 Chronic obstructive pulmonary disease, unspecified; I25.10 Atherosclerotic heart disease of native coronary artery without angina pectoris; R60.0 Localized edema
CPT/HCPCS: 31500; 36415; 36416; 71045; 71250; 80053; 82805; 82962; 87040; 87449; 93005; 96361; 96365; 96366; 96367; 96368; 96372; 96375; 99291; 36600; 70450; 81003; 81015; 83605; 83880; 84484; 85025; 87086; 93010; J1720; J2310; J2543; J3010; J3490

== ENCOUNTER 2019-04-14 11:34 | Outpatient (REF) | payer MEDICARE, MEDICAID, SELFPAY ==
[2019-04-14 12:03] LABS: Abs Immature Grans 0.04 k/cumm (0.0-0.09); Absolute Basophil Count 0.02 k/cumm (0.0-0.2); Absolute Eosinophil Count 0.03 k/cumm (0.0-0.7); Absolute Lymphocyte Count 0.47 k/cumm (1.2-3.4); Absolute Monocyte Count 0.64 k/cumm (0.11-0.7); Absolute Neutrophil Count 8.84 k/cumm (1.2-6.7); Basophils % 0.2; Eosinophils % 0.3; HGB 14.6 g/dL (13.5-17.5); Immature Grans % 0.4 %; Lymphocytes % 4.7; Mean Corp. HGB Concentration 27.5 g/dL (32.0-36.0); Mean Corpuscular Hemoglobin 27.6 pg (27.0-33.0); Mean Corpuscular Volume 100.2 fL (80-95); Mean Platelet Volume 10.7 fL (8.0-11.0); Monocytes % 6.4; Platelet Count 209 x1000/uL (130-400); RBC 5.29 m/cumm (4.50-6.00); RBC Distribution Width 16.6 % (11.8-14.1); White Blood Cell Count 10.04 k/cumm (4.4-10.8)
[2019-04-14 12:15] LABS: ALT 71 U/L (16-63); AST 48 U/L (15-37); Albumin 2.9 g/dL (3.4-5.0); Alkaline Phosphatase 112 U/L (46-116); Anion Gap 6.3 mmol/L (3-11); BUN 21 mg/dL (7-18); Bilirubin, Total 1.1 mg/dL (0.2-1.0); CO2 35.7 mmol/L (21.0-32.0); CREATININE 1.39 mg/dL (0.70-1.30); Calcium 8.7 mg/dL (8.5-10.1); Chloride 99 mmol/L (98-107); Estimated GFR 51.78 (mL/min/1.73m2); Glucose 202 mg/dL (74-106); Potassium 5.7 mmol/L (3.5-5.1); Sodium 141 mmol/L (136-145); Total Protein 6.9 g/dL (6.4-8.2)
[2019-04-14 12:36] LABS: Diff Comment RBC Morph Reviewed; Hypochromasia 1+
== END 2019-04-14 11:54 ==
LOC: LBN 11:34
PROVIDERS: PCP Family Medicine; Visit Provider Nurse Practitioner Adult Health
DX: M86.68 Other chronic osteomyelitis, other site (principal); N17.9 Acute kidney failure, unspecified; I50.9 Heart failure, unspecified; J15.1 Pneumonia due to Pseudomonas; J96.02 Acute respiratory failure with hypercapnia
CPT/HCPCS: 80053; 85025

== ENCOUNTER 2019-04-17 16:45 | Outpatient (REF) | payer MEDICARE, MEDICAID, SELFPAY ==
[2019-04-17 18:03] LABS: Anion Gap 3.6 mmol/L (3-11); BUN 17 mg/dL (7-18); CO2 40.4 mmol/L (21.0-32.0); CREATININE 1.07 mg/dL (0.70-1.30); Calcium 9.2 mg/dL (8.5-10.1); Chloride 99 mmol/L (98-107); Glucose 121 mg/dL (74-106); Potassium 4.6 mmol/L (3.5-5.1); Sodium 143 mmol/L (136-145)
== END 2019-04-17 17:05 ==
LOC: LBN 16:45
PROVIDERS: PCP Family Medicine; Visit Provider Nurse Practitioner Adult Health
DX: I50.9 Heart failure, unspecified (principal); E11.9 Type 2 diabetes mellitus without complications
CPT/HCPCS: 80048

== ENCOUNTER 2019-04-27 07:46 | Emergency (ER) | payer MEDICARE, MEDICAID, SELFPAY ==
[2019-04-27] VITALS (140 sets, daily range): BP systolic 55–226; BP diastolic 31–127; PULSE 60–158; RESP 8–28; TEMP 36.5; O2SAT 86–100
[2019-04-27] MEDS: Etomidate 20 MG/10 ML VIAL IVP (07:56)
[2019-04-27] MEDS: Succinylcholine 200 MG/10 ML VIAL IVP (07:57)
--- NOTE | 2019-04-27 08:00 | DI.RAD_ITS ---
EXAM: XR PORTABLE CHEST AP INDICATION: post intubation cxr. COMPARISON: CT CHEST WO from 03/30/2019 XR PORTABLE CHEST AP POST LINE from 03/30/2019 TECHNIQUE: 2D digital imaging was performed. FINDINGS: The exam is limited by technique and body habitus. The cardiac and mediastinal contours appear unc hanged. The heart is enlarged. An endotracheal tube and nasogastric tube are seen. There is again noted to be right-sided volume loss. There is no definite change in scarring at the right lung base. IMPRESSION: Limited exam. No gross evidence of an acute abnormality. Nasogastric and endotracheal tubes are see n. DATA REPOSITORY: RADIATION DOSE DELIVERED:
--- NOTE | 2019-04-27 08:04 | W.ED.GENAD ---
Discharge Plan Disposition Patient Disposition: [facility] Condition: Critical Discharge Details Chief Complaint: CodeBlue Clinical Impression: Acute and chronic respiratory failure, Morbid obesity Primary Care Provider: Allison Muniz ED Provider: Arianne Guillen Home Meds and New Rx's Prescriptions: No Action torsemide 20 mg tablet 20 mg PO DAILY RF: 0 pantoprazole 40 MG tablet,delayed release (DR/EC) 40 mg PO DAILY@0730 Qty: 30 RF: 3 aspirin 81 mg Tablet,Delayed Release (Dr/Ec) 81 mg PO DAILY Qty: 0 RF: 0 atorvastatin 80 mg Tablet 40 mg PO QPM RF: 0 insulin lispro [Humalog KwikPen Insulin] 100 unit/mL Insulin Pen 0 unit SUBCUT QAC RF: 0 sennosides-docusate sodium [Senna with Docusate Sodium] 8.6-50 mg Tablet 2 tab PO BID RF: 0 methadone [Dolophine] 5 MG tablet 5 mg PO Q8H RF: 0 acetaminophen 500 MG tablet 1,000 mg PO DAILY PRNRF: 0 metformin [Glucophage] 1,000 MG tablet 1,000 mg PO BID RF: 0 Spiriva with HandiHaler 18 MCG capsule, w/inhalation device 18 mcg Inhalation DAILY RF: 0 ProAir RespiClick 90 MCG aerosol powdr breath activated 2 puffs Inhalation Q4H PRN PRNRF: 0 sucralfate 1 GM tablet 1 gm PO QID RF: 0 amoxicillin 500 mg Capsule 500 mg PO DAILY RF: 0 clopidogrel [Plavix] 75 mg Tablet 75 mg PO DAILY RF: 0 multivitamin Capsule 1 cap PO QAM RF: 0 Narcan 4 mg/actuation [place],Non-Aerosol 4 mg INTRANASAL Q2M PRNRF: 0 Medical Decision Making 0745 -- 64yo M w/ a h/o DM, morbid obesity, COPD, NSTEMI, cardiomyopathy, SELINA, HTN, CARLOS, and prior respiratory failure with difficult intubation 1 month ago presents as respiratory distress deteriorating into respiratory failure this morning. O2 sat 70s per EMS. Patient is normally A & O x 3. On arrival to ED, patient receiving bagged respirations. Patient obtunded, GCS 6. O2 sat high 90s with bagging. Large amount of oral secretions noted which improved with suctioning. He is unresponsive. Patient given 2 mg of Narcan due to questionable history of narcotic use without any response. Will plan for intubation. Etomidate and succinylcholine ordered. 0800 --patient intubated on first attempt using CMAC. Portable chest confirmed appropriate placement of ET tube. Propofol ordered for sedation. No acute disease noted on chest x-ray. 0830 --patient required additional sedation prior to transport to CT. Ketamine 100 mg IV x1 given. 0845 --CT head negative. Patient bucking the vent and moving. Propofol increased from 50 mcg/kg/min to 75. 0930-- BP hypotensive, 59/31. Vent rate decreased from 22 to 18 to 16 and propofol decreased from 50 to 25mcg/kg/min. Ketamine drip ordered. 0945 --discussed with hospitalist would prefer patient transfer to [facility]. Upon review of [facility] records, patient was discharged from there 04/11/2019, was found to be difficult extubation and treated for acute on chronic heart failure, Pseudomonas pneumonia and suspected cardiorenal syndrome. 0950 --discussed with [facility] transfer center. 0955 -- BP now hypertensive 149/127. End-tidal CO2 60s. Propofol increased to 50 and vent rate increased back to 18. 1010 --discussed with [facility] critical care -accepts patient for transfer. Accepting physician Dr. Vanegas. Will be approximately 2 hours once bed available. Would like fentanyl drip. Will DC ketamine drip. Recommend Zosyn for broad-spectrum coverage as he had Klebsiella and Pseudomonas pneumonia on recent admission. They state that patient has a history of baseline CO2 in the 60s with a normal pH. 1230 --had a few episodes of hypotension now BP holding steady at 114/61. 1430 --BP 101/64 prior to transfer. Medical Records Medical records reviewed: Yes I reviewed the patient's medical records. Imaging Data Radiologic Study: Radiologist's impression: XR PORTABLE CHEST AP INDICATION: post intubation cxr. COMPARISON: CT CHEST WO from 03/30/2019 XR PORTABLE CHEST AP POST LINE from 03/30/2019 TECHNIQUE: 2D digital imaging was performed. FINDINGS: The exam is limited by technique and body habitus. The cardiac and mediastinal contours appear unchanged. The heart is enlarged. An endotracheal tube and nasogastric tube are seen. There is again noted to be right-sided volume loss. There is no definite change in scarring at the right lung base. IMPRESSION: Limited exam. No gross evidence of an acute abnormality. Nasogastric and endotracheal tubes are seen. CT HEAD WO CLINICAL HISTORY: altered mental status, r/o acute cva TECHNIQUE: Noncontrast COMPARISON: CT HEAD - STROKE PROTOCOL from 03/30/2019 FINDINGS: An endotracheal tube is seen. There is streak artifact throughout the exam. No intracranial hemorrhage or acute infarct is seen. Mild atrophy and white matter changes of small vessel disease are again noted. There is opacification the sinuses similar to the previous exam. There is also opacification of the right mastoid air air cells which is new since the previous exam. IMPRESSION: No acute intracranial abnormality. Lab Data Lab results reviewed: Yes I reviewed the patient's lab results. Labs: Laboratory Tests Range/Units 04/27/19 04/27/19 04/27/19 08:05 08:05 08:05 WBC (4.4-10.8) k/cumm 18.44 H RBC (4.50-6.00) m/cumm 4.50 Hgb (13.5-17.5) g/dL 13.0 L Hct (40.0-50.0) % 46.4 MCV (80-95) fL 103.1 H MCH (27.0-33.0) pg 28.9 MCHC (32.0-36.0) g/dL 28.0 L RDW (11.8-14.1) % 18.1 H Plt Count (130-400) x1000/uL 247 MPV (8.0-11.0) fL 9.4 Immature Gran % % 0.7 Neutrophils % 91.9 Lymphocytes % 3.8 Monocytes % 3.4 Eosinophils % 0.0 Basophils % 0.2 Absolute Neutrophils (1.2-6.7) k/cumm 16.95 H Absolute Lymphocytes (1.2-3.4) k/cumm 0.70 L Absolute Monocytes (0.11-0.7) k/cumm 0.63 Absolute Eosinophils (0.0-0.7) k/cumm 0.00 Absolute Basophils (0.0-0.2) k/cumm 0.04 PT (9.3-11.0) sec INR (0.9-1.1) APTT (21.0-31.4) sec ABG Sample Site ABG pH (7.35-7.45) ABG pCO2 (34-47) mmHg ABG pO2 (83-108) mmHg ABG HCO3 (22-28) mmol/L ABG Total CO2 (22-29) mmol/L ABG O2 Saturation (94-98) % ABG Base Excess (-3-3) mmol/L FiO2 % Sodium (136-145) mmol/L 140 Potassium (3.5-5.1) mmol/L 5.7 H Chloride (98-107) mmol/L 98 Carbon Dioxide (21.0-32.0) mmol/L 43.9 H Anion Gap (3-11) mmol/L -1.9 L BUN (7-18) mg/dL 17 Creatinine (0.70-1.30) mg/dL 1.39 H Estimated GFR/1.73 m2 (mL/min/1.73m2) 51.78 Glucose (74-106) mg/dL 140 H Lactate (0.6-1.4) mmol/L 2.5 H* Calcium (8.5-10.1) mg/dL 8.7 Magnesium (1.8-2.4) mg/dL 1.9 Total Bilirubin (0.2-1.0) mg/dL 0.6 AST (15-37) U/L 27 ALT (16-63) U/L 27 Alkaline Phosphatase (46-116) U/L 119 H Troponin I (<0.06) ng/Ml < 0.05 NT-Pro-B Natriuret Pep (<300) pg/mL Total Protein (6.4-8.2) g/dL 7.4 Albumin (3.4-5.0) g/dL 2.7 L Urine Color (Yellow) Urine Clarity (Clear) Urine pH (5-8) Ur Specific [place] (1.005-1.025) Urine Protein (Negative) mg/dL Urine Ketones (Negative) mg/dL Urine Blood (Negative) Urine Nitrite (Negative) Urine Bilirubin (Negative) Urine Urobilinogen (Up TO 0.2) EU/dL Ur Leukocyte Esterase (Negative) Urine RBC (0-2) HPF Urine WBC (0-5) HPF Ur Epithelial Cells (Negative) HPF Urine Crystals (Negative) HPF Urine Bacteria (Negative) HPF Urine Casts (Negative) LPF Urine Mucus (Negative) Ur Culture Indicated? Urine Glucose (Negative) mg/dL Urine Opiates Screen (Negative) Urine Methadone Screen (Negative) Ur Barbiturates Screen (Negative) Ur Tricyclics Screen (Negative) Ur Amphetamines Screen (Negative) U Benzodiazepines Scrn (Negative) Urine Cocaine Screen (Negative) Ur THC Screen (Negative) Range/Units 04/27/19 04/27/19 04/27/19 08:05 08:05 08:05 WBC (4.4-10.8) k/cumm RBC (4.50-6.00) m/cumm Hgb (13.5-17.5) g/dL Hct (40.0-50.0) % MCV (80-95) fL MCH (27.0-33.0) pg MCHC (32.0-36.0) g/dL RDW (11.8-14.1) % Plt Count (130-400) x1000/uL MPV (8.0-11.0) fL Immature Gran % % Neutrophils % Lymphocytes % Monocytes % Eosinophils % Basophils % Absolute Neutrophils (1.2-6.7) k/cumm Absolute Lymphocytes (1.2-3.4) k/cumm Absolute Monocytes (0.11-0.7) k/cumm Absolute Eosinophils (0.0-0.7) k/cumm Absolute Basophils (0.0-0.2) k/cumm PT (9.3-11.0) sec 9.3 INR (0.9-1.1) 0.9 APTT (21.0-31.4) sec 24.7 ABG Sample Site Right radial ABG pH (7.35-7.45) 7.32 L ABG pCO2 (34-47) mmHg 81 H* ABG pO2 (83-108) mmHg 57 L ABG HCO3 (22-28) mmol/L 42 H ABG Total CO2 (22-29) mmol/L 40 H ABG O2 Saturation (94-98) % 91 L ABG Base Excess (-3-3) mmol/L > 15.0 H FiO2 % 80 Sodium (136-145) mmol/L Potassium (3.5-5.1) mmol/L Chloride (98-107) mmol/L Carbon Dioxide (21.0-32.0) mmol/L Anion Gap (3-11) mmol/L BUN (7-18) mg/dL Creatinine (0.70-1.30) mg/dL Estimated GFR/1.73 m2 (mL/min/1.73m2) Glucose (74-106) mg/dL Lactate (0.6-1.4) mmol/L Calcium (8.5-10.1) mg/dL Magnesium (1.8-2.4) mg/dL Total Bilirubin (0.2-1.0) mg/dL AST (15-37) U/L ALT (16-63) U/L Alkaline Phosphatase (46-116) U/L Troponin I (<0.06) ng/Ml NT-Pro-B Natriuret Pep (<300) pg/mL 866 H Total Protein (6.4-8.2) g/dL Albumin (3.4-5.0) g/dL Urine Color (Yellow) Urine Clarity (Clear) Urine pH (5-8) Ur Specific [place] (1.005-1.025) Urine Protein (Negative) mg/dL Urine Ketones (Negative) mg/dL Urine Blood (Negative) Urine Nitrite (Negative) Urine Bilirubin (Negative) Urine Urobilinogen (Up TO 0.2) EU/dL Ur Leukocyte Esterase (Negative) Urine RBC (0-2) HPF Urine WBC (0-5) HPF Ur Epithelial Cells (Negative) HPF Urine Crystals (Negative) HPF Urine Bacteria (Negative) HPF Urine Casts (Negative) LPF Urine Mucus (Negative) Ur Culture Indicated? Urine Glucose (Negative) mg/dL Urine Opiates Screen (Negative) Urine Methadone Screen (Negative) Ur Barbiturates Screen (Negative) Ur Tricyclics Screen (Negative) Ur Amphetamines Screen (Negative) U Benzodiazepines Scrn (Negative) Urine Cocaine Screen (Negative) Ur THC Screen (Negative) Range/Units 04/27/19 04/27/19 04/27/19 08:09 08:20 08:20 WBC (4.4-10.8) k/cumm RBC (4.50-6.00) m/cumm Hgb (13.5-17.5) g/dL Hct (40.0-50.0) % MCV (80-95) fL MCH (27.0-33.0) pg MCHC (32.0-36.0) g/dL RDW (11.8-14.1) % Plt Count (130-400) x1000/uL MPV (8.0-11.0) fL Immature Gran % % Neutrophils % Lymphocytes % Monocytes % Eosinophils % Basophils % Absolute Neutrophils (1.2-6.7) k/cumm Absolute Lymphocytes (1.2-3.4) k/cumm Absolute Monocytes (0.11-0.7) k/cumm Absolute Eosinophils (0.0-0.7) k/cumm Absolute Basophils (0.0-0.2) k/cumm PT (9.3-11.0) sec INR (0.9-1.1) APTT (21.0-31.4) sec ABG Sample Site ABG pH (7.35-7.45) ABG pCO2 (34-47) mmHg ABG pO2 (83-108) mmHg ABG HCO3 (22-28) mmol/L ABG Total CO2 (22-29) mmol/L ABG O2 Saturation (94-98) % ABG Base Excess (-3-3) mmol/L FiO2 % Sodium (136-145) mmol/L Potassium (3.5-5.1) mmol/L Chloride (98-107) mmol/L Carbon Dioxide (21.0-32.0) mmol/L Anion Gap (3-11) mmol/L BUN (7-18) mg/dL Creatinine (0.70-1.30) mg/dL Estimated GFR/1.73 m2 (mL/min/1.73m2) Glucose (74-106) mg/dL Lactate (0.6-1.4) mmol/L Cancelled Calcium (8.5-10.1) mg/dL Magnesium (1.8-2.4) mg/dL Total Bilirubin (0.2-1.0) mg/dL AST (15-37) U/L ALT (16-63) U/L Alkaline Phosphatase (46-116) U/L Troponin I (<0.06) ng/Ml NT-Pro-B Natriuret Pep (<300) pg/mL Total Protein (6.4-8.2) g/dL Albumin (3.4-5.0) g/dL Urine Color (Yellow) Yellow Urine Clarity (Clear) Clear Urine pH (5-8) 6.0 Ur Specific [place] (1.005-1.025) 1.020 Urine Protein (Negative) mg/dL 100 H Urine Ketones (Negative) mg/dL Negative Urine Blood (Negative) Moderate H Urine Nitrite (Negative) Negative Urine Bilirubin (Negative) Negative Urine Urobilinogen (Up TO 0.2) EU/dL 0.2 Ur Leukocyte Esterase (Negative) Negative Urine RBC (0-2) HPF 20-50 H Urine WBC (0-5) HPF 0-2 Ur Epithelial Cells (Negative) HPF Few Urine Crystals (Negative) HPF Few amorphous Urine Bacteria (Negative) HPF Negative Urine Casts (Negative) LPF 0-2 fine granular Urine Mucus (Negative) Negative Ur Culture Indicated? No Urine Glucose (Negative) mg/dL Negative Urine Opiates Screen (Negative) Negative Urine Methadone Screen (Negative) Positive A Ur Barbiturates Screen (Negative) Negative Ur Tricyclics Screen (Negative) Negative Ur Amphetamines Screen (Negative) Negative U Benzodiazepines Scrn (Negative) Negative Urine Cocaine Screen (Negative) Negative Ur THC Screen (Negative) Positive A ECG Data Attestation: I personally reviewed and interpreted this ECG (s) as follows: Interpretation: rate of 105, sinus, no acute ST elevation or depression. CO 198. QTc 455. QRS 102. HPI General Mode of arrival: ambulatory. Date/Time Provider Initiated Documentation: 04/27/19 08:27. Limitations to Documentation: no limitations. Information obtained by: patient. HPI Narrative: Pt is a 64yo M with a history of morbid obesity, diabetes, hypertension, COPD, NSTEMI, CARLOS, cardiomyopathy, and recent difficult intubation secondary to body habitus 1 month ago presents for respiratory distress from [facility] and rehab. Call per EMS was that they are placing patient on BiPAP and to prepare for possible intubation. Pt has been at rehab following recent hospitalization last month. Pt was seen here 1 month ago and was a difficult intubation for respiratory failure and transferred to [facility]. Patient is unable to provide history. EMS states that they gave 0.4 mg of Narcan as they stated patient has a history of narcotic use. They did not see any narcotics on his medication list. They state he had only minimal response to the 0.4 mg Narcan dose. Related Data Home Medications Medication Instructions Recorded Confirmed pantoprazole 40 mg PO DAILY@0730 #30 09/13/16 04/27/19 methadone [Dolophine] 5 mg PO Q8H 03/15/17 04/27/19 ProAir RespiClick 2 puffs INHALATION Q4H PRN PRN 09/09/17 04/27/19 Spiriva with HandiHaler 18 mcg INHALATION DAILY 09/09/17 04/27/19 acetaminophen 1,000 mg PO DAILY PRN 09/09/17 04/27/19 metformin [Glucophage] 1,000 mg PO BID 09/09/17 04/27/19 sucralfate 1 gm PO QID 09/09/17 04/27/19 aspirin 81 mg PO DAILY #0 tab 11/06/17 04/27/19 atorvastatin 40 mg PO QPM 08/28/18 04/27/19 insulin lispro [Humalog KwikPen 0 unit SUBCUT QAC 08/28/18 04/27/19 Insulin] torsemide 20 mg tablet 20 mg PO DAILY tab 09/17/18 04/27/19 amoxicillin 500 mg PO DAILY 03/20/19 04/27/19 clopidogrel [Plavix] 75 mg PO DAILY 03/30/19 04/27/19 multivitamin 1 cap PO QAM 03/30/19 04/27/19 naloxone [Narcan] 4 mg INTRANASAL Q2M PRN 03/30/19 04/27/19 sennosides-docusate sodium [Senna 2 tab PO BID 04/27/19 04/27/19 with Docusate Sodium] Previous Rx's Medication Instructions Recorded pantoprazole 40 mg PO DAILY@0730 #30 09/13/16 aspirin 81 mg PO DAILY #0 tab 11/06/17 Allergies Allergy/AdvReac Type Severity Reaction Status Date / Time Iodinated Contrast Media Allergy Hives Verified 03/30/19 14:26 [Iodinated Contrast- Oral and IV Dye] rifampin Allergy Hives Unverified 03/30/19 14:26 vancomycin Allergy Hives Unverified 03/30/19 14:26 General YVAN: 1 Review of Systems Unobtainable due to mental status [facility] Medical History Acute kidney injury (nontraumatic) (Acute) Cardiomyopathy (Acute) Chronic osteomyelitis (Chronic) COPD exacerbation (Acute) Diabetes mellitus (Chronic) HTN (hypertension) (Chronic) Hypertension (Chronic) Infection of prosthetic knee joint (Chronic) Iron deficiency anemia (Chronic) Mixed sleep apnea (Chronic) Non-ST elevation myocardial infarction (NSTEMI) (Acute) CARLOS (obstructive sleep apnea) (Chronic) Sinus pause (Acute) Type 2 diabetes mellitus (Chronic) Surgical History EGD - MAC (09/10/16) Previous back surgery (Chronic) S/P hernia repair (Chronic) S/P right knee surgery (Chronic) Status post left knee replacement (Chronic) Family History Sister Diabetes Social History Smoking/Tobacco Use Status: Former Tobacco Use Tobacco: How many years used: 20 Second Hand Exposure: Yes Alcohol Intake: former Drug use: Occasionally Substance use type: marijuana Household members: spouse Number of Children: 4 Do you feel safe at home: Yes Do you feel safe in your relationship?: Yes Exam Const General: cooperative and healthy appearing Orientation: alert and awake HENMT Head: normal to inspection Ears: hearing grossly normal bilaterally, external ears normal and TM's normal bilaterally General nose exam: external nose normal Face and sinus: normal facial exam Mouth: oral mucosae normal Teeth and gingiva: dentition normal Throat: posterior oropharynx normal Eyes General: appearance normal, both eyes and all related structures Eyelids: eyelids normal Pupils: PERRL EOM: EOM intact bilaterally Neck Neck: normal visual inspection Lymphatic: no lymphadenopathy noted Chest Chest: normal inspection of the chest Resp Effort & Inspection: normal respiratory effort and able to speak in complete sentences Auscultation: clear to auscultation bilaterally Cardio Rate: regular rate Rhythm: regular rhythm GI Inspection: normal to inspection Palpation: soft, not firm, no guarding, no hepatosplenomegaly, no masses and nontender Auscultation: normal bowel sounds Back/Spine/Pelvis Back: no CVA tenderness Skin General skin exam: no rashes or lesions noted Neuro General: alert and awake Cognition: normal cognition Speech: speech normal Gait: normal gait Motor: muscle tone normal throughout Sensory Exam: no sensory deficits noted Extrem General: normal to inspection, full ROM and normal capillary refill Psych Appearance: grossly normal Mental Status: mental status grossly normal Speech and Movement: speech and movement normal Affect: normal affect Thought Process: normal Procedures Intubation Time out performed: Yes sedative: Etomidate Mg Given: 20 paralytic: Succinylcholine Mg Given: 200 Laryngoscope: fiberoptic video scope ET Tube Size: 7.5 ET Tube Uncuffed: No Tube Secured Depth (cm): 26 Tube Secured Location: teeth Tube Placement Confirmation: visualized tube passing through cords, equal breath sounds bilaterally and no breath sounds over epigastrum Patient Tolerated Procedure: well Intubation Complications: none Critical Care Time Critical Care Time Total Critical Care Time: 60 Attestation: I spent 60 minutes of critical care time with this patient. This does not include time spent on separately reported billable procedures.
[2019-04-27] MEDS: PROPOFOL 500 MG/50 ML BTL 38.94 MG IVPB ×3 (08:12→11:42)
[2019-04-27 08:22] LABS: Abs Immature Grans 0.13 k/cumm (0.0-0.09); Absolute Monocyte Count 0.63 k/cumm (0.11-0.7); Absolute Neutrophil Count 16.95 k/cumm (1.2-6.7); Basophils % 0.2; HCT 46.4 % (40.0-50.0); Immature Grans % 0.7 %; Lymphocytes % 3.8; Mean Corpuscular Hemoglobin 28.9 pg (27.0-33.0); Mean Corpuscular Volume 103.1 fL (80-95); Mean Platelet Volume 9.4 fL (8.0-11.0); Monocytes % 3.4; Neutrophils % 91.9; Platelet Count 247 x1000/uL (130-400); RBC Distribution Width 18.1 % (11.8-14.1); White Blood Cell Count 18.44 k/cumm (4.4-10.8)
[2019-04-27 08:23] LABS: Lactate 2.5 mmol/L (0.6-1.4)
[2019-04-27 08:25] LABS: Absolute Basophil Count 0.04 k/cumm (0.0-0.2)
[2019-04-27] MEDS: Ketamine 500 MG/10 ML VIAL (08:30)
[2019-04-27 08:33] LABS: INR 0.9 (0.9-1.1); PTT Activated 24.7 sec (21.0-31.4); Prothrombin Time 9.3 sec (9.3-11.0)
[2019-04-27 08:40] LABS: ALT 27 U/L (16-63); AST 27 U/L (15-37); Albumin 2.7 g/dL (3.4-5.0); Alkaline Phosphatase 119 U/L (46-116); Anion Gap -1.9 mmol/L (3-11); BUN 17 mg/dL (7-18); Bilirubin, Total 0.6 mg/dL (0.2-1.0); CO2 43.9 mmol/L (21.0-32.0); CREATININE 1.39 mg/dL (0.70-1.30); Calcium 8.7 mg/dL (8.5-10.1); Chloride 98 mmol/L (98-107); Estimated GFR 51.78 (mL/min/1.73m2); Glucose 140 mg/dL (74-106); Magnesium 1.9 mg/dL (1.8-2.4); Potassium 5.7 mmol/L (3.5-5.1); Sodium 140 mmol/L (136-145); Total Protein 7.4 g/dL (6.4-8.2)
[2019-04-27 08:42] LABS: Bilirubin Negative (Negative); Blood Moderate (Negative); Clarity Clear (Clear); Glucose Negative (Negative); Ketones Negative (Negative); Leukocyte Esterase Negative (Negative); Nitrite Negative (Negative); Urobilinogen 0.2 EU/dL (Up TO 0.2)
[2019-04-27 08:43] LABS: Troponin I < 0.05 ng/Ml (<0.06)
[2019-04-27 08:46] LABS: NT-proBNP 866 pg/mL (<300)
[2019-04-27 08:51] LABS: *AMPHETAMINES SCREEN URINE Negative (Negative); *BARBITURATES SCREEN URINE Negative (Negative); *BENZODIAZEPINES SCREEN URINE Negative (Negative); Cannabinoids THC POSITIVE (Negative); Cocaine Screen,Urine Negative (Negative); METHADONE URINE SCREEN POSITIVE (Negative); OPIATES URINE SCREEN Negative (Negative)
[2019-04-27 08:53] LABS: Tricyclic Antidepressants Negative (Negative)
--- NOTE | 2019-04-27 08:54 | DI.CT_ITS ---
EXAM: CT HEAD WO CLINICAL HISTORY: altered mental status, r/o acute cva TECHNIQUE: Noncontrast COMPARISON: CT HEAD - STROKE PROTOCOL from 03/30/2019 FINDINGS: An endotracheal tube is seen. There is streak artifact throughout the exam. No intracranial hemorr inna or acute infarct is seen. Mild atrophy and white matter changes of small vessel disease are aga in noted. There is opacification the sinuses similar to the previous exam. There is also opacificat ion of the right mastoid air air cells which is new since the previous exam. IMPRESSION: No acute intracranial abnormality.
[2019-04-27] MEDS: Normal Saline 1,000 ML 1000 ML IV ×2 (09:00→09:42)
[2019-04-27 09:04] LABS: Bacteria Negative HPF (Negative); Crystals Few Amorphous HPF (Negative); Epithelial Cells Few HPF (Negative); Mucus Negative (Negative); RBC 20-50 HPF (0-2); WBC 0-2 HPF (0-5)
[2019-04-27 09:05] LABS: C & S Indicated? No; Casts 0-2 Fine Granular LPF (Negative)
[2019-04-27] MEDS: Ketamine 500 MG/10 ML VIAL 100 MG IVP (09:29)
[2019-04-27] MEDS: Normal Saline Flush 10 ML SYR IVP (09:44)
[2019-04-27] MEDS: PROPOFOL 1,000 MG/100 ML BTL 58 MG (10:10)
[2019-04-27 10:52] LABS: HCO3 42 mmol/L (22-28); pH 7.32 (7.35-7.45); pO2 57 mmHg (83-108); sO2 91 % (94-98); tCO2 40 mmol/L (22-29)
[2019-04-27 10:57] LABS: pCO2 81 mmHg (34-47)
[2019-04-27 10:58] LABS: BE > 15.0 mmol/L (-3-3); FIO2 80 %; Site Right Radial
[2019-04-27] MEDS: fentaNYL 1,000 MCG in Normal Saline 80 ML 6.49 MCG IV (10:59)
[2019-04-27] MEDS: PIPERACILLIN/TAZO 3.375 GM in Normal Saline 50 ML IVPB (11:09)
--- NOTE | 2019-04-27 12:01 | NUR.NOTE ---
propofol gtt rate changed many times from 40 to 75 mcg/kg/min to maintain BP.Nursing Note:
--- NOTE | 2019-04-27 12:04 | NUR.NOTE ---
several propofol boluses given to help with movement, biting the tube while intubated.Nursing Note:
[2019-04-27] MEDS: Normal Saline 1,000 ML 125 ML IV (12:14)
[2019-04-27] MEDS: PROPOFOL 1,000 MG/100 ML BTL 23.2 MG (12:29)
--- NOTE | 2019-04-27 13:51 | NUR.NOTE ---
necklace given to .Nursing Note:
[2019-04-27] MEDS: PROPOFOL 1,000 MG/100 ML BTL 100 MG (14:45)
== END 2019-04-27 14:42 | disposition short-term general hospital (02) ==
PROVIDERS: Emergency Provider Physician Assistant; PCP Family Medicine
DX: J96.00 Acute respiratory failure, unspecified whether with hypoxia or hypercapnia (principal); J96.10 Chronic respiratory failure, unspecified whether with hypoxia or hypercapnia; E66.01 Morbid (severe) obesity due to excess calories; I10 Essential (primary) hypertension; J44.9 Chronic obstructive pulmonary disease, unspecified; Z87.891 Personal history of nicotine dependence; E11.9 Type 2 diabetes mellitus without complications; Z79.4 Long term (current) use of insulin
CPT/HCPCS: 31500; 80053; 80307; 82805; 93005; 96361; 96365; 96366; 96368; 96375; 99285; 99291; 36600; 70450; 71045; 81003; 81015; 83605; 83735; 83880; 84484; 85025; 85610; 85730; 93010; J2310; J2543; J3010

== ENCOUNTER 2019-05-19 14:45 | Outpatient (REF) | payer MEDICARE, MEDICAID, SELFPAY ==
[2019-05-19 18:17] LABS: Anion Gap 7.4 mmol/L (3-11); BUN 24 mg/dL (7-18); CO2 31.6 mmol/L (21.0-32.0); CREATININE 1.42 mg/dL (0.70-1.30); Calcium 8.9 mg/dL (8.5-10.1); Chloride 100 mmol/L (98-107); Estimated GFR 50.52 (mL/min/1.73m2); Glucose 94 mg/dL (74-106); Potassium 4.5 mmol/L (3.5-5.1); Sodium 139 mmol/L (136-145)
== END 2019-05-19 15:05 ==
LOC: NCHCN 14:45
PROVIDERS: PCP Family Medicine; Visit Provider Family Medicine
DX: J96.92 Respiratory failure, unspecified with hypercapnia (principal)
CPT/HCPCS: 80048

== ENCOUNTER 2019-08-12 22:15 | Inpatient (IN) | payer MEDICARE, MEDICAID, SELFPAY ==
[2019-08-12 22:18] VITALS: BP 159/75; PULSE 107; RESP 19; TEMP 36.6; O2SAT 94
--- NOTE | 2019-08-12 22:37 | ED.GENADUL_ITS ---
Discharge Plan Disposition Patient Disposition: [facility] INPATIENT Condition: Fair Discharge Details Chief Complaint: SOB Clinical Impression: CHF (congestive heart failure), Acute kidney injury (nontraumatic) Primary Care Provider: Allison Muniz ED Provider: iMgel Calderon [place] Meds and New Rx's Prescriptions: No Action pantoprazole 40 MG tablet,delayed release (DR/EC) 40 mg PO DAILY@0730 Qty: 30 RF: 3 aspirin 81 mg Tablet,Delayed Release (Dr/Ec) 81 mg PO DAILY Qty: 0 RF: 0 atorvastatin 80 mg Tablet 40 mg PO QPM RF: 0 insulin lispro [Humalog KwikPen Insulin] 100 unit/mL Insulin Pen 0 unit SUBCUT QAC RF: 0 sennosides-docusate sodium [Senna with Docusate Sodium] 8.6-50 mg Tablet 2 tab PO BID RF: 0 ferrous sulfate 325 mg (65 mg iron) tablet 325 mg PO QDAY RF: 0 furosemide 20 mg tablet 20 mg PO BID RF: 0 metoprolol succinate 25 mg tablet extended release 24 hr 25 mg PO QDAY RF: 0 cholecalciferol (vitamin D3) 50 mcg (2,000 unit) capsule 2,000 unit PO QDAY RF: 0 methadone [Dolophine] 5 MG tablet 5 mg PO Q8H RF: 0 acetaminophen 500 MG tablet 1,000 mg PO DAILY PRNRF: 0 metformin [Glucophage] 1,000 MG tablet 1,000 mg PO BID RF: 0 Spiriva with HandiHaler 18 MCG capsule, w/inhalation device 18 mcg Inhalation DAILY RF: 0 ProAir RespiClick 90 MCG aerosol powdr breath activated 2 puffs Inhalation Q4H PRN PRNRF: 0 sucralfate 1 GM tablet 1 gm PO QID RF: 0 amoxicillin 500 mg Capsule 500 mg PO DAILY RF: 0 clopidogrel [Plavix] 75 mg Tablet 75 mg PO DAILY RF: 0 multivitamin Capsule 1 cap PO QAM RF: 0 Narcan 4 mg/actuation Garner,Non-Aerosol 4 mg INTRANASAL Q2M PRNRF: 0 Medical Decision Making Patient presenting because of shortness of breath at home which resolved with oxygen. Patient reports that he is not always on oxygen but does occasionally require it. He states that he is not any more short of breath than usual. He denies fever or cough. He denies chest pain. His last 2 visits to the ED were for altered mental status and acute on chronic respiratory failure resulting in intubation and transfer to [facility]. Mental status is normal. His lungs are diminished especially on the left. is reporting that he has had an increased weight gain of almost 20 pounds in the last few days. Patient denies missing any medications. IV in place. EKG is unremarkable. Will obtain chest x-ray and laboratory studies and reevaluate. 23:55 - Patient's labs significant for elevated BNP and elevated creatinine compared to baseline. Troponin negative. Hemoglobin is fine. White count okay. Electrolytes good. Chest x-ray without overt edema. However, given elevated BNP and creatinine along with 20 pound weight gain with previous history of respiratory failure resulting in intubation, patient should be admitted for diuresis and stabilization prior to discharge. Patient is agreeable. He was given 80 mg of IV Lasix here. Case discussed with hospitalist. Patient to be admitted for further management. Medical Records Medical records reviewed: Yes I reviewed the patient's medical records. Lab Data Lab results reviewed: Yes I reviewed the patient's lab results. ECG Data Attestation: I personally reviewed and interpreted this ECG (s) as follows: Interpretation: Sinus rhythm at a rate of 98. Normal intervals and axis. Low voltage. Nonspecific ST changes. Nothing acute. Nondiagnostic. HPI General Mode of arrival: EMS . Date/Time Provider Initiated Documentation: 08/12/19 22:16 . Limitations to Documentation: no limitations . Information obtained by: patient, RN notes reviewed and old records reviewed . HPI Narrative: Patient presents to ED by ambulance for evaluation of shortness of breath. Patient has history of cardiac disease, cardiomyopathy, COPD. He has oxygen at home to use as needed. Patient apparently looked short of breath to his fannie. He was apparently getting ready for bed without using oxygen. When she checked his saturations they were in ED mid to high 70s. She placed him on his oxygen and his saturations came up to the 90s. He states that he felt fine and that she was overreacting. However, he agreed to come in by ambulance to be evaluated. He denies fever or cough. He denies any chest pain or pressure today. His right leg is always more swollen than the left leg due to previous surgery with resulting infection. He has been taken medications as prescribed. Continues to make urine. Has been isolating and does not travel. Feels that he is at baseline and repeats that his overreacted. Related Data Home Medications Medication Instructions Recorded Confirmed pantoprazole 40 mg PO DAILY@0730 #30 09/13/16 08/12/19 methadone [Dolophine] 5 mg PO Q8H 03/15/17 08/12/19 ProAir RespiClick 2 puffs INHALATION Q4H PRN PRN 09/09/17 08/12/19 Spiriva with HandiHaler 18 mcg INHALATION DAILY 09/09/17 08/12/19 acetaminophen 1,000 mg PO DAILY PRN 09/09/17 04/27/19 metformin [Glucophage] 1,000 mg PO BID 09/09/17 04/27/19 sucralfate 1 gm PO QID 09/09/17 08/12/19 aspirin 81 mg PO DAILY #0 tab 11/06/17 08/12/19 atorvastatin 40 mg PO QPM 08/28/18 08/12/19 insulin lispro [Humalog KwikPen 0 unit SUBCUT QAC 08/28/18 04/27/19 Insulin] amoxicillin 500 mg PO DAILY 03/20/19 08/12/19 clopidogrel [Plavix] 75 mg PO DAILY 03/30/19 04/27/19 multivitamin 1 cap PO QAM 03/30/19 04/27/19 naloxone [Narcan] 4 mg INTRANASAL Q2M PRN 03/30/19 04/27/19 sennosides-docusate sodium [Senna 2 tab PO BID 04/27/19 04/27/19 with Docusate Sodium] cholecalciferol (vitamin D3) 2,000 unit PO QDAY 08/12/19 08/13/19 ferrous sulfate 325 mg PO QDAY 08/12/19 08/13/19 furosemide 20 mg PO BID 08/12/19 08/13/19 metoprolol succinate 25 mg PO QDAY 08/12/19 08/13/19 Previous Rx's Medication Instructions Recorded pantoprazole 40 mg PO DAILY@0730 #30 09/13/16 aspirin 81 mg PO DAILY #0 tab 11/06/17 Allergies Allergy/AdvReac Type Severity Reaction Status Date / Time Iodinated Contrast Media Allergy Hives Verified 08/12/19 23:55 [Iodinated Contrast- Oral and IV Dye] rifampin Allergy Hives Unverified 08/12/19 23:55 vancomycin Allergy Hives Unverified 08/12/19 23:55 General Stated Complaint: SOB YVAN: 2 Review of Systems Narrative: 12/08 Review of Systems completed and is negative except as stated above in HPI (Systems reviewed: Const, Eyes, ENT, Resp, CV, GI, , MSK, Skin, Neuro) [facility] Medical History Acute kidney injury (nontraumatic) (Acute) Cardiomyopathy (Acute) Chronic osteomyelitis (Chronic) COPD exacerbation (Acute) Diabetes mellitus (Chronic) HTN (hypertension) (Chronic) Hypertension (Chronic) Infection of prosthetic knee joint (Chronic) Iron deficiency anemia (Chronic) Mixed sleep apnea (Chronic) Non-ST elevation myocardial infarction (NSTEMI) (Acute) CARLOS (obstructive sleep apnea) (Chronic) Sinus pause (Acute) Type 2 diabetes mellitus (Chronic) Surgical History EGD - MAC (09/10/16) Previous back surgery (Chronic) S/P hernia repair (Chronic) S/P right knee surgery (Chronic) Status post left knee replacement (Chronic) Family History Sister Diabetes Social History Smoking/Tobacco Use Status: Former Tobacco Use Tobacco: How many years used: 20 Second Hand Exposure: Yes Alcohol Intake: former Drug use: Occasionally Substance use type: marijuana Household members: spouse Number of Children: 4 Do you feel safe at home: Yes Do you feel safe in your relationship?: Yes Exam Narrative Exam Narrative: Vitals: Afebrile. Mildly tachycardic and hypertensive. Normal respiratory rate. Saturations mid 90s on his oxygen. Const: Morbidly obese male in NAD. HEENT: NC/AT. Normal facial exam. Eyes: Normal conjunctiva and sclera. Neck: Supple. Trachea midline. Lungs: Normal respiratory effort. Lungs are clear but diminished especially on the left. Cor: RRR without murmur/gallop. Good radial pulses. GI: Soft. NT/ND. No guarding or rebound. Neuro: A+O x 3. Normal speech, mentation. Cranial nerves II - XII grossly intact. No gross motor or sensory deficit. Ext: No C/C. Right lower extremity markedly larger than left which per patient is chronic. Edema to both lower extremities noticed. Skin: Warm and dry without rash. Course Vital Signs Vital signs: Vital Signs Temperature 97.9 F 08/12/19 22:18 Pulse 107 H 08/12/19 22:18 Respiratory Rate 19 08/12/19 22:18 Blood Pressure 159/75 H 08/12/19 22:18 Pulse Oximetry 94 L 08/12/19 22:18 Temperature 97.9 F 08/12/19 22:18 Temperature Source Temporal Artery Scan 08/12/19 22:18 Pulse 107 H 08/12/19 22:18 Respiratory Rate 19 08/12/19 22:18 Blood Pressure 159/75 H 08/12/19 22:18 Blood Pressure Position Sitting 08/12/19 22:18 Pulse Oximetry 94 L 08/12/19 22:18 Oxygen Delivery Method Nasal Cannula 08/12/19 22:18 Oxygen Flow Rate 3 08/12/19 22:18
[2019-08-12 22:52] VITALS: BP 119/75; PULSE 83; PULSE 94; RESP 19; O2SAT 93
[2019-08-12 22:53] VITALS: PULSE 95; RESP 19; O2SAT 95
[2019-08-12 23:06] LABS: Abs Immature Grans 0.04 k/cumm (0.0-0.09); Absolute Basophil Count 0.01 k/cumm (0.0-0.2); Absolute Eosinophil Count 0.04 k/cumm (0.0-0.7); Absolute Monocyte Count 0.57 k/cumm (0.11-0.7); Basophils % 0.1; Eosinophils % 0.4; HCT 52.5 % (40.0-50.0); HGB 15.6 g/dL (13.5-17.5); Immature Grans % 0.4 %; Lymphocytes % 8.1; Mean Corp. HGB Concentration 29.7 g/dL (32.0-36.0); Mean Corpuscular Hemoglobin 30.2 pg (27.0-33.0); Mean Corpuscular Volume 101.7 fL (80-95); Monocytes % 5.1; Neutrophils % 85.9; Platelet Count 178 x1000/uL (130-400); RBC 5.16 m/cumm (4.50-6.00); RBC Distribution Width 18.7 % (11.8-14.1); White Blood Cell Count 11.11 k/cumm (4.4-10.8)
[2019-08-12 23:07] LABS: Absolute Neutrophil Count 9.54 k/cumm (1.2-6.7)
[2019-08-12 23:22] LABS: ALT 33 U/L (16-63); AST 20 U/L (15-37); Albumin 2.8 g/dL (3.4-5.0); Alkaline Phosphatase 123 U/L (46-116); BUN 23 mg/dL (7-18); Bilirubin, Total 0.6 mg/dL (0.2-1.0); Calcium 8.6 mg/dL (8.5-10.1); Chloride 99 mmol/L (98-107); Estimated GFR 30.48 (mL/min/1.73m2); Glucose 164 mg/dL (74-106); Magnesium 1.7 mg/dL (1.8-2.4); NT-proBNP 5347 pg/mL (<300); Potassium 4.3 mmol/L (3.5-5.1); Sodium 140 mmol/L (136-145); Total Protein 6.9 g/dL (6.4-8.2)
[2019-08-12 23:23] LABS: Troponin I < 0.05 ng/mL (<0.06)
--- NOTE | 2019-08-12 23:33 | DI.RAD_ITS ---
EXAM: XR CHEST 2V PA LATERAL CLINICAL HISTORY: SOB TECHNIQUE: 2D digital imaging was performed. COMPARISON: CR XR PORTABLE CHEST AP from 04/27/2019 FINDINGS: The exam is limited by patient body habitus. Abdominal soft tissues partially obscure the lung bases . The lungs are not well inflated. No gross evidence of consolidation. No gross effusions are seen . The heart is enlarged, unchanged. IMPRESSION: Limited exam due to patient body habitus. No acute abnormality is identified. DATA REPOSITORY: RADIATION DOSE DELIVERED:
[2019-08-12 23:35] VITALS: BP 130/64; PULSE 90; PULSE 92; RESP 17; O2SAT 93
[2019-08-12 23:46] VITALS: BP 152/72; PULSE 96; PULSE 97; RESP 15; O2SAT 91
--- NOTE | 2019-08-12 23:46 | DI.VRAD_ITS ---
PROCEDURE INFORMATION: Exam: XR Chest, 2 Views Exam date and time: 08/12/2019 11:20 PM Age: 64 years old Clinical indication: Shortness of breath; Patient HX: SOB TECHNIQUE: Imaging protocol: XR of the chest Views: 2 views. COMPARISON: CR XR PORTABLE CHEST AP 04/27/2019 8:15 AM FINDINGS: Lungs: No pulmonary vascular congestion. No pulmonary consolidation. Hypoinflation and habitus somewhat limit evaluation. Stable right-sided volume loss. Pleural space: No pneumothorax. No large pleural effusion. Heart/Mediastinum: The cardiomediastinal silhouette is unchanged with cardiac enlargement. Bones/joints: Degenerative changes of the spine. IMPRESSION: No acute cardiopulmonary findings noting hypoinflation and habitus somewhat limit evaluation. Dictated and Authenticated by: Julia Lombardi MD. Ordering:TESSA Lainez MD
[2019-08-13] VITALS (78 sets, daily range): BP systolic 110–187; BP diastolic 40–135; PULSE 59–98; RESP 11–26; TEMP 36–37.2; O2SAT 77–97
--- NOTE | 2019-08-13 | DI.US_ITS ---
EXAM: US EXTREMITY VENOUS BI CLINICAL HISTORY: LEG EDEMA. TECHNIQUE: Bilateral lower extremity venous ultrasound performed using grayscale, color-flow, and sp ectral Doppler analysis. COMPARISON: No exams were available for comparison FINDINGS: Exam is limited by the patient's body habitus. The distal femoral veins were not well seen. The rig ht popliteal vein was not seen due to leg immobilizer. The visualized portions of the deep veins as well as saphenous vein appear free of thrombus. IMPRESSION: Limited exam due to patient body habitus. No evidence of DVT. DATA REPOSITORY:
--- NOTE | 2019-08-13 | DI.US_ITS ---
APPROVED REPORT EXAM: Comprehensive 2D, Doppler, and color-flow Echocardiogram Patient Location: In-Patient Room/Bed: [address] Operator: Sherry Gamino RDCS (AE) Indications: CHF Other Information Study Quality: Poor. Technically limited study due to body habitus. Conclusion This is a technically limited study. Left Ventricle : The left ventricle is normal size. The overall left ventricular systolic function ap pears normal. Mild concentric left ventricular hypertrophy. Regional wall motion is grossly normal. L VEF is 50%. Right Ventricle : Right ventricle is not well visualized. Right ventricular systolic function could n ot be assessed. The RVSP is 27.5mmHg. Atria : The left atrium size is normal. Right atrium is not well visualized. Valves: There are no hemodynamically significant valvular lesions. Great Vessels : The IVC collapses <50% with inspiration. Please see remainder of report for additional details. Compared to echocardiogram from 11/01/2017, there is no significant change. Wall motion Left Ventricle The left ventricle is normal size. The overall left ventricular systolic function appears normal. Mil d concentric left ventricular hypertrophy. Regional wall motion is grossly normal. Diastolic function was not fully analyzed. There is no ventricular septal defect visualized. LVEF is 50%. Right Ventricle Right ventricle is not well visualized. Right ventricular systolic function could not be assessed. Th e RVSP is 27.5mmHg. Atria The left atrium size is normal. Right atrium is not well visualized. The interatrial septum is intact with no evidence for an atrial septal defect. Aortic Valve The Aortic valve is sclerotic. Aortic valve is trileaflet. There is no aortic valvular stenosis. No a ortic regurgitation is present. Mitral Valve There is mitral annular calcification. No evidence of mitral valve stenosis. Trace mitral regurgitati on. Tricuspid Valve Tricuspid valve is not well visualized. There is no tricuspid valve stenosis. Trace tricuspid regurgi tation. Pulmonic Valve The pulmonary valve is normal in structure. There is no pulmonic valvular stenosis. Trace pulmonic re gurgitation. Great Vessels The aortic root is normal in size. Aortic arch is not well visualized. Ascending aorta is not well vi sualized. The IVC collapses <50% with inspiration. Pericardium Prominent anterior epicardial fat pad is present. 2D Dimensions IVSD d PLAX 1.28 cm M: 0.6-1.2 LV Vol A2C d MOD 102.2 mL LVPW d PLAX 1.28 cm M: 0.6 - 1.2 LV Vol A4C d MOD 176.6 mL LVID d PLAX 5.23 cm M: 4.2 - 5.8 LV EF A4C MOD 48.9 % LVDs 4.00 cm M: 2.5 - 4.0 LV EF A2C MOD 55.5 % Ao Root d 3.22 cm M: 3.1 - 3.7 LV EF Biplane MOD 51.5 % LV EF Teichholz 46.6 % SV 70.21 mL LVEF ([place]'s) 51.47 % M: 52 - 72 SV Index 27.22 mL/m2 LV Volume 94.65 mL M: 62 - 150 LV Volume Index 36.68 mL/m2 M: 34 - 74 LV Vol Biplane MOD 136.4 mL FS 23.45 % LV Diastology MV E' medial 0.053 (>0.07 m/s) E/A Ratio 0.8 LV E/e MED 9.60 (<14) MV E Vmax 0.51 (0.4-1.3 m/s) MV E' lateral 0.073 (>0.1 m/s) MV A Vmax 0.65 (0.4-1.3 m/s) LV E/e LAT 7.00 (<14) MV E/A Ratio 0.73 MV E/E' medial 9.60 MV E/E' lateral 7.01 Aortic Valve LVOT Area 3.22 cm2 AoV Area Vmax 2.69 cm2 LVOT Vmax 0.83 m/s AoV Area/ BSA (Vmax) 1.04 cm2/m2 LVOT Mean Jason. 0.56 m/s RYAN Mean Jason. 2.24 cm2 LVOT Peak Grad 2.7 mmHg RYAN Mean Jason. Index 0.87 cm2/m2 LVOT Mean Grad 1.4 mmHg LVOT VTI 0.150 m LVOT Diam s 2.00 cm AoV Vmax 0.99 m/s Velocity Ratio 0.83 AoV Mean Jason. 0.80 m/s AoV Peak Grad 3.9 mmHg LVOT SV 48.41 mL AoV Mean Grad 2.7 mmHg AoV VTI 0.226 m AoV Area VTI 2.14 cm2 AoV Area/ BSA (VTI) 0.83 cm/m2 Mitral Valve MV DT 220 (160-240 msec) MV PHT 64 msec MV Area PHT 3.45 cm2 Pulmonary Valve PV Vmax 0.91 (0.5-1.5 m/s) RVOT Peak Gr. 2.16 mmHg PV Peak Grad 3.3 mmHg RVOT Mean Gr. 1.10 mmHg PV Mean Grad 1.7 mmHg RVOT VTI 0.153 m PV VTI 0.158 m RVOT Vmax 0.73 m/s Tricuspid Valve TR Peak Grad 19.5 mmHg TR Vmax 2.21 m/s RA Pressure 8.00 mmHg RVSP (TR) 27.5 mmHg
[2019-08-13] MEDS: Furosemide 100 MG/10 ML VIAL 80 MG IVP ×2 (00:10→08:46)
--- NOTE | 2019-08-13 00:31 | W.PM.HP.N ---
Date of service: 08/13/19 Time of Service: 00:31 Assessment and Plan Assessment and plan (1) CHF (congestive heart failure): Status: Chronic Assessment and plan: I think we can call exacerbation CHF. Precipitant unclear at present though EKG might suggest recent ischemic event possibly. In any case will diurese, trend troponins and update ECHO. Otherwise I do note that creatinine increased since April. This would appear to be incidental at this point but will monitor in any case. Note that should then be off Metformin.. Reviewed ADs, requests Full Code. History of Present Illness History of Present Illness Chief Complaint: SOB Narrative: 64 male with h/o CAD, s/p NSTEMI 03/15, h/o cardiomyopathy unspecified, though only ECHO (2018) WNL. thought he looked more SOB, checked O2 sat of 77%, put on O2 (uses prn) with sat to 91. Also per has put on 20 lbs. Sent in for eval. Patient has no complaints at all. In ER w/u of note for BNP >5000, trop neg, EKG with diffuse TW changes (new x 05/14) and CXR showing cardiomegaly and no acute change, though to my read there is probably mild pulmonary edema. Given Lasix 80 IVP and admitted for further eval. Review of Systems All systems reviewed & are unremarkable except as noted in HPI and below PFSH Medical History Acute kidney injury (nontraumatic) (Acute) Cardiomyopathy (Acute) Chronic osteomyelitis (Chronic) COPD exacerbation (Acute) Diabetes mellitus (Chronic) HTN (hypertension) (Chronic) Hypertension (Chronic) Infection of prosthetic knee joint (Chronic) Iron deficiency anemia (Chronic) Mixed sleep apnea (Chronic) Non-ST elevation myocardial infarction (NSTEMI) (Acute) CARLOS (obstructive sleep apnea) (Chronic) Sinus pause (Acute) Type 2 diabetes mellitus (Chronic) Surgical History EGD - MAC (09/10/16) Previous back surgery (Chronic) S/P hernia repair (Chronic) S/P right knee surgery (Chronic) Status post left knee replacement (Chronic) Family History Sister Diabetes Social History Smoking/Tobacco Use Status: Former Tobacco Use Tobacco: How many years used: 20 Second Hand Exposure: Yes Alcohol Intake: former Drug use: Occasionally Substance use type: marijuana Household members: spouse Number of Children: 4 Do you feel safe at home: Yes Do you feel safe in your relationship?: Yes Meds Home Medications and Allergies Home Medications Medication Instructions Recorded Confirmed Type pantoprazole 40 mg PO DAILY@0730 #30 09/13/16 08/12/19 Rx methadone [Dolophine] 5 mg PO Q8H 03/15/17 08/12/19 History ProAir RespiClick 2 puffs INHALATION Q4H PRN PRN 09/09/17 08/12/19 History Spiriva with HandiHaler 18 mcg INHALATION DAILY 09/09/17 08/12/19 History acetaminophen 1,000 mg PO DAILY PRN 09/09/17 04/27/19 History metformin [Glucophage] 1,000 mg PO BID 09/09/17 04/27/19 History sucralfate 1 gm PO QID 09/09/17 08/12/19 History aspirin 81 mg PO DAILY #0 tab 11/06/17 08/12/19 Rx atorvastatin 40 mg PO QPM 08/28/18 08/12/19 History insulin lispro [Humalog KwikPen 0 unit SUBCUT QAC 08/28/18 04/27/19 History Insulin] amoxicillin 500 mg PO DAILY 03/20/19 08/12/19 History clopidogrel [Plavix] 75 mg PO DAILY 03/30/19 04/27/19 History multivitamin 1 cap PO QAM 03/30/19 04/27/19 History naloxone [Narcan] 4 mg INTRANASAL Q2M PRN 03/30/19 04/27/19 History sennosides-docusate sodium [Senna 2 tab PO BID 04/27/19 04/27/19 History with Docusate Sodium] cholecalciferol (vitamin D3) 2,000 unit PO QDAY 08/12/19 08/13/19 History ferrous sulfate 325 mg PO QDAY 08/12/19 08/13/19 History furosemide 20 mg PO BID 08/12/19 08/13/19 History metoprolol succinate 25 mg PO QDAY 08/12/19 08/13/19 History Allergies Allergy/AdvReac Type Severity Reaction Status Date / Time Iodinated Contrast Media Allergy Hives Verified 08/12/19 23:55 [Iodinated Contrast- Oral and IV Dye] rifampin Allergy Hives Unverified 08/12/19 23:55 vancomycin Allergy Hives Unverified 08/12/19 23:55 Exam Narrative Exam Narrative: 159/75, 107, 19, 36.6, 94% 2L. HEENT atraumatic; neck cannot read JVP; heart distant but RRR; lungs clear; abdomen obese, soft and NT; extremities 2+pedal edema; neuro ox3, nonfocal Results Labs Result diagrams: 08/12/19 22:55 08/12/19 22:55 Labs: Laboratory Results - last 24 hr 08/12/19 08/12/19 22:55 22:55 WBC 11.11 H RBC 5.16 Hgb 15.6 Hct 52.5 H MCV 101.7 H MCH 30.2 MCHC 29.7 L RDW 18.7 H Plt Count 178 MPV 10.0 Immature Gran % 0.4 Neutrophils % 85.9 Lymphocytes % 8.1 Monocytes % 5.1 Eosinophils % 0.4 Basophils % 0.1 Absolute Neutrophils 9.54 H Absolute Lymphocytes 0.90 L Absolute Monocytes 0.57 Absolute Eosinophils 0.04 Absolute Basophils 0.01 Sodium 140 Potassium 4.3 Chloride 99 Carbon Dioxide 32.0 Anion Gap 9.0 BUN 23 H Creatinine 2.20 H Estimated GFR/1.73 m2 30.48 Glucose 164 H Calcium 8.6 Magnesium 1.7 L Total Bilirubin 0.6 AST 20 ALT 33 Alkaline Phosphatase 123 H Troponin I < 0.05 NT-Pro-B Natriuret Pep 5347 H Total Protein 6.9 Albumin 2.8 L Last Vital Signs Temp 36.6 C 08/12/19 22:18 Pulse 107 H 08/12/19 22:18 Resp 19 08/12/19 22:18 BP 159/75 H 08/12/19 22:18 Pulse Ox 94 L 08/12/19 22:18 COVID-19 Screening In the past 14 days, have you traveled outside of [place] or [place]?: NO Had IN PERSON contact w/suspected or confirmed C-19 person: No
[2019-08-13] MEDS: Furosemide 100 MG/10 ML VIAL 160 MG IVP (03:02)
[2019-08-13] MEDS: Methadone 5 MG TAB PO ×3 (03:02→19:41)
[2019-08-13 07:22] LABS: Anion Gap 5.1 mmol/L (3-11); BUN 25 mg/dL (7-18); CO2 35.9 mmol/L (21.0-32.0); CREATININE 2.06 mg/dL (0.70-1.30); Calcium 8.7 mg/dL (8.5-10.1); Chloride 99 mmol/L (98-107); Estimated GFR 32.88 (mL/min/1.73m2); Glucose 166 mg/dL (74-106); Sodium 140 mmol/L (136-145)
[2019-08-13 07:23] LABS: Troponin I < 0.05 ng/mL (<0.06)
--- NOTE | 2019-08-13 08:13 | W.PM.PROGNOT ---
Date of Service Date of service: 08/13/19 Time of Service: 08:13 Assessment and Plan Assessment and plan (1) Acute and chronic respiratory failure: Status: Acute Assessment and plan: Continue noninvasive ventilatory support with BiPAP with titration to keep his SPO2 greater than 88% while assisting him with blowing off CO2. If he fails this then we will proceed with intubation mechanical ventilation. Meanwhile we will treat his acute heart failure exacerbation with IV Lasix drip. Qualifiers: Respiratory failure complication: hypoxia and hypercapnia Qualified Code(s): J96.21 - Acute and chronic respiratory failure with hypoxia; J96.22 - Acute and chronic respiratory failure with hypercapnia (2) Heart failure with preserved ejection fraction: Status: Acute Assessment and plan: Continue with IV Lasix drip. Patient refused to have a Avalos catheter placed. Qualifiers: Heart failure chronicity: acute on chronic Qualified Code(s): I50.33 - Acute on chronic diastolic (congestive) heart failure (3) Type 2 diabetes mellitus: Status: Chronic Assessment and plan: Monitor blood sugars before meals and at bedtime and cover with basal bolus insulin Qualifiers: Diabetes mellitus custodial insulin use: with intermediate project manager use Diabetes mellitus complication status: with kidney complications Diabetes mellitus complication detail: with chronic kidney disease (4) Acute kidney injury (nontraumatic): Status: Acute Assessment and plan: Probably secondary to acute CHF exacerbation. Monitor his BMP closely while diuresing (5) COPD (chronic obstructive pulmonary disease): Status: Chronic Assessment and plan: Continue Spiriva with use of albuterol. At this time he does not appear to be acutely bronchospastic and does not require systemic corticosteroids. Furthermore there is no evidence for acute pulmonary infection and therefore antibiotics have not been ordered. Qualifiers: COPD type: unspecified COPD Qualified Code(s): J44.9 - Chronic obstructive pulmonary disease, unspecified (6) Mixed sleep apnea: Status: Chronic Assessment and plan: Patient's been poorly compliant with CPAP however hopefully with education we can get him interested in using a trilogy device to help with his multifactorial respiratory failure including CHF and COPD and CARLOS Subjective Subjective Interval history since last seen: Piyush Heard is a 64-year-old male with a history of morbid obesity and obstructive sleep apnea as well as underlying COPD and heart failure with preserved ejection fraction. He has had prior respiratory failures that led to intubation and mechanical ventilation. Most recent event he was hospitalized done at [facility] in April of this year. His other comorbidities include diabetes mellitus requiring insulin, essential hypertension, coronary artery disease with previous end STEMI resulting in a drug-eluting stent of his RCA in February 2018. He has COPD and is on chronic oxygen at 2 to 3 L/min per nasal cannula at home and wears a CPAP mask which she is not compliant with. He has chronic osteomyelitis and has had previous bilateral knee replacements with subsequent infections. He presented last night with acute respiratory failure in the setting of chronic respiratory failure felt to be due to acute exacerbation of his CHF. He has had about 20 pound weight gain over the last couple weeks according to his . He was given a dose of Lasix 60 mg IV in the emergency department with subsequent dose of 120 mg given by the construction foreman. He had about 1500 mL out. He remains in acute congestive heart failure and respiratory failure. Upon my arrival to the hospital this morning I saw him immediately and ordered BiPAP mask and a Lasix drip. Since that time we have uptitrated his BiPAP mask to a level of 20 cm / 8 cm secondary to hypercarbia and hypersomnolence due to his hypercarbia. Initially he told me he did not want to be intubated under any circumstance however he seemed to be confused and lethargic when he told me this. His is since come in and met with him and I met with them together after he been on the high pressure BiPAP and he seems more alert and oriented and speaking appropriately. He now indicates that he wants to be a full code and do whatever is necessary including intubation and mechanical ventilation. Daly from respiratory therapy suggest that we try to qualify him for trilogy device to be used when he returns home. I concur with this. Exam Narrative Exam Narrative: Morbidly obese male with short neck. Initially was very lethargic when I saw this morning and could not be aroused with deep stimulation. This afternoon he is now spontaneously awake and alert and answering questions appropriately. He is laughing and making jokes with his and me. Chest is barrel chested Heart is regular rate and rhythm I did not appreciate murmur rub or gallop. Lungs are clear to auscultation anteriorly posteriorly he has bibasilar rales. Abdomen is obese soft and nontender Lower extremities 2+ unilateral edema of his left leg the right leg is much more edematous 3+ to 4 but according his is chronically this way from multiple surgeries on that right knee. He has multiple scars over the right knee. There is no erythema Objective Objective Clinical Data: Abnormal lab results 08/12/19 08/12/19 08/13/19 Range/Units 22:55 22:55 06:15 WBC 11.11 H (4.4-10.8) k/cumm Hct 52.5 H (40.0-50.0) % MCV 101.7 H (80-95) fL MCHC 29.7 L (32.0-36.0) g/dL RDW 18.7 H (11.8-14.1) % Absolute Neutrophils 9.54 H (1.2-6.7) k/cumm Absolute Lymphocytes 0.90 L (1.2-3.4) k/cumm Carbon Dioxide 35.9 H (21.0-32.0) mmol/L BUN 23 H 25 H (7-18) mg/dL Creatinine 2.20 H 2.06 H (0.70-1.30) mg/dL Glucose 164 H 166 H (74-106) mg/dL Magnesium 1.7 L (1.8-2.4) mg/dL Alkaline Phosphatase 123 H (46-116) U/L NT-Pro-B Natriuret Pep 5347 H (<300) pg/mL Albumin 2.8 L (3.4-5.0) g/dL Vital Signs Temperature 36.8 C 08/13/19 04:00 Temperature Source Temporal Artery Scan 08/13/19 04:00 Pulse 79 08/13/19 07:16 Pulse 81 08/13/19 07:30 Respiratory Rate 16 08/13/19 07:30 Respiratory Effort Labored 08/13/19 04:00 Respiratory Depth Normal 08/13/19 04:00 Respiratory Pattern Normal 08/13/19 04:00 Blood Pressure 137/75 08/13/19 07:16 Blood Pressure Mean 89 08/13/19 07:16 Blood Pressure Position Sitting 08/13/19 04:00 Pulse Oximetry 93 L 08/13/19 05:46 Oxygen Delivery Method Nasal Cannula 08/13/19 04:00 Oxygen Flow Rate 4 08/13/19 04:00 Pain Level 0 08/13/19 04:00 Intake & Output 08/12/19 08/12/19 08/13/19 11:59 23:59 11:59 Intake Total 140 / 140 Output Total 1750 / 1750 Balance -1610 / -1610 Weight 149.685 kg 149.685 kg Intake: IV Oral 120 / 120 Output: Urine 1750 / 1750 Other: Urine Color Pale Yellow Urine Appearance Clear Urine Odor Normal Voiding Methods Urinal Laboratory Results WBC 11.11 k/cumm (4.4-10.8) H 08/12/19 22:55 RBC 5.16 m/cumm (4.50-6.00) 08/12/19 22:55 Hgb 15.6 g/dL (13.5-17.5) 08/12/19 22:55 Hct 52.5 % (40.0-50.0) H 08/12/19 22:55 MCV 101.7 fL (80-95) H 08/12/19 22:55 MCH 30.2 pg (27.0-33.0) 08/12/19 22:55 MCHC 29.7 g/dL (32.0-36.0) L 08/12/19 22:55 RDW 18.7 % (11.8-14.1) H 08/12/19 22:55 Plt Count 178 x1000/uL (130-400) 08/12/19 22:55 MPV 10.0 fL (8.0-11.0) 08/12/19 22:55 Immature Gran % 0.4 % 08/12/19 22:55 Neutrophils % 85.9 08/12/19 22:55 Lymphocytes % 8.1 08/12/19 22:55 Monocytes % 5.1 08/12/19 22:55 Eosinophils % 0.4 08/12/19 22:55 Basophils % 0.1 08/12/19 22:55 Absolute Neutrophils 9.54 k/cumm (1.2-6.7) H 08/12/19 22:55 Absolute Lymphocytes 0.90 k/cumm (1.2-3.4) L 08/12/19 22:55 Absolute Monocytes 0.57 k/cumm (0.11-0.7) 08/12/19 22:55 Absolute Eosinophils 0.04 k/cumm (0.0-0.7) 08/12/19 22:55 Absolute Basophils 0.01 k/cumm (0.0-0.2) 08/12/19 22:55 Sodium 140 mmol/L (136-145) 08/13/19 06:15 Potassium 4.0 mmol/L (3.5-5.1) 08/13/19 06:15 Chloride 99 mmol/L (98-107) 08/13/19 06:15 Carbon Dioxide 35.9 mmol/L (21.0-32.0) H 08/13/19 06:15 Anion Gap 5.1 mmol/L (3-11) 08/13/19 06:15 BUN 25 mg/dL (7-18) H 08/13/19 06:15 Creatinine 2.06 mg/dL (0.70-1.30) H 08/13/19 06:15 Estimated GFR/1.73 m2 32.88 (mL/min/1.73m2) 08/13/19 06:15 Glucose 166 mg/dL (74-106) H 08/13/19 06:15 Calcium 8.7 mg/dL (8.5-10.1) 08/13/19 06:15 Magnesium 1.7 mg/dL (1.8-2.4) L 08/12/19 22:55 Total Bilirubin 0.6 mg/dL (0.2-1.0) 08/12/19 22:55 AST 20 U/L (15-37) 08/12/19 22:55 ALT 33 U/L (16-63) 08/12/19 22:55 Alkaline Phosphatase 123 U/L (46-116) H 08/12/19 22:55 Troponin I < 0.05 ng/mL (<0.06) 08/13/19 06:15 NT-Pro-B Natriuret Pep 5347 pg/mL (<300) H 08/12/19 22:55 Total Protein 6.9 g/dL (6.4-8.2) 08/12/19 22:55 Albumin 2.8 g/dL (3.4-5.0) L 08/12/19 22:55
[2019-08-13] MEDS: Pantoprazole 40 MG TABCR PO (08:19)
[2019-08-13] MEDS: Sucralfate 1 GM TAB PO ×3 (08:19→19:41)
[2019-08-13] MEDS: Amoxicillin 500 MG CAP PO (08:19)
[2019-08-13] MEDS: Metoprolol CR 25 MG TABCR PO (08:19)
[2019-08-13] MEDS: Aspirin E.C. 81 MG TABEC PO (08:20)
[2019-08-13] MEDS: Ferrous Sulfate 325 MG TAB PO (08:20)
[2019-08-13] MEDS: Insulin Aspart 300 UNITS/3 ML PEN SC ×3 (08:20→17:52)
[2019-08-13 09:34] LABS: BE 10.4 mmol/L (-3-3); HCO3 36 mmol/L (22-28); pH 7.34 (7.35-7.45); pO2 60 mmHg (83-108); sO2 90 % (94-98); tCO2 32 mmol/L (22-29)
[2019-08-13 09:39] LABS: FIO2L 6 L; Site Right Radial
--- NOTE | 2019-08-13 10:15 | NUR.NOTE ---
Nursing Note: PT continues refusal of rios catheter despite education provided by this nurse. Will offer intervention at a later time.
[2019-08-13 10:23] LABS: Procalcitonin 0.3 ng/mL
[2019-08-13] MEDS: Tiotropium Bromide-Respimat 10 PUFF INH IH (11:45)
[2019-08-13 12:52] LABS: COVID-19 RT-PCR UVMMC Result Negative (Negative)
[2019-08-13 13:25] LABS: HCO3 37 mmol/L (22-28); pO2 57 mmHg (83-108); sO2 88 % (94-98); tCO2 34 mmol/L (22-29)
[2019-08-13 13:28] LABS: FIO2 30 %; Site Right Radial
--- NOTE | 2019-08-13 15:29 | PHACLINREV_ITS ---
Pharmacy Admission Review - Admission Clinical Review (Last Reviewed 08/13/19 @ 00:36 by Sam Meirda MD) Acute kidney injury (nontraumatic) (Acute) Iodinated Contrast Media [Iodinated Contrast- Oral and IV Dye] Allergy (Verified 08/12/19 23:55) Hives rifampin Allergy (Unverified 08/12/19 23:55) Hives vancomycin Allergy (Unverified 08/12/19 23:55) Hives Weight 149.685 kg - Renal Dosing Renal Dosing: BUN 25 mg/dL (7-18) H 08/13/19 06:15 Creatinine 2.06 mg/dL (0.70-1.30) H 08/13/19 06:15 Medications needing adjustments: Reviewed - Anticoagulation Anticoagulation: Hgb 15.6 g/dL (13.5-17.5) 08/12/19 22:55 Hct 52.5 % (40.0-50.0) H 08/12/19 22:55 Plt Count 178 x1000/uL (130-400) 08/12/19 22:55 Creatinine 2.06 mg/dL (0.70-1.30) H 08/13/19 06:15 DVT Prohphylaxis: Reviewed Medications: Aspirin Therapeutic Anticoagulation: N/A - Opiate Usage Evaluate Pain Scale/Pains Meds: Reviewed Scheduled Bowel Reg ordered if on Opiates?: No - Relevant Labs Sodium 140 mmol/L (136-145) 08/13/19 06:15 Potassium 4.0 mmol/L (3.5-5.1) 08/13/19 06:15 Chloride 99 mmol/L (98-107) 08/13/19 06:15 Magnesium 1.7 mg/dL (1.8-2.4) L 08/12/19 22:55 Electrolytes, C-Reactive P, ESR: Reviewed - DM Control DM Control: Glucose 166 mg/dL (74-106) H 08/13/19 06:15 Finger Stick Blood Glucose 184 Finger Stick Blood Glucose 184 Finger Stick Blood Glucose 169 Finger Stick Blood Glucose 169 Insulin Dosing: N/A - Heart Failure/AZ Heart Failure/AZ: Troponin I < 0.05 ng/mL (<0.06) 08/13/19 06:15 NT-Pro-B Natriuret Pep 5347 pg/mL (<300) H 08/12/19 22:55 EF%, MARIAA's, B-Blockers, Diuretics: Reviewed (Acute CHF exacerbation -- lasix gtt, meoprolol) - BP Control BP Control: Blood Pressure [Left Arm] 151/86 Blood Pressure [Left Arm] 164/86 Blood Pressure 110/40 Blood Pressure 151/86 Blood Pressure 125/65 Blood Pressure 116/65 Blood Pressure 119/63 Blood Pressure 125/61 Blood Pressure 135/62 Blood Pressure 153/66 Blood Pressure 137/75 Blood Pressure 155/89 Blood Pressure 128/72 Blood Pressure 138/55 Blood Pressure 136/60 Blood Pressure 121/74 Blood Pressure 132/110 Blood Pressure 164/126 Blood Pressure 154/96 Blood Pressure 187/97 Blood Pressure 174/78 Blood Pressure 144/44 Blood Pressure 167/135 Blood Pressure 144/63 If elevated: Reviewed - Qtc Review If Elevated: Reviewed (QTc 454) - IV to PO Switch IV Medications: Reviewed - Home Meds Home Med List reviewed: Intervened (Atorvastatin 40 ordered -- 80mg is the dose on home med list and filled at [facility] 06/28; Methadone should be dose BID not q8h -- confirmed with [employer]; both have been edited on home med list) - Current meds Current Medication Order Review: Reviewed
--- NOTE | 2019-08-13 15:52 | CHAPLAIN ---
Nolan's Sydney was with him when I visited. Sydney told me if Nolan decided not be be ventilated again, she would understand, and if this is his time for the Lord to take him, she would take him home on hospice. Nolan talked with his daughter and a friend by phone. The friend encouraged Nolan to do what he needs to to stay with us. After that conversation, Nolan said he would do wan the doctor said he needs to do to stay alive. He was tearful at times, saying he didn't want to , and also asking why this was happening to him, because he said he tired to live a good life. We talked about he didn't to anything himself, to cause this illness and that he was not be punished for any behavior. He was very anxious at times, then seemed to settle down after we talked about specific plans and choices he could make after talking with the hospitalist.
--- NOTE | 2019-08-13 16:44 | INITIAL_ITS ---
- If Service Date Differs Date of service: 08/13/19 Time of Service: 16:44 Care Management Initial Assess REASON FOR HOSPITALIZATION:: CHF PAST MEDICAL HISTORY/PAST SURGICAL HISTORY:: Acute kidney injury (nontraumatic) (Acute). Cardiomyopathy (Acute). Chronic osteomyelitis (Chronic). COPD exacerbation (Acute). Diabetes mellitus (Chronic). HTN (hypertension) (Chronic). Hypertension (Chronic). Infection of prosthetic knee joint (Chronic). Iron deficiency anemia (Chronic). Mixed sleep apnea (Chronic). Non-ST elevation myocardial infarction (NSTEMI) (Acute). CARLOS (obstructive sleep apnea) (Chronic). Sinus pause (Acute). Type 2 diabetes mellitus (Chronic). Surgical History . EGD - MAC (09/10/16). Previous back surgery (Chronic). S/P hernia repair (Chronic). S/P right knee surgery (Chronic). Status post left knee replacement (Chronic) PREVIOUS FUNCTIONAL STATUS/SOCIAL/FAMILY SUPPORTS:: Piyush and his spouse Olga live in [place] in a home that they rent. Their daughter and three children also live in the home. Olga provides support to Windy she does the driving and meal preperation. Piyush is disabled related to his multiple knee surgeries and chronic pain. Piyush does have highest needs choices for care. CURRENT FUNCTIONAL STATUS:: Piyush is alert CM obtain permission to have Piyush's spouse (support) in the hospital. Piyush has initially told provider he did not want to be intubated in the event he failed bipap however since his spouse and talking with his children he has changed his mind. Piyush has voiced that he is a fullcode his spouse also agrees with this. Spouse states she will support his deicision regardless of what he chooses. She states if it were to be end of life care she would want him home and would support discussion about hospice. ADVANCE DIRECTIVES:: None on file, he has completed the forms and in those forms he is listed as a full code however he has not signed his advance directive and the forms are at home per his spouse. Has patient been provided with info about the portal/API?: No Did the patient sign up for the portal?: No CODE STATUS:: Full Code INSURANCE COVERAGE / FINANCIAL ISSUES:: Medicare and Medicaid CURRENT HOME/COMMUNITY SERVICES/EQUIPMENT:: Choices for care highest needs, CPAP, FWW and Cane PRIMARY CARE PHYSICIAN:: POTENTIAL DISCHARGE NEEDS:: Pending disposition, follow up with primary care, patient would benefit from palliative care consult. PATIENT/FAMILY EDUCATION NEEDS:: Discharge education, limitation and follow up plan of care. ANTICIPATED BARRIERS TO DISCHARGE:: No identified barriers TRANSPORTATION:: Via private car with spouse at time of discharge vs ambulance transfer pending disposition PLAN:: Piyush is currently in the ICU, he is on BIPAP, anticipate he may be intubated based on his diagnosis and blood gas. CM contacted his spouse and obtained permission for her to come to be with Piyush to discuss goals of care. CM will requested palliative care consult and continue to assess for anticipated discharge needs.
--- NOTE | 2019-08-13 17:00 | DI.RAD_ITS ---
EXAM: XR PORTABLE CHEST AP POST LINE CLINICAL HISTORY: POST PICC TECHNIQUE: 2D digital imaging was performed. COMPARISON: CR,XR XR CHEST 2V PA LATERAL from 08/12/2019 FINDINGS: Exam is limited by patient body habitus and positioning. The portion of the left lung is not include d on the exam. A PICC line has been placed via the left arm. The tip projects in the superior vena cava. There is no pneumothorax. The heart is again noted to be enlarged. No gross area of pulmonar y consolidation or effusion is seen. Degenerative changes are noted in the spine. IMPRESSION: Satisfactory placement of PICC line. DATA REPOSITORY: RADIATION DOSE DELIVERED:
[2019-08-13 17:17] LABS: BE 12.6 mmol/L (-3-3); HCO3 38 mmol/L (22-28); pH 7.36 (7.35-7.45); pO2 57 mmHg (83-108); sO2 88 % (94-98); tCO2 34 mmol/L (22-29)
[2019-08-13 17:20] LABS: FIO2 30 %; Site Right Radial
--- NOTE | 2019-08-13 17:40 | DI.VRAD_ITS ---
PROCEDURE INFORMATION: Exam: XR Chest, 1 View Exam date and time: 08/13/2019 5:16 PM Age: 64 years old Clinical indication: Other: Post picc TECHNIQUE: Imaging protocol: XR of the chest Views: 1 view. COMPARISON: CR XR CHEST 2V PA LATERAL 08/12/2019 11:19 PM FINDINGS: Tubes, catheters and devices: Left upper extremity PICC line terminates in the expected location of the superior vena cava near its junction with the innominate vein. Lungs: Evaluation of lung parenchyma markedly limited due to obliquity of patient on both views. No gross area of consolidation is demonstrated. Minimal linear atelectasis or scar right lung base. The left lateral lung base is excluded from the study. Pleural space: Unremarkable. No pleural effusion. No pneumothorax. Heart/Mediastinum: Limited evaluation due to oblique position of patient. Likely mild cardiomegaly unchanged since comparison. Bones/joints: There is moderate degenerative disc disease of the thoracic spine. IMPRESSION: 1. PICC line is in expected location of superior vena cava with no pneumothorax. 2. Otherwise no gross acute findings on limited study. Dictated and Authenticated by: Ftiz Morales MD. Ordering:.[facility] Liam Acuña MD
[2019-08-13] MEDS: Atorvastatin 40 MG TAB 80 MG PO (19:40)
[2019-08-13] MEDS: Normal Saline Flush 10 ML SYR 20 ML IVP (19:41)
[2019-08-14] VITALS (31 sets, daily range): BP systolic 115–144; BP diastolic 50–95; PULSE 60–87; RESP 14–26; TEMP 36.3–36.8; O2SAT 4–96
[2019-08-14 06:42] LABS: Abs Immature Grans 0.02 k/cumm (0.0-0.09); Absolute Basophil Count 0.01 k/cumm (0.0-0.2); Absolute Lymphocyte Count 0.74 k/cumm (1.2-3.4); Absolute Monocyte Count 0.72 k/cumm (0.11-0.7); Basophils % 0.1; Eosinophils % 0.8; HCT 47.3 % (40.0-50.0); HGB 14.9 g/dL (13.5-17.5); Immature Grans % 0.2 %; Mean Corp. HGB Concentration 31.5 g/dL (32.0-36.0); Mean Corpuscular Hemoglobin 31.2 pg (27.0-33.0); Mean Corpuscular Volume 99.2 fL (80-95); Mean Platelet Volume 9.7 fL (8.0-11.0); Monocytes % 5.8; Neutrophils % 87.1; Platelet Count 203 x1000/uL (130-400); RBC 4.77 m/cumm (4.50-6.00); RBC Distribution Width 17.7 % (11.8-14.1); White Blood Cell Count 12.37 k/cumm (4.4-10.8)
[2019-08-14 06:45] LABS: Absolute Neutrophil Count 10.77 k/cumm (1.2-6.7)
[2019-08-14] MEDS: Normal Saline Flush 10 ML SYR 20 ML IVP ×2 (07:34→20:20)
[2019-08-14] MEDS: Amoxicillin 500 MG CAP PO (07:35)
[2019-08-14] MEDS: Ferrous Sulfate 325 MG TAB PO (07:35)
[2019-08-14] MEDS: Pantoprazole 40 MG TABCR PO (07:35)
[2019-08-14] MEDS: Aspirin E.C. 81 MG TABEC PO (07:35)
[2019-08-14] MEDS: Sucralfate 1 GM TAB PO ×4 (07:35→20:20)
[2019-08-14] MEDS: Metoprolol CR 25 MG TABCR PO (07:35)
[2019-08-14] MEDS: Methadone 5 MG TAB PO ×2 (07:35→20:20)
[2019-08-14 07:58] LABS: Anion Gap 5.3 mmol/L (3-11); BUN 27 mg/dL (7-18); CO2 36.7 mmol/L (21.0-32.0); CREATININE 1.99 mg/dL (0.70-1.30); Calcium 8.6 mg/dL (8.5-10.1); Chloride 95 mmol/L (98-107); Estimated GFR 34.22 (mL/min/1.73m2); Glucose 174 mg/dL (74-106); NT-proBNP 1600 pg/mL (<300); Potassium 3.8 mmol/L (3.5-5.1); Sodium 137 mmol/L (136-145)
[2019-08-14] MEDS: Insulin Aspart 300 UNITS/3 ML PEN SC ×3 (08:06→17:02)
[2019-08-14] MEDS: Tiotropium Bromide-Respimat 10 PUFF INH IH (08:24)
[2019-08-14 11:06] LABS: HCO3 41 mmol/L (22-28); pO2 63 mmHg (83-108); sO2 92 % (94-98); tCO2 36 mmol/L (22-29)
[2019-08-14 11:10] LABS: BE > 15.0 mmol/L (-3-3); pCO2 66 mmHg (34-47)
--- NOTE | 2019-08-14 11:49 | W.PM.PROGNOT ---
Date of Service Date of service: 08/14/19 Time of Service: 11:49 Assessment and Plan Assessment and plan (1) Acute and chronic respiratory failure: Status: Acute Assessment and plan: Continue noninvasive ventilatory support with BiPAP with titration to keep his SPO2 greater than 88% while assisting him with blowing off CO2. He should wear the BIPAP whenever he naps during the day or throughout the night. I have completed forms for him to apply for the Trilogy. He and his have indicated that we should proceed w/ intubation if he fails BIPAP. Meanwhile we will treat his acute heart failure exacerbation with IV Lasix drip. Qualifiers: Respiratory failure complication: hypoxia and hypercapnia Qualified Code(s): J96.21 - Acute and chronic respiratory failure with hypoxia; J96.22 - Acute and chronic respiratory failure with hypercapnia (2) Heart failure with preserved ejection fraction: Status: Acute Assessment and plan: Continue with IV Lasix drip. Patient refused to have a Avalos catheter placed. Qualifiers: Heart failure chronicity: acute on chronic Qualified Code(s): I50.33 - Acute on chronic diastolic (congestive) heart failure (3) Type 2 diabetes mellitus: Status: Chronic Assessment and plan: Monitor blood sugars before meals and at bedtime and cover with basal bolus insulin Qualifiers: Diabetes mellitus residential insulin use: with termite exterminator use Diabetes mellitus complication status: with kidney complications Diabetes mellitus complication detail: with chronic kidney disease (4) Acute kidney injury (nontraumatic): Status: Acute Assessment and plan: Probably secondary to acute CHF exacerbation. Monitor his BMP closely while diuresing. Currently stable BUN and creatinine at 27 and 1.99 despite the lasix drip. (5) COPD (chronic obstructive pulmonary disease): Status: Chronic Assessment and plan: Continue Spiriva with use of albuterol. At this time he does not appear to be acutely bronchospastic and does not require systemic corticosteroids. Furthermore there is no evidence for acute pulmonary infection and therefore antibiotics have not been ordered. Qualifiers: COPD type: unspecified COPD Qualified Code(s): J44.9 - Chronic obstructive pulmonary disease, unspecified (6) Mixed sleep apnea: Status: Chronic Assessment and plan: cont. BIPAP while inpatient. hopefully will qualify for Trilogy device to treat his combined hypoxemic and hypercapneic respiratory failure and reduce his readmission rate to the hospital. Subjective Subjective Interval history since last seen: Piyush is doing much better this morning. He tolerated the BiPAP at the high pressures overnight. Respiratory therapy is going to try to get him qualified for trilogy device at home. Because of Piyush's multiple complex health issues including his underlying COPD and congestive heart failure as well as his obstructive sleep apnea and because he has worsening respiratory status due to his chronic respiratory failure which has led to recurrent intubations and mechanical ventilation and because he is living with a poor quality of life due to the severity of his COPD and frequent hospitalizations and intubations in spite of being treated with CPAP therapy in the previous year, it is felt the patient would benefit from a trilogy device. Piyush has been treated with CPAP therapy in the previous year unsuccessfully due to the rigid settings that create flow limitations causing trouble with tolerating the device and a traditional BiPAP would not be effective in this case in effectively treating his COPD. He currently uses a Elsa Drager w/ an IPAP/EPAP/BR/TIDAL volume and it is imperative that he receive NIV via the Trilogy to treat his COPD in his home upon discharge from the hospital. Trilogy is medically necessary as it allows for a variety of settings exclusive to only this device which will better meet his respiratory needs given the current state of his disease process and the inevitable progression. Trilogy allows for 2 different NIV prescriptions: one to use during the day or wakefulness (MPV) and one to use while sleeping (AVAPS-AE) both of these modes are only found within the trilogy NIV device. AVAPS-AE will assist him in meeting his demands of a tidal volume and minute ventilation by allowing a longer expiratory time, reducing the effects of flow limitations and air trapping, this will decrease his current work of breathing and decrease CO2 retention. He will also increase his oxygenation and most importantly improve his current quality of life. Mouthpiece ventilation (MPV) will allow the patient to sip and puff breaths during the daytime, when he finds himself too short of breath and needing extra support. It is medically necessary that he use the NIV via the trilogy up to 24 hours a day (MPV/AVAPS-AE). Trilogy operates out of battery as well so we can use the therapy for medical appointments or even during a power outage as a lapse in therapy may lead to life-threatening consequences. Failure to receive this device may also result in serious consequences in future readmissions to the hospital. Exam Narrative Exam Narrative: More alert and oriented today sitting up in his bed watching TV. No respiratory distress. Lungs are clear but diffusely diminished without rhonchi or wheezing Heart sounds are diminished but regular Abdomen is obese Extremities with bilateral edema right more so than the left. He has chronic scars over the right knee and pretibial area secondary to previous multiple knee surgeries. There is no erythema and no calf tenderness. Objective Objective Clinical Data: Abnormal lab results 08/13/19 08/13/19 08/13/19 Range/Units 09:26 13:19 17:10 WBC (4.4-10.8) k/cumm MCV (80-95) fL MCHC (32.0-36.0) g/dL RDW (11.8-14.1) % Absolute Neutrophils (1.2-6.7) k/cumm Absolute Lymphocytes (1.2-3.4) k/cumm Absolute Monocytes (0.11-0.7) k/cumm ABG pH 7.30 L (7.35-7.45) ABG pCO2 68 H* 75 H* 67 H* (34-47) mmHg ABG pO2 57 L 57 L (83-108) mmHg ABG HCO3 37 H 38 H (22-28) mmol/L ABG Total CO2 34 H 34 H (22-29) mmol/L ABG O2 Saturation 88 L 88 L (94-98) % ABG Base Excess 11.0 H 12.6 H (-3-3) mmol/L Chloride (98-107) mmol/L Carbon Dioxide (21.0-32.0) mmol/L BUN (7-18) mg/dL Creatinine (0.70-1.30) mg/dL Glucose (74-106) mg/dL NT-Pro-B Natriuret Pep (<300) pg/mL 08/14/19 08/14/19 08/14/19 Range/Units 06:23 06:23 11:00 WBC 12.37 H (4.4-10.8) k/cumm MCV 99.2 H (80-95) fL MCHC 31.5 L (32.0-36.0) g/dL RDW 17.7 H (11.8-14.1) % Absolute Neutrophils 10.77 H (1.2-6.7) k/cumm Absolute Lymphocytes 0.74 L (1.2-3.4) k/cumm Absolute Monocytes 0.72 H (0.11-0.7) k/cumm ABG pH (7.35-7.45) ABG pCO2 66 H* (34-47) mmHg ABG pO2 63 L (83-108) mmHg ABG HCO3 41 H (22-28) mmol/L ABG Total CO2 36 H (22-29) mmol/L ABG O2 Saturation 92 L (94-98) % ABG Base Excess > 15.0 H (-3-3) mmol/L Chloride 95 L (98-107) mmol/L Carbon Dioxide 36.7 H (21.0-32.0) mmol/L BUN 27 H (7-18) mg/dL Creatinine 1.99 H (0.70-1.30) mg/dL Glucose 174 H (74-106) mg/dL NT-Pro-B Natriuret Pep 1600 H (<300) pg/mL Vital Signs Temperature 36.3 C L 08/14/19 10:30 Temperature Source Temporal Artery Scan 08/14/19 10:30 Pulse 69 08/14/19 10:28 Pulse 70 08/14/19 10:28 Respiratory Rate 14 08/14/19 10:28 Respiratory Effort 08/14/19 07:57 Respiratory Depth Normal 08/14/19 07:57 Respiratory Pattern Normal 08/14/19 04:16 Blood Pressure 134/72 08/14/19 10:28 Blood Pressure Mean 85 08/14/19 10:28 Blood Pressure Position Sitting 08/14/19 04:16 Pulse Oximetry 95 08/14/19 10:28 Oxygen Delivery Method Nasal Cannula 08/14/19 08:32 Oxygen Flow Rate 3 08/14/19 08:32 Fraction of Inspired Oxygen (FIO2) 35 08/14/19 08:37 Pain Level 5 08/13/19 23:30 Intake & Output 08/13/19 08/13/19 08/14/19 11:59 23:59 11:59 Intake Total 140 / 429.5 289.5 / 429.5 840 / 840 Output Total 1999 1375 / 3375 2175 / 2175 Balance -1860 / -2945.5 -1085.5 / -2945.5 -1335 / -1335 Weight 149.685 kg 149.685 kg 146.5 kg Intake: IV 20 / 159.5 139.5 / 159.5 100 / 100 Oral 120 / 270 150 / 270 740 / 740 Output: Urine 1999 137 / 337 2175 / 2175 Other: Urine Color Yellow Yellow Yellow Urine Appearance Clear Clear Clear Urine Odor None Normal Normal Comment plus copious inct in bed Voiding Methods Urinal Urinal Urinal Laboratory Results WBC 12.37 k/cumm (4.4-10.8) H 08/14/19 06:23 RBC 4.77 m/cumm (4.50-6.00) 08/14/19 06:23 Hgb 14.9 g/dL (13.5-17.5) 08/14/19 06:23 Hct 47.3 % (40.0-50.0) 08/14/19 06:23 MCV 99.2 fL (80-95) H 08/14/19 06:23 MCH 31.2 pg (27.0-33.0) 08/14/19 06:23 MCHC 31.5 g/dL (32.0-36.0) L 08/14/19 06:23 RDW 17.7 % (11.8-14.1) H 08/14/19 06:23 Plt Count 203 x1000/uL (130-400) 08/14/19 06:23 MPV 9.7 fL (8.0-11.0) 08/14/19 06:23 Immature Gran % 0.2 % 08/14/19 06:23 Neutrophils % 87.1 08/14/19 06:23 Lymphocytes % 6.0 08/14/19 06:23 Monocytes % 5.8 08/14/19 06:23 Eosinophils % 0.8 08/14/19 06:23 Basophils % 0.1 08/14/19 06:23 Absolute Neutrophils 10.77 k/cumm (1.2-6.7) H 08/14/19 06:23 Absolute Lymphocytes 0.74 k/cumm (1.2-3.4) L 08/14/19 06:23 Absolute Monocytes 0.72 k/cumm (0.11-0.7) H 08/14/19 06:23 Absolute Eosinophils 0.10 k/cumm (0.0-0.7) 08/14/19 06:23 Absolute Basophils 0.01 k/cumm (0.0-0.2) 08/14/19 06:23 ABG Sample Site Right radial 08/13/19 17:10 ABG pH 7.40 (7.35-7.45) 08/14/19 11:00 ABG pCO2 66 mmHg (34-47) H* 08/14/19 11:00 ABG pO2 63 mmHg (83-108) L 08/14/19 11:00 ABG HCO3 41 mmol/L (22-28) H 08/14/19 11:00 ABG Total CO2 36 mmol/L (22-29) H 08/14/19 11:00 ABG O2 Saturation 92 % (94-98) L 08/14/19 11:00 ABG Base Excess > 15.0 mmol/L (-3-3) H 08/14/19 11:00 Oxygen Liter Flow 6 L 08/13/19 09:26 FiO2 30 % 08/13/19 17:10 Sodium 137 mmol/L (136-145) 08/14/19 06:23 Potassium 3.8 mmol/L (3.5-5.1) 08/14/19 06:23 Chloride 95 mmol/L (98-107) L 08/14/19 06:23 Carbon Dioxide 36.7 mmol/L (21.0-32.0) H 08/14/19 06:23 Anion Gap 5.3 mmol/L (3-11) 08/14/19 06:23 BUN 27 mg/dL (7-18) H 08/14/19 06:23 Creatinine 1.99 mg/dL (0.70-1.30) H 08/14/19 06:23 Estimated GFR/1.73 m2 34.22 (mL/min/1.73m2) 08/14/19 06:23 Glucose 174 mg/dL (74-106) H 08/14/19 06:23 Calcium 8.6 mg/dL (8.5-10.1) 08/14/19 06:23 Magnesium 1.7 mg/dL (1.8-2.4) L 08/12/19 22:55 Total Bilirubin 0.6 mg/dL (0.2-1.0) 08/12/19 22:55 AST 20 U/L (15-37) 08/12/19 22:55 ALT 33 U/L (16-63) 08/12/19 22:55 Alkaline Phosphatase 123 U/L (46-116) H 08/12/19 22:55 Troponin I < 0.05 ng/mL (<0.06) 08/13/19 06:15 NT-Pro-B Natriuret Pep 1600 pg/mL (<300) H 08/14/19 06:23 Total Protein 6.9 g/dL (6.4-8.2) 08/12/19 22:55 Albumin 2.8 g/dL (3.4-5.0) L 08/12/19 22:55 Procalcitonin 0.3 ng/mL 08/13/19 06:15 COVID-19 PCR Negative (Negative) 08/13/19 00:52 Nasopharyn COVID-19 PCR Not Applicable 08/13/19 00:52 Ref Test Perform Site [facility] lab 08/13/19 00:52
--- NOTE | 2019-08-14 12:16 | RESPIRATORY ---
RT spoke with patient concerning home oxygen, per his report he does not have home O2 but instead he just has a CPAP machine. Patient was talked to concerning the use of a Trilogy verus his home CPAP unit. He's interested in trying the new machine as it will help him ventilate more at night.
--- NOTE | 2019-08-14 13:40 | W.INDIABCONS ---
Date of service: 08/14/19 Time of Service: 13:40 Diabetes Inpatient Consult DESCRIPTION/ASSESSMENT: 64 year old male admitted to ICU with CHF with acute chronic respiratory failure. PMH: Morbid obesity, DM 2, COPD, SELINA, CAD, NSTEMI 03/15 with chronic osteomylitis s/p bilateral knee replacements. Received Diabetic Education Consult and met with Piyush today. Piyush states he does not want any information on diabetes. BS ranging from 147-193 mg/dl since admit. Takes novolog SS- 8,12,7 pm. Home meds include metformin and humalog. Meds include lasix putting Piyush at risk for dehydration, fluid encouraged. No recent A1C. Skin intact, no concerns with swallowing/dentition. Estimated Needs: [id number] kcal, 80-90 g protein. Currently meeting nutrient and fluid intake needs. INTERVENTION: Diabetic, low salt Diet with 2 L fluid restriction will attempt to provide diabetic, low sodium education at later time prior to discharge, would benefit from outpatient nutrition services for weight and diabetic management PLAN: Switch diet to Diabetic, Low Sodium Diet with 2 L fluid restriction will monitor po intake, fluid intake, weights, labs and make warranted recommends for optimal BS and weight control. Time Spent in Nutritional Counseling and Treatment: 5 min
--- NOTE | 2019-08-14 15:21 | CHAPLAIN ---
This morning Nolan was on a nasal cannular for oxygen and vert talkative. He shared some personal history, telling me how he and Sydney met, working for [employer] in [place], moving to [place] to be closer to Sydney's family. He is much more relaxed than yesterday when he was faced with the decision about wether or not to be intubated. It turned out he didn't need be. Sydney was in yesterday to support Nolan, and he said she'll be back likely tomorrow. Yesterday Sydney supported Nolan's decision not to be intubated, and said she would care for him with hospice support. Then he changed his mind, and Sydney support that decision as well. They have been together for 18 years and Nolan said he wouldn't know what to do without Sydney. I hope I first so I don't have to have live without her.
--- NOTE | 2019-08-14 15:51 | CMPROGNOTE_ITS ---
- If Service Date Differs Date of service: 08/14/19 Time of Service: 15:51 Care Management Progress Note S/O: Piyush is alert on oxygen via nasal cannula and states that he is ready to return home. He wants to be home before Saturday as they are having a large fathers day constitution party for him. He states he feels much better today and does not want home health or other additional services when he is discharged home. CM reviewed the plan with the Piyush including his current ICU level of care. Piyush remains on IV lasix to continue diuresis. He does as questions related to his benefits CM reviewed his Medicare and Medicaid benefit with him. CM will continue to assess for ongoing discharge needs. RT is coordinating a Trilogy for home use with the patient through [facility]. A: Piyush is a 64 year old male admitted with CHF P: Piyush will be discharged home when medially ready, per provider. RT coordinating a new Trilogy unit for home through [facility]. Spouse to transport home at time of discharge. Piyush declined any home health services at this time. He does have a community engagement representative Arabella Metcalf and has highest need choices for care in the community.
--- NOTE | 2019-08-14 18:37 | RESPIRATORY ---
Respiratory called concerning home oxygen as chart states he does use. stated he used 3L all day long and the DME is [facility].
[2019-08-14] MEDS: Atorvastatin 40 MG TAB 80 MG PO (20:20)
--- NOTE | 2019-08-14 22:13 | NUR.NOTE ---
O2 down to 79%, found with NC out of his nose while sleeping. Woke Gene up to place bipap on and is still refusing. Increased O2 to 4LNC, and had him place prongs back in his nose. Discussed reasons why the bipap is important, continues to refuse. Nursing Note:
[2019-08-15] VITALS (16 sets, daily range): BP systolic 103–150; BP diastolic 62–97; PULSE 66–85; RESP 11–22; TEMP 35.9–37.1; O2SAT 90–94
[2019-08-15 07:43] LABS: Anion Gap 1.3 mmol/L (3-11); BUN 31 mg/dL (7-18); CO2 41.7 mmol/L (21.0-32.0); CREATININE 1.96 mg/dL (0.70-1.30); Calcium 8.4 mg/dL (8.5-10.1); Chloride 95 mmol/L (98-107); Estimated GFR 34.83 (mL/min/1.73m2); Glucose 183 mg/dL (74-106); NT-proBNP 796 pg/mL (<300); Potassium 3.6 mmol/L (3.5-5.1); Sodium 138 mmol/L (136-145)
[2019-08-15] MEDS: Aspirin E.C. 81 MG TABEC PO (08:09)
[2019-08-15] MEDS: Sucralfate 1 GM TAB PO ×4 (08:09→20:07)
[2019-08-15] MEDS: Amoxicillin 500 MG CAP PO (08:09)
[2019-08-15] MEDS: Metoprolol CR 25 MG TABCR PO (08:10)
[2019-08-15] MEDS: Pantoprazole 40 MG TABCR PO (08:10)
[2019-08-15] MEDS: Ferrous Sulfate 325 MG TAB PO (08:10)
[2019-08-15] MEDS: Methadone 5 MG TAB PO ×2 (08:10→20:06)
[2019-08-15] MEDS: Normal Saline Flush 10 ML SYR 20 ML IVP ×2 (08:11→20:07)
[2019-08-15] MEDS: Insulin Aspart 300 UNITS/3 ML PEN SC ×4 (08:11→21:51)
[2019-08-15 08:23] LABS: FREE T4 1.04 ng/dL (0.76-1.46); Magnesium 1.9 mg/dL (1.8-2.4); TSH 4.11 uIU/mL (0.36-3.74)
--- NOTE | 2019-08-15 08:28 | W.PM.PROGNOT ---
Date of Service Date of service: 08/15/19 Time of Service: 14:41 Assessment and Plan Assessment and plan (1) Acute on chronic respiratory failure with hypoxia and hypercapnia: Status: Acute Assessment and plan: Multifactorial - due to acute on chronic diastolic CHF, Likely underlying OHS, mild-moderate pulmonary hypertension, and less so acute exacerbation of COPD. Patient was noncompliant with BiPAP overnight. I encouraged him to wear it whenever he is asleep. Continue diuresis. Would benefit from trilogy on discharge. We need to consider that his methadone could be contributing to CO2 retention. (2) Heart failure with preserved ejection fraction: Status: Acute Assessment and plan: Continue lasix gtt at current rate, monitoring I/O's and daily weights. Qualifiers: Heart failure chronicity: acute on chronic Qualified Code(s): I50.33 - Acute on chronic diastolic (congestive) heart failure (3) Type 2 diabetes mellitus: Status: Chronic Assessment and plan: Continue basal bolus insulin Qualifiers: Diabetes mellitus termite control representative insulin use: with mcc use Diabetes mellitus complication status: with kidney complications Diabetes mellitus complication detail: with chronic kidney disease (4) Acute kidney injury (nontraumatic): Status: Acute Assessment and plan: Likely cardiorenal. Continue diuresis and encourage BiPAP. Monitor Cr, I/O's, daily weights. Refuses rios catheter. (5) COPD (chronic obstructive pulmonary disease): Status: Chronic Assessment and plan: Agree that he does not appear to have an acute exacerbation of COPD. Continue spiriva, prn albuterol. Recheck procalcitonin as it was not negative. Qualifiers: COPD type: unspecified COPD Qualified Code(s): J44.9 - Chronic obstructive pulmonary disease, unspecified (6) Mixed sleep apnea: Status: Chronic Assessment and plan: Continue BiPAP in house; setting up Trilogy on discharge. (7) DVT prophylaxis: Status: Acute Assessment and plan: Start SC heparin (8) Discharge planning issues: Status: Acute Assessment and plan: Full code Transferred out of ICU this morning Subjective Subjective Interval history since last seen: Transferred out of the ICU this morning. Upset that he is not going to be discharged home tomorrow. He was supposed to have a big BBQ. Denies dizziness, chest pain/pressure, states breathing is almost at the baseline, denies n/v. On lasix gtt @ 5 mg/hr. In NSR - 1st degree overnight; occasional PVS. HR 70-80. 3 L out overnight (12 hrs). Required 4 L of O2 overnight - refused BiPAP. 94% on 4L, 91% on 3L. Nursing noted a twitch on the left face - also left arm is occasionally tremulous. Per patient, this is baseline. I did not witness this in my meeting with him. Exam Narrative Exam Narrative: General: Obese male, A&Ox3, laying comfortably in bed at about 30 degree angle HEENT: EOMI, MMM, large neck diameter, wearing nasal cannula Heart: RRR, no m/r/g Lungs: quiet rales at B bases, sounds wet overall Abdomen: soft, obese, nontender Extremities: +1 BLE edema, R>L. Objective Objective Clinical Data: Abnormal lab results 08/14/19 08/15/19 Range/Units 11:00 06:15 ABG pCO2 66 H* (34-47) mmHg ABG pO2 63 L (83-108) mmHg ABG HCO3 41 H (22-28) mmol/L ABG Total CO2 36 H (22-29) mmol/L ABG O2 Saturation 92 L (94-98) % ABG Base Excess > 15.0 H (-3-3) mmol/L Chloride 95 L (98-107) mmol/L Carbon Dioxide 41.7 H (21.0-32.0) mmol/L Anion Gap 1.3 L (3-11) mmol/L BUN 31 H (7-18) mg/dL Creatinine 1.96 H (0.70-1.30) mg/dL Glucose 183 H (74-106) mg/dL Calcium 8.4 L (8.5-10.1) mg/dL NT-Pro-B Natriuret Pep 796 H (<300) pg/mL TSH 4.11 H (0.36-3.74) uIU/mL Vital Signs Temperature 36.5 C 08/15/19 07:47 Temperature Source Temporal Artery Scan 08/15/19 07:47 Pulse 71 08/15/19 07:47 Pulse 85 08/15/19 02:01 Respiratory Rate 13 08/15/19 07:47 Respiratory Effort 08/15/19 07:47 Respiratory Depth Normal 08/15/19 07:47 Respiratory Pattern Normal 08/15/19 07:47 Blood Pressure 131/62 08/15/19 07:47 Blood Pressure Mean 85 08/15/19 07:47 Blood Pressure Position Supine 08/15/19 07:47 Pulse Oximetry 92 L 08/15/19 08:25 Oxygen Delivery Method Nasal Cannula 08/15/19 08:25 Oxygen Flow Rate 3 08/15/19 08:25 Fraction of Inspired Oxygen (FIO2) 35 08/14/19 08:37 Pain Level 7 08/15/19 08:10 Intake & Output 08/14/19 08/14/19 08/15/19 11:59 23:59 11:59 Intake Total 840 / 1240 400 / 1240 1060.5 / 1060.5 Output Total 2175 / 3690 1515 / 3690 2350 / 2350 Balance -1335 / -2450 -1115 / -2450 -1289.5 / -1289.5 Weight 146.5 kg Intake: IV 100 / 200 100 / 200 100.5 / 100.5 Oral 740 / 1040 300 / 1040 960 / 960 Output: Urine 2175 / 3690 1515 / 3690 2350 / 2350 Other: Urine Color Yellow Yellow Yellow Urine Appearance Clear Clear Clear Urine Odor Normal Normal Normal Comment plus copious inct in bed pt refused catheter insertion pt refused catheter insertion Stool Occult Blood Negative Stool Size Copious Stool Characteristics Soft Brown Voiding Methods Urinal Urinal Urinal Laboratory Results WBC 12.37 k/cumm (4.4-10.8) H 08/14/19 06:23 RBC 4.77 m/cumm (4.50-6.00) 08/14/19 06:23 Hgb 14.9 g/dL (13.5-17.5) 08/14/19 06:23 Hct 47.3 % (40.0-50.0) 08/14/19 06:23 MCV 99.2 fL (80-95) H 08/14/19 06:23 MCH 31.2 pg (27.0-33.0) 08/14/19 06:23 MCHC 31.5 g/dL (32.0-36.0) L 08/14/19 06:23 RDW 17.7 % (11.8-14.1) H 08/14/19 06:23 Plt Count 203 x1000/uL (130-400) 08/14/19 06:23 MPV 9.7 fL (8.0-11.0) 08/14/19 06:23 Immature Gran % 0.2 % 08/14/19 06:23 Neutrophils % 87.1 08/14/19 06:23 Lymphocytes % 6.0 08/14/19 06:23 Monocytes % 5.8 08/14/19 06:23 Eosinophils % 0.8 08/14/19 06:23 Basophils % 0.1 08/14/19 06:23 Absolute Neutrophils 10.77 k/cumm (1.2-6.7) H 08/14/19 06:23 Absolute Lymphocytes 0.74 k/cumm (1.2-3.4) L 08/14/19 06:23 Absolute Monocytes 0.72 k/cumm (0.11-0.7) H 08/14/19 06:23 Absolute Eosinophils 0.10 k/cumm (0.0-0.7) 08/14/19 06:23 Absolute Basophils 0.01 k/cumm (0.0-0.2) 08/14/19 06:23 ABG Sample Site Right radial 08/13/19 17:10 ABG pH 7.40 (7.35-7.45) 08/14/19 11:00 ABG pCO2 66 mmHg (34-47) H* 08/14/19 11:00 ABG pO2 63 mmHg (83-108) L 08/14/19 11:00 ABG HCO3 41 mmol/L (22-28) H 08/14/19 11:00 ABG Total CO2 36 mmol/L (22-29) H 08/14/19 11:00 ABG O2 Saturation 92 % (94-98) L 08/14/19 11:00 ABG Base Excess > 15.0 mmol/L (-3-3) H 08/14/19 11:00 Oxygen Liter Flow 6 L 08/13/19 09:26 FiO2 30 % 08/13/19 17:10 Sodium 138 mmol/L (136-145) 08/15/19 06:15 Potassium 3.6 mmol/L (3.5-5.1) 08/15/19 06:15 Chloride 95 mmol/L (98-107) L 08/15/19 06:15 Carbon Dioxide 41.7 mmol/L (21.0-32.0) H 08/15/19 06:15 Anion Gap 1.3 mmol/L (3-11) L 08/15/19 06:15 BUN 31 mg/dL (7-18) H 08/15/19 06:15 Creatinine 1.96 mg/dL (0.70-1.30) H 08/15/19 06:15 Estimated GFR/1.73 m2 34.83 (mL/min/1.73m2) 08/15/19 06:15 Glucose 183 mg/dL (74-106) H 08/15/19 06:15 Calcium 8.4 mg/dL (8.5-10.1) L 08/15/19 06:15 Magnesium 1.9 mg/dL (1.8-2.4) 08/15/19 06:15 Total Bilirubin 0.6 mg/dL (0.2-1.0) 08/12/19 22:55 AST 20 U/L (15-37) 08/12/19 22:55 ALT 33 U/L (16-63) 08/12/19 22:55 Alkaline Phosphatase 123 U/L (46-116) H 08/12/19 22:55 Troponin I < 0.05 ng/mL (<0.06) 08/13/19 06:15 NT-Pro-B Natriuret Pep 796 pg/mL (<300) H 08/15/19 06:15 Total Protein 6.9 g/dL (6.4-8.2) 08/12/19 22:55 Albumin 2.8 g/dL (3.4-5.0) L 08/12/19 22:55 Procalcitonin 0.3 ng/mL 08/13/19 06:15 TSH 4.11 uIU/mL (0.36-3.74) H 08/15/19 06:15 Free T4 1.04 ng/dL (0.76-1.46) 08/15/19 06:15 COVID-19 PCR Negative (Negative) 08/13/19 00:52 Nasopharyn COVID-19 PCR Not Applicable 08/13/19 00:52 Ref Test [facility]form [facility] [place] 08/13/19 00:52
--- NOTE | 2019-08-15 10:30 | PDOC.CMPRO ---
- If Service Date Differs Date of service: 08/15/19 Time of Service: 10:30 Care Management Progress Note S/O: Piyush continues to improve and is transferred from ICU to Med/Surg today. A review of his medical chart shows noncompliance with BiPap overnight. He continues with diuresis and still has a need for oxygen at nighttime. Physical therapy evaluated Piyush today and recommend home health PT services to progress mobility level and increase patient's ability to remain at home. CM will continue to follow. A: Piyush is a 64 year old male admitted to [facility] on 08/13/2019 for CHF. P: No change in plan. Piyush will be discharged home when medically cleared by provider. He has highest need choices for care in the community and Arabella Metcalf is his correctional case manager. RT is coordinating a new Trilogy unit for home through [facility]. Piyush will be transported home via private vehicle with family when ready. CM will continue to follow.
--- NOTE | 2019-08-15 11:35 | PT.INIE ---
Date of service: 08/15/19 Time of Service: 11:35 PT Notes Visit Reasons: Congestive heart failure Physical Therapy Inpatient Initial Evaluation Date: 08/14/2019 Referring Doctor: Carola Stein MD PT Orders: PT CONSULT: Limited Ability Precautions: Fall. Standard. Acivity as tolerated. Orthopedic shoes on with lift on R at all times when out of bed. Patient Profile/Admitting Diagnosis: Piyush is a 64-year-old male with who presented to the ED on 08/12/2019 with chief compliant of shortness of breath. Patient is diagnosed with CHF exacerbation with referral for skilled PT services for functional mobility decline. PMHX: Medical History Acute kidney injury (nontraumatic) (Acute) Cardiomyopathy (Acute) Chronic osteomyelitis (Chronic) COPD exacerbation (Acute) Diabetes mellitus (Chronic) HTN (hypertension) (Chronic) Hypertension (Chronic) Infection of prosthetic knee joint (Chronic) Iron deficiency anemia (Chronic) Mixed sleep apnea (Chronic) Non-ST elevation myocardial infarction (NSTEMI) (Acute) CARLOS (obstructive sleep apnea) (Chronic) Sinus pause (Acute) Type 2 diabetes mellitus (Chronic) Surgical History EGD - MAC (09/10/16) Previous back surgery (Chronic) S/P hernia repair (Chronic) S/P right knee surgery (Chronic) Status post left knee replacement (Chronic) Social History/Home Situation: Piyush lives with Shonna in a private home. He has a wheelchair at home and he states that takes care of cooking, grocery-shopping, and provides needed assistance to him. Equipment Owned/DME: Orthopedic shoes with elevation on R, bariatric wheelchair, front-wheeled walker Subjective: Piyush got upset about all questions asked of him during the patient interview. Nurse Pavon and this Pt pointed out that all those questions needed to beasked as part of the overall assessment so that his care can better be directed and his goals best met. He was agreeable to proceeding with mobility assessment after goal of questioning was emphasized. was called via phone and was agreeable to bringing patient's orthopedic shoes in for ambulation training with PT. Objective: General Observation: Obese. Telemetry monitoring in place. R knee fixed in extension. Leg length discrepancy with R longer than the L. In NAD, O2 supp on via NC. Mental Status: Patient alert and oriented to person, place, and time. Pain: None reported Vital Signs: WNL as measured by Nurse Librado before PT session ROM: Right Upper Extremity: Shoulder Flexion WFL. Shoulder abduction WFL. Elbow flexion WFL. Wrist flexion WFL. Opening and closing of hand WFL. Left Upper Extremity: Shoulder Flexion WFL. Shoulder abduction WFL. Elbow flexion WFL. Wrist flexion WFL. Opening and closing of hand WFL. Right Lower Extremity: Hip flexion WFL. Hip abduction WFL. Knee flexion absent, R knee fixed in extension. Ankle dorsiflexion WFL. Ankle plantarflexion WFL. Left Lower Extremity: Hip flexion WFL. Hip abduction WFL. Knee flexion WFL. Ankle dorsiflexion WFL. Ankle plantarflexion WFL. Strength: Right Upper Extremity: Shoulder flexors 4-/5. Shoulder abductors 4-/5. Elbow flexors 4-/5. Elbow extensors 4-/5. Environmental Health Safety Manager strong. Left Upper Extremity: Shoulder flexors 4-/5. Shoulder abductors 4-/5. Elbow flexors 4-/5. Elbow extensors 4-/5. Environmental Health Safety Manager strong. Right Lower Extremity: Hip flexors 4-/5. Hip abductors 4-/5. Knee flexors 1/5. Knee extensors 4-/5. Ankle dorsiflexors 4-/5. Ankle plantarflexors 4-/5. Left Lower Extremity: Hip flexors 4/-5. Hip abductors 4-/5. Knee flexors 4-/5. Knee extensors 4-/5. Ankle dorsiflexors 4-/5. Ankle plantarflexors 4-/5. Sensation: Intact as to pain and pressure on bilateral lower extremities. Bed Mobility/Transfers: Supine to sit moderate assist Sit to stand minimal assist of 2, with minimal verbal cueing for hand placement, needs FWW Stand to sit minimal assist of 2, with minimal verbal cueing for hand placement Bed to chair minimal assist of 2, with minimal verbal cueing for hand placement, needs FWW Chair to bed minimal assist of 2, with minimal verbal cueing for hand placement, needs FWW Gait: 5 feet + 1 trun + 2 sidesteps + 3 step backs usinf FWW with CGA using FWW with minimal verbal cueing for safety provided. Lateral trunk lean to R during midstance noted due to LLD with R shorter than the L. No pain reported. Balance: Static Sitting: Normal Dynamic Sitting: Good Static Standing: Fair Dynamic Standing: Fair Special Tests: Mobility Limitations Standardized Measure [facility] AM-PAC 6 clicks Basic Mobility Inpatient Short Form: Raw Score: 12 CMS Score: 65% deficit Informed Consent/Education: Patient instructed in purpose of PT consult and plan of care. Assessment: Piyush demonstrates functional mobility decline requiring FWW and assistance of 2 people for mobility ADL performance, generalized muscle weakeness due , and balance impairment resulting from admitting diagnosis. Piyush is a 64-year-old male with who presented to the ED on 08/12/2019 with chief compliant of shortness of breath. Patient is diagnosed with CHF exacerbation with referral for skilled PT services for functional mobility decline. Patient presents with clinical signs and symptoms consistent with current/admitting diagnoses that have resulted to mobility limitations, gait instability, generalized weakness, and impairment of motor control as demonstrated by the following impairment level findings: 1. Decreased strength to B UE/LEmajor muscle groups 2. Impaired sitting/standing balance 3. Impaired activity tolerance 4. Chronic limitation of joint range of motion in R knee Impairments are contributing to the following functional limitations: 1. Dependent bed mobility skills 2. Increased dependence with transfers 3. Inability to safely ambulate without assistive device and physical assistance 4. Increase completion time for mobility ADL performance 5. Increased fall risk 6. Inability to negotiate steps alone safely Patient is assessed as a 43508 moderate complexity based on the following: History: 64-year-old male with impairment level findings, functional limitations, and past medical history as indicated above Examination: Demonstrable impairment in strength, balance, and mobility level with underlying impairments and functional limitations as documented above Presentation:Evolving Decision Makin moderate complexity Goals: Goals X1 week 1. Supine-Sit CGA 2. Sit-Supine CGA 3. Sit-Stand CGA 4. Stand-Sit CGA 5. Bed-Chair CGA 6. Chair-Bed CGA 7. CGA with gait on level surface with use of least restrictive device for at least 300 feet without report of pain nor dyspnea 8. CGA with stair negotiation while holding onto bilateral rails for at least 5 steps without report of pain nor dyspnea 9. Supervision with home exercise program 10. Good static and dynamic standing balance/tolerance Plan of Care/Treatment Plan: 1-2x/day, 7 days/week x 1 week. Plan of care has been reviewed with the DYE RANGE OPERATOR providing the service under Physical Therapy direction. Initiate Physical Therapy intervention for strengthening, bed mobility, transfers, gait, stairs, balance training, use of assistive device. DISCHARGE RECOMMENDATIONS: No equipment needs at this time. Patient will benefit from home health PT services in order to progress mobility level using least restrictive assistive ambulatory device, assess home safety, identify additional equipment needs, and establish a functional maintenance program that will increase ability of patient to remain at home. TREATMENT CODE/TIME: 20262 x 26 minutes beginning at 11:35 AM. Thank you very much for this referral. Sidra Bhatia PT, DPT, CLT [facility] [place], [place]
[2019-08-15] MEDS: Normal Saline Flush 10 ML SYR IVP (11:43)
--- NOTE | 2019-08-15 13:16 | NUR.NOTE ---
1300: Patient's own shoe box full of medications obtained from [facility] pharmacy and given to patient's care-residential caregiver, Olga. All medications in the shoe box reviewed with Olga in presence of patient, medrec was updated and Olga took shoe box full of medications home with her, with pt's agreement.
[2019-08-15] MEDS: Heparin 5,000 UNITS/ML VIAL 5000 UNITS SC ×2 (16:44→21:51)
[2019-08-15] MEDS: Atorvastatin 40 MG TAB 80 MG PO (20:06)
[2019-08-16] VITALS (8 sets, daily range): BP systolic 115–155; BP diastolic 72–78; PULSE 69–84; RESP 18–21; TEMP 35.9–37.3; O2SAT 93–96
[2019-08-16] MEDS: Heparin 5,000 UNITS/ML VIAL 5000 UNITS SC ×3 (05:38→21:12)
[2019-08-16] MEDS: Normal Saline Flush 10 ML SYR IVP (06:36)
[2019-08-16 07:24] LABS: Anion Gap 3.6 mmol/L (3-11); BUN 30 mg/dL (7-18); CO2 40.4 mmol/L (21.0-32.0); CREATININE 1.79 mg/dL (0.70-1.30); Calcium 8.8 mg/dL (8.5-10.1); Chloride 94 mmol/L (98-107); Estimated GFR 38.67 (mL/min/1.73m2); Glucose 163 mg/dL (74-106); Magnesium 2.1 mg/dL (1.8-2.4); Potassium 3.9 mmol/L (3.5-5.1); Sodium 138 mmol/L (136-145)
[2019-08-16] MEDS: Aspirin E.C. 81 MG TABEC PO (07:48)
[2019-08-16] MEDS: Methadone 5 MG TAB PO ×2 (07:49→19:32)
[2019-08-16] MEDS: Cholecalciferol (Vitamin D3) 1,000 UNIT TAB 2000 UNITS PO (07:49)
[2019-08-16] MEDS: Amoxicillin 500 MG CAP PO ×2 (07:49→19:33)
[2019-08-16] MEDS: Sucralfate 1 GM TAB PO ×4 (07:50→19:33)
[2019-08-16] MEDS: Pantoprazole 40 MG TABCR PO (07:50)
[2019-08-16] MEDS: Ferrous Sulfate 325 MG TAB PO (07:51)
[2019-08-16] MEDS: Multivitamin TAB 1 TAB PO (07:51)
[2019-08-16] MEDS: Metoprolol CR 25 MG TABCR PO (07:51)
[2019-08-16] MEDS: Normal Saline Flush 10 ML SYR 20 ML IVP ×2 (07:52→19:32)
[2019-08-16] MEDS: Insulin Aspart 300 UNITS/3 ML PEN SC ×4 (07:53→21:11)
[2019-08-16] MEDS: Tiotropium Bromide-Respimat 10 PUFF INH IH (08:13)
[2019-08-16 08:44] LABS: Procalcitonin 0.1 ng/mL
--- NOTE | 2019-08-16 09:25 | PT.INTREAT ---
Date of service: 08/16/19 Time of Service: 09:25 PT Notes Visit Reasons: Congestive heart failure Physical Therapy Inpatient Treatment Note Date: 08/16/2019 Precautions: Fall. Standard. Acivity as tolerated. Orthopedic shoes on with lift on R at all times when out of bed. Subjective: Patient is agreeable to a PT session today. Is wondering whether his is coming in. Was complaining about how much the mask is limiting his breathing while walking. Objective: General Observation: Obese. Telemetry monitoring in place. R knee fixed in extension. Leg length discrepancy with R longer than the L. In NAD, O2 supp on via NC. Mental Status: Patient alert but disoriented as to place and time. Pain: None reported Bed Mobility/Transfers: Supine to sit moderate assist Sit to stand minimal assist with minimal verbal cueing for hand placement, needs FWW Stand to sit minimal assist with minimal verbal cueing for hand placement, needs FWW Bed to chair minimal assist with minimal verbal cueing for hand placement, needs FWW Chair to bed minimal assist with minimal verbal cueing for hand placement, needs FWW Gait: 70' + 50' + 80' requiring SBA only using FWW with minimal verbal cueing for safety provided. Orthopedic shoes on. Wide-based gait. Step-to. No knee flexion on the R. Balance: Static Sitting: Normal Dynamic Sitting: Good Static Standing: Fair Dynamic Standing: Fair Assessment: Patient more pleasant and agreeable to session today. Piyush demonstrates functional mobility decline requiring FWW and assistance of 2 people for mobility ADL performance, generalized muscle weakeness due , and balance impairment resulting from admitting diagnosis. Piyush is a 64-year-old male with who presented to the ED on 08/12/2019 with chief compliant of shortness of breath. Patient is diagnosed with CHF exacerbation with referral for skilled PT services for functional mobility decline. Plan of Care/Treatment Plan: 1-2x/day, 7 days/week x 1 week. Plan of care has been reviewed with the BILINGUAL RECRUITER providing the service under Physical Therapy direction. Initiate Physical Therapy intervention for strengthening, bed mobility, transfers, gait, stairs, balance training, use of assistive device. DISCHARGE RECOMMENDATIONS: No equipment needs at this time. Patient will benefit from home health PT services in order to progress mobility level using least restrictive assistive ambulatory device, assess home safety, identify additional equipment needs, and establish a functional maintenance program that will increase ability of patient to remain at home. TREATMENT CODE/TIME: 96139 x 43 minutes beginning at 9:25 AM.
--- NOTE | 2019-08-16 11:38 | PDOC.CMPRO ---
- If Service Date Differs Date of service: 08/16/19 Time of Service: 11:40 Care Management Progress Note S/O: Piyush was unable to tolerate the BiPap for more than 30 minutes last night. Patient agreed to a PT session today. PT's recommendation is that he would benefit from Home Health PT to progress his mobility following discharge. A palliative care consult was also ordered today. CM will continue to follow. A: Piyush is a 64 year old male admitted to [facility] on 08/13/19 for CHF. P: No change in plan. Piyush will be discharged home when medically cleared by provider. He has Choices for Care - highest need in the community and his welfare case worker is Arabella Metcalf. RT is coordinating a new Trilogy unit for home through [facility]. Piyush will be driven home by family via private vehicle when ready. CM will continue to follow.
--- NOTE | 2019-08-16 15:40 | PGE_ITS ---
Date of Service Date of service: 08/16/19 Time of Service: 15:40 Subjective Subjective Interval history since last seen: Mr Heard did not wear his BiPAP last night. When I came to see him, he was asleep without the BiPAP. It took a while to wake him up. When he did wake up, he raised his finger to indicate for me to wait before talking to him. When he was ready for me to talk to him, I attempted to start counseling him on the use of BiPAP at night. I told him that, if he didn't, he would end up intubated again one day. To this, Mr Heard said that he just wants me to leave him alone (repeatedly) and asked me to leave the room. Palliative care consult has been placed as he is full code and I do feel that reintubation is something that could be in this patient's future, though no immedate. Objective Objective Clinical Data: Abnormal lab results 08/16/19 Range/Units 06:45 Chloride 94 L (98-107) mmol/L Carbon Dioxide 40.4 H (21.0-32.0) mmol/L BUN 30 H (7-18) mg/dL Creatinine 1.79 H (0.70-1.30) mg/dL Glucose 163 H (74-106) mg/dL Vital Signs Temperature 36.8 C 08/16/19 11:45 Temperature Source Tympanic 08/16/19 11:45 Pulse 69 08/16/19 11:45 Pulse Rhythm Regular 08/16/19 11:34 Pulse 69 08/15/19 08:01 Respiratory Rate 19 08/16/19 11:45 Respiratory Effort 08/16/19 11:34 Respiratory Depth Normal 08/16/19 11:34 Respiratory Pattern Normal 08/16/19 11:34 Blood Pressure 115/72 08/16/19 11:45 Blood Pressure Mean 82 08/15/19 08:01 Blood Pressure Position Supine 08/15/19 07:47 Pulse Oximetry 93 L 08/16/19 11:45 Oxygen Delivery Method Nasal Cannula 08/16/19 11:45 Oxygen Flow Rate 4 08/16/19 11:45 Fraction of Inspired Oxygen (FIO2) 35 08/16/19 08:20 Pain Level 0 08/16/19 11:45 Comment 08/15/19 23:15 Intake & Output 08/15/19 08/16/19 08/16/19 23:59 11:59 23:59 Intake Total 580.0 / 1880.5 570 / 810 240 / 810 Output Total 1175 / 3725 925 / 925 Balance -595.0 / -1844.5 -355 / -115 240 / -115 Weight 138.8 kg Intake: IV 100.0 / 200.5 Oral 480 / 1680 570 / 810 240 / 810 Output: Urine 1175 / 3725 925 / 925 Other: Urine Color Yellow Yellow Urine Appearance Clear Clear Urine Odor Normal None Voiding Methods Urinal Urinal Laboratory Results WBC 12.37 k/cumm (4.4-10.8) H 08/14/19 06:23 RBC 4.77 m/cumm (4.50-6.00) 08/14/19 06:23 Hgb 14.9 g/dL (13.5-17.5) 08/14/19 06:23 Hct 47.3 % (40.0-50.0) 08/14/19 06:23 MCV 99.2 fL (80-95) H 08/14/19 06:23 MCH 31.2 pg (27.0-33.0) 08/14/19 06:23 MCHC 31.5 g/dL (32.0-36.0) L 08/14/19 06:23 RDW 17.7 % (11.8-14.1) H 08/14/19 06:23 Plt Count 203 x1000/uL (130-400) 08/14/19 06:23 MPV 9.7 fL (8.0-11.0) 08/14/19 06:23 Immature Gran % 0.2 % 08/14/19 06:23 Neutrophils % 87.1 08/14/19 06:23 Lymphocytes % 6.0 08/14/19 06:23 Monocytes % 5.8 08/14/19 06:23 Eosinophils % 0.8 08/14/19 06:23 Basophils % 0.1 08/14/19 06:23 Absolute Neutrophils 10.77 k/cumm (1.2-6.7) H 08/14/19 06:23 Absolute Lymphocytes 0.74 k/cumm (1.2-3.4) L 08/14/19 06:23 Absolute Monocytes 0.72 k/cumm (0.11-0.7) H 08/14/19 06:23 Absolute Eosinophils 0.10 k/cumm (0.0-0.7) 08/14/19 06:23 Absolute Basophils 0.01 k/cumm (0.0-0.2) 08/14/19 06:23 ABG Sample Site 08/14/19 11:00 ABG pH 7.40 (7.35-7.45) 08/14/19 11:00 ABG pCO2 66 mmHg (34-47) H* 08/14/19 11:00 ABG pO2 63 mmHg (83-108) L 08/14/19 11:00 ABG HCO3 41 mmol/L (22-28) H 08/14/19 11:00 ABG Total CO2 36 mmol/L (22-29) H 08/14/19 11:00 ABG O2 Saturation 92 % (94-98) L 08/14/19 11:00 ABG Base Excess > 15.0 mmol/L (-3-3) H 08/14/19 11:00 Oxygen Liter Flow 6 L 08/13/19 09:26 FiO2 30 % 08/13/19 17:10 Sodium 138 mmol/L (136-145) 08/16/19 06:45 Potassium 3.9 mmol/L (3.5-5.1) 08/16/19 06:45 Chloride 94 mmol/L (98-107) L 08/16/19 06:45 Carbon Dioxide 40.4 mmol/L (21.0-32.0) H 08/16/19 06:45 Anion Gap 3.6 mmol/L (3-11) 08/16/19 06:45 BUN 30 mg/dL (7-18) H 08/16/19 06:45 Creatinine 1.79 mg/dL (0.70-1.30) H 08/16/19 06:45 Estimated GFR/1.73 m2 38.67 (mL/min/1.73m2) 08/16/19 06:45 Glucose 163 mg/dL (74-106) H 08/16/19 06:45 Calcium 8.8 mg/dL (8.5-10.1) 08/16/19 06:45 Magnesium 2.1 mg/dL (1.8-2.4) 08/16/19 06:45 Total Bilirubin 0.6 mg/dL (0.2-1.0) 08/12/19 22:55 AST 20 U/L (15-37) 08/12/19 22:55 ALT 33 U/L (16-63) 08/12/19 22:55 Alkaline Phosphatase 123 U/L (46-116) H 08/12/19 22:55 Troponin I < 0.05 ng/mL (<0.06) 08/13/19 06:15 NT-Pro-B Natriuret Pep 796 pg/mL (<300) H 08/15/19 06:15 Total Protein 6.9 g/dL (6.4-8.2) 08/12/19 22:55 Albumin 2.8 g/dL (3.4-5.0) L 08/12/19 22:55 Procalcitonin 0.1 ng/mL 08/16/19 06:45 TSH 4.11 uIU/mL (0.36-3.74) H 08/15/19 06:15 Free T4 1.04 ng/dL (0.76-1.46) 08/15/19 06:15 COVID-19 PCR Negative (Negative) 08/13/19 00:52 Nasopharyn COVID-19 PCR Not Applicable 08/13/19 00:52 Ref Test Perform Site [facility] lab 08/13/19 00:52
[2019-08-16] MEDS: Atorvastatin 40 MG TAB 80 MG PO (19:33)
[2019-08-17] VITALS (9 sets, daily range): BP systolic 112–168; BP diastolic 64–88; PULSE 65–77; RESP 13–20; TEMP 36.2–37; O2SAT 73–94
[2019-08-17] MEDS: Heparin 5,000 UNITS/ML VIAL 5000 UNITS SC ×3 (06:12→22:21)
[2019-08-17 06:54] LABS: HCT 48.2 % (40.0-50.0); HGB 14.6 g/dL (13.5-17.5); Mean Corp. HGB Concentration 30.3 g/dL (32.0-36.0); Mean Platelet Volume 10.2 fL (8.0-11.0); Platelet Count 196 x1000/uL (130-400); RBC 4.87 m/cumm (4.50-6.00); RBC Distribution Width 16.8 % (11.8-14.1); White Blood Cell Count 7.93 k/cumm (4.4-10.8)
[2019-08-17 07:17] LABS: Anion Gap 1.6 mmol/L (3-11); BUN 32 mg/dL (7-18); CO2 41.4 mmol/L (21.0-32.0); Calcium 8.6 mg/dL (8.5-10.1); Chloride 95 mmol/L (98-107); Estimated GFR 41.04 (mL/min/1.73m2); Glucose 174 mg/dL (74-106); Sodium 138 mmol/L (136-145)
--- NOTE | 2019-08-17 08:00 | DI.US_ITS ---
EXAM: US RENAL CLINICAL HISTORY: SELINA on CKD. TECHNIQUE: Cabrera scale, color and spectral Doppler were used. COMPARISON: US US renal from 11/04/2017 FINDINGS: Study was limited due to patient body habitus. Right kidney measures 10.2 cm long. The left kidney measures 11.4 cm long. No gross abnormality is seen in the kidneys sonographically. No hydronephrosis is seen. Prevoid urinary bladder volume was 37 cc. No intraluminal mass was seen. The ureteral jets were not visualized during this examination . IMPRESSION: 1. Limited examination. This is in part due to the patient body habitus. 2. No gross abnormality is identified. DATA REPOSITORY:
[2019-08-17] MEDS: Tiotropium Bromide-Respimat 10 PUFF INH IH (08:13)
[2019-08-17] MEDS: Methadone 5 MG TAB PO ×2 (08:39→19:55)
[2019-08-17] MEDS: Multivitamin TAB 1 TAB PO (08:39)
[2019-08-17] MEDS: Ferrous Sulfate 325 MG TAB PO (08:39)
[2019-08-17] MEDS: Sucralfate 1 GM TAB PO ×4 (08:39→19:55)
[2019-08-17] MEDS: Aspirin E.C. 81 MG TABEC PO (08:39)
[2019-08-17] MEDS: Cholecalciferol (Vitamin D3) 1,000 UNIT TAB 2000 UNITS PO (08:39)
[2019-08-17] MEDS: Insulin Aspart 300 UNITS/3 ML PEN SC ×4 (08:39→22:20)
[2019-08-17] MEDS: Pantoprazole 40 MG TABCR PO (08:39)
[2019-08-17] MEDS: Metoprolol CR 25 MG TABCR PO (08:39)
[2019-08-17] MEDS: Normal Saline Flush 10 ML SYR 20 ML IVP ×2 (08:40→19:56)
[2019-08-17] MEDS: Amoxicillin 500 MG CAP PO ×2 (08:40→19:55)
--- NOTE | 2019-08-17 10:22 | PT.INTREAT ---
Date of service: 08/17/19 Time of Service: 10:22 PT Notes Visit Reasons: Congestive heart failure Physical Therapy Inpatient Treatment Note Date: 08/17/2019 Precautions: Fall. Standard. Acivity as tolerated. Orthopedic shoes on with lift on R at all times when out of bed. Subjective: Reported stabbing pain on his left flank with ambulation activity that subsided with rest. Nurse Rufino updated. Shonna states that patient is almost his baseline in terms of mobility needing minimal to moderate help to stand up. She vosices that having a hospital bed at home will significantly help both of them as she has back issues that she is dealing with herself. Objective: General Observation: Obese. Telemetry monitoring in place. R knee fixed in extension. Leg length discrepancy with R longer than the L. In NAD, O2 supp of 3L/min on via NC. Mental Status: Patient alert but disoriented as to place and time. Pain: None reported Bed Mobility/Transfers: Supine to sit moderate assist Sit to stand minimal assist with minimal verbal cueing for hand placement, needs FWW Stand to sit minimal assist with minimal verbal cueing for hand placement, needs FWW Bed to chair minimal assist with minimal verbal cueing for hand placement, needs FWW Chair to bed minimal assist with minimal verbal cueing for hand placement, needs FWW Gait: 70' + 60' requiring CGA using FWW with minimal verbal cueing for safety provided. Orthopedic shoes on. Wide-based gait. Step-to. No knee flexion on the R. Balance: Static Sitting: Normal Dynamic Sitting: Good Static Standing: Fair Dynamic Standing: Fair Assessment: Limited by L flank pain today during ambulation activity. Required a little more help during ambulation due to pain complaint. Plan of Care/Treatment Plan: Continue with POC as initially established DISCHARGE RECOMMENDATIONS: Patient will require a hospital bed at home to maximize independence with bed mobility and transfers while promoting safety for both patient and caregiver. Patient will benefit from home health PT services in order to progress mobility level using least restrictive assistive ambulatory device, assess home safety, identify additional equipment needs, and establish a functional maintenance program that will increase ability of patient to remain at home. TREATMENT CODE/TIME: 26405 x 28 minutes beginning at 10:22 AM.
[2019-08-17] MEDS: Acetaminophen 325 MG TAB 650 MG PO ×2 (10:52→23:32)
--- NOTE | 2019-08-17 12:23 | CMPROGNOTE_ITS ---
- If Service Date Differs Date of service: 08/17/19 Time of Service: 12:23 Care Management Progress Note S/O: Piyush remains acute he does have a palliative consult ordered waiting for confirmation of a time. He has not been able to tolerate the BIPAP he has been approved for the Trilogy. He remains acute today. Palliative will meet with him at 1200 it will be CM has updated his spouse. A: Piyush is a 64 year old male admitted to [facility] on 08/13/19 for CHF. P: No change in plan. Piyush will be discharged home when medically cleared by provider. He has Choices for Care - highest need in the community and his pillowcase turner is Arabella Metcalf. RT is coordinating a new Trilogy unit for home through [facility]. Piyush will be driven home by family via private vehicle when ready. CM will continue to follow.
--- NOTE | 2019-08-17 12:32 | W.PM.PROGNOT ---
Date of Service Date of service: 08/17/19 Time of Service: 12:32 Assessment and Plan Assessment and plan (1) Acute on chronic respiratory failure with hypoxia and hypercapnia: Status: Acute Assessment and plan: Multifactorial - due to acute on chronic diastolic CHF, Likely underlying OHS, mild-moderate pulmonary hypertension, and less so acute exacerbation of COPD. The patient firmly states to me that he is full code. says they filled out a portion of the COLST form. She'll bring it in. They agree to meeting with palliative care. Trying trilogy today. (2) Heart failure with preserved ejection fraction: Status: Acute Assessment and plan: Transition to PO lasix today. Plan to discharge home tomorrow. Qualifiers: Heart failure chronicity: acute on chronic Qualified Code(s): I50.33 - Acute on chronic diastolic (congestive) heart failure (3) Type 2 diabetes mellitus: Status: Chronic Assessment and plan: Continue basal bolus insulin Qualifiers: Diabetes mellitus penitentiary insulin use: with penitentiary use Diabetes mellitus complication status: with kidney complications Diabetes mellitus complication detail: with chronic kidney disease (4) Acute kidney injury (nontraumatic): Status: Acute Assessment and plan: Likely cardiorenal. Continue diuresis as above. Hopefully will wear the trilogy. Monitor Cr, I/O's, daily weights. Refuses rios catheter. (5) COPD (chronic obstructive pulmonary disease): Status: Chronic Assessment and plan: Agree that he does not appear to have an acute exacerbation of COPD. Continue spiriva, prn albuterol. Recheck procalcitonin low. Qualifiers: COPD type: unspecified COPD Qualified Code(s): J44.9 - Chronic obstructive pulmonary disease, unspecified (6) Mixed sleep apnea: Status: Chronic Assessment and plan: Trial trilogy today/tonight. (7) DVT prophylaxis: Status: Acute Assessment and plan: SC heparin (8) Discharge planning issues: Status: Acute Assessment and plan: Full code Palliative care consulted to help fill out COLST form. Plan for discharge home tomorrow. Subjective Subjective Interval history since last seen: Mr Heard states his breathing is better today. Did not wear BiPAP last night. He states that he is supposed to be on 3L of O2 at home ([employer]). He is about to try trilogy. States he will give it a chance. He denies dizziness, chest pain, shortness of breath, nausea. His legs and abdominal swelling are down, per . She thinks he looks to be back to normal. They would like to go home tomorrow. They agree to a palliative care care consult. Exam Narrative Exam Narrative: General: Obese male, A&Ox3, looks better, sitting up in a chair, playing cards with his . HEENT: EOMI, MMM, large neck diameter, on NC. Heart: RRR, no m/r/g Lungs: CTAB Abdomen: soft, obese, nontender Extremities: trace edema BLEs, no c/c Objective Objective Clinical Data: Abnormal lab results 08/17/19 08/17/19 Range/Units 06:10 06:10 MCV 99.0 H (80-95) fL MCHC 30.3 L (32.0-36.0) g/dL RDW 16.8 H (11.8-14.1) % Chloride 95 L (98-107) mmol/L Carbon Dioxide 41.4 H (21.0-32.0) mmol/L Anion Gap 1.6 L (3-11) mmol/L BUN 32 H (7-18) mg/dL Creatinine 1.70 H (0.70-1.30) mg/dL Glucose 174 H (74-106) mg/dL Vital Signs Temperature 36.3 C L 08/17/19 12:27 Temperature Source Tympanic 08/17/19 12:27 Pulse 65 08/17/19 12:27 Pulse Rhythm Regular 08/17/19 09:53 Pulse 69 08/15/19 08:01 Respiratory Rate 16 08/17/19 12:27 Respiratory Effort Non-Labored 08/17/19 09:53 Respiratory Depth Normal 08/17/19 09:53 Respiratory Pattern Normal 08/17/19 09:53 Blood Pressure 126/75 08/17/19 12:27 Blood Pressure Mean 82 08/15/19 08:01 Blood Pressure Position Supine 08/15/19 07:47 Pulse Oximetry 94 L 08/17/19 12:27 Oxygen Delivery Method Nasal Cannula 08/17/19 12:27 Oxygen Flow Rate 2 08/17/19 12:27 Fraction of Inspired Oxygen (FIO2) 35 08/16/19 08:20 Pain Level 5 08/17/19 10:52 Comment 08/15/19 23:15 Intake & Output 08/16/19 08/17/19 08/17/19 23:59 11:59 23:59 Intake Total 610 / 1180 525.666 / 765.666 240 / 765.666 Output Total 1800 / 2725 1120 / 1120 Balance -1190 / -1545 -594.334 / -354.334 240 / -354.334 Weight 142.1 kg Intake: IV 130 / 130 75.666 / 75.666 Oral 480 / 1050 450 / 690 240 / 690 Output: Urine 1800 / 2725 1120 / 1120 Other: Urine Color Pale Yellow Yellow Urine Appearance Clear Clear Stool Size Large Stool Characteristics Soft Formed Brown Voiding Methods Urinal Urinal Laboratory Results WBC 7.93 k/cumm (4.4-10.8) 08/17/19 06:10 RBC 4.87 m/cumm (4.50-6.00) 08/17/19 06:10 Hgb 14.6 g/dL (13.5-17.5) 08/17/19 06:10 Hct 48.2 % (40.0-50.0) 08/17/19 06:10 MCV 99.0 fL (80-95) H 08/17/19 06:10 MCH 30.0 pg (27.0-33.0) 08/17/19 06:10 MCHC 30.3 g/dL (32.0-36.0) L 08/17/19 06:10 RDW 16.8 % (11.8-14.1) H 08/17/19 06:10 Plt Count 196 x1000/uL (130-400) 08/17/19 06:10 MPV 10.2 fL (8.0-11.0) 08/17/19 06:10 Immature Gran % 0.2 % 08/14/19 06:23 Neutrophils % 87.1 08/14/19 06:23 Lymphocytes % 6.0 08/14/19 06:23 Monocytes % 5.8 08/14/19 06:23 Eosinophils % 0.8 08/14/19 06:23 Basophils % 0.1 08/14/19 06:23 Absolute Neutrophils 10.77 k/cumm (1.2-6.7) H 08/14/19 06:23 Absolute Lymphocytes 0.74 k/cumm (1.2-3.4) L 08/14/19 06:23 Absolute Monocytes 0.72 k/cumm (0.11-0.7) H 08/14/19 06:23 Absolute Eosinophils 0.10 k/cumm (0.0-0.7) 08/14/19 06:23 Absolute Basophils 0.01 k/cumm (0.0-0.2) 08/14/19 06:23 ABG Sample Site 08/14/19 11:00 ABG pH 7.40 (7.35-7.45) 08/14/19 11:00 ABG pCO2 66 mmHg (34-47) H* 08/14/19 11:00 ABG pO2 63 mmHg (83-108) L 08/14/19 11:00 ABG HCO3 41 mmol/L (22-28) H 08/14/19 11:00 ABG Total CO2 36 mmol/L (22-29) H 08/14/19 11:00 ABG O2 Saturation 92 % (94-98) L 08/14/19 11:00 ABG Base Excess > 15.0 mmol/L (-3-3) H 08/14/19 11:00 Oxygen Liter Flow 6 L 08/13/19 09:26 FiO2 30 % 08/13/19 17:10 Sodium 138 mmol/L (136-145) 08/17/19 06:10 Potassium 4.0 mmol/L (3.5-5.1) 08/17/19 06:10 Chloride 95 mmol/L (98-107) L 08/17/19 06:10 Carbon Dioxide 41.4 mmol/L (21.0-32.0) H 08/17/19 06:10 Anion Gap 1.6 mmol/L (3-11) L 08/17/19 06:10 BUN 32 mg/dL (7-18) H 08/17/19 06:10 Creatinine 1.70 mg/dL (0.70-1.30) H 08/17/19 06:10 Estimated GFR/1.73 m2 41.04 (mL/min/1.73m2) 08/17/19 06:10 Glucose 174 mg/dL (74-106) H 08/17/19 06:10 Calcium 8.6 mg/dL (8.5-10.1) 08/17/19 06:10 Magnesium 2.0 mg/dL (1.8-2.4) 08/17/19 06:10 Total Bilirubin 0.6 mg/dL (0.2-1.0) 08/12/19 22:55 AST 20 U/L (15-37) 08/12/19 22:55 ALT 33 U/L (16-63) 08/12/19 22:55 Alkaline Phosphatase 123 U/L (46-116) H 08/12/19 22:55 Troponin I < 0.05 ng/mL (<0.06) 08/13/19 06:15 NT-Pro-B Natriuret Pep 796 pg/mL (<300) H 08/15/19 06:15 Total Protein 6.9 g/dL (6.4-8.2) 08/12/19 22:55 Albumin 2.8 g/dL (3.4-5.0) L 08/12/19 22:55 Procalcitonin 0.1 ng/mL 08/16/19 06:45 TSH 4.11 uIU/mL (0.36-3.74) H 08/15/19 06:15 Free T4 1.04 ng/dL (0.76-1.46) 08/15/19 06:15 COVID-19 PCR Negative (Negative) 08/13/19 00:52 Nasopharyn COVID-19 PCR Not Applicable 08/13/19 00:52 Ref Test Perform Site [facility] 08/13/19 00:52
[2019-08-17] MEDS: Furosemide 40 MG TAB PO (15:14)
--- NOTE | 2019-08-17 16:27 | CHAPLAIN ---
This was the first time I visited Nolan outside of the ICU. He said he is expecting to be discharged tomorrow. During his ICU stay, Nolan went back and forth about being DNR/DNI. His Sydney left the decision up to him and said would support whatever he chose to do, including take him home on hospice. Nolan has a Palliative Care consult scheduled for while he is here.
[2019-08-17] MEDS: Atorvastatin 40 MG TAB 80 MG PO (19:56)
[2019-08-18 00:28] VITALS: BP 165/76; PULSE 94; RESP 22; TEMP 36.7; O2SAT 93
[2019-08-18 04:25] VITALS: BP 151/81; PULSE 82; RESP 20; TEMP 36.4; O2SAT 93
[2019-08-18] MEDS: Heparin 5,000 UNITS/ML VIAL 5000 UNITS SC (06:00)
[2019-08-18 07:50] LABS: Anion Gap 1.6 mmol/L (3-11); BUN 34 mg/dL (7-18); CO2 39.4 mmol/L (21.0-32.0); CREATININE 1.82 mg/dL (0.70-1.30); Calcium 8.9 mg/dL (8.5-10.1); Chloride 96 mmol/L (98-107); Estimated GFR 37.94 (mL/min/1.73m2); Glucose 221 mg/dL (74-106); Magnesium 2.4 mg/dL (1.8-2.4); Potassium 4.3 mmol/L (3.5-5.1); Sodium 137 mmol/L (136-145)
[2019-08-18] MEDS: Cholecalciferol (Vitamin D3) 1,000 UNIT TAB 2000 UNITS PO (07:53)
[2019-08-18] MEDS: Amoxicillin 500 MG CAP PO (07:53)
[2019-08-18] MEDS: Pantoprazole 40 MG TABCR PO (07:53)
[2019-08-18] MEDS: Multivitamin TAB 1 TAB PO (07:53)
[2019-08-18] MEDS: Metoprolol CR 25 MG TABCR PO (07:54)
[2019-08-18] MEDS: Furosemide 40 MG TAB PO (07:54)
[2019-08-18] MEDS: Methadone 5 MG TAB PO (07:54)
[2019-08-18] MEDS: Sucralfate 1 GM TAB PO ×2 (07:54→12:02)
[2019-08-18] MEDS: Aspirin E.C. 81 MG TABEC PO (07:54)
[2019-08-18] MEDS: Insulin Aspart 300 UNITS/3 ML PEN SC ×2 (07:54→11:40)
[2019-08-18] MEDS: Ferrous Sulfate 325 MG TAB PO (07:54)
[2019-08-18] MEDS: Normal Saline Flush 10 ML SYR 20 ML IVP (07:56)
[2019-08-18] MEDS: Tiotropium Bromide-Respimat 10 PUFF INH IH (08:03)
[2019-08-18 08:15] VITALS: BP 136/79; PULSE 67; RESP 18; TEMP 36.9; O2SAT 93
--- NOTE | 2019-08-18 08:45 | CMPROGNOTE_ITS ---
- If Service Date Differs Date of service: 08/18/19 Time of Service: 08:45 Care Management Progress Note S/O: A: Piyush is a 64 year old male admitted to [facility] on 08/13/19 for CHF. P: No change in plan. Piyush will be discharged home when medically cleared by provider. He has [facility] - highest need in the community and his insurance case manager is Arabella Metcalf. RT is coordinating a new Trilogy unit for home through [facility]. Piyush will be driven home by family via private vehicle when ready. CM will continue to follow.
--- NOTE | 2019-08-18 10:00 | CMDISCH_ITS ---
- If Service Date Differs Date of service: 08/18/19 Time of Service: 10:00 LACE Index Scoring Tool - Questions: Length of Stay (in days): 4 - 6 Comorbidities: Previous M.I., Diabetes w/o Complication, Congestive Heart Failure, Liver or Renal Disease E.D. Visits: 4 Care Management Discharge Reason for Hospitalization: CHF Discharge Plan: Piyush is leaving AMA, he was a planned discharged home today with new home health services however he was unable to wait for the discharge as they have grandchildren at home they needed to be home for. Piyush has his new Trilogy, and new home health ordered. CM contacted his once they returned home and reviewed medication changes including the increase in Lasix and stopping the Metformin. He also should start Januvia spouse is concerend that the Januvia will not be covered CM will follow up pharmacy and medicaid to verify. CM contacted home health faxed orders and left a message for Arabella johnson for additional help with air conditioning. Piyush will resume home oxygen through [facility]. Patient/Family Education Needs: Discharge education, limitations and follow up plan of care including ask me three and self management. Services Needed at Discharge: DME Agency, Home Health Care Services, Oxygen Therapy, Respiratory Care Services
[2019-08-18 11:30] VITALS: BP 133/77; PULSE 71; RESP 17; TEMP 36.1; O2SAT 94
--- NOTE | 2019-08-18 14:20 | PT.INTREAT ---
Date of service: 08/18/19 Time of Service: 14:20 PT Notes Visit Reasons: Congestive heart failure Inpatient Physical Therapy Treatment Note [facility] Date: 08/18/19 PRECAUTIONS: Fall, activity as tolerated SUBJECTIVE: Piyush is agreeable to participating in PT, he reports that he will be going home today. OBJECTIVE: PAIN: No complaints of pain BED MOBILITY/TRANSFERS Supine-sit: Min A with HOB at 30 degrees Sit-stand: SBA from elevated bed surface Stand-sit: CGA GAIT Assistive Device: FWW Weight bearing: Full Assist: SBA Distance: 30' +10' Deviation: 3L O2 via NC, seated rest x2 minutes ASSESSMENT: Patient required seated rest with gait training due to increased fatigue. Patient would benefit from continued gait training as well as global strengthening for improved mobility and strength. PLAN: As per primary PT TREATMENT CODE/TIME: 25 minutes; [id number] x2
--- NOTE | 2019-08-18 14:21 | W.PM.DS.N ---
Date of service: 08/18/19 Time of Service: 14:22 DS: Diagnosis Discharge Diagnosis (1) Acute on chronic respiratory failure with hypoxia and hypercapnia: Status: Acute (2) Heart failure with preserved ejection fraction: Status: Acute (3) Type 2 diabetes mellitus: Status: Chronic (4) Acute kidney injury (nontraumatic): Status: Acute (5) COPD (chronic obstructive pulmonary disease): Status: Chronic (6) Mixed sleep apnea: Status: Chronic (7) Obesity, morbid, BMI 40.0-49.9: Status: Acute (8) Noncompliance: Status: Acute Discharge Plan Disposition Patient Disposition: AGAINST MEDICAL ADVICE Condition: Fair Discharge Details Chief Complaint: SOB Clinical Impression: CHF (congestive heart failure), Acute kidney injury (nontraumatic) Reason For Visit: CHF Admit Date/Time: 08/13/19 22:00 Admit Provider: Sam Merida Attending Provider: Sam Merida Primary Care Provider: Allison Muniz ED Provider: Migel Calderon [place] Hospital Course Hospital Course: Mr Heard is a 64 year old male with PMHx of chronic hypoxic hypercapnic respiratory failure, COPD, chronic diastolic CHF, CARLOS/OHS, noncompliance with CPAP/BiPAP, who was admitted to [facility] ICU under hospitalist service on 08/13/2019 with acute on chronic hypoxic hypercapnic respiratory failure due to acute on chronic diastolic CHF. His COPD did not appear to be in acute exacerbation on this admission, so he did not receive steroids or antibiotics. He responded well to diuresis and BiPAP therapy. He was transitioned to Trilogy therapy which is a better fit considering his multiple respiratory comorbidities. He is leaving AMA today. He already has oxygen at home and was set up with trilogy prior to discharge. His new discharge medications are being sent to pharmacy. Patient was not seen on the day he left AMA. Home Meds and New Rx's Prescriptions: New furosemide 40 mg Tablet 40 mg PO BID@0830,1600 Qty: 20 RF: 0 Januvia 50 mg tablet 50 mg PO DAILY Qty: 30 RF: 0 Continued pantoprazole 40 MG tablet,delayed release (DR/EC) 40 mg PO DAILY@0730 Qty: 30 RF: 3 aspirin 81 mg Tablet,Delayed Release (Dr/Ec) 81 mg PO DAILY Qty: 0 RF: 0 atorvastatin 80 mg Tablet 80 mg PO QPM RF: 0 insulin lispro [Humalog KwikPen Insulin] 100 unit/mL Insulin Pen 0 unit SUBCUT QAC RF: 0 sennosides-docusate sodium [Senna with Docusate Sodium] 8.6-50 mg Tablet 2 tab PO BID RF: 0 ferrous sulfate 325 mg (65 mg iron) tablet 325 mg PO QDAY RF: 0 metoprolol succinate 25 mg tablet extended release 24 hr 25 mg PO QDAY RF: 0 cholecalciferol (vitamin D3) 50 mcg (2,000 unit) capsule 2,000 unit PO QDAY RF: 0 methadone [Dolophine] 5 MG tablet 5 mg PO BID RF: 0 acetaminophen 500 MG tablet 1,000 mg PO DAILY PRNRF: 0 Spiriva with HandiHaler 18 MCG capsule, w/inhalation device 18 mcg Inhalation DAILY RF: 0 ProAir RespiClick 90 MCG aerosol powdr breath activated 2 puffs Inhalation Q4H PRN PRNRF: 0 sucralfate 1 GM tablet 1 gm PO QID RF: 0 amoxicillin 500 mg Capsule 500 mg PO BID RF: 0 multivitamin Capsule 1 cap PO QAM RF: 0 Narcan 4 mg/actuation Olive,Non-Aerosol 4 mg INTRANASAL Q2M PRNRF: 0 Discontinued furosemide 20 mg tablet 20 mg PO BID RF: 0 metformin [Glucophage] 1,000 MG tablet 1,000 mg PO BID RF: 0 Discharge Instructions Additional Instructions: Patient left before receiving discharge instructions. Referrals: Allison Muniz [Primary Care Provider] - Activity:: Activity as Tolerated Equipment/Supplies:: [employer] Diet:: heart healthy carb consistent Discharge Orders Discharge Orders: Discharge Order (Routine); Ordered 08/18/19 Ordered By: Carola Stein Discharge Data Discharge Date/Time-TO BE ENTERED AT DEPARTURE: 08/18/19 14:25 DS: Summary Status at Discharge Functional status at discharge: uses cane/walker Overall status at discharge: patient is back to baseline Mental Status: mental status grossly normal Speech and Movement: speech and movement normal Mood: dysthymic mood Affect: labile affect Exam Narrative Exam Narrative: Patient left prior to being examined Psych Mental Status: mental status grossly normal Speech and Movement: speech and movement normal Mood: dysthymic mood Affect: labile affect DS: Data Vitals/I&O Vitals and I&O: Vital Signs Temperature 36.1 C L 08/18/19 11:30 Temperature Source Tympanic 08/18/19 11:30 Pulse 71 08/18/19 11:30 Pulse Rhythm Regular 08/18/19 08:52 Pulse 69 08/15/19 08:01 Respiratory Rate 17 08/18/19 11:30 Respiratory Effort 08/18/19 08:52 Respiratory Depth Normal 08/18/19 08:52 Respiratory Pattern Normal 08/18/19 08:52 Blood Pressure 133/77 08/18/19 11:30 Blood Pressure Mean 82 08/15/19 08:01 Blood Pressure Position Supine 08/15/19 07:47 Pulse Oximetry 94 L 08/18/19 11:30 Oxygen Delivery Method Nasal Cannula 08/18/19 11:30 Oxygen Flow Rate 2 08/18/19 11:30 Fraction of Inspired Oxygen (FIO2) 35 08/16/19 08:20 Pain Level 7 08/18/19 11:30 Comment 08/15/19 23:15 Intake & Output 08/17/19 08/18/19 08/18/19 23:59 11:59 23:59 Intake Total 740 / 1265.666 240 / 240 Output Total 450 / 1570 250 / 450 200 / 450 Balance 290 / -304.334 -10 / -210 -200 / -210 Weight 141.8 kg Intake: IV 20 / 95.666 Oral 720 / 1170 240 / 240 Output: Urine 450 / 1570 250 / 450 200 / 450 Other: Urine Color Light Kenia Yellow Yellow Urine Appearance Clear Clear Clear Stool Size Copious Stool Characteristics Formed Brown Voiding Methods Urinal Urinal Urinal Data Completed and Pending Completed studies during hospitalization [Text1]: CXR 08/12/2019: Limited exam due to patient body habitus. No acute abnormality is identified. Echo 08/13/2019: This is a technically limited study. Left Ventricle : The left ventricle is normal size. The overall left ventricular systolic function appears normal. Mild concentric left ventricular hypertrophy. Regional wall motion is grossly normal. LVEF is 50%. Right Ventricle : Right ventricle is not well visualized. Right ventricular systolic function could not be assessed. The RVSP is 27.5mmHg. Atria : The left atrium size is normal. Right atrium is not well visualized. Valves: There are no hemodynamically significant valvular lesions. Great Vessels : The IVC collapses <50% with inspiration. Please see remainder of report for additional details. Compared to echocardiogram from 11/01/2017, there is no significant change. Venous Doppler BLE's 08/13/2019: Limited exam due to patient body habitus. No evidence of DVT CXR 08/13/2019: Satisfactory placement of PICC line. US renal 08/17/19: 1. Limited examination. This is in part due to the patient body habitus. 2. No gross abnormality is identified. Labs on day of discharge: Labs from last 24 hours 08/18/19 06:40 Sodium 137 Potassium 4.3 Chloride 96 L Carbon Dioxide 39.4 H Anion Gap 1.6 L BUN 34 H Creatinine 1.82 H Estimated GFR/1.73 m2 37.94 Glucose 221 H Calcium 8.9 Magnesium 2.4 [facility] Medical History (Updated 08/18/19 @ 14:24 by Carola Stein MD) Acute kidney injury (nontraumatic) (Acute) Cardiomyopathy (Acute) Chronic osteomyelitis (Chronic) COPD (chronic obstructive pulmonary disease) (Chronic) COPD exacerbation (Acute) Diabetes mellitus (Chronic) Heart failure with preserved ejection fraction (Acute) HTN (hypertension) (Chronic) Hypertension (Chronic) Infection of prosthetic knee joint (Chronic) Iron deficiency anemia (Chronic) Mixed sleep apnea (Chronic) Non-ST elevation myocardial infarction (NSTEMI) (Acute) Obesity, morbid, BMI 40.0-49.9 (Acute) CARLOS (obstructive sleep apnea) (Chronic) Sinus pause (Acute) Type 2 diabetes mellitus (Chronic) Surgical History EGD - MAC (09/10/16) Previous back surgery (Chronic) S/P hernia repair (Chronic) S/P right knee surgery (Chronic) Status post left knee replacement (Chronic) Family History Sister Diabetes Social History Smoking/Tobacco Use Status: Former Tobacco Use Tobacco: How many years used: 20 Second Hand Exposure: Yes Alcohol Intake: former Drug use: Occasionally Substance use type: marijuana Household members: spouse Number of Children: 4 Do you feel safe at home: Yes Do you feel safe in your relationship?: Yes
--- NOTE | 2019-08-18 14:43 | PDOC.HHF2F_ITS ---
Home Health Certification Home Health Certification: 1. Encounter Date and Reason I certify that DEREK AGUIRRE was seen by Carola Stein on 08/18/19 and that I had a [id number] encounter with this patient that meets the physician face to face encounter requirements. 2. Clinical Findings Supporting Skilled Need and Homebound Status I certify that home health services are medically necessary, include either intermittent group home and/or physical/speech therapy, and that this patient is homebound in that absences from the home require considerable and taxing effort and are infrequent or of short duration, or are attributable to the need to receive medical care. [X] (a) Attached documentation from encounter provides clinical findings supporting skilled need and homebound status (including what assistance patient requires to leave the home). The encounter with the patient was in whole, or in part, for the following medical condition, which is the primary reason for home health care: CHF Senior Living: CHF, COPD, just set up with a new trilogy machine. Lasix dose increased to 40 BID. Metformin stopped for DM, januvia started. Evaluate/teach for medication compliance/safety. Physical Therapy: evaluate and treat Homebound: unable to leave home without assistance 3. Certification and Authentication I certify that I composed the above information based on my clinical judgement relating to this patient's medical condition and, if applicable, clinical findings communicated to me by the NPP or inpatient physician who performed the Home Health Referral. All further orders will be obtained through Allison Muniz (Community Based Physician - PCP)
[2019-08-18] MEDS: Bacitracin 1 PACKET (14:47)
--- NOTE | 2019-08-19 17:00 | PT.INDS ---
Date of service: 08/18/19 PT Notes Visit Reasons: Congestive heart failure Inpatient Physical Therapy Discharge Summary Dates: 08/19/2019 Dates of Service: 08/15/2019 through 08/18/2019 This is a clinical summary of care provided on the duration of dates listed above. No charge was made in the completion of this documentation. Referring Doctor: Carola Stein MD PT Orders: PT CONSULT: Limited Ability Precautions: Fall. Standard. Acivity as tolerated. Orthopedic shoes on with lift on R at all times when out of bed. Patient Profile/Admitting Diagnosis: Piyush is a 64-year-old male with who presented to the ED on 08/12/2019 with chief compliant of shortness of breath. Patient is diagnosed with CHF exacerbation with referral for skilled PT services for functional mobility decline. PMHX: Medical History Acute kidney injury (nontraumatic) (Acute) Cardiomyopathy (Acute) Chronic osteomyelitis (Chronic) COPD exacerbation (Acute) Diabetes mellitus (Chronic) HTN (hypertension) (Chronic) Hypertension (Chronic) Infection of prosthetic knee joint (Chronic) Iron deficiency anemia (Chronic) Mixed sleep apnea (Chronic) Non-ST elevation myocardial infarction (NSTEMI) (Acute) CARLOS (obstructive sleep apnea) (Chronic) Sinus pause (Acute) Type 2 diabetes mellitus (Chronic) Surgical History EGD - MAC (09/10/16) Previous back surgery (Chronic) S/P hernia repair (Chronic) S/P right knee surgery (Chronic) Status post left knee replacement (Chronic) Social History/Home Situation: Piyush lives with Shonna in a private home. He has a wheelchair at home and he states that takes care of cooking, grocery-shopping, and provides needed assistance to him. Equipment Owned/DME: Orthopedic shoes with elevation on R, bariatric wheelchair, front-wheeled walker Subjective: NT Objective: General Observation: NT Mental Status: NT Pain: NT ROM: Right Upper Extremity: Shoulder Flexion WFL. Shoulder abduction WFL. Elbow flexion WFL. Wrist flexion WFL. Opening and closing of hand WFL. Left Upper Extremity: Shoulder Flexion WFL. Shoulder abduction WFL. Elbow flexion WFL. Wrist flexion WFL. Opening and closing of hand WFL. Right Lower Extremity: Hip flexion WFL. Hip abduction WFL. Knee flexion absent, R knee fixed in extension. Ankle dorsiflexion WFL. Ankle plantarflexion WFL. Left Lower Extremity: Hip flexion WFL. Hip abduction WFL. Knee flexion WFL. Ankle dorsiflexion WFL. Ankle plantarflexion WFL. Strength: Right Upper Extremity: Shoulder flexors 4-/5. Shoulder abductors 4-/5. Elbow flexors 4-/5. Elbow extensors 4-/5. Youth Development Specialist strong. Left Upper Extremity: Shoulder flexors 4-/5. Shoulder abductors 4-/5. Elbow flexors 4-/5. Elbow extensors 4-/5. Youth Development Specialist strong. Right Lower Extremity: Hip flexors 4-/5. Hip abductors 4-/5. Knee flexors 1/5. Knee extensors 4-/5. Ankle dorsiflexors 4-/5. Ankle plantarflexors 4-/5. Left Lower Extremity: Hip flexors 4/-5. Hip abductors 4-/5. Knee flexors 4-/5. Knee extensors 4-/5. Ankle dorsiflexors 4-/5. Ankle plantarflexors 4-/5. Sensation: Intact as to pain and pressure on bilateral lower extremities. Bed Mobility/Transfers: Supine to sit minimal assist Sit to stand contact-guard assist, with minimal verbal cueing for hand placement, needs FWW Stand to sit contact-guard assist, with minimal verbal cueing for hand placement Bed to chair contact-guard assist, with minimal verbal cueing for hand placement, needs FWW Chair to bed contact-guard assist, with minimal verbal cueing for hand placement, needs FWW Gait: 30 feet +20 feet using FWW with CGA using FWW with minimal verbal cueing for safety provided. Lateral trunk lean to R during midstance noted due to LLD with R shorter than the L. No pain reported. Balance: Static Sitting: Normal Dynamic Sitting: Good Static Standing: Fair Dynamic Standing: Fair Assessment: Piyush demonstrates functional mobility decline requiring FWW and assistance of 2 people for mobility ADL performance, generalized muscle weakeness due , and balance impairment resulting from admitting diagnosis. Piyush is a 64-year-old male with who presented to the ED on 08/12/2019 with chief compliant of shortness of breath. Patient is diagnosed with CHF exacerbation with referral for skilled PT services for functional mobility decline. Patient presents with clinical signs and symptoms consistent with current/admitting diagnoses that have resulted to mobility limitations, gait instability, generalized weakness, and impairment of motor control as demonstrated by the following impairment level findings: 1. Decreased strength to B UE/LEmajor muscle groups 2. Impaired sitting/standing balance 3. Impaired activity tolerance 4. Chronic limitation of joint range of motion in R knee Impairments are contributing to the following functional limitations: 1. Dependent bed mobility skills 2. Increased dependence with transfers 3. Inability to safely ambulate without assistive device and physical assistance 4. Increase completion time for mobility ADL performance 5. Increased fall risk 6. Inability to negotiate steps alone safely Goals: Goals X1 week 1. Supine-Sit CGA NOT MET 2. Sit-Supine CGA NOT MET 3. Sit-Stand CGA MET 4. Stand-Sit CGA MET 5. Bed-Chair CGA MET 6. Chair-Bed CGA MET 7. CGA with gait on level surface with use of least restrictive device for at least 300 feet without report of pain nor dyspnea NOT MET 8. CGA with stair negotiation while holding onto bilateral rails for at least 5 steps without report of pain nor dyspnea NOT MET 9. Supervision with home exercise program NOT MET 10. Good static and dynamic standing balance/tolerance NOT MET DISCHARGE RECOMMENDATIONS: No equipment needs at this time. Patient will benefit from home health PT services in order to progress mobility level using least restrictive assistive ambulatory device, assess home safety, identify additional equipment needs, and establish a functional maintenance program that will increase ability of patient to remain at home. TREATMENT CODE/TIME: NC. Thank you very much for this referral. Sidra Bhatia PT, DPT, CLT [facility] [place], [place]
[2019-08-24 09:15] LABS: pCO2 68 mmHg (34-47)
[2019-08-24 09:16] LABS: pCO2 75 mmHg (34-47)
[2019-09-03 10:21] LABS: pCO2 67 mmHg (34-47)
== END 2019-08-18 14:25 | disposition left against medical advice (07) | DRG 291 ==
LOC: ER 08-13 01:10 → ICU 08-13 01:12 → MS 08-15 11:27
PROVIDERS: Internal Medicine; Admitting Provider General Practice; Emergency Provider Emergency Medicine; PCP Family Medicine; Visit Provider General Practice
DX: I13.0 Hypertensive heart and chronic kidney disease with heart failure and stage 1 through stage 4 chronic kidney disease, or unspecified chronic kidney disease; I50.33 Acute on chronic diastolic (congestive) heart failure; J96.22 Acute and chronic respiratory failure with hypercapnia; J96.21 Acute and chronic respiratory failure with hypoxia; N17.9 Acute kidney failure, unspecified; M86.60 Other chronic osteomyelitis, unspecified site; Z68.42 Body mass index [BMI] 45.0-49.9, adult; I42.9 Cardiomyopathy, unspecified; Z79.82 Long term (current) use of aspirin; Z79.4 Long term (current) use of insulin; J44.9 Chronic obstructive pulmonary disease, unspecified; D50.9 Iron deficiency anemia, unspecified; G47.33 Obstructive sleep apnea (adult) (pediatric); I25.2 Old myocardial infarction; E66.01 Morbid (severe) obesity due to excess calories; Z87.891 Personal history of nicotine dependence; I25.10 Atherosclerotic heart disease of native coronary artery without angina pectoris; E11.22 Type 2 diabetes mellitus with diabetic chronic kidney disease; N18.9 Chronic kidney disease, unspecified; Z95.5 Presence of coronary angioplasty implant and graft; Z96.653 Presence of artificial knee joint, bilateral; I27.20 Pulmonary hypertension, unspecified; Z91.19 Patient's noncompliance with other medical treatment and regimen
CPT/HCPCS: 36415; 36569; 36592; 71045; 76770; 80048; 80053; 82805; 84145; 85027; 93005; 93306; 94640; 96374; 97162; 97530; 99222; 99232; 99233; 99285; NC; U0003; 36600; 71046; 83735; 83880; 84439; 84443; 84484; 85025; 93010; 93970; 94660; J1644; J1940

== ENCOUNTER 2019-08-21 11:55 | Outpatient (CLI) | payer MEDICARE, MEDICAID, SELFPAY | END 2019-08-21 12:15 | PROVIDERS: PCP Family Medicine; Visit Provider Family Medicine | DX: J44.9 Chronic obstructive pulmonary disease, unspecified (principal); G47.33 Obstructive sleep apnea (adult) (pediatric); R09.02 Hypoxemia | CPT/HCPCS: 94762 ==

== ENCOUNTER 2019-09-30 14:44 | Outpatient (REF) | payer MEDICARE, MEDICAID, SELFPAY ==
[2019-09-30 17:35] LABS: Clarity Cloudy (Clear)
[2019-09-30 17:40] LABS: RBC >50 HPF (0-2)
[2019-09-30 17:41] LABS: C & S Indicated? C&S Done As Ordered
== END 2019-09-30 15:04 ==
LOC: NCHCN 14:44
PROVIDERS: PCP Family Medicine; Visit Provider Family Medicine
DX: R31.9 Hematuria, unspecified (principal)
CPT/HCPCS: 81003; 81015; 87086

== ENCOUNTER 2019-10-06 10:22 | Emergency (ER) | payer MEDICARE, MEDICAID, SELFPAY ==
[2019-10-06] VITALS (20 sets, daily range): BP systolic 124–173; BP diastolic 68–95; PULSE 80–92; RESP 14–27; TEMP 37.2; O2SAT 91–100
--- NOTE | 2019-10-06 10:30 | RT.EKG_ITS ---
APPROVED REPORT Exam: Resting ECG Patient Location: E HR:82 bpm ECG Measurements Heart Rate 82 AXIS LA 222 P 50 QRSd 112 QRS 62 QT 385 T 20 QTc 451 Conclusion Sinus. T wave inversion in V2-3, seen in previous EKG. No acute change from previous.
--- NOTE | 2019-10-06 10:39 | ED.GENADUL_ITS ---
Discharge Plan Disposition Patient Disposition: AGAINST MEDICAL ADVICE Condition: Serious Discharge Details Chief Complaint: RespSymp Clinical Impression: Acute hyperglycemia, COPD (chronic obstructive pulmonary disease) Primary Care Provider: Allison Muniz ED Provider: Sandrita Spence Home Meds and New Rx's Prescriptions: Continued pantoprazole 40 MG tablet,delayed release (DR/EC) 40 mg PO DAILY@0730 Qty: 30 RF: 3 aspirin 81 mg Tablet,Delayed Release (Dr/Ec) 81 mg PO DAILY Qty: 0 RF: 0 atorvastatin 80 mg Tablet 80 mg PO QPM RF: 0 insulin lispro [Humalog KwikPen Insulin] 100 unit/mL Insulin Pen 0 unit SUBCUT QAC RF: 0 sennosides-docusate sodium [Senna with Docusate Sodium] 8.6-50 mg Tablet 2 tab PO BID RF: 0 ferrous sulfate 325 mg (65 mg iron) tablet 325 mg PO QDAY RF: 0 metoprolol succinate 25 mg tablet extended release 24 hr 25 mg PO QDAY RF: 0 cholecalciferol (vitamin D3) 50 mcg (2,000 unit) capsule 2,000 unit PO QDAY RF: 0 furosemide 40 mg Tablet 40 mg PO BID@0830,1600 Qty: 20 RF: 0 Januvia 50 mg tablet 50 mg PO DAILY Qty: 30 RF: 0 methadone [Dolophine] 5 MG tablet 5 mg PO BID RF: 0 acetaminophen 500 MG tablet 1,000 mg PO DAILY PRNRF: 0 Spiriva with HandiHaler 18 MCG capsule, w/inhalation device 18 mcg Inhalation DAILY RF: 0 ProAir RespiClick 90 MCG aerosol powdr breath activated 2 puffs Inhalation Q4H PRN PRNRF: 0 sucralfate 1 GM tablet 1 gm PO QID RF: 0 amoxicillin 500 mg Capsule 500 mg PO BID RF: 0 multivitamin Capsule 1 cap PO QAM RF: 0 Narcan 4 mg/actuation [place],Non-Aerosol 4 mg INTRANASAL Q2M PRNRF: 0 Discharge Instructions Instructions: COPD (Chronic Obstructive Pulmonary Disease) (ED), Diabetic Hyperglycemia (ED) Additional Instructions: At this time you are choosing to leave AGAINST MEDICAL ADVICE, please understand that you can change your mind at any time and return to the ER and I strongly encourage you to do so. You are found to have critically high blood sugar today of 742. He also need to wear your oxygen as previously prescribed and use your BiPAP trilogy machine as previously instructed to do so. Please understand that you could have worsening of your condition including disability, and up to . You were given 8 units of regular IV insulin prior to leaving AMA. Referrals: Allison Muniz [Primary Care Provider] - Medical Decision Making 64-year-old male presents to the ER via EMS with hyperglycemia, congested cough reported to be 75% on room air at home on scene per EMS. Fingerstick glucose was 439 prior to arrival by EMS he on initial exam is on 2 L nasal cannula which was placed by EMS and is satting approximately 92%. He does have a history of COPD and CHF, CAD, DM 2, morbidly obese, hypertension, acute kidney injury, left knee replacement. He is a former smoker. initial CBG here reads high. Initial exam patient has no complaints of pain, cough, nausea vomiting diarrhea he states he feels fine. He is also a poor historian and cannot tell me what medications he did take this morning as his administers all of his medications today. He was recently admitted for respiratory failure and acute on chronic COPD and left AMA middle of July. 1038: Attempted to call Sydney no answer, left voicemail. 1045: Discussed respiratory status with Daly with RT patient has no recollection of using the trilogy BiPAP machine at home, he does have active orders for this machine. She did attempt to call patient's regarding this with no success. EKG was reviewed by Arianne Guillen MD ER attending, please see her official reading, old EKG was available for review no significant change noted at this time. 1115: Informed by staff air defense officer the patient is refusing nebulizer treatment, and normal saline 500 cc bolus. Patient is getting more agitated due to not having a TV in his room. At this time patient's oxygen saturation is 92% on 2 L nasal cannula, CBC is 7.82, hematocrit is 56.8, hemoglobin 17.1, sodium is 129, potassium 4.6, chloride is 91, carbon dioxide 37.2, anion gap 0.8, BUN 17, creatinine is 2.03, glucose is critically high at 742. Urinalysis is pending and has not been collected at this time. 1125: Patient reevaluation, informed by staff air defense officer that patient is requesting to leave due to not being entertained and not having a TV in his room. He is becoming increasingly agitated. Discussed importance of staying and receiving some insulin due to critically high insulin glucose value of 742. Patient is alert and oriented x2 to year and president, he states he would rather call a cab or his to go home instead or at this Jose Brown painting on the wall. He is upset because he needs to be entertained. He is willing to have insulin 8 units IV push prior to being discharged AMA. Discussed AMA status and risks and benefits to leaving which patient verbalized understanding. Multiple attempts to call performed by myself and respiratory therapy. Patient requesting to leave AMA. The patient appears clinically sober and is not under the influence of any known substances. Discussed risks and benefits with patient. Patient verbalizes understanding of situation and the risks of leaving including worsening condition, developing disability, including but not limited to .Discussed results of labs and imaging, if they were performed and recommendations for further treatment and/or observation. The patient verbalizes understanding of the results discussed. Every effort was made to involve family if appropriate and situation discussed. At this time patient has opted to leave against medical advice. Patient is alert and oriented and has the capacity to make own decisions. 1135: Attempted to call Sydney mccabe cell phone at [phone], no answer, unable to leave a voicemail as mailbox has not been set up yet. HPI General Mode of arrival: EMS . Date/Time Provider Initiated Documentation: 10/06/19 10:22 . Limitations to Documentation: altered mental status (StatesShort term memory loss poor historian) . HPI Narrative: 64-year-old male presents to the ER via EMS with hyperglycemia, congested cough reported to be 75% on room air at home on scene per EMS. Fingerstick glucose was 439 prior to arrival by EMS he on initial exam is on 2 L nasal cannula which was placed by EMS and is satting approximately 92%. He does have a history of COPD and CHF, CAD, DM 2, morbidly obese, hypertension, acute kidney injury, left knee replacement. He is a former smoker. initial CBG here reads high. Initial exam patient has no complaints of pain, cough, nausea vomiting diarrhea he states he feels fine. He is also a poor historian and cannot tell me what medications he did take this morning as his administers all of his medications today. He was recently admitted for respiratory failure and acute on chronic COPD and left AMA middle of July. Related Data Home Medications Medication Instructions Recorded Confirmed pantoprazole 40 mg PO DAILY@0730 #30 09/13/16 08/12/19 methadone [Dolophine] 5 mg PO BID 03/15/17 08/13/19 ProAir RespiClick 2 puffs INHALATION Q4H PRN PRN 09/09/17 08/12/19 Spiriva with HandiHaler 18 mcg INHALATION DAILY 09/09/17 08/12/19 acetaminophen 1,000 mg PO DAILY PRN 09/09/17 04/27/19 sucralfate 1 gm PO QID 09/09/17 08/12/19 aspirin 81 mg PO DAILY #0 tab 11/06/17 08/12/19 atorvastatin 80 mg PO QPM 08/28/18 08/13/19 insulin lispro [Humalog KwikPen 0 unit SUBCUT QAC 08/28/18 04/27/19 Insulin] amoxicillin 500 mg PO BID 03/20/19 08/15/19 Narcan 4 mg INTRANASAL Q2M PRN 03/30/19 04/27/19 multivitamin 1 cap PO QAM 03/30/19 04/27/19 sennosides-docusate sodium [Senna 2 tab PO BID 04/27/19 04/27/19 with Docusate Sodium] cholecalciferol (vitamin D3) 2,000 unit PO QDAY 08/12/19 08/13/19 ferrous sulfate 325 mg PO QDAY 08/12/19 08/13/19 metoprolol succinate 25 mg PO QDAY 08/12/19 08/13/19 Januvia 50 mg PO DAILY #30 tab 08/18/19 furosemide 40 mg PO BID@0830,1600 #20 tab 08/18/19 Previous Rx's Medication Instructions Recorded pantoprazole 40 mg PO DAILY@0730 #30 09/13/16 aspirin 81 mg PO DAILY #0 tab 11/06/17 Januvia 50 mg PO DAILY #30 tab 08/18/19 furosemide 40 mg PO BID@0830,1600 #20 tab 08/18/19 Allergies Allergy/AdvReac Type Severity Reaction Status Date / Time Iodinated Contrast Media Allergy Hives Verified 10/06/19 10:27 [Iodinated Contrast- Oral and IV Dye] rifampin Allergy Hives Unverified 10/06/19 10:27 vancomycin Allergy Hives Unverified 10/06/19 10:27 General Stated Complaint: RespSymp YVAN: 3 Review of Systems Narrative: Constitutional: Negative for weight loss, alert, poor historian, morbidly obese body habitus, appears comfortable. Reports using a walker at home. HEENT: Denies trauma, headaches, blurry vision, nasal discharge, sore throat, trouble swallowing. Chest: Denies chest pain, palpitations, irregular rhythm, hypertension. Respiratory: Denies Shortness of breath, cough, hemoptysis. Does have a history of CHF and COPD. GI: Denies abdominal pain, nausea, vomiting, diarrhea, constipation. : Denies dysuria, hematuria, flank pain, rectal bleeding. Neuro: Denies dizziness, blurry vision, weakness, syncope, headache or facial numbness. Hematologic: Denies easy bruising, intolerance to heat or cold, hair loss. [facility] Medical History Acute kidney injury (nontraumatic) (Acute) Cardiomyopathy (Acute) Chronic osteomyelitis (Chronic) COPD (chronic obstructive pulmonary disease) (Chronic) COPD exacerbation (Acute) Diabetes mellitus (Chronic) Heart failure with preserved ejection fraction (Acute) HTN (hypertension) (Chronic) Hypertension (Chronic) Infection of prosthetic knee joint (Chronic) Iron deficiency anemia (Chronic) Mixed sleep apnea (Chronic) Non-ST elevation myocardial infarction (NSTEMI) (Acute) Obesity, morbid, BMI 40.0-49.9 (Acute) CARLOS (obstructive sleep apnea) (Chronic) Sinus pause (Acute) Type 2 diabetes mellitus (Chronic) Surgical History EGD - MAC (09/10/16) Previous back surgery (Chronic) S/P hernia repair (Chronic) S/P right knee surgery (Chronic) Status post left knee replacement (Chronic) Family History Sister Diabetes Social History Smoking/Tobacco Use Status: Former Tobacco Use Tobacco: How many years used: 20 Second Hand Exposure: Yes Alcohol Intake: former Drug use: Occasionally Substance use type: marijuana Household members: spouse Number of Children: 4 Do you feel safe at home: Yes Do you feel safe in your relationship?: Yes Exam Narrative Exam Narrative: Constitutional: Alert and oriented x3. Appears stated age. Normal body habitus. Head: Normocephalic, no trauma. Eyes: Pupils PERRLA, Red reflex noted, EOM's intact. Eyelids symmetrical without lesions, discharge, or swelling. ENT: Bilateral TM's WNL, External ear normal to inspection, no mastoid TTP, swelling, or erythema, Nasal turbinates WNL, no nasal discharge. Normal dentition, Posterior pharynx WNL, no exudate. Chest: RRR, Normal S1, S2, distal pulses intact. Resp: Lungs clear to auscultation bilaterally, no wheezes, rales, or rhonchi. Musculoskeletal: Normal gait, 5/5 strength to all four extremities. Skin: No suspicious rashes or lesions. Capillary refill less than 2 sec. Neurologic: Cranial nerves II-XII intact. Alert and oriented x 3. DTR's intact. Hematologic/Lymphatic: No ecchymosis, no lymphadenopathy. Course Vital Signs Vital signs: Vital Signs Temperature 37.2 C 10/06/19 10:24 Pulse 89 10/06/19 10:24 Respiratory Rate 14 10/06/19 10:24 Blood Pressure 166/89 H 10/06/19 10:24 Pulse Oximetry 92 L 10/06/19 10:24 Temperature 37.2 C 10/06/19 10:24 Temperature Source Skin 10/06/19 10:24 Pulse 89 10/06/19 10:24 Respiratory Rate 14 10/06/19 10:24 Respiratory Effort Non-Labored 10/06/19 10:29 Blood Pressure 166/89 H 10/06/19 10:24 Blood Pressure Position Sitting 10/06/19 10:24 Pulse Oximetry 92 L 10/06/19 10:24 Oxygen Delivery Method Nasal Cannula 10/06/19 10:24 Oxygen Flow Rate 2 10/06/19 10:24 Pain Level 0 10/06/19 10:24
[2019-10-06 10:51] LABS: Abs Immature Grans 0.06 10^3/uL (0.0-0.06); Absolute Basophil Count 0.03 10^3/uL (0.0-0.2); Absolute Lymphocyte Count 0.63 10^3/uL (1.2-3.4); Absolute Monocyte Count 0.45 10^3/uL (0.1-0.8); Absolute Neutrophil Count 6.65 10^3/uL (1.2-6.7); Basophils % 0.4; HCT 56.8 % (40.0-50.0); HGB 17.1 g/dL (13.5-17.5); Immature Grans % 0.8; Lymphocytes % 8.1; MCH 29.9 pg (27.0-33.0); MCHC 30.1 % (32.0-36.0); MCV 99.3 fL (80-95); MPV 10.4 fL (8.0-11.0); Monocytes % 5.8; Neutrophils % 84.9; Nucleated RBC 1 %; Platelet Count 167 10^3/uL (130-400); RBC 5.72 10^6/uL (4.36-5.78); RDW 19.9 % (11.8-14.1); RDW-SD 67.7 fL; WBC 7.82 10^3/uL (4.4-10.8)
[2019-10-06 11:09] LABS: Magnesium 2.2 mg/dL (1.8-2.4)
[2019-10-06 11:10] LABS: Troponin I < 0.05 ng/mL (<0.06)
[2019-10-06 11:13] LABS: ALT 17 U/L (16-63); AST 12 U/L (15-37); Albumin 2.5 g/dL (3.4-5.0); Alkaline Phosphatase 111 U/L (46-116); Anion Gap 0.8 mmol/L (3-11); BUN 17 mg/dL (7-18); Bilirubin, Total 0.8 mg/dL (0.2-1.0); CO2 37.2 mmol/L (21.0-32.0); CREATININE 2.03 mg/dL (0.70-1.30); Calcium 8.5 mg/dL (8.5-10.1); Chloride 91 mmol/L (98-107); Estimated GFR 33.45 (mL/min/1.73m2); Potassium 4.6 mmol/L (3.5-5.1); Sodium 129 mmol/L (136-145); Total Protein 6.9 g/dL (6.4-8.2)
[2019-10-06 11:14] LABS: Glucose 742 mg/dL (74-106)
[2019-10-06] MEDS: Insulin REGULAR-Human 100 UNITS/ML UNIT 8 UNITS IV (11:34)
== END 2019-10-06 12:05 | disposition left against medical advice (07) ==
PROVIDERS: Emergency Provider Registered Nurse Emergency; PCP Family Medicine
DX: E11.65 Type 2 diabetes mellitus with hyperglycemia (principal); Z79.4 Long term (current) use of insulin; R09.02 Hypoxemia; I11.0 Hypertensive heart disease with heart failure; I50.9 Heart failure, unspecified; J44.9 Chronic obstructive pulmonary disease, unspecified; Z99.81 Dependence on supplemental oxygen; Z87.891 Personal history of nicotine dependence
CPT/HCPCS: 36415; 36416; 80053; 82962; 93005; 96374; 99285; 81003; 83735; 84484; 85025; 93010

== ENCOUNTER 2019-10-12 16:05 | Emergency (ER) | payer MEDICARE, MEDICAID, SELFPAY ==
[2019-10-12] VITALS (26 sets, daily range): BP systolic 102–167; BP diastolic 55–109; PULSE 55–104; RESP 12–27; TEMP 36.5–36.9; O2SAT 92–97
--- NOTE | 2019-10-12 16:18 | ED.GENADUL_ITS ---
Discharge Plan Disposition Patient Disposition: HOME Condition: Improving Discharge Details Chief Complaint: Diabetes Clinical Impression: Hyperglycemia, UTI (urinary tract infection) Primary Care Provider: Allison Muniz ED Provider: Arianne Guillen Home Meds and New Rx's Prescriptions: New cephalexin [Keflex] 500 mg capsule 500 mg PO QID 7 Days Qty: 28 RF: 0 Continued pantoprazole 40 MG tablet,delayed release (DR/EC) 40 mg PO DAILY@0730 Qty: 30 RF: 3 aspirin 81 mg Tablet,Delayed Release (Dr/Ec) 81 mg PO DAILY Qty: 0 RF: 0 atorvastatin 80 mg Tablet 80 mg PO QPM RF: 0 insulin lispro [Humalog KwikPen Insulin] 100 unit/mL Insulin Pen 0 unit SUBCUT QAC RF: 0 sennosides-docusate sodium [Senna with Docusate Sodium] 8.6-50 mg Tablet 2 tab PO BID RF: 0 ferrous sulfate 325 mg (65 mg iron) tablet 325 mg PO QDAY RF: 0 metoprolol succinate 25 mg tablet extended release 24 hr 25 mg PO QDAY RF: 0 cholecalciferol (vitamin D3) 50 mcg (2,000 unit) capsule 2,000 unit PO QDAY RF: 0 furosemide 40 mg Tablet 40 mg PO BID@0830,1600 Qty: 20 RF: 0 Januvia 50 mg tablet 50 mg PO DAILY Qty: 30 RF: 0 methadone [Dolophine] 5 MG tablet 5 mg PO BID RF: 0 acetaminophen 500 MG tablet 1,000 mg PO DAILY PRNRF: 0 Spiriva with HandiHaler 18 MCG capsule, w/inhalation device 18 mcg Inhalation DAILY RF: 0 ProAir RespiClick 90 MCG aerosol powdr breath activated 2 puffs Inhalation Q4H PRN PRNRF: 0 sucralfate 1 GM tablet 1 gm PO QID RF: 0 multivitamin Capsule 1 cap PO QAM RF: 0 Narcan 4 mg/actuation [place],Non-Aerosol 4 mg INTRANASAL Q2M PRNRF: 0 Lantus Solostar U-100 Insulin 100 unit/mL (3 mL) insulin pen 30 unit SUBCUT HS RF: 0 Discharge Instructions Instructions: Urinary Tract Infection in Men (ED), Diabetic Hyperglycemia (ED) Additional Instructions: Drink plenty of fluids and get plenty of rest. Take your regular medications as directed. Take your antibiotics until finished. Call your primary care doctor's office tomorrow to schedule a follow-up appointment for reevaluation within the next week. Return immediately to the emergency department if you develop any worsening or new concerning symptoms. Discharge Data Discharge Date/Time-TO BE ENTERED AT DEPARTURE: 10/12/19 20:10 Discharge Physician: Arianne Guillen Medical Decision Making 1625 -- 64-year-old male with multiple medical problems including morbid obe sity, diabetes, hypertension, COPD, CHF, NSTEMI, cardiomyopathy and sleep apnea presents for hypoglycemia and altered mental status today at home. Glucose now 291. Patient has no acute complaints. His vitals are within normal limits. He appears nontoxic. He has no focal deficits. Will check screening labs, urinalysis, CT head and chest x-ray due to report of altered mental status. 1645 --discussed case with patient's over the phone and she states that patient was not altered beyond his usual baseline today. She states she was more concerned about his labile blood glucose and that she is having difficulty controlling it at home. She states Lantus was recently added and his Humalog was recently increased. 1800 --labs and imaging reviewed. Normal white blood cell count. Glucose 337. Troponin negative. Urinalysis notes UTI. CT head and chest x-ray negative for acute findings. Will give 500 cc liter bolus, dose of Rocephin and recheck glucose. 1900 --recheck glucose 245. Patient feels good to go home. We will send with Keflex to go as well as prescription. Sydney called with results. Advised to follow up with the primary care doctor for re-evaluation. Usual and customary return precautions given prior to discharge. Medical Records Medical records reviewed: Yes I reviewed the patient's medical records. Imaging Data Radiologic Study: Radiologist's impression: XR Chest, 2 Views Exam date and time: 10/12/2019 5:49 PM Age: 64 years old Clinical indication: Altered mental status, R/O acute process TECHNIQUE: Imaging protocol: XR of the chest Views: 2 views. COMPARISON: CR XR PORTABLE CHEST AP POST LINE 08/13/2019 5:10 PM FINDINGS: Lungs: Crowding of lung markings, likely secondary to low lung volumes. No focal areas of consolidation. Pleural space: No pleural effusion or pneumothorax. Heart/Mediastinum: Cardiac and mediastinal silhouettes are unremarkable. Bones/joints: No acute osseus lesion or fracture. IMPRESSION: No acute cardiopulmonary findings. CT Head Without Contrast Exam date and time: 10/12/2019 5:37 PM Age: 64 years old Clinical indication: Altered mental status/memory loss; Additional info: R/O acute process TECHNIQUE: Imaging protocol: Computed tomography of the head without contrast. COMPARISON: CT HEAD WO 04/27/2019 8:33 AM FINDINGS: Brain: Mild nonspecific hypodensities of the periventricular and deep subcortical white matter, most likely secondary to chronic small vessel ischemic change. No intracranial hemorrhage or extra-axial fluid collection. No evidence of mass effect or midline shift. Cabrera-white matter differentiation is normal. Ventricles: No ventriculomegaly. Bones/joints: No acute osseus lesion or fracture. Sinuses: Chronic near complete opacification of the right maxillary sinus. Mastoid air cells: Partial opacification of inferior right mastoid air cells. Soft tissues: Unremarkable. IMPRESSION: 1. No acute intracranial pathology. 2. Partial opacification of inferior right mastoid air cells. 3. Chronic right maxillary sinusitis. 4. Other chronic findings, as above Lab Data Lab results reviewed: Yes I reviewed the patient's lab results. Labs: 10/12/19 17:12 Urine - Reflex from Ua Urine Culture - Pending Laboratory Tests Range/Units 10/12/19 10/12/19 10/12/19 16:28 16:28 16:28 WBC (4.4-10.8) 10^3/uL 8.14 RBC (4.36-5.78) 10^6/uL 5.72 Hgb (13.5-17.5) g/dL 16.8 Hct (40.0-50.0) % 57.1 H* MCV (80-95) fL 99.8 H MCH (27.0-33.0) pg 29.4 MCHC (32.0-36.0) % 29.4 L RDW (11.8-14.1) % 18.6 H Plt Count (130-400) 10^3/uL 181 MPV (8.0-11.0) fL 10.5 Immature Gran % 0.2 Neutrophils % 83.1 Lymphocytes % 10.4 Monocytes % 5.8 Eosinophils % 0.1 Basophils % 0.4 Absolute Neutrophils (1.2-6.7) 10^3/uL 6.76 H Absolute Lymphocytes (1.2-3.4) 10^3/uL 0.85 L Absolute Monocytes (0.1-0.8) 10^3/uL 0.47 Absolute Eosinophils (0.0-0.7) 10^3/uL 0.01 Absolute Basophils (0.0-0.2) 10^3/uL 0.03 PT (9.3-11.0) sec 10.0 INR (0.9-1.1) 1.0 APTT (21.0-31.4) sec 24.5 Sodium (136-145) mmol/L 138 Potassium (3.5-5.1) mmol/L 4.3 Chloride (98-107) mmol/L 98 Carbon Dioxide (21.0-32.0) mmol/L 36.3 H Anion Gap (3-11) mmol/L 3.7 BUN (7-18) mg/dL 17 Creatinine (0.70-1.30) mg/dL 1.61 H Estimated GFR/1.73 m2 (mL/min/1.73m2) 43.70 Glucose (74-106) mg/dL 337 H Calcium (8.5-10.1) mg/dL 8.3 L Magnesium (1.8-2.4) mg/dL 1.9 Total Bilirubin (0.2-1.0) mg/dL 0.6 AST (15-37) U/L 11 L ALT (16-63) U/L 16 Alkaline Phosphatase (46-116) U/L 100 Troponin I (<0.06) ng/mL < 0.05 Total Protein (6.4-8.2) g/dL 6.2 L Albumin (3.4-5.0) g/dL 2.5 L Urine Color (Yellow) Urine Clarity (Clear) Urine pH (5-8) Ur Specific [place] (1.005-1.025) Urine Protein (Negative) mg/dL Urine Ketones (Negative) mg/dL Urine Blood (Negative) Urine Nitrite (Negative) Urine Bilirubin (Negative) Urine Urobilinogen (Up TO 0.2) EU/dL Ur Leukocyte Esterase (Negative) Urine RBC (0-2) HPF Urine WBC (0-5) HPF Ur Epithelial Cells (Negative) HPF Urine Crystals (Negative) HPF Urine Bacteria (Negative) HPF Urine Casts (Negative) LPF Urine Mucus (Negative) Urine Other (Negative) Ur Culture Indicated? Urine Glucose (Negative) mg/dL Range/Units 10/12/19 17:12 WBC (4.4-10.8) 10^3/uL RBC (4.36-5.78) 10^6/uL Hgb (13.5-17.5) g/dL Hct (40.0-50.0) % MCV (80-95) fL MCH (27.0-33.0) pg MCHC (32.0-36.0) % RDW (11.8-14.1) % Plt Count (130-400) 10^3/uL MPV (8.0-11.0) fL Immature Gran % Neutrophils % Lymphocytes % Monocytes % Eosinophils % Basophils % Absolute Neutrophils (1.2-6.7) 10^3/uL Absolute Lymphocytes (1.2-3.4) 10^3/uL Absolute Monocytes (0.1-0.8) 10^3/uL Absolute Eosinophils (0.0-0.7) 10^3/uL Absolute Basophils (0.0-0.2) 10^3/uL PT (9.3-11.0) sec INR (0.9-1.1) APTT (21.0-31.4) sec Sodium (136-145) mmol/L Potassium (3.5-5.1) mmol/L Chloride (98-107) mmol/L Carbon Dioxide (21.0-32.0) mmol/L Anion Gap (3-11) mmol/L BUN (7-18) mg/dL Creatinine (0.70-1.30) mg/dL Estimated GFR/1.73 m2 (mL/min/1.73m2) Glucose (74-106) mg/dL Calcium (8.5-10.1) mg/dL Magnesium (1.8-2.4) mg/dL Total Bilirubin (0.2-1.0) mg/dL AST (15-37) U/L ALT (16-63) U/L Alkaline Phosphatase (46-116) U/L Troponin I (<0.06) ng/mL Total Protein (6.4-8.2) g/dL Albumin (3.4-5.0) g/dL Urine Color (Yellow) Yellow Urine Clarity (Clear) Clear Urine pH (5-8) 5.5 Ur Specific [place] (1.005-1.025) 1.025 Urine Protein (Negative) mg/dL >=300 H Urine Ketones (Negative) mg/dL Negative Urine Blood (Negative) Moderate H Urine Nitrite (Negative) Negative Urine Bilirubin (Negative) Negative Urine Urobilinogen (Up TO 0.2) EU/dL 0.2 Ur Leukocyte Esterase (Negative) Negative Urine RBC (0-2) HPF 5-10 H Urine WBC (0-5) HPF >50 H Ur Epithelial Cells (Negative) HPF Few Urine Crystals (Negative) HPF Negative Urine Bacteria (Negative) HPF Negative Urine Casts (Negative) LPF 3-5 hyaline Urine Mucus (Negative) Negative Urine Other (Negative) Few renal Ur Culture Indicated? Yes Urine Glucose (Negative) mg/dL 500 H ECG Data Attestation: I personally reviewed and interpreted this ECG (s) as follows: Interpretation: rate of 64, sinus. No acute ST elevation or depression. No acute change in his EKG. SD 210. QRS 111. QTc 467. HPI General Mode of arrival: ambulatory . Date/Time Provider Initiated Documentation: 10/12/19 16:15 . Limitations to Documentation: no limitations . Information obtained by: patient . HPI Narrative: Patient is a 64-year-old male with multiple medical problems including morbid obesity, diabetes, COPD, hypertension, NSTEMI, CHF, Sleep apnea, Cardiomyopathy who presents to the ED for hyperglycemia. There is also report per EMS that thought patient was confused and requested admission for this. Glucose at home 510 for which patient was given 20 units of insulin. Upon EMS arrival, glucose decreased to the mid 300s. On arrival to the ED, glucose in the mid 200s. Patient has no acute complaints. He states he feels that his is a worry wortand this is why she feels he needs to be admitted for confusion that she may have noted. He does not recall being confused today. He states he was able to eat today and ambulate with his walker. He denies any recent falls. He denies fever, headache, chest pain, shortness of breath, cough, abdominal pain, vomiting, diarrhea or urinary symptoms. Of note, patient was here last week for similar complaint of hyperglycemia which was noted to be 742 on metabolic panel and patient was advised to stay for admission for hypoxia and treatment for his hyperglycemia but declined left AMA. Related Data Home Medications Medication Instructions Recorded Confirmed pantoprazole 40 mg PO DAILY@0730 #30 09/13/16 10/12/19 methadone [Dolophine] 5 mg PO BID 03/15/17 10/12/19 ProAir RespiClick 2 puffs INHALATION Q4H PRN PRN 09/09/17 10/12/19 Spiriva with HandiHaler 18 mcg INHALATION DAILY 09/09/17 10/12/19 acetaminophen 1,000 mg PO DAILY PRN 09/09/17 10/12/19 sucralfate 1 gm PO QID 09/09/17 10/12/19 aspirin 81 mg PO DAILY #0 tab 11/06/17 10/12/19 atorvastatin 80 mg PO QPM 08/28/18 10/12/19 insulin lispro [Humalog KwikPen 0 unit SUBCUT QAC 08/28/18 10/12/19 Insulin] Narcan 4 mg INTRANASAL Q2M PRN 03/30/19 10/12/19 multivitamin 1 cap PO QAM 03/30/19 10/12/19 sennosides-docusate sodium [Senna 2 tab PO BID 04/27/19 10/12/19 with Docusate Sodium] cholecalciferol (vitamin D3) 2,000 unit PO QDAY 08/12/19 10/12/19 ferrous sulfate 325 mg PO QDAY 08/12/19 10/12/19 metoprolol succinate 25 mg PO QDAY 08/12/19 10/12/19 Januvia 50 mg PO DAILY #30 tab 08/18/19 10/12/19 furosemide 40 mg PO BID@0830,1600 #20 tab 08/18/19 10/12/19 Lantus Solostar U-100 Insulin 30 unit SUBCUT HS 10/12/19 10/12/19 cephalexin [Keflex] 500 mg PO QID 7 Days #28 cap 10/12/19 Previous Rx's Medication Instructions Recorded pantoprazole 40 mg PO DAILY@0730 #30 09/13/16 aspirin 81 mg PO DAILY #0 tab 11/06/17 Januvia 50 mg PO DAILY #30 tab 08/18/19 furosemide 40 mg PO BID@0830,1600 #20 tab 08/18/19 cephalexin [Keflex] 500 mg PO QID 7 Days #28 cap 10/12/19 Allergies Allergy/AdvReac Type Severity Reaction Status Date / Time Iodinated Contrast Media Allergy Hives Verified 10/12/19 16:19 [Iodinated Contrast- Oral and IV Dye] rifampin Allergy Hives Unverified 10/12/19 16:19 vancomycin Allergy Hives Unverified 10/12/19 16:19 General Stated Complaint: Diabetes YVAN: 3 Review of Systems All systems reviewed & are unremarkable except as noted in HPI and below Constitutional Constitutional: Reports as per HPI, Denies chills and Denies fever(s) Eyes Eyes: Denies blurry vision ENT Ears, Nose, Mouth, and Throat: Denies dizziness, Denies sore throat and Denies throat swelling Cardiovascular Cardiovascular: Denies chest pain and Denies dyspnea Respiratory Respiratory: Denies cough and Denies dyspnea Gastrointestinal Gastrointestinal: Denies abdominal pain, Denies diarrhea and Denies vomiting Genitourinary Genitourinary: Denies hematuria and Denies dysuria Musculoskeletal Musculoskeletal: Denies back pain and Denies numbness Integumentary/Breasts Skin/Breast: Denies lesions and Denies rash Neurologic Neurologic: Denies dizziness, Denies localized weakness and Denies numbness Allergic/Immunologic Allergic/Immunologic: Denies throat swelling [facility] Medical History (Updated 10/12/19 @ 19:58 by Arianne Guillen DO) Acute kidney injury (nontraumatic) (Acute) Cardiomyopathy (Acute) Chronic osteomyelitis (Chronic) COPD (chronic obstructive pulmonary disease) (Chronic) COPD exacerbation (Acute) Diabetes mellitus (Chronic) Heart failure with preserved ejection fraction (Acute) HTN (hypertension) (Chronic) Hypertension (Chronic) Infection of prosthetic knee joint (Chronic) Iron deficiency anemia (Chronic) Mixed sleep apnea (Chronic) Non-ST elevation myocardial infarction (NSTEMI) (Acute) Obesity, morbid, BMI 40.0-49.9 (Acute) CARLOS (obstructive sleep apnea) (Chronic) Sinus pause (Acute) Type 2 diabetes mellitus (Chronic) Surgical History EGD - MAC (09/10/16) Previous back surgery (Chronic) S/P hernia repair (Chronic) S/P right knee surgery (Chronic) Status post left knee replacement (Chronic) Family History Sister Diabetes Social History Smoking/Tobacco Use Status: Former Tobacco Use Tobacco: How many years used: 20 Second Hand Exposure: Yes Alcohol Intake: former Drug use: Occasionally Substance use type: marijuana Household members: spouse Number of Children: 4 Do you feel safe at home: Yes Do you feel safe in your relationship?: Yes Exam Const General: cooperative and no acute distress Nutritional Appearance: obese morbidly obese Orientation: alert, awake and oriented x3 HENMT Head: normal to inspection Ears: hearing grossly normal bilaterally and external ears normal General nose exam: external nose normal Face and sinus: normal facial exam Mouth: oral mucosae normal Throat: posterior oropharynx normal Eyes General: appearance normal, both eyes and all related structures Eyelids: eyelids normal Pupils: PERRL EOM: EOM intact bilaterally Neck Neck: normal visual inspection Lymphatic: no lymphadenopathy noted Chest Chest: normal inspection of the chest Resp Effort & Inspection: normal respiratory effort and able to speak in complete sentences Auscultation: clear to auscultation bilaterally Cardio Rate: regular rate Rhythm: regular rhythm GI Inspection: normal to inspection and obesity Palpation: soft, not firm, no guarding, no hepatosplenomegaly, no masses and nontender Auscultation: hypoactive bowel sounds Male General Exam: Yes normal external exam Back/Spine/Pelvis Back: no CVA tenderness Skin General skin exam: no rashes or lesions noted Neuro General: patient alert, patient awake and patient oriented x3 Cranial Nerves: CN's II-XI intact bilaterally Cognition: normal cognition Speech: speech normal Gait: normal gait Motor: muscle tone normal throughout and strength 5/5 throughout Sensory Exam: no sensory deficits noted Extrem General: full ROM and capillary refill normal Other: b/l lower extremity edema, worse on R side, 1+ pitting. Psych Appearance: grossly normal Mental Status: mental status grossly normal Speech and Movement: speech and movement normal Affect: normal affect Thought Process: normal Course Vital Signs Vital signs: Vital Signs Temperature 98.4 F 10/12/19 16:10 Pulse 69 10/12/19 16:10 Respiratory Rate 18 10/12/19 16:10 Blood Pressure 135/78 10/12/19 16:10 Pulse Oximetry 96 10/12/19 16:10 Temperature 98.4 F 10/12/19 16:10 Temperature Source Temporal Artery Scan 10/12/19 16:10 Pulse 69 10/12/19 16:10 Respiratory Rate 18 10/12/19 16:10 Respiratory Effort Non-Labored 10/12/19 16:16 Blood Pressure 135/78 10/12/19 16:10 Blood Pressure Position Supine 10/12/19 16:10 Pulse Oximetry 96 10/12/19 16:10 Oxygen Delivery Method Room Air 10/12/19 16:10 Oxygen Flow Rate 0 10/12/19 16:10
--- NOTE | 2019-10-12 16:30 | DI.CT_ITS ---
EXAM: CT HEAD WO CLINICAL HISTORY: altered mental status, r/o acute process. TECHNIQUE: Imaging Protocol: Axial computed tomography images with coronal and sagittal reformatted images were created and reviewed COMPARISON: CT CT HEAD WO from 04/27/2019 FINDINGS: Ventricles and Extra axial spaces: Normal in size and morphology for the patient's age. Hemorrhage: None. Cerebral parenchyma: Mild atrophy. Mild white matter changes consistent with small vessel disease. Midline shift: None. Brainstem/Cerebellum: Normal. Calvarium: Normal. Visualized Paranasal sinuses/Mastoids: Opacification of multiple ethmoid sinuses as well as partial o pacification of the maxillary sinuses, right greater than left. There is also edema in the nasal cav ity. A nasal tube is seen. There is opacification of the right mastoid air cells. There is no bony erosion or abnormal gas collection. There is partial opacification of the left ethmoid air cells. IMPRESSION: Severe sinus disease. Mastoid effusions. No acute intracranial abnormality. RADIATION DOSE DELIVERED: 882.51mGy.cm Total DLP 882.51mGy.cm Total DLP DATA REPOSITORY: All CT scans at this facility are submitted to the National Radiology Data Registry (NRDR) Dose Index Registry (DIR) with the [employer] ([employer]). RADIATION OPTIMIZATION: All CT scans at this facility use at least one of these dose optimization te chniques: automated exposure control; mA and/or kV adjustment per patient size (includes targeted exa ms where dose is matched to clinical indication); or iterative reconstruction.
--- NOTE | 2019-10-12 16:30 | RT.EKG_ITS ---
APPROVED REPORT Exam: Resting ECG Patient Location: E HR:64 bpm ECG Measurements Heart Rate 64 AXIS AK 210 P 49 QRSd 111 QRS 76 QT 452 T -7 QTc 467 Conclusion Sinus. T wave inversion in lead III, seen in previous. No acute ST elevation or depression. No acute change from previous.
[2019-10-12 16:38] LABS: Abs Immature Grans 0.02 10^3/uL (0.0-0.06); Absolute Basophil Count 0.03 10^3/uL (0.0-0.2); Absolute Eosinophil Count 0.01 10^3/uL (0.0-0.7); Absolute Lymphocyte Count 0.85 10^3/uL (1.2-3.4); Absolute Monocyte Count 0.47 10^3/uL (0.1-0.8); Absolute Neutrophil Count 6.76 10^3/uL (1.2-6.7); Basophils % 0.4; Eosinophils % 0.1; HGB 16.8 g/dL (13.5-17.5); Immature Grans % 0.2; Lymphocytes % 10.4; MCH 29.4 pg (27.0-33.0); MCHC 29.4 % (32.0-36.0); MCV 99.8 fL (80-95); MPV 10.5 fL (8.0-11.0); Monocytes % 5.8; Neutrophils % 83.1; Nucleated RBC 0 %; Platelet Count 181 10^3/uL (130-400); RBC 5.72 10^6/uL (4.36-5.78); RDW 18.6 % (11.8-14.1); RDW-SD 65.8 fL; WBC 8.14 10^3/uL (4.4-10.8)
[2019-10-12] MEDS: Normal Saline 250 ML IV (16:45)
[2019-10-12 16:46] LABS: HCT 57.1 % (40.0-50.0)
[2019-10-12 16:51] LABS: PTT Activated 24.5 sec (21.0-31.4)
[2019-10-12 16:56] LABS: ALT 16 U/L (16-63); AST 11 U/L (15-37); Albumin 2.5 g/dL (3.4-5.0); Alkaline Phosphatase 100 U/L (46-116); Anion Gap 3.7 mmol/L (3-11); BUN 17 mg/dL (7-18); Bilirubin, Total 0.6 mg/dL (0.2-1.0); CO2 36.3 mmol/L (21.0-32.0); CREATININE 1.61 mg/dL (0.70-1.30); Calcium 8.3 mg/dL (8.5-10.1); Chloride 98 mmol/L (98-107); Glucose 337 mg/dL (74-106); Magnesium 1.9 mg/dL (1.8-2.4); Potassium 4.3 mmol/L (3.5-5.1); Sodium 138 mmol/L (136-145); Total Protein 6.2 g/dL (6.4-8.2); Troponin I < 0.05 ng/mL (<0.06)
[2019-10-12 17:17] LABS: Bilirubin Negative (Negative); Blood Moderate (Negative); Clarity Clear (Clear); Glucose 500 mg/dL (Negative); Ketones Negative (Negative); Leukocyte Esterase Negative (Negative); Nitrite Negative (Negative); Specific Gravity 1.025 (1.005-1.025); Urobilinogen 0.2 EU/dL (Up TO 0.2); pH 5.5 (5-8)
[2019-10-12 17:31] LABS: Epithelial Cells Few HPF (Negative); WBC >50 HPF (0-5)
[2019-10-12 17:32] LABS: Bacteria Negative HPF (Negative); C & S Indicated? Yes; Casts 3-5 Hyaline LPF (Negative); Crystals Negative HPF (Negative); Mucus Negative (Negative); Other Cells Few Renal (Negative)
--- NOTE | 2019-10-12 17:43 | DI.RAD_ITS ---
EXAM: XR CHEST 2V PA LATERAL CLINICAL HISTORY: hyperglycemia, r/o acute disease TECHNIQUE: 2D digital imaging was performed. COMPARISON: CT CT CHEST WO from 03/30/2019 CR XR PORTABLE CHEST AP from 04/27/2019 CR,XR XR CHEST 2V PA LATERAL from 08/12/2019 CR,XR XR PORTABLE CHEST AP POST LINE from 08/13/2019 FINDINGS: Exam is limited by patient body habitus and projection. The lungs are not well inflated on the AP vi ew. Heart appears enlarged. There are increased interstitial markings which appear chronic. No foc al area of consolidation or effusion is visible. IMPRESSION: Limited exam. No gross evidence of an acute abnormality. DATA REPOSITORY: RADIATION DOSE DELIVERED:
--- NOTE | 2019-10-12 18:01 | DI.VRAD_ITS ---
PROCEDURE INFORMATION: Exam: CT Head Without Contrast Exam date and time: 10/12/2019 5:37 PM Age: 64 years old Clinical indication: Altered mental status/memory loss; Additional info: R/O acute process TECHNIQUE: Imaging protocol: Computed tomography of the head without contrast. COMPARISON: CT HEAD WO 04/27/2019 8:33 AM FINDINGS: Brain: Mild nonspecific hypodensities of the periventricular and deep subcortical white matter, most likely secondary to chronic small vessel ischemic change. No intracranial hemorrhage or extra-axial fluid collection. No evidence of mass effect or midline shift. Cabrera-white matter differentiation is normal. Ventricles: No ventriculomegaly. Bones/joints: No acute osseus lesion or fracture. Sinuses: Chronic near complete opacification of the right maxillary sinus. Mastoid air cells: Partial opacification of inferior right mastoid air cells. Soft tissues: Unremarkable. IMPRESSION: 1. No acute intracranial pathology. 2. Partial opacification of inferior right mastoid air cells. 3. Chronic right maxillary sinusitis. 4. Other chronic findings, as above. Dictated and Authenticated by: Fitz Glynn MD. Ordering:MARIA E Acuña MD
--- NOTE | 2019-10-12 18:02 | DI.VRAD_ITS ---
PROCEDURE INFORMATION: Exam: XR Chest, 2 Views Exam date and time: 10/12/2019 5:49 PM Age: 64 years old Clinical indication: Altered mental status, R/O acute process TECHNIQUE: Imaging protocol: XR of the chest Views: 2 views. COMPARISON: CR XR PORTABLE CHEST AP POST LINE 08/13/2019 5:10 PM FINDINGS: Lungs: Crowding of lung markings, likely secondary to low lung volumes. No focal areas of consolidation. Pleural space: No pleural effusion or pneumothorax. Heart/Mediastinum: Cardiac and mediastinal silhouettes are unremarkable. Bones/joints: No acute osseus lesion or fracture. IMPRESSION: No acute cardiopulmonary findings. Dictated and Authenticated by: Fitz Glynn MD. Ordering:MARIA E Acuña MD
[2019-10-12] MEDS: Normal Saline 500 ML IV (18:22)
[2019-10-12] MEDS: cefTRIAXone 1 GM/50 ML BAG IVPB (18:57)
[2019-10-12] MEDS: Cephalexin 500 MG CAP, 4 CAPS/BTL PO (20:17)
== END 2019-10-12 20:10 | disposition home or self-care (01) ==
PROVIDERS: Emergency Provider Physician Assistant; PCP Family Medicine
DX: E11.65 Type 2 diabetes mellitus with hyperglycemia (principal); N39.0 Urinary tract infection, site not specified; I10 Essential (primary) hypertension; Z79.4 Long term (current) use of insulin; E66.01 Morbid (severe) obesity due to excess calories; Z68.42 Body mass index [BMI] 45.0-49.9, adult; J44.9 Chronic obstructive pulmonary disease, unspecified; Z87.891 Personal history of nicotine dependence
CPT/HCPCS: 36415; 36416; 80053; 82962; 93005; 96361; 96365; 99285; 70450; 71046; 81003; 81015; 83735; 84484; 85025; 85610; 85730; 87086; 93010; J0696

== ENCOUNTER 2019-11-01 02:59 | Emergency (ER) | payer MEDICARE, MEDICAID, SELFPAY ==
[2019-11-01] VITALS (39 sets, daily range): BP systolic 117–152; BP diastolic 57–121; PULSE 75–100; RESP 12–28; TEMP 36.9; O2SAT 92–96
--- NOTE | 2019-11-01 02:51 | ED.GENADUL_ITS ---
Discharge Plan Disposition Patient Disposition: HOME Condition: Improving Discharge Details Chief Complaint: Diabetes Clinical Impression: Hyperglycemia Primary Care Provider: Allison Muniz ED Provider: Arianne Guillen Home Meds and New Rx's Prescriptions: Continued pantoprazole 40 MG tablet,delayed release (DR/EC) 40 mg PO DAILY@0730 Qty: 30 RF: 3 aspirin 81 mg Tablet,Delayed Release (Dr/Ec) 81 mg PO DAILY Qty: 0 RF: 0 atorvastatin 80 mg Tablet 80 mg PO QPM RF: 0 insulin lispro [Humalog KwikPen Insulin] 100 unit/mL Insulin Pen 0 unit SUBCUT QAC RF: 0 sennosides-docusate sodium [Senna with Docusate Sodium] 8.6-50 mg Tablet 2 tab PO BID RF: 0 ferrous sulfate 325 mg (65 mg iron) tablet 325 mg PO QDAY RF: 0 metoprolol succinate 25 mg tablet extended release 24 hr 25 mg PO QDAY RF: 0 cholecalciferol (vitamin D3) 50 mcg (2,000 unit) capsule 2,000 unit PO QDAY RF: 0 furosemide 40 mg Tablet 40 mg PO BID@0830,1600 Qty: 20 RF: 0 Januvia 50 mg tablet 50 mg PO DAILY Qty: 30 RF: 0 methadone [Dolophine] 5 MG tablet 5 mg PO BID RF: 0 acetaminophen 500 MG tablet 1,000 mg PO DAILY PRNRF: 0 Spiriva with HandiHaler 18 MCG capsule, w/inhalation device 18 mcg Inhalation DAILY RF: 0 ProAir RespiClick 90 MCG aerosol powdr breath activated 2 puffs Inhalation Q4H PRN PRNRF: 0 sucralfate 1 GM tablet 1 gm PO QID RF: 0 multivitamin Capsule 1 cap PO QAM RF: 0 Narcan 4 mg/actuation [place],Non-Aerosol 4 mg INTRANASAL Q2M PRNRF: 0 Lantus Solostar U-100 Insulin 100 unit/mL (3 mL) insulin pen 30 unit SUBCUT HS RF: 0 Januvia 50 mg Tablet 501 mg PO DAILY RF: 0 Incruse Ellipta 62.5 mcg/actuation blister with device INHALATION RF: 0 Discharge Instructions Instructions: Diabetic Hyperglycemia (ED) Additional Instructions: Drink plenty of fluids and get plenty of rest. Take your regular medications as directed. Check your sugar regularly. Call your primary care doctor on Saturday morning to schedule a follow-up appointment for reevaluation. Return immediately to the emergency department if you develop any worsening or new concerning symptoms. Discharge Data Discharge Date/Time-TO BE ENTERED AT DEPARTURE: 11/01/19 07:15 Discharge Physician: Arianne Guillen Medical Decision Making 0300 -- 65-year-old male with a history of morbid obesity, COPD, hypertension, hyperlipidemia, diabetes, sleep apnea, and cardiomyopathy presents for hyperglycemia of 600 at home prior to arrival. After 6 units of Lantus at home, glucose 312 per EMS. Vitals within normal limits. Patient has no acute complaints. He appears at his baseline. He is sleepy but arousable and oriented x3. We will check screening labs and urinalysis and start IV fluid bolus. 0415 -- Glucose 780 with normal anion gap with slightly elevated bicarb which is his baseline. Elevated Hgb/Hct, likely secondary to dehydration. Sodium 129 expected with his hyperglycemia. Urinalysis notes glucose but no evidence of infection. Normal white blood cell count. We will give 8 units of regular insulin IV and an additional 500 cc normal saline bolus and plan for recheck of his glucose. 0540 --recheck glucose 535. Will give additional IV fluids and reassess. Patient remains hemodynamically stable without acute complaints. Patient is requesting to go home but is agreeable to stay for recheck glucose. 0635 --recheck glucose 298. Pt remains hemodynamically stable and denies any acute complaints. Will plan for discharge to home. Case d/w over the phone and she will have pt f/u with his pcp this week. Advised to follow up with the primary care doctor for re-evaluation. Usual and customary return precautions given prior to discharge. Medical Records Medical records reviewed: Yes I reviewed the patient's medical records. Lab Data Lab results reviewed: Yes I reviewed the patient's lab results. Labs: Laboratory Tests Range/Units 11/01/19 11/01/19 11/01/19 03:05 03:05 04:17 WBC (4.4-10.8) 10^3/uL 6.80 RBC (4.36-5.78) 10^6/uL 6.17 H Hgb (13.5-17.5) g/dL 18.1 H Hct (40.0-50.0) % 61.2 H* MCV (80-95) fL 99.2 H MCH (27.0-33.0) pg 29.3 MCHC (32.0-36.0) % 29.6 L RDW (11.8-14.1) % 19.7 H Plt Count (130-400) 10^3/uL 132 MPV (8.0-11.0) fL 11.5 H Immature Gran % 0.6 Neutrophils % 81.9 Lymphocytes % 6.9 Monocytes % 7.1 Eosinophils % 3.1 Basophils % 0.4 Nucleated RBC % % 0 Absolute Neutrophils (1.2-6.7) 10^3/uL 5.57 Absolute Lymphocytes (1.2-3.4) 10^3/uL 0.47 L Absolute Monocytes (0.1-0.8) 10^3/uL 0.48 Absolute Eosinophils (0.0-0.7) 10^3/uL 0.21 Absolute Basophils (0.0-0.2) 10^3/uL 0.03 Sodium (136-145) mmol/L 129 L Potassium (3.5-5.1) mmol/L 4.0 Chloride (98-107) mmol/L 92 L Carbon Dioxide (21.0-32.0) mmol/L 33.5 H Anion Gap (3-11) mmol/L 3.5 BUN (7-18) mg/dL 20 H Creatinine (0.70-1.30) mg/dL 2.02 H Estimated GFR/1.73 m2 (mL/min/1.73m2) 33.64 Glucose (74-106) mg/dL 780 H* Calcium (8.5-10.1) mg/dL 8.6 Total Bilirubin (0.2-1.0) mg/dL 0.9 AST (15-37) U/L 12 L ALT (16-63) U/L 14 L Alkaline Phosphatase (46-116) U/L 91 Total Protein (6.4-8.2) g/dL 6.4 Albumin (3.4-5.0) g/dL 2.5 L Urine Color (Yellow) Yellow Urine Clarity (Clear) Clear Urine pH (5-8) 6.0 Ur Specific [place] (1.005-1.025) 1.015 Urine Protein (Negative) mg/dL >=300 H Urine Ketones (Negative) mg/dL Negative Urine Blood (Negative) Small H Urine Nitrite (Negative) Negative Urine Bilirubin (Negative) Negative Urine Urobilinogen (Up TO 0.2) EU/dL 0.2 Ur Leukocyte Esterase (Negative) Negative Urine RBC (0-2) HPF 3-5 H Urine WBC (0-5) HPF 0-2 Ur Epithelial Cells (Negative) HPF Few Urine Crystals (Negative) HPF Negative Urine Bacteria (Negative) HPF Negative Urine Casts (Negative) LPF Negative Urine Mucus (Negative) Negative Ur Culture Indicated? No Urine Glucose (Negative) mg/dL 500 H HPI General Mode of arrival: EMS . Date/Time Provider Initiated Documentation: 11/01/19 03:25 . Limitations to Documentation: no limitations . Information obtained by: patient, family and EMS . HPI Narrative: Patient is a 64-year-old male with a history of morbid obesity, diabetes, hypertension, obstructive sleep apnea, COPD, cardiomyopathy presents for hyperglycemia early this morning at home. Per EMS, glucose greater than 600 at home and gave 6 units of Lantus prior to EMS arrival. Per EMS, glucose 312 on their assessment. Patient denies any acute complaints. He denies any fever, cough, chest pain, shortness of breath, abdominal pain, urinary symptoms. Related Data Home Medications Medication Instructions Recorded Confirmed pantoprazole 40 mg PO DAILY@0730 #30 09/13/16 11/01/19 methadone [Dolophine] 5 mg PO BID 03/15/17 11/01/19 ProAir RespiClick 2 puffs INHALATION Q4H PRN PRN 09/09/17 10/12/19 Spiriva with HandiHaler 18 mcg INHALATION DAILY 09/09/17 10/12/19 acetaminophen 1,000 mg PO DAILY PRN 09/09/17 10/12/19 sucralfate 1 gm PO QID 09/09/17 11/01/19 aspirin 81 mg PO DAILY #0 tab 11/06/17 11/01/19 atorvastatin 80 mg PO QPM 08/28/18 11/01/19 insulin lispro [Humalog KwikPen 0 unit SUBCUT QAC 08/28/18 10/12/19 Insulin] Narcan 4 mg INTRANASAL Q2M PRN 03/30/19 10/12/19 multivitamin 1 cap PO QAM 03/30/19 10/12/19 sennosides-docusate sodium [Senna 2 tab PO BID 04/27/19 10/12/19 with Docusate Sodium] cholecalciferol (vitamin D3) 2,000 unit PO QDAY 08/12/19 11/01/19 ferrous sulfate 325 mg PO QDAY 08/12/19 11/01/19 metoprolol succinate 25 mg PO QDAY 08/12/19 11/01/19 Januvia 50 mg PO DAILY #30 tab 08/18/19 10/12/19 furosemide 40 mg PO BID@0830,1600 #20 tab 08/18/19 11/01/19 Lantus Solostar U-100 Insulin 30 unit SUBCUT HS 10/12/19 10/12/19 Incruse Ellipta INHALATION 11/01/19 11/01/19 Januvia 501 mg PO DAILY 11/01/19 11/01/19 Previous Rx's Medication Instructions Recorded pantoprazole 40 mg PO DAILY@0730 #30 09/13/16 aspirin 81 mg PO DAILY #0 tab 11/06/17 Januvia 50 mg PO DAILY #30 tab 08/18/19 furosemide 40 mg PO BID@0830,1600 #20 tab 08/18/19 Allergies Allergy/AdvReac Type Severity Reaction Status Date / Time Iodinated Contrast Media Allergy Hives Verified 11/01/19 03:01 [Iodinated Contrast- Oral and IV Dye] rifampin Allergy Hives Unverified 11/01/19 03:01 vancomycin Allergy Hives Unverified 11/01/19 03:01 General YVAN: 3 Review of Systems All systems reviewed & are unremarkable except as noted in HPI and below Constitutional Constitutional: Reports as per HPI, Denies chills and Denies fever(s) Eyes Eyes: Denies blurry vision ENT Ears, Nose, Mouth, and Throat: Denies dizziness, Denies sore throat and Denies throat swelling Cardiovascular Cardiovascular: Denies chest pain and Denies dyspnea Respiratory Respiratory: Denies cough and Denies dyspnea Gastrointestinal Gastrointestinal: Denies abdominal pain, Denies diarrhea and Denies vomiting Genitourinary Genitourinary: Denies hematuria and Denies dysuria Musculoskeletal Musculoskeletal: Denies back pain and Denies numbness Integumentary/Breasts Skin/Breast: Denies lesions and Denies rash Neurologic Neurologic: Denies dizziness, Denies localized weakness and Denies numbness Allergic/Immunologic Allergic/Immunologic: Denies throat swelling [facility], [facility] Medical History (Updated 11/01/19 @ 06:34 by Arianne Guillen DO) Acute kidney injury (nontraumatic) (Acute) Cardiomyopathy (Acute) Chronic osteomyelitis (Chronic) COPD (chronic obstructive pulmonary disease) (Chronic) COPD exacerbation (Acute) Diabetes mellitus (Chronic) Heart failure with preserved ejection fraction (Acute) HTN (hypertension) (Chronic) Hypertension (Chronic) Infection of prosthetic knee joint (Chronic) Iron deficiency anemia (Chronic) Mixed sleep apnea (Chronic) Non-ST elevation myocardial infarction (NSTEMI) (Acute) Obesity, morbid, BMI 40.0-49.9 (Acute) CARLOS (obstructive sleep apnea) (Chronic) Sinus pause (Acute) Type 2 diabetes mellitus (Chronic) Surgical History EGD - MAC (09/10/16) Previous back surgery (Chronic) S/P hernia repair (Chronic) S/P right knee surgery (Chronic) Status post left knee replacement (Chronic) Family History Sister Diabetes Social History Smoking/Tobacco Use Status: Former Tobacco Use Tobacco: How many years used: 20 Second Hand Exposure: Yes Alcohol Intake: former Drug use: Occasionally Substance use type: marijuana Household members: spouse Number of Children: 4 Do you feel safe at home: Yes Do you feel safe in your relationship?: Yes Exam Const General: cooperative and no acute distress Nutritional Appearance: obese morbidly obese Orientation: oriented x3 and other (sleepy but arousable) [facility] Head: normal to inspection Face and sinus: normal facial exam Mouth: mucous membranes dry Eyes General: appearance normal, both eyes and all related structures EOM: EOM intact bilaterally Neck Neck: normal visual inspection and No submandibular swelling Lymphatic: no lymphadenopathy noted Chest Chest: normal inspection of the chest and no tenderness Resp Effort & Inspection: normal respiratory effort and able to speak in complete sentences Auscultation: clear to auscultation bilaterally Cardio Rate: regular rate Rhythm: regular rhythm GI Inspection: normal to inspection and obesity Palpation: soft, not firm, not rigid and nontender Auscultation: normal bowel sounds Skin General skin exam: no rashes or lesions noted Neuro General: patient alert, patient awake and patient oriented x3 Cognition: normal cognition Speech: speech normal Motor: muscle tone normal throughout Sensory Exam: no sensory deficits noted Extrem General: normal to inspection, full ROM, capillary refill normal, no calf tenderness bilaterally and no edema Psych Appearance: grossly normal Mental Status: mental status grossly normal Speech and Movement: speech and movement normal Affect: normal affect
[2019-11-01] MEDS: Normal Saline 500 ML IV ×3 (03:16→05:30)
[2019-11-01 04:07] LABS: HGB 18.1 g/dL (13.5-17.5); Lymphocytes % 6.9; MCH 29.3 pg (27.0-33.0); MCHC 29.6 % (32.0-36.0); MCV 99.2 fL (80-95); MPV 11.5 fL (8.0-11.0); Monocytes % 7.1; Neutrophils % 81.9; Platelet Count 132 10^3/uL (130-400); RBC 6.17 10^6/uL (4.36-5.78); RDW 19.7 % (11.8-14.1); RDW-SD 68.6 fL
[2019-11-01 04:08] LABS: Abs Immature Grans 0.04 10^3/uL (0.0-0.06); Absolute Basophil Count 0.03 10^3/uL (0.0-0.2); Absolute Eosinophil Count 0.21 10^3/uL (0.0-0.7); Absolute Lymphocyte Count 0.47 10^3/uL (1.2-3.4); Absolute Monocyte Count 0.48 10^3/uL (0.1-0.8); Absolute Neutrophil Count 5.57 10^3/uL (1.2-6.7); Basophils % 0.4; Eosinophils % 3.1; Immature Grans % 0.6; Nucleated RBC 0 %
[2019-11-01 04:16] LABS: ALT 14 U/L (16-63); AST 12 U/L (15-37); Albumin 2.5 g/dL (3.4-5.0); Alkaline Phosphatase 91 U/L (46-116); Anion Gap 3.5 mmol/L (3-11); BUN 20 mg/dL (7-18); Bilirubin, Total 0.9 mg/dL (0.2-1.0); CO2 33.5 mmol/L (21.0-32.0); CREATININE 2.02 mg/dL (0.70-1.30); Calcium 8.6 mg/dL (8.5-10.1); Chloride 92 mmol/L (98-107); Estimated GFR 33.64 (mL/min/1.73m2); Sodium 129 mmol/L (136-145); Total Protein 6.4 g/dL (6.4-8.2)
[2019-11-01] MEDS: Insulin REGULAR-Human 100 UNITS/ML UNIT 8 UNITS IV (04:33)
[2019-11-01 04:38] LABS: Bilirubin Negative (Negative); Blood Small (Negative); Clarity Clear (Clear); Glucose 500 mg/dL (Negative); Ketones Negative (Negative); Leukocyte Esterase Negative (Negative); Nitrite Negative (Negative); Specific Gravity 1.015 (1.005-1.025); Urobilinogen 0.2 EU/dL (Up TO 0.2)
[2019-11-01 05:10] LABS: Bacteria Negative HPF (Negative); C & S Indicated? No; Casts Negative LPF (Negative); Crystals Negative HPF (Negative); Epithelial Cells Few HPF (Negative); Mucus Negative (Negative); WBC 0-2 HPF (0-5)
[2019-11-03 15:59] LABS: Glucose 780 mg/dL (74-106)
[2019-11-03 16:01] LABS: HCT 61.2 % (40.0-50.0)
== END 2019-11-01 07:15 | disposition home or self-care (01) ==
PROVIDERS: Emergency Provider Physician Assistant; PCP Family Medicine
DX: E11.65 Type 2 diabetes mellitus with hyperglycemia (principal); I11.0 Hypertensive heart disease with heart failure; I50.9 Heart failure, unspecified; J44.9 Chronic obstructive pulmonary disease, unspecified; Z87.891 Personal history of nicotine dependence
CPT/HCPCS: 36416; 80053; 82962; 96360; 96361; 99284; 81003; 81015; 85025

== ENCOUNTER 2019-11-06 19:07 | Outpatient (REF) | payer MEDICARE, MEDICAID, SELFPAY | END 2019-11-06 19:27 | LOC: NCHCN 19:07 | PROVIDERS: PCP Family Medicine; Visit Provider Family Medicine | DX: N39.0 Urinary tract infection, site not specified (principal) | CPT/HCPCS: 87086 ==

== ENCOUNTER 2019-11-07 14:16 | Emergency (ER) | payer MEDICARE, MEDICAID, SELFPAY ==
[2019-11-07] VITALS (61 sets, daily range): BP systolic 125–167; BP diastolic 68–92; PULSE 0–88; RESP 2–27; TEMP 36.3; O2SAT 89–97
--- NOTE | 2019-11-07 14:30 | RT.EKG_ITS ---
APPROVED REPORT Exam: Resting ECG Patient Location: E HR:84 bpm ECG Measurements Heart Rate 84 AXIS IL 209 P 60 QRSd 111 QRS 102 QT 397 T 15 QTc 469 Conclusion EKG 14: 49 Rate 84, IL slightly prolonged at 209, QTc normal, sinus rhythm, no significant ST elevations or depr essions, no evidence of STEMI, no other significant abnormalities.
--- NOTE | 2019-11-07 14:30 | DI.RAD_ITS ---
EXAM: XR PORTABLE CHEST AP CLINICAL HISTORY: sob, cough, wheeze, suspect pneumonia/chf TECHNIQUE: COMPARISON: CR,XR XR CHEST 2V PA LATERAL from 10/12/2019 FINDINGS: Heart is markedly enlarged. There is some prominence of the central pulmonary markings, no marcus con solidation seen. Question mild diffuse interstitial prominence, suspect mild pulmonary edema. IMPRESSION: Probable mild CHF. Appropriate follow-up studies requested. RADIATION DOSE DELIVERED: Total DLP
--- NOTE | 2019-11-07 14:44 | ED.GENADUL_ITS ---
Discharge Plan Disposition Patient Disposition: [facility] Condition: Critical Discharge Details Clinical Impression: Acute kidney injury, CHF exacerbation, Acute respiratory failure, Hypercapnia, Non-ST elevated myocardial infarction (non-STEMI) Primary Care Provider: Allison Muniz ED Provider: Fran Rahman Home Meds and New Rx's Prescriptions: No Action pantoprazole 40 MG tablet,delayed release (DR/EC) 40 mg PO DAILY@0730 Qty: 30 RF: 3 aspirin 81 mg Tablet,Delayed Release (Dr/Ec) 81 mg PO DAILY Qty: 0 RF: 0 atorvastatin 80 mg Tablet 80 mg PO QPM RF: 0 insulin lispro [Humalog KwikPen Insulin] 100 unit/mL Insulin Pen 0 unit SUBCUT QAC RF: 0 sennosides-docusate sodium [Senna with Docusate Sodium] 8.6-50 mg Tablet 2 tab PO BID RF: 0 ferrous sulfate 325 mg (65 mg iron) tablet 325 mg PO QDAY RF: 0 metoprolol succinate 25 mg tablet extended release 24 hr 25 mg PO QDAY RF: 0 cholecalciferol (vitamin D3) 50 mcg (2,000 unit) capsule 2,000 unit PO QDAY RF: 0 furosemide 40 mg Tablet 40 mg PO BID@0830,1600 Qty: 20 RF: 0 Januvia 50 mg tablet 50 mg PO DAILY Qty: 30 RF: 0 methadone [Dolophine] 5 MG tablet 5 mg PO BID RF: 0 acetaminophen 500 MG tablet 1,000 mg PO DAILY PRNRF: 0 Spiriva with HandiHaler 18 MCG capsule, w/inhalation device 18 mcg Inhalation DAILY RF: 0 ProAir RespiClick 90 MCG aerosol powdr breath activated 2 puffs Inhalation Q4H PRN PRNRF: 0 sucralfate 1 GM tablet 1 gm PO QID RF: 0 multivitamin Capsule 1 cap PO QAM RF: 0 Narcan 4 mg/actuation [place],Non-Aerosol 4 mg INTRANASAL Q2M PRNRF: 0 Lantus Solostar U-100 Insulin 100 unit/mL (3 mL) insulin pen 30 unit SUBCUT HS RF: 0 Januvia 50 mg Tablet 501 mg PO DAILY RF: 0 Incruse Ellipta 62.5 mcg/actuation blister with device INHALATION RF: 0 sulfamethoxazole-trimethoprim [Bactrim DS] 800-160 mg Tablet 1 tab PO BID RF: 0 Medical Decision Making 64-year-old male with a past medical history COPD, normally on 4 L of home O2, hypertension, obesity, recently diagnosed with a UTI and respiratory infection and started on Bactrim however the patient has not been taking this secondary to feeling fatigued and weak. Patient presents via EMS for evaluation of shortness of breath, fatigue and mild altered mental status. Patient is responsive to verbal stimuli, answers all questions. He states that over the last day or so he has become more fatigued, with cough, and increased shortness of breath. He has not been taking his home medications at all including his Bactrim or his Lasix. He denies any vomiting, diarrhea, or fever or chills. He denies any chest pain, chest heaviness or chest tightness. Although, he is a poor historian currently. He denies any headache. No other complaints at this time. Physical exam demonstrates notable crackles and wheezes throughout the lung fry, notable +2 to +3 pitting edema of the lower extremities, signs and symptoms are most concerning for COPD exacerbation, however differential is also high for CHF exacerbation and retain CO2 levels causing the slight sleepiness. Will start BiPAP, give 40 of Lasix, evaluate for infectious etiology, give duo nebs, Solu-Medrol, monitor closely and reassess. 4:58 PM There has been a notable delay in lab secondary to challenging IV access and hemolyzed labs multiple times, eventually we placed an ultrasound-guided IV with success for both lab draws and notable access. Additionally there was a delay in getting initial chest x-ray secondary to patient not being ready secondary to multiple IV attempts/blood draw attempts, unfortunately radiology did not return for reassessment, until just called again now. On reassessment the patient is demonstrating a decline in both his mental status and his oxygenation status. Oxygenation is now currently at 88% on 45%. Mental status demonstrates arousability to painful stimuli, no longer voice. However I did have a very clear discussion with the patient regarding potential intubation, and he made it unequivocally clear that he does not want to be intubated at this time. We will reach out to his to discuss this with her as well. We will order ABG for reassessment. EKG shows no evidence of STEMI. 5:37 PM Patient's labs are now rapidly returning, chest x-ray shows findings compatible with at least mild pulmonary edema, potential superimposed imposed infectious component potentially present as well. We will give Rocephin and doxycycline. Patient demonstrates a notably elevated hemoglobin at 18.6, this is not new, he does demonstrate renal dysfunction with a creatinine of 2.47, GFR 26, which is slightly worse than normal, ABG shows a pH of 7.28, PCO2 of 69, respiratory acidosis. Troponin is elevated at 0.65. proBNP is notably elevated at 15,000. Hematologically the patient shows a perspective of acute kidney injury and dehydration, however clinically and based on labs he shows evidence of notable fluid overload. He is currently producing urine and has produced 250 mL so far. He was given the initial 40 of Lasix, which I do think is still pertinent and relative with his clinical evidence of CHF exacerbation. He was given an additional 10 of insulin, then a repeat dose of 10 subcu insulin help with his blood sugar as it is still notably elevated at 372. Patient's mental status is now notably improving, and now he is arousable to noise, and is able to answer and respond all questions appropriately. I again asked the patient if you would be amendable to intubation and he made it extremely clear that he does not want to be intubated or put on a ventilator whatsoever. I made it clear that he could if not intubated, and he stated very clearly that he understands both what I am saying, and the ramifications of his decision. We have made multiple calls to his , but none have been answered. Messages have been left. The patient's clinically concerning status, I do feel that [facility] may be a better place for this patient than inpatient management here. We will contact [facility] for potential transfer. Current BiPAP settings are 14/6, and 50% FiO2. 6 PM Discussed the case with Dr. Vyas from medical ICU, she agrees with the assessment and plan. The patient will be transferred to [facility] ICU for further management. Accepting physician is Dr. Abbott. I have extensively reviewed the treatment plan with the patient. I have addressed all patient concerns at this time. I have also discussed the plan with the admitting physician and they agree with the current assessment and plan and have agreed to assume responsibility for the patient. All parties demonstrate verbal understanding and agreement with our assessment and plan at this time. 6:20 PM We have been in contact with the patient's , of note her phone number of contact is [phone]. She states that he is previously been okay with intubation, but does note that he has fought it notably in the past. We again discussed it with the patient here, and he clearly states to me that he does not want to be intubated. EKG 14: 49 Rate 84, [place] slightly prolonged at 209, QTc normal, sinus rhythm, no significant ST elevations or depressions, no evidence of STEMI, no other significant abnormalities. FINDINGS: Lungs: Increased prominence of the pulmonary vasculature. No focal consolidation. Pleural space: No pneumothorax. No sizable effusion. Heart/Mediastinum: Stable enlargement of the cardiac silhouette. Bones/joints: stable bony structures. IMPRESSION: Findings compatible with at least mild pulmonary edema. Superimposed infectious or inflammatory processes are not excluded. Thank you for allowing us to participate in the care of your patient. Dictated and Authenticated by: Jean Pierre Phillip DO 11/07/2019 5:34 PM Eastern Time ([place] & [place]) HPI General Date/Time Provider Initiated Documentation: 11/07/19 14:30 . HPI Narrative: [age]-year-old male with a past medical history COPD, normally on 4 L of home O2, hypertension, obesity, recently diagnosed with a UTI and respiratory infection and started on Bactrim however the patient has not been taking this secondary to feeling fatigued and weak. Patient presents via EMS for evaluation of shortness of breath, fatigue and mild altered mental status. Patient is responsive to verbal stimuli, answers all questions. He states that over the last day or so he has become more fatigued, with cough, and increased shortness of breath. He has not been taking his home medications at all including his Bactrim or his Lasix. He denies any vomiting, diarrhea, or fever or chills. He denies any chest pain, chest heaviness or chest tightness. Although, he is a poor historian currently. He denies any headache. No other complaints at this time Related Data Home Medications Medication Instructions Recorded Confirmed pantoprazole 40 mg PO DAILY@0730 #30 09/13/16 11/07/19 methadone [Dolophine] 5 mg PO BID 03/15/17 11/07/19 ProAir RespiClick 2 puffs INHALATION Q4H PRN PRN 09/09/17 11/07/19 Spiriva with HandiHaler 18 mcg INHALATION DAILY 09/09/17 11/07/19 acetaminophen 1,000 mg PO DAILY PRN 09/09/17 11/07/19 sucralfate 1 gm PO QID 09/09/17 11/07/19 aspirin 81 mg PO DAILY #0 tab 11/06/17 11/07/19 atorvastatin 80 mg PO QPM 08/28/18 11/07/19 insulin lispro [Humalog KwikPen 0 unit SUBCUT QAC 08/28/18 11/07/19 Insulin] Narcan 4 mg INTRANASAL Q2M PRN 03/30/19 11/07/19 multivitamin 1 cap PO QAM 03/30/19 11/07/19 sennosides-docusate sodium [Senna 2 tab PO BID 04/27/19 11/07/19 with Docusate Sodium] cholecalciferol (vitamin D3) 2,000 unit PO QDAY 08/12/19 11/07/19 ferrous sulfate 325 mg PO QDAY 08/12/19 11/07/19 metoprolol succinate 25 mg PO QDAY 08/12/19 11/07/19 Januvia 50 mg PO DAILY #30 tab 08/18/19 11/07/19 furosemide 40 mg PO BID@0830,1600 #20 tab 08/18/19 11/07/19 Lantus Solostar U-100 Insulin 30 unit SUBCUT HS 10/12/19 11/07/19 Incruse Ellipta INHALATION 11/01/19 11/01/19 Januvia 501 mg PO DAILY 11/01/19 11/07/19 sulfamethoxazole-trimethoprim 1 tab PO BID 11/07/19 11/07/19 [Bactrim DS] Previous Rx's Medication Instructions Recorded pantoprazole 40 mg PO DAILY@0730 #30 09/13/16 aspirin 81 mg PO DAILY #0 tab 11/06/17 Januvia 50 mg PO DAILY #30 tab 08/18/19 furosemide 40 mg PO BID@0830,1600 #20 tab 08/18/19 Allergies Allergy/AdvReac Type Severity Reaction Status Date / Time Iodinated Contrast Media Allergy Hives Verified 11/07/19 14:33 [Iodinated Contrast- Oral and IV Dye] rifampin Allergy Hives Unverified 11/07/19 14:33 vancomycin Allergy Hives Unverified 11/07/19 14:33 General Stated Complaint: AMS/LOC YVAN: 2 Review of Systems All systems reviewed & are unremarkable except as noted in HPI and below PFSH Medical History (Updated 11/07/19 @ 18:11 by Fran Rahman DO) Acute kidney injury (nontraumatic) Cardiomyopathy Chronic osteomyelitis COPD (chronic obstructive pulmonary disease) COPD exacerbation Diabetes mellitus Heart failure with preserved ejection fraction HTN (hypertension) Hypertension Infection of prosthetic knee joint Iron deficiency anemia Mixed sleep apnea Non-ST elevation myocardial infarction (NSTEMI) Obesity, morbid, BMI 40.0-49.9 CARLOS (obstructive sleep apnea) Sinus pause Type 2 diabetes mellitus Surgical History EGD - [facility] (09/10/16) Previous back surgery S/P hernia repair S/P right knee surgery Status post left knee replacement Family History Sister Diabetes Social History Smoking/Tobacco Use Status: Former Tobacco Use Tobacco: How many years used: 20 Second Hand Exposure: Yes Alcohol Intake: former Drug use: Occasionally Substance use type: marijuana Household members: spouse Number of Children: 4 Do you feel safe at home: Yes Do you feel safe in your relationship?: Yes Exam Narrative Exam Narrative: 1.Const: Well-nourished, Well-developed, appearing stated age 2.Eyes: PERRL, no conjunctival injection, and symmetrical lids. 3.ENT: Atraumatic external nose and ears. Dry MM. Neck: Symmetric, trachea midline, No thyromegaly. Large neck girth 4.CVS: +S1/S2, No murmurs or gallops. Peripheral pulses 2+ and equal in all extremities. Brisk capillary refill in all extremities. 5.RESP: Unlabored respiratory effort. Diffuse crackles throughout, primarily in the bases, also notable wheezes throughout as well. No rhonchi. 6.GI: Soft, Nontender/Nondistended, No hepatosplenomegaly. No guarding or rebound. 7.MSK: Normocephalic/Atraumatic, Extremities w/o deformity or ttp No cyanosis or clubbing, no calf tenderness, normal movement of all extremities. Notable +3 pitting edema of the right lower extremity and +2 pitting edema of the left lower extremity. 8.Skin: Warm, Dry. No rashes or lesions. 9.Neuro: financial recruiter II-XII grossly intact. Sensation grossly intact, no focal neurologic deficits. 10.Psych: (AAO) x3. Appropriate mood and affect, GCS 15 Course Vital Signs Vital signs: Vital Signs Temperature 36.3 C L 11/07/19 14:27 Pulse 88 11/07/19 14:27 Respiratory Rate 22 11/07/19 14:27 Blood Pressure 152/88 H 11/07/19 14:27 Pulse Oximetry 93 L 11/07/19 14:27 Temperature 36.3 C L 11/07/19 14:27 Temperature Source Temporal Artery Scan 11/07/19 14:27 Pulse 88 11/07/19 14:27 Respiratory Rate 22 11/07/19 14:27 Blood Pressure 152/88 H 11/07/19 14:27 Pulse Oximetry 93 L 11/07/19 14:27 Oxygen Delivery Method Nasal Cannula 11/07/19 14:27 Oxygen Flow Rate 4 11/07/19 14:27 Lab/Test Results Lab/Test Results: 11/07/19 14:39 Blood Blood Culture - Pending 11/07/19 14:39 Blood Blood Culture - Pending
[2019-11-07] MEDS: Albuterol/Ipratropium 3 ML UPD VIAL (14:59)
[2019-11-07] MEDS: Furosemide 40 MG/4 ML VIAL IVP (15:06)
[2019-11-07] MEDS: Insulin REGULAR-Human 100 UNITS/ML UNIT 10 UNITS SC ×2 (15:07→17:24)
[2019-11-07] MEDS: methylPREDNISolone SUCC 125 MG VIAL IVP (15:07)
[2019-11-07 16:57] LABS: BE (Venous) 6 mmol/L (-2-3); HCO3 (Venous) 33 mmol/L (23-28); O2 Sat (Venous) 96 %; TCO2 (Venous) 28 mmol/L (24-29); pH (Venous) 7.31 (7.31-7.41); pO2 (Venous) 83 mmHg
[2019-11-07 16:59] LABS: pCO2 (Venous) 65 mmHg (41-51)
[2019-11-07 17:07] LABS: Ammonia 21 umol/L (11-32)
[2019-11-07 17:19] LABS: Abs Immature Grans 0.03 10^3/uL (0.0-0.06); Absolute Basophil Count 0.03 10^3/uL (0.0-0.2); Absolute Lymphocyte Count 0.46 10^3/uL (1.2-3.4); Absolute Monocyte Count 0.35 10^3/uL (0.1-0.8); Absolute Neutrophil Count 7.75 10^3/uL (1.2-6.7); Basophils % 0.3; HGB 18.6 g/dL (13.5-17.5); Immature Grans % 0.3; Lymphocytes % 5.3; MCH 29.2 pg (27.0-33.0); MCV 97.5 fL (80-95); Monocytes % 4.1; Nucleated RBC 1 %; Platelet Count 183 10^3/uL (130-400); RBC 6.37 10^6/uL (4.36-5.78); RDW 19.6 % (11.8-14.1); RDW-SD 66.2 fL; WBC 8.62 10^3/uL (4.4-10.8)
[2019-11-07 17:20] LABS: HCT 62.1 % (40.0-50.0)
[2019-11-07 17:23] LABS: ALT 27 U/L (16-63); AST 24 U/L (15-37); Albumin 2.1 g/dL (3.4-5.0); Alkaline Phosphatase 126 U/L (46-116); Anion Gap 3.4 mmol/L (3-11); BUN 31 mg/dL (7-18); Bilirubin, Total 0.7 mg/dL (0.2-1.0); CO2 32.6 mmol/L (21.0-32.0); CREATININE 2.47 mg/dL (0.70-1.30); Calcium 8.4 mg/dL (8.5-10.1); Chloride 97 mmol/L (98-107); Estimated GFR 26.67 (mL/min/1.73m2); Glucose 372 mg/dL (74-106); NT-proBNP 15273 pg/mL (<300); Potassium 4.3 mmol/L (3.5-5.1); Sodium 133 mmol/L (136-145); TSH (W/Ref FT4) 1.45 uIU/mL (0.36-3.74); Total Protein 6.3 g/dL (6.4-8.2)
[2019-11-07 17:24] LABS: Troponin I 0.65 ng/mL (<0.06)
[2019-11-07 17:24] LABS: Bilirubin Small (Negative); Blood Large (Negative); Clarity Sl Cloudy (Clear); Glucose 500 mg/dL (Negative); Ketones Negative (Negative); Leukocyte Esterase Negative (Negative); Nitrite Negative (Negative); Specific Gravity >= 1.030 (1.005-1.025)
--- NOTE | 2019-11-07 17:24 | NUR.NOTE ---
EMS attempted 2 IVs unsuccessfully enroute to [facility]. RN attempted 2 IVs, second attempt successfully blood hemolyzed. Lab notified of blood draw, rojelio patients in order of need. Lab unable after several attempts to obtain blood. Provider was aware of delays.US used to obtain blood. CXR delay related to PUI status and US.
[2019-11-07 17:27] LABS: BE 6 mmol/L (-2-3); HCO3 33 mmol/L (22-26); pH 7.28 (7.35-7.45); pO2 80 mmHg (80-105); sO2 95 % (95-98); tCO2 28 mmol/L (23-27)
[2019-11-07 17:30] LABS: FIO2 45 %; Site Right Radial; pCO2 69 mmHg (35-45)
--- NOTE | 2019-11-07 17:34 | DI.VRAD_ITS ---
PROCEDURE INFORMATION: Exam: XR Chest, 1 View Exam date and time: 11/07/2019 3:44 PM Age: 64 years old Clinical indication: Shortness of breath TECHNIQUE: Imaging protocol: XR of the chest Views: 1 view. COMPARISON: CR XR CHEST 2V PA LATERAL 10/12/2019 5:43 PM FINDINGS: Lungs: Increased prominence of the pulmonary vasculature. No focal consolidation. Pleural space: No pneumothorax. No sizable effusion. Heart/Mediastinum: Stable enlargement of the cardiac silhouette. Bones/joints: stable bony structures. IMPRESSION: Findings compatible with at least mild pulmonary edema. Superimposed infectious or inflammatory processes are not excluded. Dictated and Authenticated by: Jean Pierre Phillip MD. Ordering:FLY Peters MD
[2019-11-07] MEDS: Albuterol/Ipratropium 3 ML UPD VIAL 9 ML UPD (18:03)
[2019-11-07] MEDS: cefTRIAXone 2 GM/50 ML BAG IVPB (18:05)
[2019-11-07 18:18] LABS: RBC >50 HPF (0-2)
[2019-11-07 18:19] LABS: C & S Indicated? Yes
[2019-11-07] MEDS: DOXYCYCLINE 100 MG in Normal Saline 100 ML IVPB (18:35)
--- NOTE | 2019-11-07 20:18 | NUR.NOTE ---
Nursing Note: Attempt to call report. Sanaz RN to call back.
[2019-11-07 21:41] LABS: Anisocytosis 2+; Diff Comment RBC Morph Reviewed
[2019-11-08 07:41] LABS: COVID-19 RT-PCR UVMMC Result Negative (Negative)
--- NOTE | 2019-11-08 07:49 | NUR.NOTE ---
Patient [place] [facility] Covid result faxed to [phone].Nursing Note:
== END 2019-11-07 20:05 | disposition short-term general hospital (02) ==
PROVIDERS: Emergency Provider Student in an Organized Health Care Education/Training Program; PCP Family Medicine
DX: I21.4 Non-ST elevation (NSTEMI) myocardial infarction (principal); J96.02 Acute respiratory failure with hypercapnia; E87.2 Acidosis; N17.9 Acute kidney failure, unspecified; E87.70 Fluid overload, unspecified; I11.0 Hypertensive heart disease with heart failure; I50.30 Unspecified diastolic (congestive) heart failure; E11.9 Type 2 diabetes mellitus without complications; Z79.4 Long term (current) use of insulin; Z03.818 Encounter for observation for suspected exposure to other biological agents ruled out; Z87.891 Personal history of nicotine dependence; J44.9 Chronic obstructive pulmonary disease, unspecified; Z99.81 Dependence on supplemental oxygen; Z91.14 Patient's other noncompliance with medication regimen
CPT/HCPCS: 36415; 80053; 82805; 87040; 87449; 93005; U0003; 36600; 71045; 81003; 81015; 82140; 83880; 84443; 84484; 85025; 87086; 93010; 94640; J1940; J2930; J7620

== ENCOUNTER → 2019-12-01 14:10 | Outpatient (BNVA) | payer MEDICARE, MEDICAID, SELFPAY | PROVIDERS: PCP Family Medicine; Referring Provider Family Medicine; Visit Provider Urology | DX: N39.0 Urinary tract infection, site not specified (principal); R31.0 Gross hematuria; E11.9 Type 2 diabetes mellitus without complications; J44.9 Chronic obstructive pulmonary disease, unspecified; I10 Essential (primary) hypertension | CPT/HCPCS: 99213 ==

== ENCOUNTER 2019-12-01 16:29 | Outpatient (REF) | payer MEDICARE, MEDICAID, SELFPAY | END 2019-12-01 16:49 | LOC: LBN 16:29 | PROVIDERS: PCP Family Medicine; Visit Provider Urology | DX: N39.0 Urinary tract infection, site not specified (principal) | CPT/HCPCS: 87077; 87086; 87186 ==

== ENCOUNTER 2019-12-07 00:35 | Outpatient (CLI) | payer MEDICARE, MEDICAID, SELFPAY ==
--- NOTE | 2019-12-07 | DI.RAD_ITS ---
EXAM: XR CHEST 2V PA LATERAL CLINICAL HISTORY: F/U PNEUMONIA, J15.9,ACUTE AND CHRONIC RESP FAILURE,HYPOXIA,J96.21,COPD TECHNIQUE: 2D digital imaging was performed. COMPARISON: CR,XR XR CHEST 2V PA LATERAL from 10/12/2019 FINDINGS: MEDIASTINUM: Normal. HEART: Normal. PULMONARY VASCULATURE: Normal. LUNGS: Chronic interstitial fibrotic changes are present. Focal consolidating infiltrates. PLEURAL SPACE: No pleural effusion or pneumothorax. BONE:Within normal limits for the patient's age. OTHER FINDINGS:Normal. IMPRESSION: No acute pulmonary findings. DATA REPOSITORY: RADIATION DOSE DELIVERED:
== END 2019-12-07 00:55 ==
PROVIDERS: PCP Family Medicine; Visit Provider Family Medicine
DX: Z87.01 Personal history of pneumonia (recurrent) (principal); J96.21 Acute and chronic respiratory failure with hypoxia; J44.9 Chronic obstructive pulmonary disease, unspecified; Z09 Encounter for follow-up examination after completed treatment for conditions other than malignant neoplasm
CPT/HCPCS: 71046

== ENCOUNTER 2020-01-18 11:10 | Outpatient (CLI) | payer MEDICARE, MEDICAID, SELFPAY ==
[2020-01-21 11:03] LABS: SARS-CoV-2 RNA Not Detected (NotDetected); SARS-CoV-2 RNA Source Nasal/Nares
== END 2020-01-18 11:30 ==
PROVIDERS: Urology; PCP Family Medicine; Visit Provider Family Medicine
DX: J06.9 Acute upper respiratory infection, unspecified (principal)
CPT/HCPCS: U0003

== ENCOUNTER 2020-01-28 05:09 | Inpatient (IN) | payer MEDICARE, MEDICAID, SELFPAY ==
[2020-01-28] VITALS (91 sets, daily range): BP systolic 102–176; BP diastolic 42–155; PULSE 95–177; RESP 8–57; TEMP 36.5–38.4; O2SAT 35–99
--- NOTE | 2020-01-28 05:00 | RT.EKG_ITS ---
APPROVED REPORT Exam: Resting ECG Patient Location: E HR:120 bpm ECG Measurements Heart Rate 120 AXIS OR 78 P 0 QRSd 118 QRS 51 QT 416 T 35 QTc 588 Conclusion Sinus tachycardia...rate> 99 Multiform ventricular premature complexes...short R-R, variable morphology Nonspecific intraventricular conduction delay...QRSd >115mS, not LBBB/RBBB Anterolateral infarct, acute...ST >0.20mV, V2-V6,I,aVL Prolonged QT interval...QTc >500mS
--- NOTE | 2020-01-28 05:19 | W.ED.GENAD ---
Discharge Plan Disposition Patient Disposition: [facility] INPATIENT Condition: Poor Discharge Details Chief Complaint: GenMedical Clinical Impression: Seizure-like activity, Acidosis, lactic Primary Care Provider: Allison Munzi ED Provider: Gino Grewal Home Meds and New Rx's Prescriptions: No Action torsemide 20 mg tablet 50 mg PO BID RF: 0 pantoprazole 40 MG tablet,delayed release (DR/EC) 40 mg PO DAILY@0730 Qty: 30 RF: 3 aspirin 81 mg Tablet,Delayed Release (Dr/Ec) 81 mg PO DAILY Qty: 0 RF: 0 atorvastatin 80 mg Tablet 40 mg PO QPM RF: 0 insulin lispro [Humalog KwikPen Insulin] 100 unit/mL Insulin Pen 16 unit SUBCUT QMEALS RF: 0 ferrous sulfate 325 mg (65 mg iron) tablet 325 mg PO QDAY RF: 0 cholecalciferol (vitamin D3) 50 mcg (2,000 unit) capsule 2,000 unit PO QDAY RF: 0 acetaminophen 500 MG tablet 1,000 mg PO DAILY PRNRF: 0 ProAir RespiClick 90 MCG aerosol powdr breath activated 2 puffs Inhalation Q4H PRN PRNRF: 0 sucralfate 1 GM tablet 1 gm PO QID RF: 0 Narcan 4 mg/actuation Metter,Non-Aerosol 4 mg INTRANASAL Q2M PRNRF: 0 Lantus Solostar U-100 Insulin 100 unit/mL (3 mL) insulin pen 35 unit SUBCUT BID RF: 0 Incruse Ellipta 62.5 mcg/actuation blister with device INHALATION RF: 0 amoxicillin 500 mg capsule 500 mg PO BID RF: 0 metoprolol succinate 25 mg tablet extended release 24 hr 25 mg PO DAILY RF: 0 oxycodone 5 mg tablet 5 mg PO BID RF: 0 Medical Decision Making 64 yo male with hx of copd, heart failure with preserved EF, t2dm, cad, htn, who comes in with ems after he was sleeping and his noticed twitching of his extremities. HE was sweaty and she checked his blood sugar and it was 400 so she gave him lantus and called ems. When EMS arrived he was awake and alert still having intermittent movements of his arms and legs that he was not controlling with blood glucose of 200. He arrives conscious and oriented to person place and time as well as day but is not sure the events that got him here, when asked what the last thing he remembers or why he is here he says I dont know. He states he has no headache, chest pain, abdominal pain or dyspnea but has had a cough but is not sure how long he has had the cough. HE is having frequent episodes of brief spastic movements of his arms and legs with right moreso than the left which he states he is not controlling. He arrives with clear speech, eomi, perrl, no facial droop, no drift in left arm or leg but both the arm and eg on the right hit the bed immediately when let go though he states he is not sure this is different than his baseline. He has a cough intermittently and has rhonchi at the bases bilaterally on exam. He is moving and having these unexplained movements too frequently to get imaging or an ekg done. Given this is a possible seizure will try ativan to see if this decreases the movements. Concern for possible cva though last known well is unknow but would have been before he went to bed around 10pm so would not be a lytic candidate. Given will obtain head ct and has a cough with abnormal lung sounds will obtain ct chest to eval for pulmonary edema vs pna. he has significant decrease in uncontrolled movements in his arms and legs after 2mg ativan and ecg shows concerning elevations in lateral leads and inferior leads but he clearly denies any chest pain/pressure/tightness or dyspnea. Awaiting imaging and lab results pt now without any arm or leg movements that are uncontrolled, 2nd ekg shows improvement in st elevation with decreased heart rate and still no chest pain. Has a lactate of 12 which makes me feel seizure is highly likely. CT head no acute findings, awaiting ct chest and rest of lab work. He does not appear hypovolemic and has hx of chf so will hold on fluids at this time ct shows opacitites at the bases with right greater than left, will treat as pneumonia. Spoke with Dr. Merida who will admit for possible seizure and cva as well as possible pna. Differential Diagnosis Differential Diagnosis: seizure, cva, afib, pna, chf Medical Records Medical records reviewed: Yes I reviewed the patient's medical records. Imaging Data Radiologic Study: Attestation: I personally reviewed and interpreted this imaging study as follows: Imaging: CT Scan Radiologist's impression: IMPRESSION: Age-appropriate atrophy and chronic microvascular change. Radiologic Study #2: Attestation: I personally reviewed and interpreted this imaging study as follows: Imaging: CT Scan Radiologist's impression: IMPRESSION: 1. Asymmetric opacities at the lung bases more prominent on the right may reflect dependent atelectasis or pneumonia. . Lab Data Lab results reviewed: Yes I reviewed the patient's lab results. ECG Data Attestation: I personally reviewed and interpreted this ECG (s) as follows: Prior ECG tracings: available for review Interpretation: sinus tachycardia rate of 120, pr 78, qtc 588 2nd ekg shows sinus tachycardia rate of 115, pr 221 qtc 498 HPI General Mode of arrival: EMS. Date/Time Provider Initiated Documentation: 01/28/20 05:13. Information obtained by: patient and EMS. History of Present Illness 64 year old M presents to the emergency department with the chief complaint of I don't know why I'm here, described as moderate, Patient started experiencing this unknown No relieving factors improve symptom(s), No exacerbating factors reported . Patient did receive the following treatments prior to arrival, none Related Data Home Medications Medication Instructions Recorded Confirmed pantoprazole 40 mg PO DAILY@0730 #30 09/13/16 01/28/20 ProAir RespiClick 2 puffs INHALATION Q4H PRN PRN 09/09/17 01/28/20 acetaminophen 1,000 mg PO DAILY PRN 09/09/17 01/28/20 sucralfate 1 gm PO QID 09/09/17 01/28/20 aspirin 81 mg PO DAILY #0 tab 11/06/17 01/28/20 atorvastatin 40 mg PO QPM 08/28/18 01/28/20 insulin lispro [Humalog KwikPen 16 unit SUBCUT QMEALS 08/28/18 01/28/20 Insulin] Narcan 4 mg INTRANASAL Q2M PRN 03/30/19 01/28/20 cholecalciferol (vitamin D3) 2,000 unit PO QDAY 08/12/19 01/28/20 ferrous sulfate 325 mg PO QDAY 08/12/19 01/28/20 Incruse Ellipta INHALATION 11/01/19 12/01/19 insulin glargine 100 unit/mL (3 35 unit SUBCUT BID ml 12/01/19 01/28/20 mL) subcutaneous pen torsemide 20 mg tablet 50 mg PO BID tab 12/01/19 01/28/20 amoxicillin 500 mg PO BID 01/28/20 01/28/20 metoprolol succinate 25 mg PO DAILY 01/28/20 01/28/20 oxycodone 5 mg PO BID 01/28/20 01/28/20 Previous Rx's Medication Instructions Recorded pantoprazole 40 mg PO DAILY@0730 #30 09/13/16 aspirin 81 mg PO DAILY #0 tab 11/06/17 Allergies Allergy/AdvReac Type Severity Reaction Status Date / Time Iodinated Contrast Media Allergy Hives Verified 01/28/20 05:16 [Iodinated Contrast- Oral and IV Dye] rifampin Allergy Hives Unverified 01/28/20 05:16 vancomycin Allergy Hives Unverified 01/28/20 05:16 General Stated Complaint: GenMedical YVAN: 2 Review of Systems All systems reviewed & are unremarkable except as noted in HPI and below Constitutional Constitutional: Denies chills and Denies fever(s) Cardiovascular Cardiovascular: Denies chest pain and Denies dyspnea Respiratory Respiratory: Denies dyspnea Gastrointestinal Gastrointestinal: Denies abdominal pain, Denies nausea and Denies vomiting Psychiatric Psychiatric: Denies depression [facility] Medical History (Updated 01/28/20 @ 06:43 by Gino Grewal MD) Acute kidney injury (nontraumatic) Cardiomyopathy Chronic osteomyelitis COPD (chronic obstructive pulmonary disease) COPD exacerbation Diabetes mellitus Gross hematuria Heart failure with preserved ejection fraction HTN (hypertension) Hypertension Infection of prosthetic knee joint Iron deficiency anemia Mixed sleep apnea Non-ST elevation myocardial infarction (NSTEMI) Obesity, morbid, BMI 40.0-49.9 CARLOS (obstructive sleep apnea) Sinus pause Type 2 diabetes mellitus Surgical History EGD - MAC (09/10/16) Previous back surgery S/P hernia repair S/P right knee surgery Status post left knee replacement Family History Sister Diabetes Social History Smoking/Tobacco Use Status: Former Tobacco Use Tobacco: How many years used: 20 Second Hand Exposure: Yes Smoking risk assessment performed?: Yes Alcohol Intake: former Drug use: Occasionally Substance use type: marijuana Household members: spouse Number of Children: 4 Do you feel safe at home: Yes Do you feel safe in your relationship?: Yes Exam Const General: other (intermittent spastic movements of extremities right more than left) Orientation: alert HENMT Head: normal to inspection Ears: external ears normal General nose exam: external nose normal Mouth: moist mucous membranes Eyes General: appearance normal, both eyes and all related structures Neck Neck: normal visual inspection Resp Effort & Inspection: cough Cardio Rate: regular rate Skin General skin exam: no rashes or lesions noted Neuro General: patient alert and patient oriented x3 Course Vital Signs Vital signs: Vital Signs Temperature 37.2 C 01/28/20 05:07 Pulse 130 H 01/28/20 05:07 Respiratory Rate 24 01/28/20 05:07 Blood Pressure 155/42 H 01/28/20 05:07 Pulse Oximetry 93 01/28/20 05:07 Temperature 37.2 C 01/28/20 05:07 Temperature Source Axillary 01/28/20 05:07 Pulse 130 H 01/28/20 05:07 Respiratory Rate 24 01/28/20 05:07 Blood Pressure 155/42 H 01/28/20 05:07 Blood Pressure Position Supine 01/28/20 05:07 Pulse Oximetry 93 01/28/20 05:07 Oxygen Delivery Method Room Air 01/28/20 05:07 Oxygen Flow Rate 0 01/28/20 05:07 Pain Level 0 01/28/20 05:07 Comment 01/28/20 05:07
[2020-01-28] MEDS: LORazepam 2 MG/ML VIAL 1 MG IVP ×2 (05:20→05:30)
--- NOTE | 2020-01-28 05:46 | DI.CT_ITS ---
EXAM: CT CHEST WO CLINICAL HISTORY: cough TECHNIQUE: Imaging Protocol: Axial computed tomography images with coronal and sagittal reformatted images were created and reviewed CONTRAST MATERIAL: Intravenous: No IV contrast COMPARISON: CT CT HEAD WO from 10/12/2019 CR XR CHEST 2V PA LATERAL from 12/07/2019 CR XR CHEST 2V PA LATERAL from 12/07/2019 FINDINGS: Lungs: There is infiltrate evident in the right lower lobe involving posterior and lateral basal segm ents, not associated with pleural effusion. Infiltrate is also seen in superior segment of the right lower lobe and in the posterior segment of the right upper lobe. There is also mild infiltrate evid ent posterior basal segment of the left lower lobe. There are no pleural effusions. Mediastinum: There is no hilar nor mediastinal adenopathy. No supraclavicular adenopathy. No axilla ry adenopathy. Cardiac: Mild cardiomegaly. No pericardial effusion. Caliber of the thoracic aorta is within normal limits. Lower most images of this chest study reveal no obvious adrenal masses. However, there is abnormal d ensity in the posterior aspect of the right hepatic lobe has which may represent infiltrative disease and contrast infused CT scan is recommended. Pneumobilia is also noted, possibly related to previou s instrumentation of the biliary tract. Gallbladder is not seen. Osseous: No significant osseous lesions evident. No fractures. IMPRESSION: 1. There is infiltrate in the right lower lobe involving both basal segments as well as the superior segment. There is a lesser amount of infiltrate also evident in the left lower lobe. There are no p leural effusions. 2. No significant intrathoracic adenopathy. 3. Abnormal density in the right hepatic lobe which may represent an infiltrative process and contras t infused CT scan or MRI is recommended as follow-up. There is also evidence of pneumobilia which ma y be from prior instrumentation of the biliary tract. RADIATION DOSE DELIVERED: Total DLP DATA REPOSITORY: All CT scans at this facility are submitted to the National Radiology Data Registry (NRDR) Dose Index Registry (DIR) with the [employer] ([employer]). RADIATION OPTIMIZATION: All CT scans at this facility use at least one of these dose optimization te chniques: automated exposure control; mA and/or kV adjustment per patient size (includes targeted exa ms where dose is matched to clinical indication); or iterative reconstruction.
--- NOTE | 2020-01-28 05:46 | DI.CT_ITS ---
EXAM: CT HEAD WO CLINICAL HISTORY: altered mental status, weakness. TECHNIQUE: Imaging Protocol: Axial computed tomography images with coronal and sagittal reformatted images were created and reviewed COMPARISON: CT scan September 2019 FINDINGS: Images are blurred by motion artifact. No obvious skull fractures realized limitations of this somewhat blurred study. There is complete op acification of right maxillary sinus again noted. Left maxillary sinus is clear. Sphenoid and front al sinuses are clear. There is no evidence of intracranial hemorrhage, new mass effect, or shift of midline structures. Th ere are no extra-axial fluid collections. Ventricles are not enlarged or shifted and there is no blo od within the ventricular system nor within the basal cisterns. Periventricular hypodensity is again noted consistent with chronic small vessel disease. IMPRESSION: As above but no acute intracranial findings nor significant change compared to September 2019. Again noted is complete opacification of the right maxillary sinus. RADIATION DOSE DELIVERED: Total DLP DATA REPOSITORY: All CT scans at this facility are submitted to the National Radiology Data Registry (NRDR) Dose Index Registry (DIR) with the [employer] (ACR). RADIATION OPTIMIZATION: All CT scans at this facility use at least one of these dose optimization te chniques: automated exposure control; mA and/or kV adjustment per patient size (includes targeted exa ms where dose is matched to clinical indication); or iterative reconstruction.
[2020-01-28 05:52] LABS: PTT Activated 24.5 sec (21.0-27.5); Prothrombin Time 10.1 sec (9.3-11.0)
--- NOTE | 2020-01-28 06:00 | RT.EKG_ITS ---
APPROVED REPORT Exam: Resting ECG Patient Location: E HR:115 bpm ECG Measurements Heart Rate 115 AXIS AK 221 P 90 QRSd 119 QRS 72 QT 359 T 10 QTc 498 Conclusion Sinus tachycardia...rate> 99 Ventricular trigeminy...trigeminy string>6 w/ V complexes Prolonged AK interval...AK >215, V-rate 91-120 Nonspecific intraventricular conduction delay...QRSd >115mS, not LBBB/RBBB Probable anterolateral infarct, acute...ST >0.15mV, V2-V6,I,aVL
--- NOTE | 2020-01-28 06:00 | NUR.NOTE ---
Nursing Note: Lab completed redraw of hemolyzed blood. Blood pressure cuff placed back on left arm. Requested patient to lift arm, and raised both arms purposefully, scratched face with right hand.
[2020-01-28 06:05] LABS: BE (Venous) 3 mmol/L (-2-3); HCO3 (Venous) 28 mmol/L (23-28); O2 Sat (Venous) 83 %; TCO2 (Venous) 23 mmol/L (24-29); pCO2 (Venous) 48 mmHg (41-51); pH (Venous) 7.38 (7.31-7.41); pO2 (Venous) 45 mmHg
--- NOTE | 2020-01-28 06:06 | DI.VRAD_ITS ---
PROCEDURE INFORMATION: Exam: CT Head Without Contrast Exam date and time: 01/28/2020 5:47 AM Age: 64 years old Clinical indication: Alteration of consciousness; Transient alteration of awareness; Additional info: PT unable to control movement during exam TECHNIQUE: Imaging protocol: Computed tomography of the head without contrast. COMPARISON: CT HEAD WO 10/12/2019 5:28 PM FINDINGS: Brain: Age- related chronic microvascular changes are noted within the white matter. Cerebral ventricles: The ventricles and sulci are prominent compatible with age-appropriate atrophy. Bones/joints: Unremarkable. No acute fracture. Paranasal sinuses: Opacified right maxillary sinus incidentally noted Mastoid air cells: Visualized mastoid air cells are well aerated. Soft tissues: Unremarkable. IMPRESSION: Age-appropriate atrophy and chronic microvascular change. ASSESSMENT: ASPECTS ([place] Stroke Program Early CT Score) is 10. Dictated and Authenticated by: Ken Mahmood MD. Ordering:MODESTO Christian MD
[2020-01-28 06:09] LABS: Abs Immature Grans 0.05 10^3/uL (0.0-0.06); Absolute Lymphocyte Count 1.11 10^3/uL (1.2-3.4); Absolute Monocyte Count 0.71 10^3/uL (0.1-0.8); Absolute Neutrophil Count 9.05 10^3/uL (1.2-6.7); Basophils % 0.5; Immature Grans % 0.5; Lactate 12.4 mmol/L (0.6-1.4); Lymphocytes % 10.1; MCH 29.7 pg (27.0-33.0); MCHC 33.2 % (32.0-36.0); MCV 89.4 fL (80-95); MPV 9.6 fL (8.0-11.0); Monocytes % 6.5; Neutrophils % 82.4; Nucleated RBC 0 %; Platelet Count 350 10^3/uL (130-400); RDW 15.8 % (11.8-14.1); RDW-SD 46.2 fL; WBC 10.98 10^3/uL (4.4-10.8)
--- NOTE | 2020-01-28 06:16 | DI.VRAD_ITS ---
PROCEDURE INFORMATION: Exam: CT Chest Without Contrast; Diagnostic Exam date and time: 01/28/2020 5:47 AM Age: 64 years old Clinical indication: Cough; Patient HX: Allergy to iodinated contrast; Additional info: PT unable to control movement during exam TECHNIQUE: Imaging protocol: Diagnostic computed tomography of the chest without contrast. Radiation optimization: All CT scans at this facility use at least one of these dose optimization techniques: automated exposure control; mA and/or kV adjustment per patient size (includes targeted exams where dose is matched to clinical indication); or iterative reconstruction. COMPARISON: CT CHEST WO 03/30/2019 3:14 PM FINDINGS: Lungs: Asymmetric opacities at the lung bases more prominent on the right may reflect dependent atelectasis or pneumonia. . Pleural space: Unremarkable. No pneumothorax. No pleural effusion. Heart: Unremarkable. No cardiomegaly. No pericardial effusion. Aorta: Unremarkable. No aortic aneurysm. Lymph nodes: Unremarkable. No enlarged lymph nodes. Liver: Heterogeneous decreased attenuation involving the posterior aspect of the visualized right lobe of the liver is a nonspecific finding and may reflect artifact, segmental hepatic steatosis, or infiltrating mass lesion. Gallbladder and bile ducts: Pneumobilia is present which is nonspecific and likely reflects previous biliary instrumentation such as sphincterotomy, for which correlation with history is recommended. Bones/joints: Unremarkable. No acute fracture. Soft tissues: Unremarkable. IMPRESSION: 1. Asymmetric opacities at the lung bases more prominent on the right may reflect dependent atelectasis or pneumonia. . Incidental findings that may require followup: 2. Heterogeneous decreased attenuation involving the posterior aspect of the visualized right lobe of the liver is a nonspecific finding and may reflect artifact, segmental hepatic steatosis, or infiltrating mass lesion. Dictated and Authenticated by: Ken Mahmood MD. Ordering:MODESTO Christian MD
[2020-01-28 06:21] LABS: Absolute Basophil Count 0.05 10^3/uL (0.0-0.2)
[2020-01-28 06:23] LABS: HCT 62.4 % (40.0-50.0); HGB 20.7 g/dL (13.5-17.5)
[2020-01-28 06:24] LABS: Diff Comment Agrees w/ Instrument
[2020-01-28 06:25] LABS: RBC 6.98 10^6/uL (4.36-5.78); RBC Morphology Normal
--- NOTE | 2020-01-28 06:27 | NUR.NOTE ---
Nursing Note: Per woke up at 0300 complained of mouth being dry, and bed was soaked. Full movement and no clenching of fists at that. reports he's been having headaches for past week. Incontinent of bladder and bowel for almost 2 weeks. Constant cough. Then patient woke at 0350 something doesn't feel right at all, get me out of bed. Providers aware.
[2020-01-28 06:33] LABS: Lipase 53 U/L (73-393); NT-proBNP 1333 pg/mL (<300); Troponin I < 0.05 ng/mL (<0.06)
[2020-01-28 06:44] LABS: BUN 19 mg/dL (7-18); CREATININE 2.47 mg/dL (0.70-1.30); Calcium 9.3 mg/dL (8.5-10.1); Estimated GFR 26.67 (mL/min/1.73m2)
[2020-01-28 06:45] LABS: Albumin 2.3 g/dL (3.4-5.0); Alkaline Phosphatase 243 U/L (46-116); Bilirubin, Total 0.6 mg/dL (0.2-1.0); Total Protein 7.8 g/dL (6.4-8.2)
[2020-01-28 06:46] LABS: ALT 24 U/L (16-63); AST 24 U/L (15-37); Anion Gap 17.4 mmol/L (3-11); CO2 26.6 mmol/L (21.0-32.0); Chloride 80 mmol/L (98-107); ETHANOL BLOOD < 3.0 mg/dL (<3)
[2020-01-28 06:47] LABS: Bilirubin, Direct 0.21 mg/dL (0.00-0.20)
[2020-01-28 06:48] LABS: Glucose 699 mg/dL (74-106); Sodium 124 mmol/L (136-145)
[2020-01-28 06:49] LABS: Potassium 2.5 mmol/L (3.5-5.1)
--- NOTE | 2020-01-28 06:52 | W.PM.HP.N ---
Date of service: 01/28/20 Time of Service: 06:52 Assessment and Plan Assessment and plan (1) Seizure-like activity: Status: Acute Assessment and plan: Complex presentation. Focussing on the motor activity I think the most reasonable explanation is partial seizure, or at least seizure until proven otherwise. Would load with Keppra and consult neurology. Other issues as follows: 1. Hypokalemia: replace and monitor 2. Pseudohyponatremia: monitor as glucose is corrected 3. EKG findkngs: this would be a very unusual presentation of ACS, and perhaps the findings are in some fashion related to the metabolic abnormalities. I have requested that ER review findings with Cardiology prior to formal acceptance for admission. Otherwise will trend troponins. 4. Polycythemia: presumably reactive, baseline in 50s, perhaps exacerbated by an element of dehydration ? Will hydrate and recheck. 5. CT findings suggestive of pneumonia, though without fever or leukocytosis. Will continue Zosyn for now. History of Present Illness History of Present Illness Chief Complaint: shaking Narrative: 64 male -- well last night, early this AM noted him to be shaking and diaphoretic. Sugar 400, given unknown dose of Lantus and brought to ER. In ER clonic movements on right noted, given Ativan with improvement. Head CT negative. Other findings of note for bibasilar lung opacities, lateral ST elevations (better on second EKG), negative troponin, potassium 2.5, sodium 129 with glucose 699 and Hct 62. Ordered for potassium replacement and I was asked to evaluate for admission. Review of Systems Unobtainable due to mental status [facility] Medical History Acute kidney injury (nontraumatic) Cardiomyopathy Chronic osteomyelitis COPD (chronic obstructive pulmonary disease) COPD exacerbation Diabetes mellitus Gross hematuria Heart failure with preserved ejection fraction HTN (hypertension) Hypertension Infection of prosthetic knee joint Iron deficiency anemia Mixed sleep apnea Non-ST elevation myocardial infarction (NSTEMI) Obesity, morbid, BMI 40.0-49.9 CARLOS (obstructive sleep apnea) Sinus pause Type 2 diabetes mellitus Surgical History EGD - MAC (09/10/16) Previous back surgery S/P hernia repair S/P right knee surgery Status post left knee replacement Family History Sister Diabetes Social History Smoking/Tobacco Use Status: Former Tobacco Use Tobacco: How many years used: 20 Second Hand Exposure: Yes Smoking risk assessment performed?: Yes Alcohol Intake: former Drug use: Occasionally Substance use type: marijuana Household members: spouse Number of Children: 4 Do you feel safe at home: Yes Do you feel safe in your relationship?: Yes Meds Home Medications and Allergies Home Medications Medication Instructions Recorded Confirmed Type pantoprazole 40 mg PO DAILY@0730 #30 09/13/16 01/28/20 Rx ProAir RespiClick 2 puffs INHALATION Q4H PRN PRN 09/09/17 01/28/20 History acetaminophen 1,000 mg PO DAILY PRN 09/09/17 01/28/20 History sucralfate 1 gm PO QID 09/09/17 01/28/20 History aspirin 81 mg PO DAILY #0 tab 11/06/17 01/28/20 Rx atorvastatin 40 mg PO QPM 08/28/18 01/28/20 History insulin lispro [Humalog KwikPen 16 unit SUBCUT QMEALS 08/28/18 01/28/20 History Insulin] Narcan 4 mg INTRANASAL Q2M PRN 03/30/19 01/28/20 History cholecalciferol (vitamin D3) 2,000 unit PO QDAY 08/12/19 01/28/20 History ferrous sulfate 325 mg PO QDAY 08/12/19 01/28/20 History Incruse Ellipta INHALATION 11/01/19 12/01/19 History insulin glargine 100 unit/mL (3 35 unit SUBCUT BID ml 12/01/19 01/28/20 History mL) subcutaneous pen torsemide 20 mg tablet 50 mg PO BID tab 12/01/19 01/28/20 History amoxicillin 500 mg PO BID 01/28/20 01/28/20 History metoprolol succinate 25 mg PO DAILY 01/28/20 01/28/20 History oxycodone 5 mg PO BID 01/28/20 01/28/20 History Allergies Allergy/AdvReac Type Severity Reaction Status Date / Time Iodinated Contrast Media Allergy Hives Verified 01/28/20 05:16 [Iodinated Contrast- Oral and IV Dye] rifampin Allergy Hives Unverified 01/28/20 05:16 vancomycin Allergy Hives Unverified 01/28/20 05:16 Exam Narrative Exam Narrative: 123/90, 113, 37.2, 31, 90%. HEENT atraumatic; neck supple; lungs decreased sounds, heart distant/ tachy, ectopics; abdomen soft and NT; extremities 2+ pedal edama, neuro Ox3 but confused and unable to provide any history; PERRL, EOMI, fry difficult to assess, no facial asymettry; motor rhythmic movements RUE and RLE, left side grossly WNL Results Labs Result diagrams: 01/28/20 06:00 01/28/20 06:00 Labs: Laboratory Results - last 24 hr 01/28/20 01/28/20 01/28/20 05:25 06:00 06:00 WBC RBC Hgb Hct MCV MCH MCHC RDW Plt Count MPV Immature Gran % Neutrophils % Lymphocytes % Monocytes % Eosinophils % Basophils % Nucleated RBC % Absolute Neutrophils Absolute Lymphocytes Absolute Monocytes Absolute Eosinophils Absolute Basophils RBC Morphology PT 10.1 INR 1.0 APTT 24.5 VBG pH 7.38 VBG pCO2 48 VBG pO2 45 VBG HCO3 28 VBG Total CO2 23 L VBG O2 Saturation 83 VBG Base Excess 3 VBG Lactate Sodium 124 L* Potassium 2.5 L* Chloride 80 L Carbon Dioxide 26.6 Anion Gap 17.4 H BUN 19 H Creatinine 2.47 H Estimated GFR/1.73 m2 26.67 Glucose 699 H* Calcium 9.3 Total Bilirubin 0.6 Conjugated Bilirubin 0.21 H AST 24 ALT 24 Alkaline Phosphatase 243 H Troponin I NT-Pro-B Natriuret Pep Total Protein 7.8 Albumin 2.3 L Lipase TSH Ethyl Alcohol < 3.0 01/28/20 01/28/20 01/28/20 06:00 06:00 06:00 WBC 10.98 H RBC 6.98 H Hgb 20.7 H* Hct 62.4 H* MCV 89.4 MCH 29.7 MCHC 33.2 RDW 15.8 H Plt Count 350 MPV 9.6 Immature Gran % 0.5 Neutrophils % 82.4 Lymphocytes % 10.1 Monocytes % 6.5 Eosinophils % 0.0 Basophils % 0.5 Nucleated RBC % 0 Absolute Neutrophils 9.05 H Absolute Lymphocytes 1.11 L Absolute Monocytes 0.71 Absolute Eosinophils 0.00 Absolute Basophils 0.05 RBC Morphology Normal PT INR APTT VBG pH VBG pCO2 VBG pO2 VBG HCO3 VBG Total CO2 VBG O2 Saturation VBG Base Excess VBG Lactate 12.4 H* Sodium Potassium Chloride Carbon Dioxide Anion Gap BUN Creatinine Estimated GFR/1.73 m2 Glucose Calcium Total Bilirubin Conjugated Bilirubin AST ALT Alkaline Phosphatase Troponin I < 0.05 NT-Pro-B Natriuret Pep 1333 H Total Protein Albumin Lipase 53 TSH 2.40 Ethyl Alcohol Last Vital Signs Temp 37.2 C 01/28/20 05:07 Pulse 113 H 01/28/20 06:31 Resp 31 H 01/28/20 06:31 BP 123/90 01/28/20 06:31 Pulse Ox 90 L 01/28/20 06:31 COVID-19 Screening Have you, or household traveled for leisure in last 14 days?: No Had IN PERSON contact w/suspected or confirmed C-19 person: No
[2020-01-28] MEDS: Potassium Chloride 20 MEQ TABCR 40 MEQ PO (07:12)
[2020-01-28] MEDS: POTASSIUM CHLORIDE 10 MEQ/100 ML BAG 100 MEQ IVPB (07:12)
[2020-01-28] MEDS: Normal Saline 1,000 ML 150 ML IV (07:13)
[2020-01-28] MEDS: PIPERACILLIN/TAZO 4.5 GM in Normal Saline 100 ML IVPB (07:14)
[2020-01-28] MEDS: levETIRAcetam 1,000 MG in Normal Saline 100 ML 400 MG IVPB (07:45)
[2020-01-28] MEDS: Normal Saline 250 ML 1000 ML IV (09:00)
[2020-01-28 09:07] LABS: Source Nasopharynx
[2020-01-28 09:42] LABS: Anion Gap 12.9 mmol/L (3-11); BUN 19 mg/dL (7-18); CO2 29.1 mmol/L (21.0-32.0); CREATININE 2.43 mg/dL (0.70-1.30); Chloride 88 mmol/L (98-107); Estimated GFR 27.18 (mL/min/1.73m2); Glucose 479 mg/dL (74-106); Sodium 130 mmol/L (136-145)
[2020-01-28 09:46] LABS: Potassium 2.8 mmol/L (3.5-5.1)
[2020-01-28 09:49] LABS: Bilirubin Negative (Negative); Blood Large (Negative); Clarity Cloudy (Clear); Glucose >=1000 mg/dL (Negative); Ketones Negative (Negative); Leukocyte Esterase Small (Negative); Nitrite Negative (Negative); Specific Gravity 1.025 (1.005-1.025); Urobilinogen 0.2 EU/dL (Up TO 0.2); pH 5.5 (5-8)
[2020-01-28 09:58] LABS: C & S Indicated? Yes; WBC >50 HPF (0-5)
[2020-01-28] MEDS: Albuterol/Ipratropium 3 ML UPD VIAL UPD ×3 (10:00→15:29)
[2020-01-28] MEDS: Budesonide 0.5 MG/2 ML UPD VIAL UPD (10:00)
[2020-01-28 10:05] LABS: Troponin I 0.33 ng/mL (<0.06)
[2020-01-28 10:10] LABS: COVID-19 PCR Negative (Negative); Influenza A PCR Negative (Negative); Influenza B PCR Negative (Negative); RSV PCR Negative (Negative)
[2020-01-28] MEDS: POTASSIUM CHLORIDE/0.9% NACL 1,000 ML 125 MEQ IV (10:20)
[2020-01-28 10:26] LABS: Magnesium 2.2 mg/dL (1.8-2.4)
[2020-01-28] MEDS: Insulin Aspart 300 UNITS/3 ML PEN SC ×2 (11:00→13:51)
[2020-01-28] MEDS: Normal Saline 1,000 ML 1000 ML IV (11:01)
[2020-01-28] MEDS: Insulin Glargine 300 UNITS/3 ML PEN 35 UNITS SC (11:01)
--- NOTE | 2020-01-28 11:01 | INITIAL_ITS ---
- If Service Date Differs Date of service: 01/28/20 Time of Service: 11:01 Care Management Initial Assess REASON FOR HOSPITALIZATION:: seizure-like activity PAST MEDICAL HISTORY/PAST SURGICAL HISTORY:: Medical History . Acute kidney injury (nontraumatic). Cardiomyopathy. Chronic osteomyelitis. COPD (chronic obstructive pulmonary disease). COPD exacerbation. Diabetes mellitus. Gross hematuria. Heart fa ilure with preserved ejection fraction. HTN (hypertension). Hypertension. Infection of prosthetic knee joint. Iron deficiency anemia. Mixed sleep apnea. Non-ST elevation myocardial infarction (NSTEMI). Obesity, morbid, BMI 40.0- 49.9. CARLOS (obstructive sleep apnea). Sinus pause. Type 2 diabetes mellitus. Surgical History . EGD - MAC (09/10/16). Previous back surgery. S/P hernia repair. S/P right knee surgery. Status post left knee replacement PREVIOUS FUNCTIONAL STATUS/SOCIAL/FAMILY SUPPORTS:: Piyush lives in a 5 bedroom home in [facility] with his Olga and a young lady and her 2 children (not related to them). Piyush is disabled and has CF high highest and Olga is his caregiver. She is contracted for 42 hours every 2 weeks. Piyush requires assistance with bathing and ambulation. He uses a walker with 1 assist and also has and uses a wheelchair. CURRENT FUNCTIONAL STATUS:: CM was unable to meet with Piyush in person as he is isolated as a PUI. CM did contact Olga, his , and had a lengthy conversation about their living situation, Piyush's care and needs and his code status. She is very sure that Piyush wants to remain a full code. She provided CM with her cell phone number as an additional way to contact her. ADVANCE DIRECTIVES:: have been completed at home but not filed as of this date Has patient been provided with info about the portal/API?: Yes Did the patient sign up for the portal?: No CODE STATUS:: Full Code INSURANCE COVERAGE / FINANCIAL ISSUES:: Medicare. Medicaid (Community) CURRENT HOME/COMMUNITY SERVICES/EQUIPMENT:: Piyush has [facility], high highest. Olga, his , is his caregiver and is contracted for 42 hours every 2 weeks. He has a wheelchair, walker, commode, hospital bed, portable tub for showering, and bedpan.He also has a Trilogy machine which Olga has been asked to bring to [facility] by CM. PRIMARY CARE PHYSICIAN:: Allison Muniz POTENTIAL DISCHARGE NEEDS:: Piyush may benefit from Palliative care in the community as well as follow up with his PCP and discharge plan of care PATIENT/FAMILY EDUCATION NEEDS:: Discharge plan, limitations, follow up and Ask me Three. TRANSPORTATION:: via private vehicle with PLAN:: Piyush is currently ICU level of care. He is on Bipap and is being closely monitored. He will likely be discharged home with a resumption of care through CF provided by his caregiver . He will follow up with his PCP and discharge plan of care and transport with his . CM will continue to support patient and family and assess for discharge planning concerns.
[2020-01-28] MEDS: POTASSIUM CHLORIDE 20 MEQ/100 ML BAG 50 MEQ IVPB (11:05)
[2020-01-28 11:26] LABS: BE (Venous) 4 mmol/L (-2-3); HCO3 (Venous) 29 mmol/L (23-28); O2 Sat (Venous) 94 %; TCO2 (Venous) 24 mmol/L (24-29); pCO2 (Venous) 45 mmHg (41-51); pH (Venous) 7.41 (7.31-7.41); pO2 (Venous) 65 mmHg
--- NOTE | 2020-01-28 11:34 | PHA.REVIEW ---
Pharmacy Admission Review - Admission Clinical Review (Last Reviewed 01/28/20 @ 07:00 by Sam Merida MD) Seizure-like activity (Acute) Acidosis, lactic (Acute) Iodinated Contrast Media [Iodinated Contrast- Oral and IV Dye] Allergy (Verified 01/28/20 05:16) Hives rifampin Allergy (Unverified 01/28/20 05:16) Hives vancomycin Allergy (Unverified 01/28/20 05:16) Hives Height 5 ft 6 in Weight 122.47 kg - Comments Comments/Follow Ups: Presented to ED with seizure like activity -- 1 mg lorazepam given IVP x1 and 1000mg levetiracetam infused x1; BG was 699, now 479, third draw pending; UC and BCs pending - Renal Dosing Renal Dosing: BUN 19 mg/dL (7-18) H 01/28/20 09:20 Creatinine 2.43 mg/dL (0.70-1.30) H 01/28/20 09:20 Medications needing adjustments: Intervened List of meds needing interventions: Adjusted Zosyn dose from 4.5 q6h to 3.375 (unclear why higher dose was chosen, assuming due to obesity)-- expect kidney fxn to improve after hydration and adjust dose accordingly, consider extended infusion - Anticoagulation Anticoagulation: Hgb 20.7 g/dL (13.5-17.5) H* 01/28/20 06:00 Hct 62.4 % (40.0-50.0) H* 01/28/20 06:00 Plt Count 350 10^3/uL (130-400) 01/28/20 06:00 INR 1.0 (0.9-1.1) 01/28/20 05:25 Creatinine 2.43 mg/dL (0.70-1.30) H 01/28/20 09:20 DVT Prohphylaxis: N/A Medications: Enoxaparin Therapeutic Anticoagulation: N/A - Opiate Usage Evaluate Pain Scale/Pains Meds: Reviewed (oxycodone 5mg BID) Scheduled Bowel Reg ordered if on Opiates?: No - Relevant Labs Sodium 130 mmol/L (136-145) L 01/28/20 09:20 Potassium 2.8 mmol/L (3.5-5.1) L* 01/28/20 09:20 Chloride 88 mmol/L (98-107) L 01/28/20 09:20 Magnesium 2.2 mg/dL (1.8-2.4) 01/28/20 09:20 Electrolytes, C-Reactive P, ESR: Reviewed (40 meq PO K+ plus 10 MEQ IV given in ED, 20mg IV K+ given in ICU) - DM Control DM Control: Glucose 479 mg/dL (74-106) H D 01/28/20 09:20 Insulin Dosing: Reviewed (Glargine 35U BID plus SS aspart) - Heart Failure/AR Heart Failure/AR: Troponin I Cancelled 01/28/20 13:00 NT-Pro-B Natriuret Pep 1333 pg/mL (<300) H 01/28/20 06:00 EF%, MARIAA's, B-Blockers, Diuretics: Reviewed (metoprolol succ 25mg daily) - BP Control BP Control: Blood Pressure [Left Arm] 121/66 Blood Pressure 121/66 Blood Pressure 146/99 Blood Pressure 146/99 Blood Pressure 176/155 Blood Pressure 170/139 Blood Pressure 156/125 Blood Pressure 152/117 Blood Pressure 141/102 Blood Pressure 123/90 Blood Pressure 139/77 Blood Pressure 120/82 Blood Pressure 155/42 If elevated: Reviewed (metoprolol ordered, also on 50mg of torsemide twice a day at home) - Qtc Review If Elevated: Reviewed (QTc 498, watch for add'l orders that could prolong QT) - IV to PO Switch IV Medications: Reviewed - Home Meds Home Med List reviewed: Intervened Relevent Home Meds Not ordered & why?: atorvastatin dose should be 80 - notified , des crm/pwd (home med list updated); adjusted atorvastatin dose, added nystatin rxs, adjusted torsemide order, proair order, incruse, and humalog to reflect actual rx directions per pharmacy records - Current meds Current Medication Order Review: Reviewed
--- NOTE | 2020-01-28 11:45 | RT.EKG_ITS ---
APPROVED REPORT Exam: Resting ECG Patient Location: I HR:131 bpm ECG Measurements Heart Rate 131 AXIS ID [id number] P [id number] QRSd 108 QRS 76 QT 278 T 25 QTc 410 Conclusion Atrial fibrillation...? atrial activity Probable anteroseptal infarct, recent...Q, ST>0.15mV, T neg, V1-V2
[2020-01-28] MEDS: MORPHine 2 MG/ML SYR IVP (12:52)
[2020-01-28] MEDS: Aspirin 300 MG SUPP PR (13:15)
[2020-01-28] MEDS: Furosemide 100 MG/10 ML VIAL (13:26)
[2020-01-28] MEDS: PIPERACILLIN/TAZO 3.375 GM in Normal Saline 50 ML IVPB (13:32)
[2020-01-28 14:15] LABS: Lactate 9.2 mmol/L (0.6-1.4)
[2020-01-28 14:22] LABS: Anion Gap 12.4 mmol/L (3-11); BUN 20 mg/dL (7-18); CO2 27.6 mmol/L (21.0-32.0); CREATININE 2.57 mg/dL (0.70-1.30); Calcium 9.2 mg/dL (8.5-10.1); Chloride 94 mmol/L (98-107); Estimated GFR 25.48 (mL/min/1.73m2); Glucose 318 mg/dL (74-106); Potassium 3.6 mmol/L (3.5-5.1); Sodium 134 mmol/L (136-145)
[2020-01-28] MEDS: ACETAMINOPHEN 1,000 MG/100 ML BTL 400 MG IVPB (14:36)
--- NOTE | 2020-01-28 14:43 | W.PM.DS.N ---
Date of service: 01/28/20 Time of Service: 14:43 DS: Diagnosis Discharge Diagnosis (1) COPD (chronic obstructive pulmonary disease): Status: Chronic (2) Acute and chronic respiratory failure: Status: Acute (3) Heart failure with preserved ejection fraction: Status: Acute (4) Type 2 diabetes mellitus: Status: Chronic (5) Acute kidney injury (nontraumatic): Status: Acute (6) Sepsis: Status: Acute (7) UTI (urinary tract infection): Status: Acute (8) CAP (community acquired pneumonia): Status: Acute Discharge Plan Disposition Patient Disposition: [facility] Condition: Serious Discharge Details Reason For Visit: SEIZURE, PNEUMONIA Admit Date/Time: 01/28/20 07:15 Admit Provider: Sam Merida Attending Provider: Sam Merida Primary Care Provider: Allison Muniz [facility] Hospital Course: This is a 64 yo male with a h/o CAD, HFpEF, cardiomyopathy, HTN, DM2/on insulin, COPD, morbid obesity. He presented to the ED after his noted him to be shaking and diaphoretic while in bed. He was noted to have intermittent jerking/myoclonic movements of extremites; not all extremities at once but randomly involving both the RUE/RLE and LUE/LLE. He was given Keprra IV in the ED. His blood sugar was 699, Na 124, improved to 134. K initially 2.5; improved to 3.6 with oral and IV replacement. Creatinine of 2.47. VBG lactate 12.4. WBC count 10.98, Hgb 20.7 (trending upward from 13.0 in April of 2019 to 18.6 in October). UA + with large blood, small leukocyte esterase, > 50 WBCs. Troponin initially < 0.05, then increased to 0.33, then 0.8. He did endorse chest pain several hours after admission. A single dose of morphine was given. BiPAP was initiated. Anesthesia placed 2 peripheral lines. Central line access was deemed difficult particularly d/t his neck girth and his intermittent jerking movements. Zosyn was initiated, then a dose of Levaquin 500mg IV administered. Contact made with [facility] planning lead and the patient was accepted for transfer. Planning intubation prior to life flight to [facility]. Home Meds and New Rx's Prescriptions: No Action pantoprazole 40 MG tablet,delayed release (DR/EC) 40 mg PO DAILY@0730 Qty: 30 RF: 3 aspirin 81 mg Tablet,Delayed Release (Dr/Ec) 81 mg PO DAILY Qty: 0 RF: 0 atorvastatin 80 mg Tablet 80 mg PO HS RF: 0 insulin lispro [Humalog KwikPen Insulin] 100 unit/mL Insulin Pen 3 - 16 unit SUBCUT QMEALS RF: 0 ferrous sulfate 325 mg (65 mg iron) tablet 325 mg PO QDAY RF: 0 cholecalciferol (vitamin D3) 50 mcg (2,000 unit) capsule 2,000 unit PO QDAY RF: 0 acetaminophen 500 MG tablet 1,000 mg PO DAILY PRNRF: 0 sucralfate 1 GM tablet 1 gm PO QID RF: 0 Lantus Solostar U-100 Insulin 100 unit/mL (3 mL) insulin pen 35 unit SUBCUT BID RF: 0 Incruse Ellipta 62.5 mcg/actuation blister with device 1 inh INHALATION DAILY RF: 0 amoxicillin 500 mg capsule 500 mg PO BID RF: 0 metoprolol succinate 25 mg tablet extended release 24 hr 25 mg PO DAILY RF: 0 oxycodone 5 mg tablet 5 mg PO BID RF: 0 nystatin 100,000 unit/gram powder See Rx Instructions .ROUTE .COMPLEX RF: 0 nystatin 100,000 unit/gram cream See Rx Instructions .ROUTE .COMPLEX RF: 0 torsemide 100 mg tablet 50 mg PO BID RF: 0 albuterol sulfate [ProAir HFA] 90 mcg/actuation HFA aerosol inhaler 1 - 2 inh INHALATION .EVERY 4-6 HOURS PRN (Reason: Wheezing) RF: 0 Discharge Instructions Activity:: Activity as Tolerated Equipment/Supplies:: No Equipment Needed Diet:: NPO Discharge Orders Discharge Orders: Discharge Order (Routine); Ordered 01/28/20 Ordered By: Memo Ruiz DS: Summary Status at Discharge Functional status at discharge: independent ambulation Overall status at discharge: patient is not back to baseline Mental Status: other Speech and Movement: other Mood: other Affect: other Exam Const General: in distress and diaphoretic Nutritional Appearance: obese Orientation: awake HENKS Head: normocephalic and atraumatic Neck Neck: full ROM and other (large neck girth) Resp Effort & Inspection: labored Auscultation: rhonchi Cardio Rate: tachycardic Rhythm: regular rhythm GI Inspection: obesity Palpation: soft and nontender Neuro General: patient awake (lethargic) and moves all extremities Motor: movement abnormality noted (Intermittent myoclonic movements of extremities) Extrem General: edema Laterality: bilateral Psych Mental Status: other Speech and Movement: other Mood: other Affect: other DS: Data Vitals/I&O Vitals and I&O: Vital Signs Temperature 37 C 01/28/20 10:34 Temperature Source Temporal Artery Scan 01/28/20 10:34 Pulse 129 H 01/28/20 14:27 Pulse 111 H 01/28/20 10:50 Respiratory Rate 38 H 01/28/20 14:27 Respiratory Effort Accessory Muscle Use 01/28/20 10:34 Respiratory Depth Deep 01/28/20 10:34 Respiratory Pattern Irregular 01/28/20 10:34 Blood Pressure 121/66 01/28/20 10:34 Blood Pressure Mean 84 01/28/20 10:34 Blood Pressure Position Supine 01/28/20 05:07 Pulse Oximetry 96 01/28/20 14:27 Oxygen Delivery Method Bi-pap 01/28/20 11:04 Oxygen Flow Rate 2 01/28/20 10:34 Fraction of Inspired Oxygen (FIO2) 30 01/28/20 14:27 Pain Level 7 01/28/20 12:52 Comment 01/28/20 05:07 Intake & Output 01/27/20 01/28/20 01/28/20 23:59 11:59 23:59 Intake Total 560 / 658.333 98.333 / 658.333 Balance 560 / 658.333 98.333 / 658.333 Weight 122.47 kg Intake: IV 560 / 658.333 98.333 / 658.333 Other: Comment [place] to [place] Data Completed and Pending Labs on day of discharge: Labs from last 24 hours 01/28/20 01/28/20 01/28/20 14:08 14:00 14:00 WBC RBC Hgb Hct MCV MCH MCHC RDW Plt Count MPV Immature Gran % Neutrophils % Lymphocytes % Monocytes % Eosinophils % Basophils % Nucleated RBC % Absolute Neutrophils Absolute Lymphocytes Absolute Monocytes Absolute Eosinophils Absolute Basophils RBC Morphology PT INR APTT ABG Sample Site ABG pH ABG pCO2 ABG pO2 ABG HCO3 ABG Total CO2 ABG O2 Saturation ABG Base Excess VBG pH VBG pCO2 VBG pO2 VBG HCO3 VBG Total CO2 VBG O2 Saturation VBG Base Excess VBG Lactate 9.2 H* Sodium 134 L Potassium 3.6 D Chloride 94 L Carbon Dioxide 27.6 Anion Gap 12.4 H BUN 20 H Creatinine 2.57 H Estimated GFR/1.73 m2 25.48 Glucose 318 H D Calcium 9.2 Magnesium Total Bilirubin Conjugated Bilirubin AST ALT Alkaline Phosphatase Troponin I Cancelled NT-Pro-B Natriuret Pep Total Protein Albumin Lipase TSH Urine Color Urine Clarity Urine pH Ur Specific [place] Urine Protein Urine Ketones Urine Blood Urine Nitrite Urine Bilirubin Urine Urobilinogen Ur Leukocyte Esterase Urine RBC Urine WBC Ur Epithelial Cells Urine Crystals Urine Bacteria Urine Mucus Ur Culture Indicated? Urine Glucose Ethyl Alcohol COVID-19 Source COVID-19 PCR Nasopharyn COVID-19 PCR Influenza Type A (PCR) Influenza Type B (PCR) RSV (PCR) Ref Test Perform Site 01/28/20 01/28/20 01/28/20 13:00 12:25 11:15 WBC RBC Hgb Hct MCV MCH MCHC RDW Plt Count MPV Immature Gran % Neutrophils % Lymphocytes % Monocytes % Eosinophils % Basophils % Nucleated RBC % Absolute Neutrophils Absolute Lymphocytes Absolute Monocytes Absolute Eosinophils Absolute Basophils RBC Morphology PT INR APTT ABG Sample Site ABG pH ABG pCO2 ABG pO2 ABG HCO3 ABG Total CO2 ABG O2 Saturation ABG Base Excess VBG pH 7.41 VBG pCO2 45 VBG pO2 65 VBG HCO3 29 H VBG Total CO2 24 VBG O2 Saturation 94 VBG Base Excess 4 H VBG Lactate Sodium Potassium Chloride Carbon Dioxide Anion Gap BUN Creatinine Estimated GFR/1.73 m2 Glucose Calcium Magnesium Total Bilirubin Conjugated Bilirubin AST ALT Alkaline Phosphatase Troponin I Cancelled 0.80 H* NT-Pro-B Natriuret Pep Total Protein Albumin Lipase TSH Urine Color Urine Clarity Urine pH Ur Specific [place] Urine Protein Urine Ketones Urine Blood Urine Nitrite Urine Bilirubin Urine Urobilinogen Ur Leukocyte Esterase Urine RBC Urine WBC Ur Epithelial Cells Urine Crystals Urine Bacteria Urine Mucus Ur Culture Indicated? Urine Glucose Ethyl Alcohol COVID-19 Source COVID-19 PCR Nasopharyn COVID-19 PCR Influenza Type A (PCR) Influenza Type B (PCR) RSV (PCR) Ref Test Perform Site 01/28/20 01/28/20 01/28/20 09:45 09:20 09:20 WBC RBC Hgb Hct MCV MCH MCHC RDW Plt Count MPV Immature Gran % Neutrophils % Lymphocytes % Monocytes % Eosinophils % Basophils % Nucleated RBC % Absolute Neutrophils Absolute Lymphocytes Absolute Monocytes Absolute Eosinophils Absolute Basophils RBC Morphology PT INR APTT ABG Sample Site Pending ABG pH Pending ABG pCO2 Pending ABG pO2 Pending ABG HCO3 Pending ABG Total CO2 Pending ABG O2 Saturation Pending ABG Base Excess Pending VBG pH VBG pCO2 VBG pO2 VBG HCO3 VBG Total CO2 VBG O2 Saturation VBG Base Excess VBG Lactate Sodium Potassium Chloride Carbon Dioxide Anion Gap BUN Creatinine Estimated GFR/1.73 m2 Glucose Calcium Magnesium 2.2 Total Bilirubin Conjugated Bilirubin AST ALT Alkaline Phosphatase Troponin I 0.33 H* NT-Pro-B Natriuret Pep Total Protein Albumin Lipase TSH Urine Color Urine Clarity Urine pH Ur Specific [place] Urine Protein Urine Ketones Urine Blood Urine Nitrite Urine Bilirubin Urine Urobilinogen Ur Leukocyte Esterase Urine RBC Urine WBC Ur Epithelial Cells Urine Crystals Urine Bacteria Urine Mucus Ur Culture Indicated? Urine Glucose Ethyl Alcohol COVID-19 Source COVID-19 PCR Nasopharyn COVID-19 PCR Influenza Type A (PCR) Influenza Type B (PCR) RSV (PCR) Ref Test Perform Site 01/28/20 01/28/20 01/28/20 09:20 09:05 09:05 WBC RBC Hgb Hct MCV MCH MCHC RDW Plt Count MPV Immature Gran % Neutrophils % Lymphocytes % Monocytes % Eosinophils % Basophils % Nucleated RBC % Absolute Neutrophils Absolute Lymphocytes Absolute Monocytes Absolute Eosinophils Absolute Basophils RBC Morphology PT INR APTT ABG Sample Site ABG pH ABG pCO2 ABG pO2 ABG HCO3 ABG Total CO2 ABG O2 Saturation ABG Base Excess VBG pH VBG pCO2 VBG pO2 VBG HCO3 VBG Total CO2 VBG O2 Saturation VBG Base Excess VBG Lactate Sodium 130 L Potassium 2.8 L* Chloride 88 L Carbon Dioxide 29.1 Anion Gap 12.9 H BUN 19 H Creatinine 2.43 H Estimated GFR/1.73 m2 27.18 Glucose 479 H D Calcium 9.0 Magnesium Total Bilirubin Conjugated Bilirubin AST ALT Alkaline Phosphatase Troponin I NT-Pro-B Natriuret Pep Total Protein Albumin Lipase TSH Urine Color Yellow Urine Clarity Cloudy Urine pH 5.5 Ur Specific [place] 1.025 Urine Protein >=300 H Urine Ketones Negative Urine Blood Large H Urine Nitrite Negative Urine Bilirubin Negative Urine Urobilinogen 0.2 Ur Leukocyte Esterase Small H Urine RBC Not Applicable Urine WBC >50 H Ur Epithelial Cells Not Applicable Urine Crystals Not Applicable Urine Bacteria Not Applicable Urine Mucus Not Applicable Ur Culture Indicated? Yes Urine Glucose >=1000 H Ethyl Alcohol COVID-19 Source Nasopharynx COVID-19 PCR Negative Nasopharyn COVID-19 PCR Influenza Type A (PCR) Negative Influenza Type B (PCR) Negative RSV (PCR) Negative Ref Test Perform Site 01/28/20 01/28/20 01/28/20 08:05 06:32 06:00 WBC 10.98 H RBC 6.98 H Hgb 20.7 H* Hct 62.4 H* MCV 89.4 MCH 29.7 MCHC 33.2 RDW 15.8 H Plt Count 350 MPV 9.6 Immature Gran % 0.5 Neutrophils % 82.4 Lymphocytes % 10.1 Monocytes % 6.5 Eosinophils % 0.0 Basophils % 0.5 Nucleated RBC % 0 Absolute Neutrophils 9.05 H Absolute Lymphocytes 1.11 L Absolute Monocytes 0.71 Absolute Eosinophils 0.00 Absolute Basophils 0.05 RBC Morphology Normal PT INR APTT ABG Sample Site ABG pH ABG pCO2 ABG pO2 ABG HCO3 ABG Total CO2 ABG O2 Saturation ABG Base Excess VBG pH VBG pCO2 VBG pO2 VBG HCO3 VBG Total CO2 VBG O2 Saturation VBG Base Excess VBG Lactate Sodium Potassium Chloride Carbon Dioxide Anion Gap BUN Creatinine Estimated GFR/1.73 m2 Glucose Calcium Magnesium Total Bilirubin Conjugated Bilirubin AST ALT Alkaline Phosphatase Troponin I Cancelled NT-Pro-B Natriuret Pep Total Protein Albumin Lipase TSH Urine Color Urine Clarity Urine pH Ur Specific [place] Urine Protein Urine Ketones Urine Blood Urine Nitrite Urine Bilirubin Urine Urobilinogen Ur Leukocyte Esterase Urine RBC Urine WBC Ur Epithelial Cells Urine Crystals Urine Bacteria Urine Mucus Ur Culture Indicated? Urine Glucose Ethyl Alcohol COVID-19 Source COVID-19 PCR Cancelled Nasopharyn COVID-19 PCR Cancelled Influenza Type A (PCR) Influenza Type B (PCR) RSV (PCR) Ref Test Perform Site Cancelled 01/28/20 01/28/20 01/28/20 06:00 06:00 06:00 WBC RBC Hgb Hct MCV MCH MCHC RDW Plt Count MPV Immature Gran % Neutrophils % Lymphocytes % Monocytes % Eosinophils % Basophils % Nucleated RBC % Absolute Neutrophils Absolute Lymphocytes Absolute Monocytes Absolute Eosinophils Absolute Basophils RBC Morphology PT INR APTT ABG Sample Site ABG pH ABG pCO2 ABG pO2 ABG HCO3 ABG Total CO2 ABG O2 Saturation ABG Base Excess VBG pH 7.38 VBG pCO2 48 VBG pO2 45 VBG HCO3 28 VBG Total CO2 23 L VBG O2 Saturation 83 VBG Base Excess 3 VBG Lactate 12.4 H* Sodium Potassium Chloride Carbon Dioxide Anion Gap BUN Creatinine Estimated GFR/1.73 m2 Glucose Calcium Magnesium Total Bilirubin Conjugated Bilirubin AST ALT Alkaline Phosphatase Troponin I < 0.05 NT-Pro-B Natriuret Pep 1333 H Total Protein Albumin Lipase 53 TSH 2.40 Urine Color Urine Clarity Urine pH Ur Specific [place] Urine Protein Urine Ketones Urine Blood Urine Nitrite Urine Bilirubin Urine Urobilinogen Ur Leukocyte Esterase Urine RBC Urine WBC Ur Epithelial Cells Urine Crystals Urine Bacteria Urine Mucus Ur Culture Indicated? Urine Glucose Ethyl Alcohol COVID-19 Source COVID-19 PCR Nasopharyn COVID-19 PCR Influenza Type A (PCR) Influenza Type B (PCR) RSV (PCR) Ref Test Perform Site 01/28/20 01/28/20 06:00 05:25 WBC RBC Hgb Hct MCV MCH MCHC RDW Plt Count MPV Immature Gran % Neutrophils % Lymphocytes % Monocytes % Eosinophils % Basophils % Nucleated RBC % Absolute Neutrophils Absolute Lymphocytes Absolute Monocytes Absolute Eosinophils Absolute Basophils RBC Morphology PT 10.1 INR 1.0 APTT 24.5 ABG Sample Site ABG pH ABG pCO2 ABG pO2 ABG HCO3 ABG Total CO2 ABG O2 Saturation ABG Base Excess VBG pH VBG pCO2 VBG pO2 VBG HCO3 VBG Total CO2 VBG O2 Saturation VBG Base Excess VBG Lactate Sodium 124 L* Potassium 2.5 L* Chloride 80 L Carbon Dioxide 26.6 Anion Gap 17.4 H BUN 19 H Creatinine 2.47 H Estimated GFR/1.73 m2 26.67 Glucose 699 H* Calcium 9.3 Magnesium Total Bilirubin 0.6 Conjugated Bilirubin 0.21 H AST 24 ALT 24 Alkaline Phosphatase 243 H Troponin I NT-Pro-B Natriuret Pep Total Protein 7.8 Albumin 2.3 L Lipase TSH Urine Color Urine Clarity Urine pH Ur Specific [place] Urine Protein Urine Ketones Urine Blood Urine Nitrite Urine Bilirubin Urine Urobilinogen Ur Leukocyte Esterase Urine RBC Urine WBC Ur Epithelial Cells Urine Crystals Urine Bacteria Urine Mucus Ur Culture Indicated? Urine Glucose Ethyl Alcohol < 3.0 COVID-19 Source COVID-19 PCR Nasopharyn COVID-19 PCR Influenza Type A (PCR) Influenza Type B (PCR) RSV (PCR) Ref Test Perform Site 01/28/20 09:05 Urine - Reflex from Ua Urine Culture - Pending 01/28/20 06:55 Blood Blood Culture - Pending 01/28/20 06:50 Blood Blood Culture - Pending Preliminary micro results at discharge 01/28/20 09:05 Urine Culture - Pending Urine - Reflex from Ua 01/28/20 06:55 Blood Culture - Pending Blood 01/28/20 06:50 Blood Culture - Pending Blood [facility] Medical History Acute kidney injury (nontraumatic) Cardiomyopathy Chronic osteomyelitis COPD (chronic obstructive pulmonary disease) COPD exacerbation Diabetes mellitus Gross hematuria Heart failure with preserved ejection fraction HTN (hypertension) Hypertension Infection of prosthetic knee joint Iron deficiency anemia Mixed sleep apnea Non-ST elevation myocardial infarction (NSTEMI) Obesity, morbid, BMI 40.0-49.9 CARLOS (obstructive sleep apnea) Sinus pause Type 2 diabetes mellitus Surgical History EGD - MAC (09/10/16) Previous back surgery S/P hernia repair S/P right knee surgery Status post left knee replacement Family History Sister Diabetes Social History Smoking/Tobacco Use Status: Former Tobacco Use Tobacco: How many years used: 20 Second Hand Exposure: Yes Smoking risk assessment performed?: Yes Alcohol Intake: former Drug use: Occasionally Substance use type: marijuana Household members: spouse Number of Children: 4 Do you feel safe at home: Yes Do you feel safe in your relationship?: Yes
--- NOTE | 2020-01-28 15:06 | CMPROGNOTE_ITS ---
- If Service Date Differs Date of service: 01/28/20 Time of Service: 15:06 Care Management Progress Note S/O: Piyush remains critically ill on Bipap in the ICU. He is being transferred to [facility] this afternoon. He will be intubated when the [facility] team arrives. has been updating his Olga frequently throughout the day and she is aware that he will be intubated then transferred to [facility]. At first she was resistant to having him go to [facility] due to Covid concerns, but understands that he is critically ill and [facility] is the only tertiary care facility with bed availability. She did note that his Shoe Singer is at [facility] and that made her feel better as well. A: Piyush is a 64 year old man admitted to [facility] on 01/28/20 with seizure like activity. P: Piyush will be emergently transferred to [facility] this afternoon to a critical care unit there.
--- NOTE | 2020-01-28 15:06 | PDOC.CMPRO ---
- If Service Date Differs Date of service: 01/28/20 Time of Service: 15:06 Care Management Progress Note S/O: Piyush remains critically ill on Bipap in the ICU. He is being transferred to [facility] this afternoon. He will be intubated when the [facility] team arrives. has been updating his Olga frequently throughout the day and she is aware that he will be intubated then transferred to [facility]. At first she was resistant to having him go to [facility] due to Covid concerns, but understands that he is critically ill and [facility] is the only tertiary care facility with bed availability. She did note that his Student Life Dean is at [facility] and that made her feel better as well. A: Piyush is a 64 year old man admitted to [facility] on 01/28/20 with seizure like activity. P: Piyush will be emergently transferred to [facility] this afternoon to a critical care unit there.
--- NOTE | 2020-01-28 15:30 | DI.RAD_ITS ---
EXAM: XR PORTABLE CHEST AP POST LINE CLINICAL HISTORY: confirm placement of ET tube TECHNIQUE: 2D digital imaging was performed. COMPARISON: CR XR CHEST 2V PA LATERAL from 12/07/[address] CHEST WO from 01/28/2020 FINDINGS: A portable exam was performed in the supine position. The lung bases are not fully included on the e xam. The exam is limited by patient body habitus and rotation. Increased densities are seen in the lower lung fry which could represent worsening bilateral infiltrates. An endotracheal tube has be en inserted which appears appropriately positioned the level the aortic arch.. IMPRESSION: Satisfactory placement of endotracheal tube. Limited exam. Increased bibasilar densities. DATA REPOSITORY: RADIATION DOSE DELIVERED:
--- NOTE | 2020-01-28 16:32 | DI.VRAD_ITS ---
PROCEDURE INFORMATION: Exam: XR Chest, 1 View Exam date and time: 01/28/2020 3:38 PM Age: 64 years old Clinical indication: Other: S/P intubation; Additional info: Limited exam due to PT condition/habitus. TECHNIQUE: Imaging protocol: XR of the chest Views: 1 view. COMPARISON: CT CHEST WO 01/28/2020 5:37 AM FINDINGS: Exam limited by motion and patient's large body habitus. Appliances: Endotracheal tube tip approximately 3 cm above the sandra Lungs: Infiltrates in both lower lungs, right worse than left. Pleural space: Bilateral costophrenic angles are obscured which could be due to pleural effusions. Heart/Mediastinum: Cardiomegaly. Bones/joints: Degenerate arthritis in the spine and shoulders. IMPRESSION: 1. Bilateral lower lung infiltrates and possible pleural effusions. 2. Endotracheal tube tip approximately 3 cm above the sandra. Dictated and Authenticated by: Nelli Vazquez MD. Ordering:SOLIS Hampton MD
== END 2020-01-28 16:40 | DRG 871 ==
LOC: ER 07:34 → ICU 08:24
PROVIDERS: Family Medicine; Admitting Provider General Practice; Emergency Provider Emergency Medicine; PCP Family Medicine; Visit Provider General Practice
DX: A41.9 Sepsis, unspecified organism (principal); J96.20 Acute and chronic respiratory failure, unspecified whether with hypoxia or hypercapnia; E87.1 Hypo-osmolality and hyponatremia; I42.9 Cardiomyopathy, unspecified; I50.30 Unspecified diastolic (congestive) heart failure; Z68.41 Body mass index [BMI] 40.0-44.9, adult; N39.0 Urinary tract infection, site not specified; N17.9 Acute kidney failure, unspecified; J44.0 Chronic obstructive pulmonary disease with (acute) lower respiratory infection; I13.0 Hypertensive heart and chronic kidney disease with heart failure and stage 1 through stage 4 chronic kidney disease, or unspecified chronic kidney disease; R56.9 Unspecified convulsions; E87.6 Hypokalemia; D75.1 Secondary polycythemia; D50.9 Iron deficiency anemia, unspecified; I25.2 Old myocardial infarction; E66.01 Morbid (severe) obesity due to excess calories; G47.33 Obstructive sleep apnea (adult) (pediatric); N18.9 Chronic kidney disease, unspecified; E11.22 Type 2 diabetes mellitus with diabetic chronic kidney disease; I25.10 Atherosclerotic heart disease of native coronary artery without angina pectoris; Z79.4 Long term (current) use of insulin
CPT/HCPCS: 36410; 36415; 71045; 71250; 80048; 80053; 82805; 83690; 87040; 87449; 93005; 96361; 96365; 96368; 96375; 99223; 99239; 99285; U0003; 70450; 80320; 81003; 81015; 82248; 83605; 83735; 83880; 84443; 84484; 85025; 85610; 85730; 87086; 93010; 94002; 94640; 94660; J0131; J1940; J1953; J2060; J2270; J2543; J3480; J7620; J7626

== ENCOUNTER 2020-03-11 16:13 | Emergency (ER) | payer MEDICARE, MEDICAID, SELFPAY ==
[2020-03-11] VITALS (79 sets, daily range): BP systolic 58–154; BP diastolic 20–129; PULSE 55–153; RESP 9–25; TEMP 36.6; O2SAT 86–95
--- NOTE | 2020-03-11 16:12 | ED.GENADUL_ITS ---
Discharge Plan Disposition Patient Disposition: [facility] Condition: Poor Discharge Details Chief Complaint: Urinary Clinical Impression: UTI (urinary tract infection), Gross hematuria, Hypotension Primary Care Provider: Allison Muniz ED Provider: Yadira Nj Cresson Meds and New Rx's Prescriptions: No Action pantoprazole 40 MG tablet,delayed release (DR/EC) 40 mg PO DAILY@0730 Qty: 30 RF: 3 aspirin 81 mg Tablet,Delayed Release (Dr/Ec) 81 mg PO DAILY Qty: 0 RF: 0 atorvastatin 80 mg Tablet 80 mg PO HS RF: 0 insulin lispro [Humalog KwikPen Insulin] 100 unit/mL Insulin Pen 3 - 16 unit SUBCUT QMEALS RF: 0 ferrous sulfate 325 mg (65 mg iron) tablet 325 mg PO QDAY RF: 0 cholecalciferol (vitamin D3) 50 mcg (2,000 unit) capsule 2,000 unit PO QDAY RF: 0 atorvastatin 80 mg tablet 80 mg PO DAILY RF: 0 torsemide 20 mg tablet 20 mg PO DAILY RF: 0 clopidogrel 75 mg tablet 75 mg PO DAILY RF: 0 spironolactone 25 mg tablet 12.5 mg PO DAILY RF: 0 lisinopril 2.5 mg tablet 2.5 mg PO DAILY RF: 0 trazodone 50 mg tablet 50 mg PO QHS RF: 0 acetaminophen 500 MG tablet 1,000 mg PO DAILY PRNRF: 0 sucralfate 1 GM tablet 1 gm PO QID RF: 0 Lantus Solostar U-100 Insulin 100 unit/mL (3 mL) insulin pen 35 unit SUBCUT BID RF: 0 Incruse Ellipta 62.5 mcg/actuation blister with device 1 inh INHALATION DAILY RF: 0 amoxicillin 500 mg capsule 500 mg PO BID RF: 0 metoprolol succinate 25 mg tablet extended release 24 hr 25 mg PO DAILY RF: 0 oxycodone 5 mg tablet 5 mg PO BID RF: 0 nystatin 100,000 unit/gram powder See Rx Instructions .ROUTE .COMPLEX RF: 0 nystatin 100,000 unit/gram cream See Rx Instructions .ROUTE .COMPLEX RF: 0 albuterol sulfate [ProAir HFA] 90 mcg/actuation HFA aerosol inhaler 1 - 2 inh INHALATION .EVERY 4-6 HOURS PRN (Reason: Wheezing) RF: 0 Discharge Data Discharge Date/Time-TO BE ENTERED AT DEPARTURE: 03/11/20 22:00 Medical Decision Making Patient is a pleasant 65-year-old gentleman presenting today with chief complaint of hematuria. Patient is reportedly a poor historian and states I have a short memory. I did speak with the patient's , Sydney Fall?[phone]. She states that this memory issue is not new for him. Between the 2 of them, I am able to obtain that the patient had difficulty urinating yesterday and had minimal output. However, he began having increased urination today and then blood was noted. states that she saw blood clots in his urine. They contacted his primary care who was concerned for potential UTI. Patient has had UTI with hematuria historically and was evaluated by Dr. Price a few months ago. Patient was started on Levaquin and received 1 250 mg dose today. Patient is anticoagulated on Plavix. Had an SD 1 month ago. Patient is chronically on 3 L of oxygen but only intermittently wears this. Patient comes in on O2 by EMS. EMS brings in a urinal approximately 200 cc of fairly bloody urine. Patient has been reporting some right lower back pain but is denying currently. He has not had any recent illness. Denies any nausea vomiting. Denies any change in his bowel habits. Patient typically ambulates with a walker at baseline. Past medical history significant for cardiomyopathy, osteomyelitis, COPD, diabetes, gross hematuria, heart failure with preserved ejection fraction, hypertension, iron deficiency anemia, and STEMI, obesity, CARLOS. Patient is on Plavix. and chart review have any concerns for complete medication compliance. Last stent was placed 1 year ago, none placed during recent admission. On exam, patient appears chronically ill. Abdomen is benign. No CVA tenderness to percussion. I do not appreciate any blood around his penis or meatus. Normal genital exam. Patient is hypertensive at 152/114. Normal pulse. Satting in the mid to low 90s on 4 L of O2. Lungs are clear. 2+ distal pulses in extremities, no pulsatile mass Labs reviewed. WBC 10.98. Hemoglobin 13.4. Patient has been anemic like this historically. Most recently, last month in the setting of a STEMI, he was quite concentrated, and had a hemoglobin of 20.7. Coags are normal. Sodium is 126 but corrects to 132 in the setting of a glucose of 492. His BUN is elevated at 38. This is elevated for the patient. His creatinine is 3.42. Patient's baseline is around 2.4 so this is significantly elevated. 492 for glucose is not unusual for the patient. Patient has been asymptomatic but began developing pain in his penis. Shortly after he passed blood clots approximately size of a tennis ball in total. No continued bleeding after the passage of clot. Post void residual on the patient is 200. I did consider placing a three-way catheter but I am concerned that this may clot off. He has been urinating and does not appear to be having any significant retention will hold off at this time. Patient is going to CT for Noncon of his abdomen and kidneys. A few minutes after the patient passed blood clots, his BP dropped. Systolic in the 70s. Patient is asymptomatic, resting comfortably, asking for TV. Patient had been on a 150cc drip, opened this up. I do not see evidence in CBC or physical exam to suggest that patient is hemorrhaging. I do not feel that he needs blood at this time. As he is asymptomatic, will hold on pressers. Will continue to monitor and hydrate. This may be a vasovagal reaction after passage of clots. CT reviewed by radiologist: FINDINGS: Lungs: There is increased dependent basilar airspace opacity which has a platelike in wedge-shaped configuration consistent with atelectasis. There is a 3 mm right lower lobe nodule on image 4, series 2, not within the [id number] of the prior study. Liver: Normal. No mass. Gallbladder and bile ducts: There are multiple radiolucent gallstones measuring up to 1.4 cm, new since prior study. There is no evidence for acute gallbladder inflammation. There is mild dilatation of the common bile duct measuring up to 1.2 cm, whereas this measured 0.9 cm on prior study. There is new mild central intrahepatic biliary ductal dilatation as well. No defined distal common bile duct stone is identified. Pancreas: Normal. No ductal dilation. Spleen: Normal. No splenomegaly. Adrenal glands: Normal. No mass. Kidneys and ureters: There are no urinary tract stones. There is no hydronephrosis or hydroureter. Both kidneys appear mildly to moderately atrophic with multifocal regions of renal cortical scarring. There is a 1.7 x 1.3 cm left renal cyst on image 80, series 2, which appears increased in size since prior study. Stomach and bowel: There are scattered colonic diverticula without evidence for acute diverticulitis. Appendix: No evidence of appendicitis. Intraperitoneal space: Unremarkable. No free air. No significant fluid collection. Vasculature: There is [id number]-[id number] atherosclerotic calcification of the abdominal aorta and iliac arteries, without aneurysm formation. Lymph nodes: Unremarkable. No enlarged lymph nodes. Urinary bladder: Within the posterior aspect of the bladder, there is a new could focal oblong region of heterogeneous hyper attenuation measuring 1.8 x 3.9 cm in axial dimensions, as seen on image 148, series 2 and 3.2 cm in craniocaudal dimension, as seen on sagittal image 84, series 4. Findings suggest blood clot. It is difficult to assess for adjacent bladder wall neoplasm in this region due to lack of IV contrast. Reproductive: The prostate is not enlarged. The seminal vesicles appear unremarkable. Bones/joints: There is an intramedullary jinny and transverse fixating screw within the proximal aspect of the right femur which appears intact. There is multilevel marked spondylosis of the lower thoracic and lumbar spine. No acute fracture identified. Soft tissues: Unremarkable. IMPRESSION: 1. New region of heterogeneous hyperdensity within the posterior aspect of the bladder, likely representing intraluminal blood clot. It is difficult to evaluate for bladder neoplasm on this exam due to lack of IV contrast. Further evaluation with cystoscopy or CT urogram is recommended. 2. No urinary tract stones are identified. There is no hydronephrosis or hydr oureter. 3. Multiple radiolucent gallstones. No clear CT evidence of acute cholecystitis. 4. Increased mild intra and extrahepatic biliary ductal dilatation to the level of the ampulla. There is no defined distal common bile duct stone or lesion identified. Further evaluation with ERCP or MRCP could be obtained as clinically indicated. 5. Increased mild bibasilar airspace opacities and a configuration suggesting atelectasis. 6. 3 mm right lower lobe nodule, indeterminate. For patients at low risk (minimal or absent history of smoking and of other known risk factors), no routine follow-up is indicated. For patients at high risk (history of smoking or of other known risk factors), consider optional CT Chest at 12 months. (Reference: Marilee) Reached out to our urologist who is not currently superintendent recreation. Images pushed to [facility] [place] Requested consultation and transfer. Patient's hypertension is persisting. Diastolic is now 83. Patient continues to smoke clinically well and is requesting food. Will have urology review the images and discussed the patient's current clinical state. Patient continues to be asympatomatic but BP now dropping again into the 60s - 70s. Plan to place the patiet on dopamine. He has remained bradycardic, likely associated with his metoprolol. Patient responding well to dopamine with BP of 115/59. Patient continues to be asympatomic. Spoke with Dr. Melendrez with urology as well as Dr. Prado with critical care. They agree with transfer. Patient accepted by Dr. Vanegas with [facility]. Patient has received total of 1L fluids, he received levofloxacin prior to arrival. Currently on Dopamine. Patient may be uroseptic. He ctoninues to be asympatomic. Blood urine in catheter, he is more comfortable after placement of the catheter. Discussed transfer with patient and his . They are both in agreement. HPI General Mode of arrival: EMS . Date/Time Provider Initiated Documentation: 03/11/20 16:19 . Limitations to Documentation: no limitations . Information obtained by: patient, family (spoke with ), EMS, RN notes reviewed and old records reviewed . History of Present Illness 65 year old M presents to the emergency department with the chief complaint of hematuria, described as severe (passing clots this afternoon), Quality is described as other (denies any pain), and is localized to the back (reported right sided back pain to EMS, reports pain current resolved). Patient reports no radiation. Patient started experiencing this day(s) (1) and it has been intermittent. No relieving factors improve symptom(s), No exacerbating factors reported . Patient notes denies chest pain, cough, diaphoresis, fever/chills, headaches, loss of appetite, nausea/vomiting, rash, shortness of breath and weakness. Patient did receive the following treatments prior to arrival, none Related Data Home Medications Medication Instructions Recorded Confirmed pantoprazole 40 mg PO DAILY@0730 #30 09/13/16 03/11/20 acetaminophen 1,000 mg PO DAILY PRN 09/09/17 03/11/20 sucralfate 1 gm PO QID 09/09/17 03/11/20 aspirin 81 mg PO DAILY #0 tab 11/06/17 03/11/20 atorvastatin 80 mg PO HS 08/28/18 03/11/20 insulin lispro [Humalog KwikPen 3 - 16 unit SUBCUT QMEALS 08/28/18 03/11/20 Insulin] cholecalciferol (vitamin D3) 2,000 unit PO QDAY 08/12/19 03/11/20 ferrous sulfate 325 mg PO QDAY 08/12/19 03/11/20 Incruse Ellipta 1 inh INHALATION DAILY 11/01/19 03/11/20 insulin glargine 100 unit/mL (3 35 unit SUBCUT BID ml 12/01/19 03/11/20 mL) subcutaneous pen albuterol sulfate [ProAir HFA] 1 - 2 inh INHALATION .EVERY 4-6 01/28/20 03/11/20 HOURS PRN amoxicillin 500 mg PO BID 01/28/20 03/11/20 metoprolol succinate 25 mg PO DAILY 01/28/20 03/11/20 nystatin See Rx Instructions .ROUTE .COMPLEX 01/28/20 03/11/20 nystatin See Rx Instructions .ROUTE .COMPLEX 01/28/20 03/11/20 oxycodone 5 mg PO BID 01/28/20 03/11/20 atorvastatin 80 mg PO DAILY 03/11/20 03/11/20 clopidogrel 75 mg PO DAILY 03/11/20 03/11/20 lisinopril 2.5 mg PO DAILY 03/11/20 03/11/20 spironolactone 12.5 mg PO DAILY 03/11/20 03/11/20 torsemide 20 mg PO DAILY 03/11/20 03/11/20 trazodone 50 mg PO QHS 03/11/20 03/11/20 Previous Rx's Medication Instructions Recorded pantoprazole 40 mg PO DAILY@0730 #30 09/13/16 aspirin 81 mg PO DAILY #0 tab 11/06/17 Allergies Allergy/AdvReac Type Severity Reaction Status Date / Time Iodinated Contrast Media Allergy Hives Verified 01/28/20 05:16 [Iodinated Contrast- Oral and IV Dye] rifampin Allergy Hives Unverified 01/28/20 05:16 vancomycin Allergy Hives Unverified 01/28/20 05:16 General YVAN: 2 Review of Systems Constitutional Constitutional: Reports as per HPI, Denies chills, Denies fatigue, Denies fever(s) and Denies headache(s) ENT Ears, Nose, Mouth, and Throat: Denies headache(s) Cardiovascular Cardiovascular: Reports as per HPI, Denies chest pain and Denies dyspnea Respiratory Respiratory: Reports as per HPI, Denies cough and Denies dyspnea Gastrointestinal Gastrointestinal: Reports as per HPI, Denies abdominal pain, Denies hematochezia, Denies change in stool character, Denies coffee ground emesis, Denies diarrhea, Denies nausea, Denies vomiting and Denies hematemesis Genitourinary Genitourinary: Reports as per HPI Musculoskeletal Musculoskeletal: Reports as per HPI and Denies back pain Integumentary/Breasts Skin/Breast: Reports as per HPI and Denies rash Neurologic Neurologic: Reports as per HPI and Denies headache(s) Endocrine Endocrine: Denies fatigue Hematologic/Lymphatic Hematologic/Lymphatic: Reports as per HPI and Denies easy bleeding PFSH Medical History Acute kidney injury (nontraumatic) Cardiomyopathy Chronic osteomyelitis COPD (chronic obstructive pulmonary disease) COPD exacerbation Diabetes mellitus Gross hematuria Heart failure with preserved ejection fraction HTN (hypertension) Hypertension Infection of prosthetic knee joint Iron deficiency anemia Mixed sleep apnea Non-ST elevation myocardial infarction (NSTEMI) Obesity, morbid, BMI 40.0-49.9 CARLOS (obstructive sleep apnea) Sinus pause Type 2 diabetes mellitus Surgical History EGD - [facility] (09/10/16) Previous back surgery S/P hernia repair S/P right knee surgery Status post left knee replacement Family History Sister Diabetes Social History Smoking/Tobacco Use Status: Former Tobacco Use Tobacco: How many years used: 20 Second Hand Exposure: Yes Smoking risk assessment performed?: Yes Alcohol Intake: former Drug use: Occasionally Substance use type: marijuana Household members: spouse Number of Children: 4 Do you feel safe at home: Yes Do you feel safe in your relationship?: Yes Exam Const General: cooperative, comfortable, no acute distress, well developed and ill appearing chronically Nutritional Appearance: well nourished and obese Orientation: alert and awake HENMT Head: normal to inspection Mouth: mucous membranes dry (looks dry) Resp Effort & Inspection: normal respiratory effort, able to speak in complete sentences and no respiratory distress Auscultation: clear to auscultation bilaterally, no rales, no rhonchi, no wheezes and other (on NC O2, sounds to be at baseline) Cardio Rate: regular rate Rhythm: regular rhythm Heart Sounds: S1 normal and S2 normal GI Inspection: normal to inspection and obesity Palpation: soft, no hepatosplenomegaly, not firm, no guarding, no hernias, not rigid and nontender Percussion: normal to percussion Auscultation: normal bowel sounds Penis: normal penis Meatus: meatus normal Scrotum: scrotum normal Testes: normal Back/Spine/Pelvis Back: no CVA tenderness Thoracic/Lumbar Spine: No thoracic spinal tenderness and No lumbar spinal tenderness Skin General skin exam: erythema (under fold of panus consistent with kenzie) Trauma: no lacerations or abrasions Neuro General: patient alert and patient awake Cognition: normal cognition Speech: speech normal Gait: gait abnormal (did not assess) Extrem General: no pedal edema, no calf tenderness and muscle atrophy of the right lower extremity and of the left lower extremity Psych Appearance: grossly normal and well kempt Mental Status: mental status grossly normal Speech and Movement: speech and movement normal
--- NOTE | 2020-03-11 16:15 | DI.CT_ITS ---
EXAM: CT RENAL COLIC WO CLINICAL HISTORY: right flank pain, gross hematuria. TECHNIQUE: Imaging Protocol: Axial computed tomography images with coronal and sagittal reformatted images were created and reviewed. COMPARISON: CT ABD PELVIS WO CONTRAST from 09/12/2016 CT ABD PELVIS WO CONTRAST from 09/12/[address] CHEST WO from 01/28/[address] CHEST WO from 01/28/2020 FINDINGS: ABDOMEN: Lung Bases: There is bilateral dependent scarring or atelectasis. Pneumonia can't be excluded. Mild c oronary artery calcification is present. There is a stable calcified granuloma in the right lower lob e. Liver: There is decreased attenuation of the liver suggesting fatty infiltration. The lack of IV cont rast does limit evaluation of the abdominal organs. Gallbladder and biliary tract: Cholelithiasis. There is dilatation of the common bile duct up to 1.2 cm. Pancreas: Normal density, no abnormal calcifications or inflammatory process. Spleen: Normal. Kidneys: Normal size, contour and axis.No radiodense stones or obstructive uropathy. No suspicious ma sses seen. Adrenal glands: No mass is seen. Lymph nodes: Within normal limits. Abdominal Aorta: Abdominal portion non-dilated. Atherosclerosis. PELVIS: Bladder:Symmetric distention, no gross wall thickening. There is heterogeneous increased density seen in the dependent portion of the urinary bladder. Bowel: No obstruction or bowel wall thickening. Appendix is unremarkable. There are scattered divert icula, but no evidence of acute diverticulitis. Peritoneal cavity: No ascites, collection or mesenteric inflammatory response Reproductive organs: Within normal limits. Bones: There is an intramedullary jinny in the right femur. Degenerative changes are present in the spi ne. Soft Tissues: Small fat containing umbilical hernia and small fat containing left inguinal hernia. IMPRESSION: 1. Heterogeneous area of increased density in the dependent portion of the urinary bladder. This may represent an intraluminal blood clot. Mass cannot be evaluated well on this noncontrast examination. If further imaging is warranted cysts os could be or CT urogram is recommended. 2. Cholelithiasis. Mild dilatation of the extrahepatic bile ducts. If further imaging is warranted ul trasound may be considered for further evaluation. ERCP/MRCP may also be considered. 3. Bilateral basilar infiltrates which may represent atelectasis, scarring or pneumonia. Please corre late clinically. RADIATION DOSE DELIVERED: 1,510.51mGy.cm Total DLP DATA REPOSITORY: All CT scans at this facility are submitted to the National Radiology Data Registry (NRDR) Dose Index Registry (DIR) with the [employer] [place] [employer] (ACR). RADIATION OPTIMIZATION: All CT scans at this facility use at least one of these dose optimization te chniques: automated exposure control; mA and/or kV adjustment per patient size (includes targeted exa ms where dose is matched to clinical indication); or iterative reconstruction.
[2020-03-11 16:52] LABS: Abs Immature Grans 0.05 10^3/uL (0.0-0.06); Absolute Basophil Count 0.02 10^3/uL (0.0-0.2); Absolute Eosinophil Count 0.01 10^3/uL (0.0-0.7); Absolute Lymphocyte Count 1.08 10^3/uL (1.2-3.4); Absolute Monocyte Count 0.61 10^3/uL (0.1-0.8); Basophils % 0.2; Eosinophils % 0.1; HCT 40.8 % (40.0-50.0); HGB 13.4 g/dL (13.5-17.5); Immature Grans % 0.5; Lymphocytes % 9.8; MCH 29.8 pg (27.0-33.0); MCHC 32.8 % (32.0-36.0); MCV 90.9 fL (80-95); MPV 9.5 fL (8.0-11.0); Monocytes % 5.6; Neutrophils % 83.8; Nucleated RBC 0 %; Platelet Count 229 10^3/uL (130-400); RBC 4.49 10^6/uL (4.36-5.78); RDW 15.3 % (11.8-14.1); RDW-SD 51.3 fL; WBC 10.98 10^3/uL (4.4-10.8)
[2020-03-11 17:06] LABS: ALT 18 U/L (16-63); AST 13 U/L (15-37); Albumin 2.6 g/dL (3.4-5.0); Alkaline Phosphatase 108 U/L (46-116); Anion Gap 6.5 mmol/L (3-11); BUN 38 mg/dL (7-18); Bilirubin, Total 0.6 mg/dL (0.2-1.0); CO2 29.5 mmol/L (21.0-32.0); Calcium 8.7 mg/dL (8.5-10.1); Chloride 90 mmol/L (98-107); Estimated GFR 18.26 (mL/min/1.73m2); Glucose 492 mg/dL (74-106); INR 0.9 (0.9-1.1); PTT Activated 23.8 sec (21.0-27.5); Potassium 4.2 mmol/L (3.5-5.1); Prothrombin Time 9.3 sec (9.3-11.0); Sodium 126 mmol/L (136-145); Total Protein 6.5 g/dL (6.4-8.2)
[2020-03-11 17:10] LABS: CREATININE 3.42 mg/dL (0.70-1.30)
[2020-03-11] MEDS: Normal Saline 1,000 ML 150 ML IV (17:19)
--- NOTE | 2020-03-11 17:30 | RT.EKG_ITS ---
APPROVED REPORT Exam: Resting ECG Patient Location: E HR:61 bpm ECG Measurements Heart Rate 61 AXIS TX 99 P 0 QRSd 112 QRS 74 QT 446 T 147 QTc 445 Conclusion Sinus rhythm.. Atrial premature complex Low voltage, extremity leads. Abnrm T, consider ischemia, anterolateral lds.
--- NOTE | 2020-03-11 18:16 | DI.VRAD_ITS ---
Addendum created by Balbir Lara MD on 03/11/2020 6:39:30 PM EST: Findings were discussed with LEVI FUENTES at 03/11/2020 6:39 PM EST. Initial report created on 03/11/2020 6:16:27 PM EST: PROCEDURE INFORMATION: Exam: CT Abdomen And Pelvis Without Contrast Exam date and time: 03/11/2020 5:42 PM Age: 65 years old Clinical indication: Other: Right flank pain hematuria TECHNIQUE: Imaging protocol: Computed tomography of the abdomen and pelvis without contrast. COMPARISON: CT ABD PELVIS WO CONTRAST 09/12/2016 12:34 PM FINDINGS: Lungs: There is increased dependent basilar airspace opacity which has a platelike in wedge-shaped configuration consistent with atelectasis. There is a 3 mm right lower lobe nodule on image 4, series 2, not within the [id number] of the prior study. Liver: Normal. No mass. Gallbladder and bile ducts: There are multiple radiolucent gallstones measuring up to 1.4 cm, new since prior study. There is no evidence for acute gallbladder inflammation. There is mild dilatation of the common bile duct measuring up to 1.2 cm, whereas this measured 0.9 cm on prior study. There is new mild central intrahepatic biliary ductal dilatation as well. No defined distal common bile duct stone is identified. Pancreas: Normal. No ductal dilation. Spleen: Normal. No splenomegaly. Adrenal glands: Normal. No mass. Kidneys and ureters: There are no urinary tract stones. There is no hydronephrosis or hydroureter. Both kidneys appear mildly to moderately atrophic with multifocal regions of renal cortical scarring. There is a 1.7 x 1.3 cm left renal cyst on image 80, series 2, which appears increased in size since prior study. Stomach and bowel: There are scattered colonic diverticula without evidence for acute diverticulitis. Appendix: No evidence of appendicitis. Intraperitoneal space: Unremarkable. No free air. No significant fluid collection. Vasculature: There is [id number]-hl-[id number] atherosclerotic calcification of the abdominal aorta and iliac arteries, without aneurysm formation. Lymph nodes: Unremarkable. No enlarged lymph nodes. Urinary bladder: Within the posterior aspect of the bladder, there is a new could focal oblong region of heterogeneous hyper attenuation measuring 1.8 x 3.9 cm in axial dimensions, as seen on image 148, series 2 and 3.2 cm in craniocaudal dimension, as seen on sagittal image 84, series 4. Findings suggest blood clot. It is difficult to assess for adjacent bladder wall neoplasm in this region due to lack of IV contrast. Reproductive: The prostate is not enlarged. The seminal vesicles appear unremarkable. Bones/joints: There is an intramedullary jinny and transverse fixating screw within the proximal aspect of the right femur which appears intact. There is multilevel marked spondylosis of the lower thoracic and lumbar spine. No acute fracture identified. Soft tissues: Unremarkable. IMPRESSION: 1. New region of heterogeneous hyperdensity within the posterior aspect of the bladder, likely representing intraluminal blood clot. It is difficult to evaluate for bladder neoplasm on this exam due to lack of IV contrast. Further evaluation with cystoscopy or CT urogram is recommended. 2. No urinary tract stones are identified. There is no hydronephrosis or hydroureter. 3. Multiple radiolucent gallstones. No clear CT evidence of acute cholecystitis. 4. Increased mild intra and extrahepatic biliary ductal dilatation to the level of the ampulla. There is no defined distal common bile duct stone or lesion identified. Further evaluation with ERCP or MRCP could be obtained as clinically indicated. 5. Increased mild bibasilar airspace opacities and a configuration suggesting atelectasis. 6. 3 mm right lower lobe nodule, indeterminate. For patients at low risk (minimal or absent history of smoking and of other known risk factors), no routine follow-up is indicated. For patients at high risk (history of smoking or of other known risk factors), consider optional CT Chest at 12 months. (Reference: Marilee) REFERENCES: Ezehowoodrow H, et al. Guidelines for Management of Incidental Pulmonary Nodules Detected on CT Images: From the Fleischner Society 2017. Radiology. 2017;284(1):228-243. Dictated and Authenticated by: Balbir Lara MD. Ordering:ANDREE May MD
[2020-03-11 19:05] LABS: Bilirubin Negative (Negative); Blood Large (Negative); Glucose 500 mg/dL (Negative); Ketones Negative (Negative); Leukocyte Esterase Negative (Negative); Nitrite Positive (Negative); Specific Gravity 1.025 (1.005-1.025); Urobilinogen 0.2 EU/dL (Up TO 0.2); pH 8.5 (5-8)
[2020-03-11 19:15] LABS: Clarity Cloudy (Clear)
[2020-03-11 19:16] LABS: Troponin I < 0.05 ng/mL (<0.06)
[2020-03-11 19:17] LABS: Bacteria Negative HPF (Negative); C & S Indicated? No; Casts Negative LPF (Negative); Crystals Negative HPF (Negative); Epithelial Cells Few HPF (Negative); Mucus Negative (Negative); RBC >50 HPF (0-2); WBC 0-2 HPF (0-5)
[2020-03-11] MEDS: DOPamine 400 MG/250 ML BAG 10.172 MG IV (19:28)
[2020-03-11 19:41] LABS: Troponin I < 0.05 ng/mL (<0.06)
== END 2020-03-11 22:00 | disposition short-term general hospital (02) ==
LOC: ER 19:02
PROVIDERS: Emergency Provider Physician Assistant; PCP Family Medicine
DX: N39.0 Urinary tract infection, site not specified (principal); R31.0 Gross hematuria; I95.9 Hypotension, unspecified; I10 Essential (primary) hypertension; Z79.02 Long term (current) use of antithrombotics/antiplatelets; E11.65 Type 2 diabetes mellitus with hyperglycemia; Z79.4 Long term (current) use of insulin; J44.9 Chronic obstructive pulmonary disease, unspecified; Z87.891 Personal history of nicotine dependence
CPT/HCPCS: 36415; 80053; 93005; 96361; 96365; 96366; 99285; 74176; 81003; 81015; 84484; 85025; 85610; 85730; 93010; J1265

== ENCOUNTER 2020-03-11 18:48 | Outpatient (REF) | payer MEDICARE, MEDICAID, SELFPAY ==
[2020-03-11 15:41] LABS: Bilirubin Negative (Negative); Blood Large (Negative); Clarity Cloudy (Clear); Glucose 500 mg/dL (Negative); Ketones Trace mg/dL (Negative); Leukocyte Esterase Moderate (Negative); Nitrite Negative (Negative); Urobilinogen 0.2 EU/dL (Up TO 0.2)
[2020-03-11 15:54] LABS: WBC >50 HPF (0-5)
[2020-03-11 15:55] LABS: C & S Indicated? C&S Done As Ordered; RBC >50 HPF (0-2)
== END 2020-03-11 19:08 ==
LOC: NCHCN 18:48
PROVIDERS: PCP Family Medicine; Visit Provider Internal Medicine
DX: R30.0 Dysuria (principal)
CPT/HCPCS: 81003; 81015; 87086

== ENCOUNTER → 2020-03-21 14:00 | Outpatient (BNVA) | payer MEDICARE, MEDICAID, SELFPAY | PROVIDERS: PCP Family Medicine; Referring Provider Family Medicine; Visit Provider Urology | DX: R31.0 Gross hematuria (principal); I21.9 Acute myocardial infarction, unspecified | CPT/HCPCS: 99214 ==

== ENCOUNTER 2020-05-06 15:09 | Outpatient (REF) | payer MEDICARE, MEDICAID, SELFPAY ==
[2020-05-06 13:05] LABS: Anion Gap 10.1 mmol/L (3-11); BUN 15 mg/dL (7-18); CO2 25.9 mmol/L (21.0-32.0); CREATININE 1.4 mg/dL (0.70-1.30); Calcium 8.7 mg/dL (8.5-10.1); Chloride 97 mmol/L (98-107); Estimated GFR 51.18 (mL/min/1.73m2); Glucose 340 mg/dL (74-106); Potassium 3.9 mmol/L (3.5-5.1); Sodium 133 mmol/L (136-145)
[2020-05-06 13:12] LABS: HGB 16.1 g/dL (13.5-17.5); MCH 30.4 pg (27.0-33.0); MCHC 32.9 % (32.0-36.0); MCV 92.5 fL (80-95); MPV 10.9 fL (8.0-11.0); Platelet Count 200 10^3/uL (130-400); RDW 14.3 % (11.8-14.1); RDW-SD 48.8 fL; WBC 8.46 10^3/uL (4.4-10.8)
[2020-05-06 13:58] LABS: Hemoglobin A1C 13.4 % (<5.7)
== END 2020-05-06 15:10 | disposition home or self-care (01) ==
LOC: NCHCN 15:09
PROVIDERS: PCP Family Medicine; Visit Provider Family Medicine
DX: E11.9 Type 2 diabetes mellitus without complications (principal); R31.9 Hematuria, unspecified; N18.2 Chronic kidney disease, stage 2 (mild)
CPT/HCPCS: 80048; 85027; 83036